=== PATIENT | male | born 1955 | race Caucasian/White ===

== ENCOUNTER → 2016-05-05 | Outpatient (CLI) | payer OTHER ==
--- NOTE | 2016-05-05 19:36 | REP ---
PET/CT: History: Restaging plasmablastic lymphoma, 10 pound weight loss, fatigue. 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 The patient status-post radiation therapy and chemotherapy. Comparisons: Comparison PET/CT as well as chest, abdomen, and pelvis CT from 01/14/2016. TECHNIQUE: 61 minutes following the intravenous injection of a 7.9 mCi dose of F-18 FDG, three-dimensional PET scintigraphy is acquired from the skull base to the proximal thighs. Triplanar noncontrast CT scanning is acquired through the same anatomic range for attenuation correction, and image registration with scan parameters optimized to minimize radiation exposure to the patient. PET scintigraphy and CT datasets were fused and displayed on a workstation with multiplanar and projection display capability. PET/CT Findings: There is a fairly prominent pattern of normal variant skeletal muscle activity on PET scintigraphy today in the shoulder girdle muscles bilaterally, left more so than right. There is also some normal variant skeletal muscle uptake about the hips bilaterally. Head and neck soft tissues are unremarkable. There is no abnormal hypermetabolic uptake in the thorax. In the abdomen and pelvis, there is normal hepatic, splenic, gastrointestinal, and genitourinary FDG accumulation. No abnormal hypermetabolic uptake is seen. No evidence of pulmonary mass lesion or pulmonary parenchymal hypermetabolic uptake. Impression: Negative PET scintigraphy. Signed by Jamal Viera MD 05/05/2016 07:50 P
== END ==
LOC: M RAD 14:58
PROVIDERS: ATTEND Internal Medicine Medical Oncology
DX: C85.10 Unspecified B-cell lymphoma, unspecified site (principal)

== ENCOUNTER → 2016-11-01 | Outpatient (CLI) | payer OTHER ==
[~2016-11-01] MED LIST: GASTROGRAFIN SOLUTION 30ML (Q9963) As Ordered ONE; ISOVUE-370 76% 100ML VIAL (Q9967) As Ordered ONE
--- NOTE | 2016-11-02 03:28 | REP ---
Clinical: Lymphoma for follow-up. Technique: Axial contrast enhanced images from the thoracic inlet to the pubic symphysis using oral and 100 ml Isovue 370 intravenous contrast material coronal and sagittal re-formations. Comparison: 01/14/2016. Findings: Lung pollard demonstrate mild chronic appearing interstitial changes along with few small calcified granulomata suggesting prior granulomatous disease. No significant soft tissue nodule or mass lesion appreciated. Previously identified subpleural density along the left upper lobe has resolved. No pleural effusion. No pneumothorax. Tracheobronchial tree is patent. No mediastinal or hilar adenopathy. Stable left axillary lymph node measuring 11 mm is unchanged. Heterogeneous appearance to the thyroid gland remains stable. Surrounding musculoskeletal structures demonstrate stable degenerative appearing changes without focal osseous abnormality. Impression: Chronic-appearing stable interstitial changes without acute mediastinal or pleuroparenchymal process. Specifically, no adenopathy nodule or mass lesion. No pleural effusion. Signed by Aniceto Cantu MD 11/02/2016 03:20 A
--- NOTE | 2016-11-02 03:35 | REP ---
Clinical: Lymphoma for follow-up. Technique: Axial contrast enhanced images from the thoracic inlet to the pubic symphysis using oral and 100 ml Isovue 370 intravenous contrast material coronal and sagittal re-formations. Precontrast and delayed images of the abdomen obtained as well. Comparison: 01/14/2016. Findings: Lung bases are clear. Visualized heart and pericardium normal. Liver, spleen, pancreas, gallbladder, bilateral adrenal glands and kidneys are normal. The enteric system is without obstruction or acute inflammatory process. Normal terminal ileum and appendix identified in the right lower quadrant. Scattered sigmoid diverticula noted without acute diverticulitis. Pelvis demonstrates normal bladder and age appropriate prostate/seminal vesicles. No ascites. No free air. No intraperitoneal or retroperitoneal adenopathy. No obvious mass lesion. Musculoskeletal structures demonstrate age-related degenerative changes without focal osseous abnormality. Impression: No acute abdominopelvic pathology appreciated. No ascites or adenopathy. No mass lesion. Few scattered sigmoid diverticula without acute diverticulitis. Signed by Aniceto Cantu MD 11/02/2016 03:26 A
== END ==
LOC: M RAD 12:50
PROVIDERS: ATTEND Internal Medicine Medical Oncology
DX: C85.90 Non-Hodgkin lymphoma, unspecified, unspecified site (principal)

== ENCOUNTER → 2017-05-16 | Outpatient (CLI) | payer MEDICARE ==
[~2017-05-16] MED LIST changes: +GASTROGRAFIN SOLUTION 30ML (Q9963) As Ordered; -GASTROGRAFIN SOLUTION 30ML (Q9963) As Ordered ONE; +ISOVUE-370 76% 100ML VIAL (Q9967) As Ordered; -ISOVUE-370 76% 100ML VIAL (Q9967) As Ordered ONE
== END ==
LOC: M RAD 11:39
DX: C85.90 Non-Hodgkin lymphoma, unspecified, unspecified site (principal)
CPT/HCPCS: Q9963

== ENCOUNTER → 2018-04-14 | Outpatient (REF) | payer MEDICARE | LOC: M SFHCPLAZ 11:40 | PROVIDERS: ATTEND Dermatology | DX: L57.0 Actinic keratosis (principal); D23.5 Other benign neoplasm of skin of trunk; L87.2 Elastosis perforans serpiginosa ==

== ENCOUNTER → 2018-05-22 | Outpatient (CLI) | payer MEDICARE ==
[~2018-05-22] MED LIST changes: +AMLO5TAB6 PO; +GABA-843 PO; -GASTROGRAFIN SOLUTION 30ML (Q9963) As Ordered; +GASTROGRAFIN SOLUTION 30ML (Q9963) As Ordered ONE; +GLIP5TAB8 PO; -ISOVUE-370 76% 100ML VIAL (Q9967) As Ordered; +ISOVUE-370 76% 100ML VIAL (Q9967) As Ordered ONE; +LISI-538 PO; +METF10004 PO; +NOVO1INJ4; +SIMV10TA2 PO
--- NOTE | 2018-05-22 11:48 | REP ---
CT of the chest with IV contrast for follow up in a patient with plasma blastic lymphoma: Comparison is 05/16/2017. There are no acute infiltrates or pleural effusions. On the comparison study there was a focal zone of atelectasis/scarring in the anterobasilar left lower lobe. This has significantly decreased and has almost entirely resolved. There are no lung masses or nodules. There is no mediastinal or hilar lymph node enlargement. There is no axillary lymph node enlargement. There are small hypodense nodules in the thyroid left lobe, unchanged, likely cysts. Consider thyroid ultrasound. Thoracic aorta is unremarkable. Cardiac size normal. There is no pericardial effusion. No lytic, blastic or destructive skeletal changes are identified. There is a right IJ central venous catheter with the tip in the right atrium, unchanged. Impression: No adenopathy, mass, nodule or pleural effusion. The focal area of scarring in the left lower lobe identified previously has significantly decreased and almost entirely resolved. Electronically Signed by Ankur Noel MD 05/22/2018 11:39 A
--- NOTE | 2018-05-22 11:54 | REP ---
CT of the abdomen and pelvis with IV and oral contrast for plasma blastic lymphoma: Comparison is 05/16/2017. The hepatic parenchyma is homogeneous. The gallbladder, pancreas and spleen are unremarkable. The adrenals are unremarkable. The kidneys are unremarkable. The abdominal aorta is unremarkable. There is no retroperitoneal or mesenteric lymph node enlargement. There is no ascites. There is no bowel distension or obstruction. No bowel focal or diffuse wall thickening. Pelvis: The appendix is unremarkable. The bladder is unremarkable. There is no pelvic adenopathy or ascites. There are no lytic, blastic or destructive skeletal changes. There is multilevel degenerative disc disease in the lumbar spine, unchanged. There is mild bilateral hip osteoarthritis, unchanged. Impression: No interval change. No adenopathy, mass or ascites. Liver and spleen are unremarkable. No lytic, blastic or destructive skeletal changes. Multilevel degenerative disc disease in the lumbar spine. Electronically Signed by Ankur Noel MD 05/22/2018 11:45 A
== END ==
LOC: M RAD 09:10
PROVIDERS: ATTEND Internal Medicine Medical Oncology
DX: L98.9 Disorder of the skin and subcutaneous tissue, unspecified (principal); Z85.79 Personal history of other malignant neoplasms of lymphoid, hematopoietic and related tissues; E04.2 Nontoxic multinodular goiter
CPT/HCPCS: 71260; 74177; Q9963; Q9967

== ENCOUNTER → 2019-06-06 | Outpatient (CLI) | payer MEDICARE ==
[~2019-06-06] MED LIST changes: +ALLO100T PO; +CVS2500C PO; +HYDR12CA PO; -SIMV10TA2 PO; +SIMV10TA21 PO
--- NOTE | 2019-06-06 17:47 | REP ---
CT of the chest with IV contrast: Comparisons are 05/22/2018 and 05/16/2017. There are no lung masses or nodules. There are no infiltrates or pleural effusions. The focal atelectasis identified in the left lower lobe on 05/16/2017 has resolved. There is no mediastinal, hilar or axillary lymph node enlargement. The thoracic aorta is unremarkable. Cardiac size is normal. There is no pericardial effusion. There are small low density lesions in the thyroid, as previously, likely thyroid nodules. They are unchanged in size. Thyroid ultrasound might be considered for further evaluation. There are no lytic, blastic or destructive skeletal changes. Impression: Essentially negative CT study of the chest. There is no adenopathy. There are no infiltrates or pleural effusions. There are small hypodense nodules in the thyroid, unchanged, likely thyroid cyst. Thyroid ultrasound might be considered. Electronically Signed by Ankur Noel MD 06/06/2019 05:38 P
--- NOTE | 2019-06-06 17:51 | REP ---
T of the abdomen and pelvis with IV and bowel contrast: Comparison is 05/22/2018. The studies performed contiguously with the chest CT this same date. The liver is homogeneous. The gallbladder, pancreas and spleen are normal size and unremarkable. The spleen measures 10.4 cm craniocaudad and 12.8 cm AP. The adrenals are unremarkable. The right and left kidneys are unremarkable. The abdominal aorta is unremarkable. There is no periaortic adenopathy or mass. The bowel loops are unremarkable. The mesentery is unremarkable. There is no mesenteric adenopathy or ascites. Pelvis: The appendix is unremarkable. There is no pelvic adenopathy or ascites. The pelvic bowel loops are unremarkable. There are no lytic, blastic or destructive skeletal changes. There is degenerative disc disease throughout the lumbar spine. Impression: No adenopathy, mass or ascites. No lytic, blastic or destructive skeletal changes. Degenerative disc disease throughout the lumbar spine. Otherwise, negative CT of the abdomen and pelvis. Electronically Signed by Ankur Noel MD 06/06/2019 05:42 P
== END ==
LOC: M RAD 12:28
PROVIDERS: ATTEND Internal Medicine Hematology & Oncology
DX: C85.90 Non-Hodgkin lymphoma, unspecified, unspecified site (principal); E04.1 Nontoxic single thyroid nodule
CPT/HCPCS: 71260; 74178; Q9963; Q9967

== ENCOUNTER 2020-06-30 16:26 | Observation (INO) | payer MEDICARE, OTHER ==
[~2020-06-30] VITALS: Ht 172.7 cm; Wt 106.7 kg
[~2020-06-30 16:26] MED LIST changes: -B-12100021 PO; -ELIQ5TAB PO; -GABA600T4 PO; -GASTROGRAFIN SOLUTION 30ML (Q9963) As Ordered ONE; -ISOVUE-370 76% 100ML VIAL As Ordered ONE
[2020-06-30 18:02] LABS: HEMATOCRIT 42.4 % (42.0-52.0); HEMOGLOBIN 13.6 g/dl (13.5-17.5); MEAN CORPUSCULAR HEMOGLOBIN 28.8 pg (27.0-33.0); MEAN CORPUSCULAR HGB CONC 32.1 g/dl (32.0-36.5); MEAN CORPUSCULAR VOLUME 89.6 fl (80.0-96.0); PLATELET COUNT, AUTOMATED 142 10^3/uL (150-450); RED BLOOD COUNT 4.73 10^6/uL (4.30-6.10); WHITE BLOOD COUNT 7.2 10^3/uL (4.0-10.0)
[2020-06-30 18:18] LABS: INR 0.95; PROTHROMBIN TIME 12.8 SECONDS (12.5-14.3)
[2020-06-30 18:19] LABS: PARTIAL THROMBOPLASTIN TIME 26.2 SECONDS (24.2-38.5)
[2020-06-30 18:22] LABS: ALT/SGPT 29 U/L (12-78); BILIRUBIN,DIRECT 0.1 MG/DL (0.0-0.2); BILIRUBIN,TOTAL 0.3 MG/DL (0.2-1.0); BLOOD UREA NITROGEN 26 MG/DL (7-18); C REACTIVE PROTEIN QUANTITATIV 0.39 MG/DL (0.00-0.30); CALCIUM LEVEL 8.7 MG/DL (8.8-10.2); CARBON DIOXIDE LEVEL 30 MEQ/L (21-32); CHLORIDE LEVEL 98 MEQ/L (98-107); CREATININE FOR GFR 1.47 MG/DL (0.70-1.30); GLOMERULAR FILTRATION RATE 51.5 (>49); GLUCOSE, FASTING 105 MG/DL (70-100); POTASSIUM SERUM 3.8 MEQ/L (3.5-5.1); SODIUM LEVEL 133 MEQ/L (136-145); TOTAL PROTEIN 7.1 GM/DL (6.4-8.2)
[2020-06-30 18:31] LABS: ATYPICAL LYMPH 3 % (0-5); BASOPHILS 2 % (0-1); EOSINOPHILS 4 % (0-3); LYMPHOCYTES 29 % (16-44); MONOCYTES 8 % (0-5); NEUTROPHILS 54 % (28-66); PLATELET ESTIMATE NORMAL (NORMAL)
--- NOTE | 2020-06-30 18:32 | REP ---
INDICATION: SOB COMPARISON: 01/21/2015. TECHNIQUE: PA/Lateral FINDINGS: Lungs: Clear, no infiltrate. Heart: Normal in size. Mediastinum: Mediastinal silhouette unremarkable. Pleural angles: Unremarkable.. Bones and soft tissues: There are degenerative changes of the spine without compression deformity. Right central venous catheter is seen with the tip in the superior vena cava. IMPRESSION: No acute pulmonary infiltrate. <Electronically signed by Ankur Kaur > 06/30/20 0210
[2020-06-30 18:37] LABS: ERYTHROCYTE SEDIMENTATION RATE 27 mm/hr (0-20)
[2020-06-30 18:40] LABS: CPK CREATINE PHOSPHOKINASE 233 U/L (39-308); MB/CK RELATIVE INDEX 4.72 (< OR =4); TROPONIN I < 0.02 NG/ML (< 0.10)
[2020-06-30] MEDS ORDERED: GABA600T4 PO (18:57)
[2020-06-30] MEDS ORDERED: B-12100021 PO (18:57)
[2020-06-30 19:37] LABS: RSV AMPLIFICATION NEGATIVE (NEGATIVE)
--- NOTE | 2020-06-30 19:40 | HPEPDOC ---
General Date of Admission Date of Service: Jun 30, 2020 Attending Physician: JARRETT UGALDE MD Chief Complaint The patient is a 65-year-old male admitted with a reason for visit of + Blood Clot. History of Present Illness HPI: This is a 65 y/o elderly gentleman with a PMHx significant for non insulin dependent DM, Hx of stage 3 Plasma blastic lymphoma s/p 6 cycles of tiuxan- hyperCVAD regimen, intermittent leukopenia since 2016, presents to [facility] ER after he was sent here from the radiology suite after undergoing a CT chest w/ ctx that was ordered by his oncologist. CT chest showed a Pulmonary Embous in the main left pulmonary artery extending into left lower lobe arterial branches. Pt states that he was ddx-ed with Plasma blastic lymphoma in Apr 2014 in [facility] where he resided and thereafter started on chemo and radiation there. He states that he finished chemo/radiation in Jan and was told that he was on remission. He follows with an oncologist in [place] every 6-8months, whom had scheduled him for the CT chest and abd/pelvis with ctx (performed earlier today) in order to monitor his remission status. Patient notes that he has been feeling short of breath for the past 3-4 months but he attributed it to his methotrexate induced lung injury/pneumonitis. Pt states that this shortness of breath is worsened with exertion and he notices that he is extremely out of breath when he goes up a flight of stairs. He states that his shortness of jayshree th is not acute onset and that it's been progressive throughout these past few months. He denies any current shortness of breath, orthopnea or paroxsymal nocturnal dyspnea and has not noticed any lower extremity edema. Denies any pleuritic chest pain, abdominal pain, flutters nor palpitations. Also denies any fever, chills, n/v/d or unintentional wt changes. 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 VITAL SIGNS: Reviewed in EMR - stable. IMAGING: CXR 06/30/20 No acute pulmonary infiltrate CT chest w/ ctx 06/30/20:Pulmonary embolism in the main left pulmonary artery extending into left lower lobe arterial branches CT abd & Pelvis w ctx 06/30/20: No acute abnormalities. No adenopathy or mass identified. No adenopathy PHYSICAL EXAM: GEN: Obese elderly gentleman laying in bed, NAD HEENT: Oral mucosa is pink and moist, no conjunctival pallor, sclera anicteric bilaterally LYMPHATICS: No cervical, supraclavicular, axillary, or inguinal lymphadenopathy appreciated LUNGS: Clear to auscultation bilaterally, no wheezing, rhonci or rales HEART: Regular rhythm, no murmurs, no S3/S4, no rubs. ABDOMEN: Soft, non-tender, bowel sounds normoactive, no hepatosplenomegaly EXTREMITIES: Trace peripheral edema bilaterally. No lower extremity edema tenderness on palpation SKIN/NAILS: No nail changes, No petechiae/ecchymosis, bruising, or cyanosis or clubbing appreciated ASSESSMENT AND PLAN: This is a 65 y/o elderly gentleman with a PMHx significant for non insulin dependent DM, Hx of stage 3 Plasma blastic lymphoma s/p 6 cycles of tiuxan- hyperCVAD regimen, intermittent leukopenia since 2017, presents to [facility] ER after he was sent here from the radiology suite after undergoing a CT chest w/ ctx that was ordered by his oncologist. CT chest showed a Pulmonary embous in the main left pulmonary artery extending into left lower lobe arterial branches. Up on arrival to the ER, pt was hemodynamically stable. In the ER, pt was satting well (98% RA); however, his bp is uncontrolled and had SBP in the 200s. He will be admitted under hospitalist service for PE and will start him on therapeutic lovenox. #Subacute Pulmonary Embolus - Given his shortness of breath for the past 3-4 months and this incidental finding of the PE, it's presumed that this is a subacute PE - Tachycardic, hypertensive satting 98% RA- no indication for thrombolysis at this time - CT chest shows Pulmonary embous in the main left pulmonary artery extending into left lower lobe arterial branches - CT chest reviewed per radiology verbally via phone- no evidence of Right heart strain - PESI SCORE- HIGH RISK APPROX 4-11.4% 30 day mortality - Clinically, pt is NAD, no sob currently and will admit to the floor for obs and start on eliquis - CECIL score of 0- low risk for PE related complications at 30 days - Will start on eliquis 10mg PO BID # Uncontrolled HTN - bp 175/92 - will increase amlodipine to 10mg PO qd - C/w with home lisinopril, HCTZ - Will continue to monitor closely - with co-morbidities, his target BP should be 130/80 - f/u with pcp outpt for optimal bp medication regimen #Thrombocytopenia - No signs of active bleeding or petechia appreciated on exam - f.u with PCP outpt #DM2 - held home metformin and glipizide and humulin - will order levemir 10units qhs and SSI AC&QHS with hypoglycemic protocol - will continue to monitor sugars and titrate insulin as needed #HypoNa+ - serum Na 133 on admission - likely hypovolemic hypoNa+ - Will order for serum osml, urine sodium, urine osml - Will order a lipid panel #CKD stage 3 - Cr at baseline - Will avoid nephrotoxic drugs #HLD - c/w home statin # Hx of stage 3 plasma blastic lymphoma - Follow outpt with oncology next week as scheduled DVT ppx: eliquis GI ppx: none Fluids: none Diet: 2g Na and consistent carb CODE STATUS: Full Disposition: Will admit to the floor obs and start eliquis. Home Medications Scheduled Allopurinol (Allopurinol) 100 Mg Tablet, 100 MG PO DAILY, (Reported) Amlodipine Besylate (Amlodipine Besylate) 5 Mg Tab, 5 MG PO DAILY, (Reported) Cyanocobalamin (Vitamin B-12) (B-12) 1,000 Mcg Tablet, 1,000 MCG PO DAILY, (Reported) Gabapentin (Gabapentin) 600 Mg Tablet, 600 MG PO BID, (Reported) Glipizide (Glipizide) 5 Mg Tab, 5 MG PO BID, (Reported) Hydrochlorothiazide (Hydrochlorothiazide) 12.5 Mg Capsule, 12.5 MG PO DAILY, (Reported) Insulin NPH Hum/Reg Insulin Hm (Novolin 70-30 100 Unit/ml Vial) 1 Inj Inj, 50 UNIT SC BID, (Reported) Lisinopril (Lisinopril) 20 Mg Tab, 20 MG PO DAILY, (Reported) Metformin HCl (Metformin HCl) 1,000 Mg Tab, 1,000 MG PO BID, (Reported) Simvastatin (Simvastatin) 10 Mg Tab, 10 MG PO DAILY, (Reported) Allergies Coded Allergies: No Known Allergies (Unverified , 05/29/18) A-FIB/CHADSVASC A-FIB History Current/History of A-Fib/PAF?: No Current PO Anticoag Therapy: No Vital Signs Vital Signs Date Time Temp Pulse Resp B/P (MAP) Pulse Ox O2 Delivery O2 Flow Rate FiO2 06/30/20 17:29 06/30/20 17:28 85 18 96 Room Air 06/30/20 16:28 98.0 Laboratory Data Labs 24H Laboratory Tests 2 06/30/20 17:40: Immature Granulocyte % (Auto) , Neutrophils (%) (Auto) , Nucleated Red Blood Cells % (auto) 0.0, Neutrophils 54, Lymphocytes (Manual) 29, Monocytes (Manual) 8H, Eosinophils (Manual) 4H, Basophils (Manual) 2H, Atypical Lymphocytes 3, Platelet Estimate NORMAL, Erythrocyte Sedimentation Rate 27H, Prothrombin Time 12.8, Prothromb Time International Ratio 0.95, Activated Partial Thromboplast Time 26.2, Anion Gap 5L, Glomerular Filtration Rate 51.5, Lactic Acid Level 1.4, Calcium Level 8.7L, Total Bilirubin 0.3, Direct Bilirubin 0.1, Aspartate Amino Transf (AST/SGOT) 21, Alanine Aminotransferase (ALT/SGPT) 29, Alkaline Phosphatase 74, Total Creatine Kinase 233, Creatine Kinase MB 11.0H, Creatine Kinase MB Relative Index 4.72H, Troponin I < 0.02, C-Reactive Protein, Quantitative 0.39H, Total Protein 7.1, Albumin 4.0, Albumin/Globulin Ratio 1.3 06/30/20 18:23: Coronavirus (COVID-19)(PCR) NEGATIVE, Influenza Type A (RT-PCR) NEGATIVE, Influenza Type B (RT-PCR) NEGATIVE, Respiratory Syncytial Virus (PCR) NEGATIVE CBC/BMP Laboratory Tests 06/30/20 17:40 Plan / VTE VTE Prophylaxis Ordered?: Yes GME ATTESTATION GME ATTESTATION My faculty preceptor for this patient encounter was physically present during the encounter and was fully available. All aspects of the patient interview, examination, medical decision making process, and medical care plan development were reviewed and approved by the faculty preceptor. The faculty preceptor is aware and concurs with the plan as stated in the body of this note and will attest to such by his/her cosignature. GME ATTESTATION GME ATTESTATION My faculty preceptor for this patient encounter was physically present during the encounter and was fully available. All aspects of the patient interview, examination, medical decision making process, and medical care plan development were reviewed and approved by the faculty preceptor. The faculty preceptor is aware and concurs with the plan as stated in the body of this note and will attest to such by his/her cosignature. ATTENDING NOTE Time of service 905pm is a 65 yr old M w a hx of lymphoma in remission, HTN, DM w neuropathy, possible MTX induced pneumonitis, CKD3, & HFpEF who was sent from the Dept of Radiology for evaluation of newly diagnosed PE which appears to be subacute in nature; we was started on a DOAC. Rest per 's H&P Clark Rodríguez DO Jun 30, 2020 19:40 JARRETT UGALDE MD Jul 01, 2020 03:35
[2020-06-30] MEDS ORDERED: HEPARIN SOD (PORCINE) 5000UNITS/ML 1ML VIAL/SYRINGE IV ONE (19:45)
[2020-06-30 19:54] LABS: VENOUS BASE EXCESS 1.4 (-2.0-2.0); VENOUS HCO3 27.4 MEQ/L (23.0-27.0); VENOUS O2 SATURATION 75.3 % (60.0-80.0); VENOUS PARTIAL PRESSURE CO2 48.7 mmHg (38.0-50.0); VENOUS PARTIAL PRESSURE O2 41.4 mmHg (30.0-50.0); VENOUS PH 7.368 UNITS (7.330-7.430); VENOUS STANDARD HCO3 25.2 MEQ/L; VENOUS TOTAL CO2 28.9 MEQ/L (24.0-28.0)
[2020-06-30] MEDS ORDERED: HEPARIN DRIP 25,000 UNITS in IV 1 EA IV SCH (20:35)
[2020-06-30] MEDS ORDERED: LEVEMIR (INSULIN DETEMIR) 1 UNITS/0.01ML SC SCH (21:00)
[2020-06-30] MEDS ORDERED: HumaLOG INSULIN (NovoLOG) PER UNIT SC SCH (21:00)
[2020-06-30] MEDS ORDERED: GLUCAGON INJ 1MG VIAL SC PRN (21:10)
[2020-06-30] MEDS ORDERED: GLUCOSE 4GM CHEW TABLET PO PRN (21:10)
[2020-06-30] MEDS ORDERED: DEXTROSE 50% 50 ML SYRINGE IV PRN (21:10)
[2020-06-30 22:20] VITALS: BP 168/96
[2020-06-30 22:22] LABS: CREATININE FOR GFR 1.43 MG/DL (0.70-1.30); GLOMERULAR FILTRATION RATE 53.2 (>49)
[2020-06-30 22:26] LABS: CHOLESTEROL RISK RATIO 4.793 (<5)
[2020-06-30] MEDS ORDERED: ENOXAPARIN 120MG/0.8ML SYRINGE (J1650 PER 10MG) SC SCH (23:00)
--- NOTE | 2020-07-01 05:20 | ECGEPIP ---
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
[2020-07-01 06:00] VITALS: BP 131/62
[2020-07-01 06:01] LABS: HEMATOCRIT 45.1 % (42.0-52.0); HEMOGLOBIN 14.2 g/dl (13.5-17.5); MEAN CORPUSCULAR HEMOGLOBIN 28.7 pg (27.0-33.0); MEAN CORPUSCULAR HGB CONC 31.5 g/dl (32.0-36.5); MEAN CORPUSCULAR VOLUME 91.1 fl (80.0-96.0); PLATELET COUNT, AUTOMATED 145 10^3/uL (150-450); RED BLOOD COUNT 4.95 10^6/uL (4.30-6.10); WHITE BLOOD COUNT 5.4 10^3/uL (4.0-10.0)
[2020-07-01 06:37] LABS: CALCIUM LEVEL 8.4 MG/DL (8.8-10.2); CREATININE FOR GFR 1.55 MG/DL (0.70-1.30); GLOMERULAR FILTRATION RATE 48.5 (>49); POTASSIUM SERUM 4.5 MEQ/L (3.5-5.1)
[2020-07-01] MEDS ORDERED: HumaLOG INSULIN (NovoLOG) PER UNIT SC SCH (07:30)
[2020-07-01 08:05] VITALS: BP 131/62
[2020-07-01] MEDS ORDERED: hydroCHLOROthiazide 12.5 MG CAPSULE PO SCH ×2 (09:00)
[2020-07-01] MEDS ORDERED: amLODIPine 5 MG TAB PO SCH ×2 (09:00)
[2020-07-01] MEDS ORDERED: GABAPENTIN 300 MG CAP PO SCH (09:00)
[2020-07-01] MEDS ORDERED: APIXABAN 5 MG TAB (ELIQUIS) PO SCH (09:00)
[2020-07-01] MEDS ORDERED: SIMVASTATIN 10 MG TAB PO SCH (09:00)
[2020-07-01] MEDS ORDERED: allopurinoL 100 MG TAB PO SCH (09:00)
[2020-07-01] MEDS ORDERED: ELIQ5TAB PO ×2 (09:16→09:18)
--- NOTE | 2020-07-01 20:59 | DS.PDOC ---
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 CT chest showed a Pulmonary Embous in the main left pulmonary artery extending into left lower lobe arterial branches. Pt states that he was ddx-ed with Plasma blastic lymphoma in Apr 2014 in [facility] where he resided and thereafter started on chemo and radiation there. He states that he finished chemo/radiation in Jan and was told that he was on remission. He follows with an oncologist in [place] every 6-8months, whom had scheduled him for the CT chest and abd/pelvis with ctx (performed earlier today) in order to monitor his remission status. Patient notes that he has been feeling short of breath for the past 3-4 months but he attributed it to his methotrexate induced lung injury/pneumonitis. Pt states that this shortness of breath is worsened with exertion and he notices that he is extremely out of breath when he goes up a flight of stairs. He states that his shortness of breath is not acute onset and that it's been progressive throughout these past few months. He denies any current shortness of breath, orthopnea or paroxsymal nocturnal dyspnea and has not noticed any lower extremity edema. Denies any pleuritic chest pain, abdominal pain, flutters nor palpitations. Also denies any fever, chills, n/v/d or unintentional wt changes. HOSPITAL COURSE: Patient remained on RA, had no chest pain and was started on eliquis BID. On 07/01/20 patient was discharged home to f/u with PCP, oncologist with new medication eliquis 10 mg Po BID x 10 days. He is to switched to eliquis 5 mg PO BID after 10 days. He had no acute complaints during his hospital stay and none on discharge. 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 VITAL SIGNS: Reviewed in EMR - stable. IMAGING: CXR 06/30/20 No acute pulmonary infiltrate CT chest w/ ctx 06/30/20:Pulmonary embolism in the main left pulmonary artery extending into left lower lobe arterial branches CT abd & Pelvis w ctx 06/30/20: No acute abnormalities. No adenopathy or mass identified. No adenopathy PHYSICAL EXAM: GEN: NAD, resting in bed HEENT: Oral mucosa is pink and moist, no conjunctival pallor, sclera anicteric bilaterally LYMPHATICS: No cervical, supraclavicular, axillary, or inguinal lymphadenopathy appreciated LUNGS: Clear to auscultation bilaterally, no wheezing, rhonci or rales HEART: Regular rhythm, no murmurs, no S3/S4, no rubs. ABDOMEN: Soft, non-tender, bowel sounds normoactive, no hepatosplenomegaly EXTREMITIES: Trace peripheral edema bilaterally. 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 CT chest showed a Pulmonary embous in the main left pulmonary artery extending into left lower lobe arterial branches. Upon arrival to the ER, pt was hemodynamically stable. In the ER, pt was satting well (98% RA); however, his bp is uncontrolled and had SBP in the 200s. He will be admitted under hospitalist service for PE. PLAN: #Subacute Pulmonary Embolus -Denies chest pain, SOB, HR controlled - CT chest shows Pulmonary embous in the main left pulmonary artery extending into left lower lobe arterial branches - CT chest reviewed per radiology verbally via phone- no evidence of Right heart strain - PESI SCORE- HIGH RISK APPROX 4-11.4% 30 day mortality - Clinically, pt is NAD, no sob currently and will admit to the floor for obs and start on eliquis - CECIL score of 0- low risk for PE related complications at 30 days - C/w eliquis 10mg PO BID then to transition to 5 mg Po BID after. F/u with oncology to determine duration of treatment. # HTN - controlled. -C/w home meds #Thrombocytopenia - No signs of active bleeding or petechia appreciated on exam - f.u with PCP outpt #DM2 -C/w home meds #HypoNa+- resolved. -NA currently wnl -F/u with PCP #CKD stage 3 - Cr at baseline #HLD - c/w home statin # Hx of stage 3 plasma blastic lymphoma - Follow outpt with oncology next week as scheduled DVT ppx: eliquis Disposition: Discharge home with f/u with PCP, oncology, new medication eliquis. TIME SPENT ON DISCHARGE: Greater than 35 minutes. Vital Signs/I&Os Vital Signs Date Time Temp Pulse Resp B/P (MAP) Pulse Ox O2 Delivery O2 Flow Rate FiO2 07/01/20 08:05 131/62 07/01/20 06:00 98.6 58 20 97 Room Air I&O- Last 24 Hours up to 6 AM 07/01/20 05:59 Intake Total 370 ml Balance 370 ml Laboratory Data Labs 24H Laboratory Tests 2 06/30/20 21:49: Glomerular Filtration Rate 53.2, Osmolality 286, Triglycerides Level 206H, Total Cholesterol 139, LDL Cholesterol 69, Non-HDL Cholesterol (LDL + VLDL) 110, Total HDL Cholesterol 29L, Cholesterol/HDL Ratio 4.793 06/30/20 22:21: Bedside Glucose (Misc Panel) 102 07/01/20 05:16: Glomerular Filtration Rate 48.5L, Nucleated Red Blood Cells % (auto) 0.0, Anion Gap 5L, Calcium Level 8.4L CBC/BMP Laboratory Tests 06/30/20 21:49 07/01/20 05:16 FSBS Laboratory Tests Test 06/30/20 22:21 Range/Units Bedside Glucose (Misc Panel) 102 80-115 MG/DL Discharge Medications Scheduled Allopurinol (Allopurinol) 100 Mg Tablet, 100 MG PO DAILY, (Reported) Amlodipine Besylate (Amlodipine Besylate) 5 Mg Tab, 5 MG PO DAILY, (Reported) Apixaban (Eliquis) 5 Mg Tablet, 10 MG PO BID Apixaban (Eliquis) 5 Mg Tablet, 5 MG PO BID Start July 10, 2020 after 9 days of eliquis 10 mg PO BID is completed. Cyanocobalamin (Vitamin B-12) (B-12) 1,000 Mcg Tablet, 1,000 MCG PO DAILY, (Reported) Gabapentin (Gabapentin) 600 Mg Tablet, 600 MG PO BID, (Reported) Glipizide (Glipizide) 5 Mg Tab, 5 MG PO BID, (Reported) Hydrochlorothiazide (Hydrochlorothiazide) 12.5 Mg Capsule, 12.5 MG PO DAILY, (Reported) Insulin NPH Hum/Reg Insulin Hm (Novolin 70-30 100 Unit/ml Vial) 1 Inj Inj, 50 UNIT SC BID, (Reported) Lisinopril (Lisinopril) 20 Mg Tab, 20 MG PO DAILY, (Reported) Metformin HCl (Metformin HCl) 1,000 Mg Tab, 1,000 MG PO BID, (Reported) Simvastatin (Simvastatin) 10 Mg Tab, 10 MG PO DAILY, (Reported) Allergies Coded Allergies: No Known Allergies (Unverified , 05/29/18) Lisa Roa MD Jul 01, 2020 20:59
== END 2020-07-01 11:32 | disposition home or self-care (01) ==
LOC: M ED 16:26 → M ED INP 20:07 → ENRESERV 21:17 → M MS5PR 22:15
PROVIDERS: ADMIT Internal Medicine; ATTEND Internal Medicine
DX: I26.99 Other pulmonary embolism without acute cor pulmonale (principal); I12.9 Hypertensive chronic kidney disease with stage 1 through stage 4 chronic kidney disease, or unspecified chronic kidney disease; D69.6 Thrombocytopenia, unspecified; E11.40 Type 2 diabetes mellitus with diabetic neuropathy, unspecified; J70.2 Acute drug-induced interstitial lung disorders; N18.30 Chronic kidney disease, stage 3 unspecified; E78.5 Hyperlipidemia, unspecified; Z85.72 Personal history of non-Hodgkin lymphomas; Z92.21 Personal history of antineoplastic chemotherapy; Z92.3 Personal history of irradiation; R53.82 Chronic fatigue, unspecified; Z79.899 Other long term (current) drug therapy; Z79.84 Long term (current) use of oral hypoglycemic drugs
CPT/HCPCS: 36415; 71046; 71260; 74177; 80048; 80061; 80076; 82550; 82553; 82565; 82803; 83605; 83930; 84484; 85025; 85027; 85610; 85652; 85730; 86140; 87631; 93005; 93041; 99285; G0378; Q9963; Q9967

== ENCOUNTER → 2020-06-30 | Outpatient (CLI) | payer MEDICARE ==
[~2020-06-30] MED LIST changes: +AMLO1TAB24 PO; -AMLO5TAB6 PO; +B-12100021 PO; +DOXY-350 PO; +ELIQ5TAB PO; +GABA-282 PO; -GABA-843 PO; +GABA600T4 PO; -ISOVUE-370 76% 100ML VIAL (Q9967) As Ordered ONE; +ISOVUE-370 76% 100ML VIAL As Ordered ONE; -LISI-538 PO; +LISI20TA33 PO; -NOVO1INJ4; +NOVO1INJ4 SC
--- NOTE | 2020-06-30 16:26 | REP ---
INDICATION: F/U LYMPHOMA. COMPARISON: 06/06/2019. TECHNIQUE: CT chest performed following the intravenous administration of 100 cc of Isovue 370. Sagittal and coronal reconstruction images are performed. FINDINGS: Lungs: Scattered tiny calcified granulomas are present bilaterally. Inspissated material is seen in a mildly dilated bronchiole in the right posterior costophrenic sulcus. There is no acute infiltrate. Note is made of pulmonary embolism in the main left pulmonary artery and extending into branches supplying the left lower lobe. Mediastinum: No adenopathy. Sandra: No adenopathy. Axilla: No adenopathy. Pleura: No effusion. Heart: Not enlarged. Thoracic aorta: No aneurysm or dissection. Visualized osseous structures: There are degenerative changes of the spine without compression deformity. IMPRESSION: Pulmonary embolism in the main left pulmonary artery extending into left lower lobe arterial branches. Referring clinician was made aware and the patient was sent to the emergency department for evaluation. No adenopathy. <Electronically signed by Ankur Kaur > 06/30/20 [id number]
--- NOTE | 2020-06-30 16:32 | REP ---
INDICATION: F/U LYMPHOMA COMPARISON: None. TECHNIQUE: CT Scan of the abdomen and pelvis was performed with intravenous administration of 100 cc of Isovue 370, and oral contrast. FINDINGS: Liver: Normal Gallbladder: Unremarkable. Spleen: Normal. Adrenals: Normal. Pancreas: Normal. Kidneys: Normal. Small and large bowel: There are diverticula of the sigmoid colon.. Free fluid: None. Abdominal aorta: No aneurysm or dissection. Adenopathy: None. Appendix: Not inflamed. Osseous structures: There are degenerative changes of the spine without compression deformity. Pelvis: No mass. IMPRESSION: No acute abnormalities. No adenopathy or mass identified. <Electronically signed by Ankur Kaur > 06/30/20 [id number]
== END ==
LOC: M RAD 14:08
PROVIDERS: ATTEND Internal Medicine Hematology & Oncology
DX: I26.99 Other pulmonary embolism without acute cor pulmonale (principal); Z85.72 Personal history of non-Hodgkin lymphomas
CPT/HCPCS: 71260; 74177; Q9963; Q9967

== ENCOUNTER → 2020-09-22 | Outpatient (REF) | payer MEDICARE ==
[~2020-09-22] MED LIST changes: +B-12100021 PO; +ELIQ5TAB PO; +GABA600T4 PO
[2020-09-22 17:54] LABS: PERCENT SATURATION 21.7 % (19.7-50.0)
== END ==
LOC: M LAB REF 17:02
PROVIDERS: ATTEND Internal Medicine Nephrology
DX: D50.9 Iron deficiency anemia, unspecified (principal)

== ENCOUNTER → 2021-01-22 | Outpatient (REF) | payer MEDICARE | LOC: M LAB REF 17:13 | PROVIDERS: ATTEND Internal Medicine Nephrology | DX: D50.9 Iron deficiency anemia, unspecified (principal) ==

== ENCOUNTER 2021-02-04 19:24 | Inpatient (IN) | payer MEDICARE ==
[~2021-02-04] VITALS: Ht 172.7 cm; Wt 100.0 kg
--- OUTSIDE RECORDS SUMMARY | 2021-02-04 19:34 | CCD ---
Author Author [facility] Organization [facility] [place] Address Unknown Phone Unavailable Care Team Providers [facility] Customer Service Name Role Phone Dino Baron MD Unavailable Unavailable Dino Baron MD Unavailable Unavailable Dino Baron MD Unavailable Unavailable Dino Baron MD Unavailable Unavailable Dino Baron MD Unavailable Unavailable Dino Baron MD Unavailable Unavailable Dino Baron MD Unavailable Unavailable Dino Baron MD Unavailable Unavailable Dino Baron MD Unavailable Unavailable Dino Baron MD Unavailable Unavailable Dino Baron MD Unavailable Unavailable Dino Baron MD Unavailable Unavailable DR REBEL CASTELLANOS Unavailable Unavailable Nelia, A Simran PA Unavailable Nelia, A Simran PA Unavailable Nelia, A Simran PA Unavailable Nelia, A Simran PA Unavailable Nelia, A Simran PA Unavailable Nelia, A Simran PA Unavailable Nelia, A Simran PA Unavailable Nelia, A Simran PA Unavailable Nelia, A Simran PA Unavailable Sacha ALONSO MD Unavailable Unavailable Sacha ALONSO MD Unavailable Unavailable Sacha ALONSO MD Unavailable Unavailable Sacha ALONSO MD Unavailable Unavailable Sacha ALONSO MD Unavailable Unavailable Sacha ALONSO MD Unavailable Unavailable Sacha ALONSO MD Unavailable Unavailable JAGANATHAN, Sacha GUAJARDO MD Unavailable Unavailable JAGANATHAN, Sacha GUAJARDO MD Unavailable Unavailable JAGANATHAN, Sacha GUAJARDO MD Unavailable Unavailable JAGANATHAN, Sacha GUAJARDO MD Unavailable Unavailable JAGANATHAN, Sacha GUAJARDO MD Unavailable Unavailable JAGANATHAN, Sacha GUAJARDO MD Unavailable Unavailable JAGANATHAN, Sacha GUAJARDO MD Unavailable Unavailable JAGANGELO, Sacha GUAJARDO MD Unavailable Unavailable Tushar ARAGON, MD Bernal Unavailable Unavailable Tushar ARAGON, MD Bernal Unavailable Unavailable DR MD PJ CAGLE Unavailable Unavailable [id number], [id number] Unavailable [phone] MEDENT_[id number], [id number] Unavailable [phone] MEDENT_[id number], [id number] Unavailable [phone] MEDENT_[id number], [id number] Unavailable [phone] MEDENT_8646, [id number] Unavailable [phone] MEDENT_[id number], [id number] Unavailable [phone] MEDENT_8646, [id number] Unavailable [phone] MEDENT_8646, [id number] Unavailable [phone] MEDENT_8646, [id number] Unavailable [phone] MEDENT_8646, [id number] Unavailable [phone] MEDENT_8646, [id number] Unavailable [phone] MEDENT_8646, [id number] Unavailable [phone] MEDENT_8646, [id number] Unavailable [phone] MEDENT_8646, [id number] Unavailable [phone] MEDENT_8646, [id number] Unavailable [phone] MEDENT_8646, [id number] Unavailable [phone] MEDENT_8646, [id number] Unavailable GALIMIDI ANGLE DPM, J Angle DPM Unavailable [phone] GALIMIDI ANGLE DPM, J Angle DPM Unavailable [phone] GALIMIDI ANGLE DPM, J Angle DPM Unavailable [phone] GALIMIDI ANGLE DPM, J Angle DPM Unavailable [phone] GALIMIDI ANGLE DPM, J Angle DPM Unavailable [phone] GALIMIDI ANGLE DPM, J Angle DPM Unavailable [phone] GALIMIDI ANGLE DPM, J Angle DPM Unavailable [phone] GALIMIDI ANGLE DPM, J Angle DPM Unavailable GALIMIDI ANGLE DPM, J Angle DPM Unavailable GALIMIDI ANGLE DPM, J Angle DPM Unavailable GALIMIDI ANGLE DPM, J Angle DPM Unavailable Perry Finley MD Unavailable +1() 50 Perry Finley MD Unavailable +1() 50 Perry Finley MD Unavailable +1() 50 Perry Finley MD Unavailable +1() 50 Perry Finley MD Unavailable +1() 50 Perry Finley MD Unavailable +1() 50 Perry Finley MD Unavailable +1() 50 Perry Finley MD Unavailable +1() 50 Perry Finley MD Unavailable +1()58 50 Perry Finley MD Unavailable +1() 50 Perry Finley MD Unavailable +1() 50 Perry Finley MD Unavailable +1() 50 Perry Finley MD Unavailable +1()58 50 Perry Finley MD Unavailable +1() 50 Perry Finley MD Unavailable +1() 50 Perry Finley MD Unavailable [phone] Hadian, Kiko Unavailable Unavailable Hadian, Kiko Unavailable Unavailable Hadian, Kiko Unavailable Unavailable Hadian, Kiko Unavailable Unavailable Hadian, Kiko Unavailable Unavailable Hadian, Kiko Unavailable Unavailable Hadian, Kiko Unavailable Unavailable Hadian, Kiko Unavailable Unavailable Hadian, Kiko Unavailable Unavailable Hadian, Kiko Unavailable Unavailable Hadian, Kiko Unavailable Unavailable Hadian, Kiko Unavailable Unavailable Hadian, Kiko Unavailable Unavailable Hadian, Kiko Unavailable Unavailable Hadian, Kiko Unavailable Unavailable Hadian, Kiko Unavailable Unavailable Hadian, Kiko Unavailable Unavailable Hadian, Kiko Unavailable Unavailable Hadian, Kiko Unavailable Unavailable Hadian, Kiko Unavailable Unavailable Hadian, Kiko Unavailable Unavailable Hadian, Kiko Unavailable Unavailable Hadian, Kiko Unavailable Unavailable Hadian, Kiko Unavailable Unavailable Hadian, Kiko Unavailable Unavailable Hadian, Kiko Unavailable Unavailable Hadian, Kiko Unavailable Unavailable Hadian, Kiko Unavailable Unavailable Hadian, Kiko Unavailable Unavailable Hadian, Kiko Unavailable Unavailable Hadian, Kiko Unavailable Unavailable Hadian, Kiko Unavailable Unavailable Hadian, Kiko Unavailable Unavailable Hadian, Kiko Unavailable Unavailable Hadian, Kiko Unavailable Unavailable Hadian, Kiko Unavailable Unavailable Hadian, Kiko Unavailable Unavailable Hadian, Kiko Unavailable Unavailable Hadian, Kiko Unavailable Unavailable Hadian, Kiko Unavailable Unavailable Hadian, Kiko Unavailable Unavailable Hadian, Kiko Unavailable Unavailable SULEIMAN, VINCE PA Unavailable Unavailable SULEIMAN, VINCE PA Unavailable Unavailable SULEIMAN, VINCE PA Unavailable Unavailable SULEIMAN, VINCE PA Unavailable Unavailable SULEIMAN, VINCE PA Unavailable Unavailable SULEIMAN, VINCE PA Unavailable Unavailable SULEIMAN, VINCE PA Unavailable Unavailable SULEIMAN, VINCE PA Unavailable Unavailable SULEIMAN, VINCE PA Unavailable Unavailable SULEIMAN, VINCE PA Unavailable Unavailable SULEIMAN, VINCE PA Unavailable Unavailable SULEIMAN, VINCE PA Unavailable Unavailable SULEIMAN, VINCE PA Unavailable Unavailable SULEIMAN, VINCE PA Unavailable Unavailable BARRON, K SANDRA PA Unavailable Unavailable BARRON, K SANDRA PA Unavailable Unavailable BARRON, K SANDAR PA Unavailable Unavailable BARRON, K SANDRA PA Unavailable Unavailable BARRON, K SANDRA PA Unavailable Unavailable BARRON, K SANDRA PA Unavailable Unavailable BARRON, K SANDRA PA Unavailable Unavailable BARRON, K SANDRA PA Unavailable Unavailable BARRON, K SANDRA PA Unavailable Unavailable BARRON, K SANDRA PA Unavailable Unavailable BARRON, K SANDRA PA Unavailable Unavailable BARRON, K SANDRA PA Unavailable Unavailable BARRON, K SANDRA PA Unavailable Unavailable BARRON, K SANDRA PA Unavailable Unavailable BARRON, K SANDRA PA Unavailable Unavailable BARRON, K SANDRA PA Unavailable Unavailable BARRON, K SANDRA PA Unavailable Unavailable BARRON, K SANDRA PA Unavailable Unavailable BARRON, K SANDRA PA Unavailable Unavailable BARRON, K SANDRA PA Unavailable Unavailable BARRON, K SANDRA PA Unavailable Unavailable BARRON, K SANDRA PA Unavailable Unavailable BARRON, K SANDRA PA Unavailable Unavailable BARRON, K SANDRA PA Unavailable Unavailable BARRON, K SANDRA PA Unavailable Unavailable BARRON, K SANDRA PA Unavailable Unavailable BARRON, K SANDRA PA Unavailable Unavailable BARRON, K SANDRA PA Unavailable Unavailable BARRON, K SANDRA PA Unavailable Unavailable BARRON, K SANDRA PA Unavailable Unavailable BARRON, K SANDRA PA Unavailable Unavailable BARRON, K SANDRA PA Unavailable Unavailable BARRON, K SANDRA PA Unavailable Unavailable BARRON, K SANDRA PA Unavailable Unavailable BARRON, K SANDRA PA Unavailable Unavailable BARRON, K SANDRA PA Unavailable Unavailable BARRON, K SANDRA PA Unavailable Unavailable BARRON, K SANDRA PA Unavailable Unavailable BARRON, K SANDRA PA Unavailable Unavailable BARRON, K SANDRA PA Unavailable Unavailable BARRON, K SANDRA PA Unavailable Unavailable BARRON, K SANDRA PA Unavailable Unavailable BARORN, K SANDRA PA Unavailable Unavailable BARRON, K SANDRA PA Unavailable Unavailable BARRON, K SANDRA PA Unavailable Unavailable BARRON, K SANDRA PA Unavailable Unavailable BARRON, K SANDRA PA Unavailable Unavailable BARRON, K SANDRA PA Unavailable Unavailable BARRON, K SANDRA PA Unavailable Unavailable BARRON, K SANDRA PA Unavailable Unavailable BARRON K SANDRA PA Unavailable Unavailable BARRON K SANDRA PA Unavailable Unavailable BARRON, K SANDRA PA Unavailable Unavailable BARRON, K SANDRA PA Unavailable Unavailable Castellanos J Shania PA Unavailable [phone] Castellanos, J Shania PA Unavailable [phone] Castellanos, J Shania PA Unavailable [phone] Castellanos, J Shania PA Unavailable [phone] Castellanos, J Shania PA Unavailable [phone] Castellanos, J Shania PA Unavailable [phone] Castellanos, J Shania PA Unavailable [phone] Castellanos, J Shania PA Unavailable [phone] Castellanos, J Shania PA Unavailable [phone] Castellanos, J Shania PA Unavailable [phone] Castellanos, J Shania PA Unavailable [phone] Castellanos, J Shania PA Unavailable [phone] Castellanos, J Shania PA Unavailable [phone] DR MIKHAIL NÚÑEZ Unavailable Unavailable Re-disclosure Warning The records that you are about to access may contain information from federally-assisted alcohol or drug abuse programs. If such information is present, then the following federally mandated warning applies: This information has been disclosed to you from records protected by federal confidentiality rules (42 CFR part 2). The federal rules prohibit you from making any further disclosure of this information unless further disclosure is expressly permitted by the written consent of the person to whom it pertains or as otherwise permitted by 42 CFR part 2. A general authorization for the release of medical or other information is NOT sufficient for this purpose. The Federal rules restrict any use of the information to criminally investigate or prosecute any alcohol or drug abuse patient.The records that you are about to access may contain highly sensitive health information, the redisclosure of which is protected by Article 27-F of the [place] Public Health law. If you continue you may have access to information: Regarding HIV / AIDS; Provided by facilities licensed or operated by the [facility] Office of Mental Health; or Provided by the [facility] Office for People With Developmental Disabilities. If such information is present, then the following [facility] mandated warning applies: This information has been disclosed to you from confidential records which are protected by state law. State law prohibits you from making any further disclosure of this information without the specific written consent of the person to whom it pertains, or as otherwise permitted by law. Any unauthorized further disclosure in violation of state law may result in a fine or long-term sentence or both. A general authorization for the release of medical or other information is NOT sufficient authorization for further disc losure. Allergies and Adverse Reactions Type Description Substance Reaction Status Data Source(s ) Miscellaneous allergy No Known Drug Allergies No Known Drug Allergies [facility] Miscellaneous allergy No Known Environmental Allergies No Kn own Environmental Allergies [facility] Miscellaneous allergy No Known Food Allergies No Known Food Allergies [facility] Drug allergy Drug allergy No Known Allergies [facility] Encounters Encounter Providers Location Date Indications Data Source(s ) Emergency Attender: VINCE SON dmitter: VINCE BEARDEN PAConsultant: DR MARISSA CAGLE [id number] 02/04/2021 04:29:00 PM EDT - 02/04/2021 07:24:00 PM EDT Nosebleed [facility] Nosebleed Patient discharged. Outpatient Attender: CASANDRA Randhawa DAdmitter: CASANDRA ALONSO MDConsultant: DR MARISSA CAGLE 008 02/04/2021 03:36:00 PM EDT - 02/04/2021 03:37:00 PM EDT Lab test [facility] Lab test Outpatient Attender: CASANDRA Randhawa DAdmitter: CASANDRA ALONSO MDReferrer: CASANDRA ALONSO MDConsultant: DR MARISSA CAGLE [id number] 02/04/2021 02:38 :00 PM EDT BLOODY NOSE [facility] BLOODY NOSE Patient admitted. Emergency Attender: VINCE SON dmitter: VINCE BEARDEN PAConsultant: DR MARISSA CAGLE 02/03/2021 09:44:00 PM EDT - 02/03/2021 11:10:00 PM EDT FELL AT HOME NOSE BEGAN TO BLEED [facility] FELL AT HOME NOSE BEGAN TO BLEED Patient discharged. Emergency Attender: VINCE SON dmitter: VINCE BEARDEN PAConsultant: DR MARISSA CAGLE 02/03/2021 05:48:00 PM EDT - 02/03/2021 08:00:00 PM EDT NOSE BLEED [facility] NOSE BLEED Patient discharged. Outpatient Attender: DR MENDOZA TRANAdmitter: DR MENDOZA TRANConsultant: DR MARISSA CAGLE 01/29/2021 02:46:00 PM EDT - 01/29/2021 02:46:00 PM EDT WEAK NESS [facility] WEAKNESS Outpatient Attender: DR MARISSA CAGLEAdmitter: DR MARISSA CAGLEConsultant: DR MARISSA CAGLE 008 01/29/2021 10:42:00 AM EDT - 01/29/2021 10:42:00 AM EDT Lab test [facility] Lab test Outpatient Attender: DR MARISSA Carlson er: DR MENDOZA TRANReferrer: DR MARISSA CAGLEConsultant: DR MARISSA CAGLE 01/29/2021 10:30:00 AM ED T - 01/29/2021 11:40:00 AM EDT Health check up [facility] Health check up Patient discharged. Outpatient Attender: CASANDRA Randhawa DAdmitter: CASANDRA ALONSO MDConsultant: DR MARISSA CAGLE 008 01/07/2021 12:33:00 PM EDT - 01/07/2021 12:34:00 PM EDT Radiological examination [facility] Radiological examination Outpatient Attender: CASANDRA Randhawa DAdmitter: CASANDRA ALONSO MDReferrer: CASANDRA ALONSO MDConsultant: DR MARISSA CAGLE 01/07/2021 11:12:00 AM EDT - 01/07/2021 12:10:00 PM EDT PAIN WHEN COUGHING [facility] PAIN WHEN COUGHING Patient discharged. Outpatient Attender: [id number] ED-CAR 01/03/2021 08:54:00 AM EDT - 01/03/2021 08:55:00 AM EDT R06.02 [facility] R06.02 Patient discharged. Outpatient Attender: [id number] [id number] ED-RESP 12/24/2020 08:20:00 AM EDT - 12/24/2020 08:21:00 AM EDT R06.02 [facility] R06.02 Patient discharged. Outpatient Attender: Angle HULL DPM DPM ED-IMAG 12/18/2020 09:21:00 AM EDT - 12/18/2020 09:22:00 AM EDT ABSENT PEDAL PULSES [facility] l ABSENT PEDAL PULSES Patient discharged. Outpatient Attender: DR MARISSA Carlson er: DR MENDOZA TRANReferrer: DR MARISSA Cidsultant: DR MARISSA CAGLE 12/17/2020 02:25:00 PM ED T - 12/17/2020 03:20:00 PM EDT C-F FOLLOW UP FROM ER [facility] C-F FOLLOW UP FROM ER Patient discharged. Emergency Att[facility]: DR SIMRAN MU[facility]OZ [facility] DR SIMRAN NÚÑEZConsultant: DR MARISSA CAGLE [id number] 12/12/2020 02:32:00 AM EDT - 12/12/2020 12:05:00 PM EDT SOB, CHEST PAIN, COUGH [facility] SOB, CHEST PAIN, COUGH Patient discharged. Outpatient Attender: DR MARISSA Siuitter: DR MARISSA Cidsultant: DR MARISSA CGALE 12/11/2020 10:16:00 AM EDT - 01/08/2021 01:14:00 PM EDT Phys ical therapy [facility] Physical therapy Admission cancelled. Disregard status an d admitted date. Outpatient Attender: DR MARISSA CAGLEAdmitter: DR MARISSA CAGLEConsultant: DR MARISSA CAGLE 008 11/24/2020 10:01:11 AM EDT - 11/24/2020 01:31:00 PM EDT [facility] Patient discharged. Outpatient Attender: DR MARISSA Carlson er: DR MENDOZA TRANReferrer: DR MENDOZA TRANConsultant: DR MARISSA CAGLE 11/24/2020 08:30:00 AM ED T - 11/24/2020 09:30:00 AM EDT [place] [facility] Patient discharged. Outpatient Attender: DR MENDOZA TRANAdmitter: DR MARISSA CAGLEConsultant: DR MARISSA CAGLE 11/13/2020 01:06:00 PM EDT - 12/09/2020 10:30:00 AM EDT Phys ical therapy [facility] Physical therapy Patient discharged. Outpatient Attender: DR MARISSA Carlson er: DR MENDOZA TRANReferrer: DR MENDOZA TRANConsultant: DR MARISSA CAGLE 11/05/2020 11:27:00 AM ED T - 11/05/2020 12:10:00 PM EDT ER FOLLOW UP [facility] ER FOLLOW UP Patient discharged. Emergency Attender: DR SIMRAN Knightmitter: DR SIMRAN NÚÑEZConsultant: DR MARISSA CAGLE [id number] 11/02/2020 08:25:00 AM EDT - 11/02/2020 11:20:00 AM EDT NECK AND HEAD PAIN [facility] NECK AND HEAD PAIN Patient discharged. Outpatient Attender: DR MARISSA Carlson er: DR MENDOZA TRANReferrer: DR MARISSA Cidsultant: DR MARISSA CAGLE 10/27/2020 08:27:00 AM ED T - 10/27/2020 09:30:[address] [facility] Patient discharged. Outpatient Attender: DR MARISSA Carlson er: DR MENDOZA TRANReferrer: DR MENDOZA TRANConsultant: DR MARISSA CAGLE 10/24/2020 02:58:00 PM ED T - 10/24/2020 04:00:00 PM EDT HEALTH CHECK UP [facility] HEALTH CHECK UP Patient discharged. Outpatient Attender: Angle HULL DPM DPM CPSCAORT- CPSGNPOD 09/23/2020 09:04:00 AM EDT - 09/23/2020 09:05:00 AM EDT [facility] Patient discharged. Emergency Attender: VINCE SON dmitter: VINCE BEARDEN PAConsultant: DR MARISSA CAGLE 09/06/2020 09:42:00 AM EDT - 09/06/2020 10:26:00 AM EDT TOOTHACHE [facility] TOOTHACHE Patient discharged. Outpatient Attender: Rudy Baron MD CPSCAORT-[id number] 2020 08:19:00 AM EDT - 09/04/2020 08:20:00 AM EDT [facility] Patient discharged. Emergency Attender: DR SIMRAN Knightmitter: DR SIMRAN NÚÑEZConsultant: DR MARISSA CAGLE [id number] 08/13/2020 08:23:00 AM EDT - 08/13/2020 11:35:00 AM EDT PAIN IN NECK [facility] PAIN IN NECK Patient discharged. Outpatient Attender: Shania LUQUE CPSCAORT-CPSCAEND 08/04/2020 09:13:00 AM EDT - 08/04/2020 09:14:00 AM EDT [facility] Patient discharged. Outpatient Attender: CASANDRA Randhawa DAdmitter: CASANDRA ALONSO MDReferrer: CASANDRA ALONSO MDConsultant: DR MARISSA CAGLE 07/22/2020 01:43:00 PM EDT - 07/22/2020 03:00:00 PM EDT [facility] Patient discharged. Outpatient Attender: Angle HULL DPM DPM CPSCAORT- CPSGNPOD 07/22/2020 09:23:00 AM EDT - 07/22/2020 09:24:00 AM EDT [facility] Patient discharged. Outpatient Attender: DR MARISSA Carlson er: DR MARISSA CAGLEReferrer: DR MARISSA CAGLEConsultant: DR MARISSA CAGLE 07/21/2020 02:00:00 PM ED T - 07/21/2020 03:00:00 PM EDT F/U FROM CF ER [facility] F/U FROM ER Patient discharged. Outpatient ED-IMAG 07/18/2020 08:07:00 AM EDT - 07/18/2020 08:08:00 AM EDT CHECKING FOR PE [facility] CHECKING FOR PE Patient discharged. Outpatient Attender: DR SHANIA FINE NAdmitter: DR SHANIA CASTELLANOSConsultant: DR MARISSA CAGLE 008 06/19/2020 10:20:00 AM EST - 06/19/2020 10:20:00 AM EST Radiological examination [facility] Radiological examination Outpatient Attender: CASANDRA Randhawa DAdmitter: CASANDRA ALONSO MDReferrer: CASANDRA ALONSO MDConsultant: DR MARISSA CAGLE 05/16/2020 10:07:00 AM EST - 05/16/2020 11:00:00 AM EST Health check up [facility] Health check up Patient discharged. Outpatient Attender: Rudy Baron MD CPSCAORT-SDCLOC 04/25/19 11:48:00 AM EST - 04/25/2020 02:34:00 PM EST CRC SCREEN [facility] CRC SCREEN Patient discharged. Outpatient Attender: Kiko Junior ED-LABPNP 10:49:00 AM EST - 04/21/2020 10:50:00 AM EST Z01.812 [facility] Z01.812 Patient discharged. Outpatient Attender: CASANDRA Weathersmitter: CASANDRA ALONSO MDReferrer: CASANDRA ALONSO MDConsultant: DR MARISSA CAGLE 03/10/2020 11:10:00 AM EST - 03/10/2020 12:10:00 PM EST Diabetes [facility] Diabetes Patient discharged. Outpatient Attender: DR MARISSA CAGLEAdmitter: DR MENDOZA TRANConsultant: DR MARISSA CAGLE 008 03/08/2020 09:01:00 AM EST - 03/08/2020 09:01:00 AM EST Lab test [facility] Lab test Emergency Attender: SANDRA Kwong mitter: SANDRA BARRON PAReferrer: SANDRA BARRON PAConsultant: DR MARISSA CAGLE 03/01/2020 06:49:17 AM EST - 03/01/2020 08:43:00 AM EST DENTAL PAIN [facility] DENTAL PAIN Patient discharged. Outpatient Attender: CASANDRA Weathersmitter: CASANDRA ALONSO MDReferrer: CASANDRA ALONSO MDConsultant: DR MARISSA CAGLE 02/25/2020 11:17:00 AM EST - 02/25/2020 12:00:00 PM EST Pain in ear [facility] Pain in ear Patient discharged. Outpatient Attender: Simran LUQUE CPSCAORT-[id number] 02/09 12:42:00 PM EST - 02/22/2020 12:43:00 PM EST [facility] Patient discharged. Outpatient Attender: Gabe Finley MD CPSCAORT-CPSCAORT 01:18:00 PM EST - 02/21/2020 01:19:00 PM EST [facility] Patient discharged. Outpatient Attender: Gabe Finley MDA dmitter: Gabe Finley MDConsultant: DR MARISSA CAGLE 12/11/2019 01:10:00 PM EDT - 12/27/2019 04:35:00 PM EDT Physical therapy [facility] Physical therapy Patient discharged. Outpatient Attender: Gabe Finley MD CPSCAORT-CPSCAORT 10:09:00 AM EDT - 12/10/2019 10:10:00 AM EDT [facility] Patient discharged. Outpatient Attender: DR MARISSA Carlson er: DR MARISSA CAGLEReferrer: DR MARISSA CAGLEConsultant: DR MARISSA CAGLE 12/05/2019 10:08:00 AM ED T - 12/05/2019 11:00:00 AM EDT Health check up [facility] Health check up Patient discharged. Outpatient Attender: Gabe Finley MDA ttender: DR MARISSA CAGLEAdmitter: Gabe Finley MDConsultant: DR MARISSA CAGLE 11/12/2019 08:56:00 AM EDT - 12/10/2019 01:08:00 PM EDT Physical therapy [facility] Physical therapy Patient discharged. Outpatient Attender: Gabe Finley MD CPSCAORT-CPSCAORT 09:57:00 AM EDT - 10/01/2019 09:58:[address] [facility] Patient discharged. Immunizations Vaccine Date Status Description Data Source(s) COVID-19 VACCINE Moderna 07/04/2020 12:00:00 AM EDT completed [employer] Vaccine Series Complete: YESThis Data wa s Submitted to [facility] [employer]. New in 2011. IIV4 05/16/2020 12:00:00 AM EST completed <t d>influenza, injectable, quadrivalent, preservative free</td><td>influenza, injectable, quadrivalent, preservative free</td><td>05/16/2020</td><td>Completed</td><td></td><td>150</td><td>CVX</td> [facility] in 2011. IIV4 05/16/2020 12:00:00 AM EST completed <t d>influenza, injectable, quadrivalent, preservative free</td><td>influenza, injectable, quadrivalent, preservative free</td><td>05/16/2020</td><td>Completed</td><td></td><td>150</td><td>CVX</td> [facility] in 2011. IIV4 05/16/2020 12:00:00 AM EST completed <t d>influenza, injectable, quadrivalent, preservative free</td><td>influenza, injectable, quadrivalent, preservative free</td><td>05/16/2020</td><td>Completed</td><td></td><td>150</td><td>CVX</td> [facility] in 2011. IIV4 05/16/2020 12:00:00 AM EST completed <t d>influenza, injectable, quadrivalent, preservative free</td><td>influenza, injectable, quadrivalent, preservative free</td><td>05/16/2020</td><td>Completed</td><td></td><td>150</td><td>CVX</td> [facility] in 2011. IIV4 05/16/2020 12:00:00 AM EST completed <t d>influenza, injectable, quadrivalent, preservative free</td><td>influenza, injectable, quadrivalent, preservative free</td><td>05/16/2020</td><td>Completed</td><td></td><td>150</td><td>CVX</td> [facility] in 2011. IIV4 05/16/2020 12:00:00 AM EST completed <t d>influenza, injectable, quadrivalent, preservative free</td><td>influenza, injectable, quadrivalent, preservative free</td><td>05/16/2020</td><td>Completed</td><td></td><td>150</td><td>CVX</td> [facility] in 2011. IIV4 05/16/2020 12:00:00 AM EST completed <t d>influenza, injectable, quadrivalent, preservative free</td><td>influenza, injectable, quadrivalent, preservative free</td><td>05/16/2020</td><td>Completed</td><td></td><td>150</td><td>CVX</td> [facility] [facility] IIV4 05/16/2020 12:00:00 AM EST completed <t d>influenza, injectable, quadrivalent, preservative free</td><td>influenza, injectable, quadrivalent, preservative free</td><td>05/16/2020</td><td>Completed</td><td></td><td>150</td><td>CVX</td> [facility] in 2011. IIV4 05/16/2020 12:00:00 AM EST completed <t d>influenza, injectable, quadrivalent, preservative free</td><td>influenza, injectable, quadrivalent, preservative free</td><td>05/16/2020</td><td>Completed</td><td></td><td>150</td><td>CVX</td> [facility] in 2011. IIV4 05/16/2020 12:00:00 AM EST completed <t d>influenza, injectable, quadrivalent, preservative free</td><td>influenza, injectable, quadrivalent, preservative free</td><td>05/16/2020</td><td>Completed</td><td></td><td>150</td><td>CVX</td> [facility] in 2011. IIV4 05/16/2020 12:00:00 AM EST completed <t d>influenza, injectable, quadrivalent, preservative free</td><td>influenza, injectable, quadrivalent, preservative free</td><td>05/16/2020</td><td>Completed</td><td></td><td>150</td><td>CVX</td> [facility] Medications Medication Brand Name Start Date Product Form Dose Route Admi nistrative Instructions Pharmacy Instructions Status Indications Reaction Description Data Source(s) Cyclobenzaprine hydrochloride 5 MG Oral Tablet Cyclobenzaprine HCl 5MG Oral Tablet Cyclobenzaprine HCl 5MG Oral Tablet 01/29/2021 12:00:00 AM EDT 1 TABLET BY MOUTH active <td>Cyclob enzaprine HCl 5MG Oral Tablet</td><td>01/29/2021</td><td>Unknown</td><td>BY MOUTH</td><td>DAILY</td><td>1 TABLET</td><td>923505</td><td>RxNorm</td><td>TAKE 1 TABLET BY MOUTH DAILY FOR Pain</td> [facility] Cyclobenzaprine hydrochloride 5 MG Oral Tablet Cyclobenzaprine HCl 5MG Oral Tablet Cyclobenzaprine HCl 5MG Oral Tablet 01/29/2021 12:00:00 AM EDT 1 TABLET BY MOUTH active <td>Cyclob enzaprine HCl 5MG Oral Tablet</td><td>01/29/2021</td><td>Unknown</td><td>BY MOUTH</td><td>DAILY</td><td>1 TABLET</td><td>874037</td><td>RxNorm</td><td>TAKE 1 TABLET BY MOUTH DAILY FOR Pain</td> [facility] Amlodipine 5 MG Oral Tablet amLODIPine Besylate 5MG Or al Tablet amLODIPine Besylate 5MG Oral Tablet 01/27/2021 12:00:00 AM EDT 5 MILLIGRAMS ORAL active <td>amLODIPine Besyl ate 5MG Oral Tablet</td><td>01/27/2021</td><td>Unknown</td><td>ORAL</td><td>DAILY</td><td>5 MILLIGRAMS</td><td>578975</td><td>RxNorm</td><td>TAKE 1 TABLET BY MOUTH ONCE A DAY</td> [facility] Amlodipine 5 MG Oral Tablet amLODIPine Besylate 5MG Or al Tablet amLODIPine Besylate 5MG Oral Tablet 01/27/2021 12:00:00 AM EDT 5 MILLIGRAMS ORAL active <td>amLODIPine Besyl ate 5MG Oral Tablet</td><td>01/27/2021</td><td>Unknown</td><td>ORAL</td><td>DAILY</td><td>5 MILLIGRAMS</td><td>776702</td><td>RxNorm</td><td>TAKE 1 TABLET BY MOUTH ONCE A DAY</td> [facility] pantoprazole 40 MG Delayed Release Oral Tablet Pantoprazole Sodium 40 MG Oral Tablet, Delayed Release Pantoprazole Sodium 40 MG Oral Tablet, Delayed Release 01/07/2021 12:00:00 AM EDT 1 TABLET BY MOUTH active <td>Pantoprazole Sodium 40 MG Oral Tablet, Delayed Release</td><td>01/07/2021</td><td>Unknown</td><td>BY MOUTH</td><td>DAILY</td><td>1 TABLET</td><td>501958</td><td>RxNorm</td><td>TAKE 1 TABLET BY MOUTH DAILY</td> [facility] pantoprazole 40 MG Delayed Release Oral Tablet Pantoprazole Sodium 40 MG Oral Tablet, Delayed Release Pantoprazole Sodium 40 MG Oral Tablet, Delayed Release 01/07/2021 12:00:00 AM EDT 1 TABLET BY MOUTH active <td>Pantoprazole Sodium 40 MG Oral Tablet, Delayed Release</td><td>01/07/2021</td><td>Unknown</td><td>BY MOUTH</td><td>DAILY</td><td>1 TABLET</td><td>423990</td><td>RxNorm</td><td>TAKE 1 TABLET BY MOUTH DAILY</td> [facility] Albuterol Sulfate HFA 0.09MG/1Actuation Inhalation Suspensio n 01/05/2021 12:00:00 AM EDT 2 mL INHALATION active <td>Albuterol Sulfate HFA 0.09MG/1Actuation Inhalation Suspension</td><td>01/05/2021</td><td>Unknown</td><td>INHALATION</td><td> NEEDED EVERY 4 HR</td><td>2 PUFF</td><td>5077476</td><td>RxNorm</td><td>PUFF 2 PUFF INHALATION NEEDED EVERY 4 HR FOR Shortness of breath</td> [facility] Albuterol Sulfate HFA 0.09MG/1Actuation Inhalation Suspensio n 01/05/2021 12:00:00 AM EDT 2 mL INHALATION active <td>Albuterol Sulfate HFA 0.09MG/1Actuation Inhalation Suspension</td><td>01/05/2021</td><td>Unknown</td><td>INHALATION</td><td> NEEDED EVERY 4 HR</td><td>2 PUFF</td><td>6409512</td><td>RxNorm</td><td>PUFF 2 PUFF INHALATION NEEDED EVERY 4 HR FOR Shortness of breath</td> [facility] Albuterol Sulfate HFA 0.09MG/1Actuation Inhalation Suspensio n 01/05/2021 12:00:00 AM EDT 2 mL INHALATION active <td>Albuterol Sulfate HFA 0.09MG/1Actuation Inhalation Suspension</td><td>01/05/2021</td><td>Unknown</td><td>INHALATION</td><td> NEEDED EVERY 4 HR</td><td>2 PUFF</td><td>5503053</td><td>RxNorm</td><td>PUFF 2 PUFF INHALATION NEEDED EVERY 4 HR FOR Shortness of breath</td> [facility] apixaban 5 MG Oral Tablet [Eliquis] Eliquis 5MG Oral T ablet Eliquis 5MG Oral Tablet 12/17/2020 12:00:00 AM EDT 1 TABLET BY MOUTH active <td>Eliquis 5MG Oral Tablet</td><td>12/17/2020</td><td>Unknown</td><td>BY MOUTH</td><td>TWICE A DAY</td><td>1 TABLET</td><td>2953952</td><td>RxNorm</td><td>TAKE 1 TABLET BY MOUTH TWICE A DAY </td> [facility] apixaban 5 MG Oral Tablet [Eliquis] Eliquis 5MG Oral T ablet Eliquis 5MG Oral Tablet 12/17/2020 12:00:00 AM EDT 1 TABLET BY MOUTH active <td>Eliquis 5MG Oral Tablet</td><td>12/17/2020</td><td>Unknown</td><td>BY MOUTH</td><td>TWICE A DAY</td><td>1 TABLET</td><td>2082978</td><td>RxNorm</td><td>TAKE 1 TABLET BY MOUTH TWICE A DAY </td> [facility] apixaban 5 MG Oral Tablet [Eliquis] Eliquis 5MG Oral T ablet Eliquis 5MG Oral Tablet 12/17/2020 12:00:00 AM EDT 1 TABLET BY MOUTH active <td>Eliquis 5MG Oral Tablet</td><td>12/17/2020</td><td>Unknown</td><td>BY MOUTH</td><td>TWICE A DAY</td><td>1 TABLET</td><td>1738970</td><td>RxNorm</td><td>TAKE 1 TABLET BY MOUTH TWICE A DAY </td> [facility] Calcium Chloride 0.0014 MEQ/ML / Potassi um Chloride 0.004 MEQ/ML / Sodium Chloride 0.103 MEQ/ML / Sodium Lactate 0.028 MEQ/ML Injectable Solution LACTATED RINGERS 1000 ML BAGF LACTATED RINGERS 1000 ML BAGF 12/12/2020 10:00:00 AM EDT 0 ml/hr INTRAVENOUS active <td> LACTATED RINGERS 1000 ML BAGF</td><td>12/12/2020</td><td>12/12/2020</td><td>INTRAVENOUS</td><td>X1</t INTRAVENOUS X1</td> [facility] HEPARIN 500UNITS/5 ML SYRF 12/12/2020 08:00:00 AM EDT 500 U FLUSH active <td>HEPARIN 500UNITS /5 ML SYRF</td><td>12/12/2020</td><td>12/12/2020</td><td>FLUSH</td><td>X1</td><td> UNITS</td><td>5295909</td><td>RxNorm</td><td>500 UNITS FLUSH ONE TIME DOSE</td> [facility] Ergocalciferol 35260 UNT Oral Capsule Vitamin D 62840O U Oral Capsule Vitamin D 38968BP Oral Capsule 11/30/2020 12:00:00 AM EDT 1 CAPSULE BY MOUTH active <td>Vitamin D 07206YG Oral Capsule</td><td>11/30/2020</td><td>Unknown</td><td>BY MOUTH</td><td>Once a Week</td><td>1 CAPSULE</td><td>3803594</td><td>RxNorm</td><td>TAKE 1 CAPSULE BY MOUTH Once a Week</td> [facility] Ergocalciferol 49171 UNT Oral Capsule Vitamin D 31657X U Oral Capsule Vitamin D 79912HR Oral Capsule 11/30/2020 12:00:00 AM EDT 1 CAPSULE BY MOUTH active <td>Vitamin D 26231AD Oral Capsule</td><td>11/30/2020</td><td>Unknown</td><td>BY MOUTH</td><td>Once a Week</td><td>1 CAPSULE</td><td>6481013</td><td>RxNorm</td><td>TAKE 1 CAPSULE BY MOUTH Once a Week</td> [facility] Ergocalciferol 75718 UNT Oral Capsule Vitamin D 25477E U Oral Capsule Vitamin D 63737VN Oral Capsule 11/30/2020 12:00:00 AM EDT 1 CAPSULE BY MOUTH active <td>Vitamin D 98424FZ Oral Capsule</td><td>11/30/2020</td><td>Unknown</td><td>BY MOUTH</td><td>Once a Week</td><td>1 CAPSULE</td><td>2442969</td><td>RxNorm</td><td>TAKE 1 CAPSULE BY MOUTH Once a Week</td> [facility] Ergocalciferol 42342 UNT Oral Capsule Vitamin D 44369X U Oral Capsule Vitamin D 82834PV Oral Capsule 11/30/2020 12:00:00 AM EDT 1 CAPSULE BY MOUTH active <td>Vitamin D 90234OP Oral Capsule</td><td>11/30/2020</td><td>Unknown</td><td>BY MOUTH</td><td>Once a Week</td><td>1 CAPSULE</td><td>6092834</td><td>RxNorm</td><td>TAKE 1 CAPSULE BY MOUTH Once a Week</td> [facility] Ergocalciferol 50602 UNT Oral Capsule Vitamin D 93465P U Oral Capsule Vitamin D 23350ZH Oral Capsule 11/30/2020 12:00:00 AM EDT 1 CAPSULE BY MOUTH active <td>Vitamin D 50082ZK Oral Capsule</td><td>11/30/2020</td><td>Unknown</td><td>BY MOUTH</td><td>Once a Week</td><td>1 CAPSULE</td><td>6605154</td><td>RxNorm</td><td>TAKE 1 CAPSULE BY MOUTH Once a Week</td> [facility] Simvastatin 10 MG Oral Tablet Simvastatin 10MG Oral Ta blet Simvastatin 10MG Oral Tablet 11/11/2020 12:00:00 AM EDT 1 TABLET ORAL active <td>Simvastatin 10MG Oral Tablet</td><td>11/11/2020</td><td>Unknown</td><td>ORAL</td><td>DAILY</td><td>1 TABLET</td><td>480230</td><td>RxNorm</td><td>TAKE 1 TABLET BY MOUTH ONCE A DAY</td> [facility] Simvastatin 10 MG Oral Tablet Simvastatin 10MG Oral Ta blet Simvastatin 10MG Oral Tablet 11/11/2020 12:00:00 AM EDT 1 TABLET ORAL active <td>Simvastatin 10MG Oral Tablet</td><td>11/11/2020</td><td>Unknown</td><td>ORAL</td><td>DAILY</td><td>1 TABLET</td><td>815810</td><td>RxNorm</td><td>TAKE 1 TABLET BY MOUTH ONCE A DAY</td> [facility] Simvastatin 10 MG Oral Tablet Simvastatin 10MG Oral Ta blet Simvastatin 10MG Oral Tablet 11/11/2020 12:00:00 AM EDT 1 TABLET ORAL active <td>Simvastatin 10MG Oral Tablet</td><td>11/11/2020</td><td>Unknown</td><td>ORAL</td><td>DAILY</td><td>1 TABLET</td><td>375354</td><td>RxNorm</td><td>TAKE 1 TABLET BY MOUTH ONCE A DAY</td> [facility] Simvastatin 10 MG Oral Tablet Simvastatin 10MG Oral Ta blet Simvastatin 10MG Oral Tablet 11/11/2020 12:00:00 AM EDT 1 TABLET ORAL active <td>Simvastatin 10MG Oral Tablet</td><td>11/11/2020</td><td>Unknown</td><td>ORAL</td><td>DAILY</td><td>1 TABLET</td><td>352171</td><td>RxNorm</td><td>TAKE 1 TABLET BY MOUTH ONCE A DAY</td> [facility] Simvastatin 10 MG Oral Tablet Simvastatin 10MG Oral Ta blet Simvastatin 10MG Oral Tablet 11/11/2020 12:00:00 AM EDT 1 TABLET ORAL active <td>Simvastatin 10MG Oral Tablet</td><td>11/11/2020</td><td>Unknown</td><td>ORAL</td><td>DAILY</td><td>1 TABLET</td><td>176494</td><td>RxNorm</td><td>TAKE 1 TABLET BY MOUTH ONCE A DAY</td> [facility] insulin human, isophane 70 UNT/ML / Regu lar Insulin, Human 30 UNT/ML Injectable Suspension [Novolin] NovoLIN 70/30 70U-30U/1ML Subcutaneous Suspension NovoLIN 70/30 70U-30U/1ML Subcutaneous Suspension 10/15/2020 12:00:00 AM EDT 50 U SUBCUTANEOUS active <td>NovoLIN 70/30 70U-30U/1ML Subcutaneous Suspension</td><td>10/15/2020</td><td>Unknown</td><td>SUBCUTANEOUS</td><td>TWICE A DAY</td><td>50 UNIT</td><td>802487</td><td>RxNorm</td><td>INJECT 50 UNITS SUBCUTANEOUSLY TWICE DAILY</td> [facility] insulin human, isophane 70 UNT/ML / Regu lar Insulin, Human 30 UNT/ML Injectable Suspension [Novolin] NovoLIN 70/30 70U-30U/1ML Subcutaneous Suspension NovoLIN 70/30 70U-30U/1ML Subcutaneous Suspension 10/15/2020 12:00:00 AM EDT 50 U SUBCUTANEOUS active <td>NovoLIN 70/30 70U-30U/1ML Subcutaneous Suspension</td><td>10/15/2020</td><td>Unknown</td><td>SUBCUTANEOUS</td><td>TWICE A DAY</td><td>50 UNIT</td><td>21330711</td><td>RxNorm</td><td>INJECT 50 UNITS SUBCUTANEOUSLY TWICE DAILY</td> [facility] insulin human, isophane 70 UNT/ML / Regu lar Insulin, Human 30 UNT/ML Injectable Suspension [Novolin] NovoLIN 70/30 70U-30U/1ML Subcutaneous Suspension NovoLIN 70/30 70U-30U/1ML Subcutaneous Suspension 10/15/2020 12:00:00 AM EDT 50 U SUBCUTANEOUS active <td>NovoLIN 70/30 70U-30U/1ML Subcutaneous Suspension</td><td>10/15/2020</td><td>Unknown</td><td>SUBCUTANEOUS</td><td>TWICE A DAY</td><td>50 UNIT</td><td>21330711</td><td>RxNorm</td><td>INJECT 50 UNITS SUBCUTANEOUSLY TWICE DAILY</td> [facility] insulin human, isophane 70 UNT/ML / Regu lar Insulin, Human 30 UNT/ML Injectable Suspension [Novolin] NovoLIN 70/30 70U-30U/1ML Subcutaneous Suspension NovoLIN 70/30 70U-30U/1ML Subcutaneous Suspension 10/15/2020 12:00:00 AM EDT 50 U SUBCUTANEOUS active <td>NovoLIN 70/30 70U-30U/1ML Subcutaneous Suspension</td><td>10/15/2020</td><td>Unknown</td><td>SUBCUTANEOUS</td><td>TWICE A DAY</td><td>50 UNIT</td><td>21330711</td><td>RxNorm</td><td>INJECT 50 UNITS SUBCUTANEOUSLY TWICE DAILY</td> [facility] insulin human, isophane 70 UNT/ML / Regu lar Insulin, Human 30 UNT/ML Injectable Suspension [Novolin] NovoLIN 70/30 70U-30U/1ML Subcutaneous Suspension NovoLIN 70/30 70U-30U/1ML Subcutaneous Suspension 10/15/2020 12:00:00 AM EDT 50 U SUBCUTANEOUS active <td>NovoLIN 70/30 70U-30U/1ML Subcutaneous Suspension</td><td>10/15/2020</td><td>Unknown</td><td>SUBCUTANEOUS</td><td>TWICE A DAY</td><td>50 UNIT</td><td>597508</td><td>RxNorm</td><td>INJECT 50 UNITS SUBCUTANEOUSLY TWICE DAILY</td> [facility] insulin human, isophane 70 UNT/ML / Regu lar Insulin, Human 30 UNT/ML Injectable Suspension [Novolin] NovoLIN 70/30 70U-30U/1ML Subcutaneous Suspension NovoLIN 70/30 70U-30U/1ML Subcutaneous Suspension 10/15/2020 12:00:00 AM EDT 50 U SUBCUTANEOUS active <td>NovoLIN 70/30 70U-30U/1ML Subcutaneous Suspension</td><td>10/15/2020</td><td>Unknown</td><td>SUBCUTANEOUS</td><td>TWICE A DAY</td><td>50 UNIT</td><td>104588</td><td>RxNorm</td><td>INJECT 50 UNITS SUBCUTANEOUSLY TWICE DAILY</td> [facility] insulin human, isophane 70 UNT/ML / Regu lar Insulin, Human 30 UNT/ML Injectable Suspension [Novolin] NovoLIN 70/30 70U-30U/1ML Subcutaneous Suspension NovoLIN 70/30 70U-30U/1ML Subcutaneous Suspension 10/15/2020 12:00:00 AM EDT 50 U SUBCUTANEOUS active <td>NovoLIN 70/30 70U-30U/1ML Subcutaneous Suspension</td><td>10/15/2020</td><td>Unknown</td><td>SUBCUTANEOUS</td><td>TWICE A DAY</td><td>50 UNIT</td><td>163142</td><td>RxNorm</td><td>INJECT 50 UNITS SUBCUTANEOUSLY TWICE DAILY</td> [facility] insulin human, isophane 70 UNT/ML / Regu lar Insulin, Human 30 UNT/ML Injectable Suspension [Novolin] NovoLIN 70/30 70U-30U/1ML Subcutaneous Suspension NovoLIN 70/30 70U-30U/1ML Subcutaneous Suspension 10/15/2020 12:00:00 AM EDT 50 U SUBCUTANEOUS active <td>NovoLIN 70/30 70U-30U/1ML Subcutaneous Suspension</td><td>10/15/2020</td><td>Unknown</td><td>SUBCUTANEOUS</td><td>TWICE A DAY</td><td>50 UNIT</td><td>149295</td><td>RxNorm</td><td>INJECT 50 UNITS SUBCUTANEOUSLY TWICE DAILY</td> [facility] Vitamin B12 1000MCG Oral Tablet, Extended Release 09/18/2020 12:00:00 AM EDT 1 TABLET BY MOUTH active <td>Vitamin B1 2 1000MCG Oral Tablet, Extended Release</td><td>09/18/2020</td><td>Unknown</td><td>BY MOUTH</td><td></td><td>1 TABLET</td><td></td><td>RxNorm</td><td>TAKE 1 TABLET BY MOUTH ONCE DAILY</td> [facility] Vitamin B12 1000MCG Oral Tablet, Extended Release 09/18/2020 12:00:00 AM EDT 1 TABLET BY MOUTH active <td>Vitamin B1 2 1000MCG Oral Tablet, Extended Release</td><td>09/18/2020</td><td>Unknown</td><td>BY MOUTH</td><td></td><td>1 TABLET</td><td></td><td>RxNorm</td><td>TAKE 1 TABLET BY MOUTH ONCE DAILY</td> [facility] Vitamin B12 1000MCG Oral Tablet, Extended Release 09/18/2020 12:00:00 AM EDT 1 TABLET BY MOUTH active <td>Vitamin B1 2 1000MCG Oral Tablet, Extended Release</td><td>09/18/2020</td><td>Unknown</td><td>BY MOUTH</td><td></td><td>1 TABLET</td><td></td><td>RxNorm</td><td>TAKE 1 TABLET BY MOUTH ONCE DAILY</td> [facility] Vitamin B12 1000MCG Oral Tablet, Extended Release 09/18/2020 12:00:00 AM EDT 1 TABLET BY MOUTH active <td>Vitamin B1 2 1000MCG Oral Tablet, Extended Release</td><td>09/18/2020</td><td>Unknown</td><td>BY MOUTH</td><td></td><td>1 TABLET</td><td></td><td>RxNorm</td><td>TAKE 1 TABLET BY MOUTH ONCE DAILY</td> [facility] Vitamin B12 1000MCG Oral Tablet, Extended Release 09/18/2020 12:00:00 AM EDT 1 TABLET BY MOUTH active <td>Vitamin B1 2 1000MCG Oral Tablet, Extended Release</td><td>09/18/2020</td><td>Unknown</td><td>BY MOUTH</td><td></td><td>1 TABLET</td><td></td><td>RxNorm</td><td>TAKE 1 TABLET BY MOUTH ONCE DAILY</td> [facility] Vitamin B12 1000MCG Oral Tablet, Extended Release 09/18/2020 12:00:00 AM EDT 1 TABLET BY MOUTH active <td>Vitamin B1 2 1000MCG Oral Tablet, Extended Release</td><td>09/18/2020</td><td>Unknown</td><td>BY MOUTH</td><td></td><td>1 TABLET</td><td></td><td>RxNorm</td><td>TAKE 1 TABLET BY MOUTH ONCE DAILY</td> [facility] Vitamin B12 1000MCG Oral Tablet, Extended Release 09/18/2020 12:00:00 AM EDT 1 TABLET BY MOUTH active <td>Vitamin B1 2 1000MCG Oral Tablet, Extended Release</td><td>09/18/2020</td><td>Unknown</td><td>BY MOUTH</td><td></td><td>1 TABLET</td><td></td><td>RxNorm</td><td>TAKE 1 TABLET BY MOUTH ONCE DAILY</td> [facility] Vitamin B12 1000MCG Oral Tablet, Extended Release 09/18/2020 12:00:00 AM EDT 1 TABLET BY MOUTH active <td>Vitamin B1 2 1000MCG Oral Tablet, Extended Release</td><td>09/18/2020</td><td>Unknown</td><td>BY MOUTH</td><td></td><td>1 TABLET</td><td></td><td>RxNorm</td><td>TAKE 1 TABLET BY MOUTH ONCE DAILY</td> [facility] Lidocaine Hydrochloride 20 MG/ML Mucous Membrane Topical Solution Lidocaine HCl Viscous 2% Oromucosal Solution Lidocaine HCl Viscous 2% Oromucosal Solution 09/06/2020 12:00:00 AM EDT 7.5 MILLILITER BY MOUTH activ e <td>Lidocaine HCl Viscous 2% Oromucosal Solution</td><td>09/06/2020</td><td>Unknown</td><td>BY MOUTH</td><td>PRNQ3H</td><td>7.5 MILLILITER</td><td>[id number]</td><td>RxNorm</td><td>TAKE 7.5 MILLILITER BY MOUTH PRNQ3H swish and spit</td> [facility] Lidocaine Hydrochloride 20 MG/ML Mucous Membrane Topical Solution Lidocaine HCl Viscous 2% Oromucosal Solution Lidocaine HCl Viscous 2% Oromucosal Solution 09/06/2020 12:00:00 AM EDT 7.5 MILLILITER BY MOUTH activ e <td>Lidocaine HCl Viscous 2% Oromucosal Solution</td><td>09/06/2020</td><td>Unknown</td><td>BY MOUTH</td><td>PRNQ3H</td><td>7.5 MILLILITER</td><td>2154650</td><td>RxNorm</td><td>TAKE 7.5 MILLILITER BY MOUTH PRNQ3H swish and spit</td> [facility] Penicillin V Potassium 500 MG Oral Table t Penicillin V Potassium 500MG Oral Tablet Penicillin V Potassium 500MG Oral Tablet 09/06/2020 12:00:00 AM EDT 500 MILLIGRAM BY MOUTH active <td>Penic illin V Potassium 500MG Oral Tablet</td><td>09/06/2020</td><td>Unknown</td><td>BY MOUTH</td><td>4 TIMES A DAY</td><td>500 MILLIGRAM</td><td>595142</td><td>RxNorm</td><td>TAKE 500 MILLIGRAM BY MOUTH 4 TIMES A DAY</td> [facility] Lidocaine Hydrochloride 20 MG/ML Mucous Membrane Topical Solution Lidocaine HCl Viscous 2% Oromucosal Solution Lidocaine HCl Viscous 2% Oromucosal Solution 09/06/2020 12:00:00 AM EDT 7.5 MILLILITER BY MOUTH activ e <td>Lidocaine HCl Viscous 2% Oromucosal Solution</td><td>09/06/2020</td><td>Unknown</td><td>BY MOUTH</td><td>PRNQ3H</td><td>7.5 MILLILITER</td><td>[id number]</td><td>RxNorm</td><td>TAKE 7.5 MILLILITER BY MOUTH PRNQ3H swish and spit</td> [facility] Lidocaine Hydrochloride 20 MG/ML Mucous Membrane Topical Solution Lidocaine HCl Viscous 2% Oromucosal Solution Lidocaine HCl Viscous 2% Oromucosal Solution 09/06/2020 12:00:00 AM EDT 7.5 MILLILITER BY MOUTH activ e <td>Lidocaine HCl Viscous 2% Oromucosal Solution</td><td>09/06/2020</td><td>Unknown</td><td>BY MOUTH</td><td>PRNQ3H</td><td>7.5 MILLILITER</td><td>[id number]</td><td>RxNorm</td><td>TAKE 7.5 MILLILITER BY MOUTH PRNQ3H swish and spit</td> [facility] Lidocaine Hydrochloride 20 MG/ML Mucous Membrane Topical Solution Lidocaine HCl Viscous 2% Oromucosal Solution Lidocaine HCl Viscous 2% Oromucosal Solution 09/06/2020 12:00:00 AM EDT 7.5 MILLILITER BY MOUTH activ e <td>Lidocaine HCl Viscous 2% Oromucosal Solution</td><td>09/06/2020</td><td>Unknown</td><td>BY MOUTH</td><td>PRNQ3H</td><td>7.5 MILLILITER</td><td>[id number]</td><td>RxNorm</td><td>TAKE 7.5 MILLILITER BY MOUTH PRNQ3H swish and spit</td> [facility] Lidocaine Hydrochloride 20 MG/ML Mucous Membrane Topical Solution Lidocaine HCl Viscous 2% Oromucosal Solution Lidocaine HCl Viscous 2% Oromucosal Solution 09/06/2020 12:00:00 AM EDT 7.5 MILLILITER BY MOUTH activ e <td>Lidocaine HCl Viscous 2% Oromucosal Solution</td><td>09/06/2020</td><td>Unknown</td><td>BY MOUTH</td><td>PRNQ3H</td><td>7.5 MILLILITER</td><td>[id number]</td><td>RxNorm</td><td>TAKE 7.5 MILLILITER BY MOUTH PRNQ3H swish and spit</td> [facility] Lidocaine Hydrochloride 20 MG/ML Mucous Membrane Topical Solution Lidocaine HCl Viscous 2% Oromucosal Solution Lidocaine HCl Viscous 2% Oromucosal Solution 09/06/2020 12:00:00 AM EDT 7.5 MILLILITER BY MOUTH activ e <td>Lidocaine HCl Viscous 2% Oromucosal Solution</td><td>09/06/2020</td><td>Unknown</td><td>BY MOUTH</td><td>PRNQ3H</td><td>7.5 MILLILITER</td><td>[id number]</td><td>RxNorm</td><td>TAKE 7.5 MILLILITER BY MOUTH PRNQ3H swish and spit</td> [facility] Penicillin V Potassium 500 MG Oral Table t Penicillin V Potassium 500MG Oral Tablet Penicillin V Potassium 500MG Oral Tablet 09/06/2020 12:00:00 AM EDT 500 MILLIGRAM BY MOUTH active <td>Penic illin V Potassium 500MG Oral Tablet</td><td>09/06/2020</td><td>Unknown</td><td>BY MOUTH</td><td>4 TIMES A DAY</td><td>500 MILLIGRAM</td><td>[id number]</td><td>RxNorm</td><td>TAKE 500 MILLIGRAM BY MOUTH 4 TIMES A DAY</td> [facility] Metformin hydrochloride 1000 MG Oral Tablet metFORMIN HCl 1000MG Oral Tablet metFORMIN HCl 1000MG Oral Tablet 08/29/2020 12:00:00 AM EDT 1000 MILLIGRAMS ORAL active <td>metFORMIN HCl 1000MG Oral Tablet</td><td>08/29/2020</td><td>Unknown</td><td>ORAL</td><td>TWICE A DAY</td><td>1000 MILLIGRAMS</td><td>[id number]</td><td>RxNorm</td><td>TAKE 1 TABLET BY MOUTH TWICE A DAY</td> [facility] Metformin hydrochloride 1000 MG Oral Tablet metFORMIN HCl 1000MG Oral Tablet metFORMIN HCl 1000MG Oral Tablet 08/29/2020 12:00:00 AM EDT 1000 MILLIGRAMS ORAL active <td>metFORMIN HCl 1000MG Oral Tablet</td><td>08/29/2020</td><td>Unknown</td><td>ORAL</td><td>TWICE A DAY</td><td>1000 MILLIGRAMS</td><td>[id number]</td><td>RxNorm</td><td>TAKE 1 TABLET BY MOUTH TWICE A DAY</td> [facility] Metformin hydrochloride 1000 MG Oral Tablet metFORMIN HCl 1000MG Oral Tablet metFORMIN HCl 1000MG Oral Tablet 08/29/2020 12:00:00 AM EDT 1000 MILLIGRAMS ORAL active <td>metFORMIN HCl 1000MG Oral Tablet</td><td>08/29/2020</td><td>Unknown</td><td>ORAL</td><td>TWICE A DAY</td><td>1000 MILLIGRAMS</td><td>[id number]</td><td>RxNorm</td><td>TAKE 1 TABLET BY MOUTH TWICE A DAY</td> [facility] Metformin hydrochloride 1000 MG Oral Tablet metFORMIN HCl 1000MG Oral Tablet metFORMIN HCl 1000MG Oral Tablet 08/29/2020 12:00:00 AM EDT 1000 MILLIGRAMS ORAL active <td>metFORMIN HCl 1000MG Oral Tablet</td><td>08/29/2020</td><td>Unknown</td><td>ORAL</td><td>TWICE A DAY</td><td>1000 MILLIGRAMS</td><td>[id number]</td><td>RxNorm</td><td>TAKE 1 TABLET BY MOUTH TWICE A DAY</td> [facility] Metformin hydrochloride 1000 MG Oral Tablet metFORMIN HCl 1000MG Oral Tablet metFORMIN HCl 1000MG Oral Tablet 08/29/2020 12:00:00 AM EDT 1000 MILLIGRAMS ORAL active <td>metFORMIN HCl 1000MG Oral Tablet</td><td>08/29/2020</td><td>Unknown</td><td>ORAL</td><td>TWICE A DAY</td><td>1000 MILLIGRAMS</td><td>[id number]</td><td>RxNorm</td><td>TAKE 1 TABLET BY MOUTH TWICE A DAY</td> [facility] Metformin hydrochloride 1000 MG Oral Tablet metFORMIN HCl 1000MG Oral Tablet metFORMIN HCl 1000MG Oral Tablet 08/29/2020 12:00:00 AM EDT 1000 MILLIGRAMS ORAL active <td>metFORMIN HCl 1000MG Oral Tablet</td><td>08/29/2020</td><td>Unknown</td><td>ORAL</td><td>TWICE A DAY</td><td>1000 MILLIGRAMS</td><td>[id number]</td><td>RxNorm</td><td>TAKE 1 TABLET BY MOUTH TWICE A DAY</td> [facility] Metformin hydrochloride 1000 MG Oral Tablet metFORMIN HCl 1000MG Oral Tablet metFORMIN HCl 1000MG Oral Tablet 08/29/2020 12:00:00 AM EDT 1000 MILLIGRAMS ORAL active <td>metFORMIN HCl 1000MG Oral Tablet</td><td>08/29/2020</td><td>Unknown</td><td>ORAL</td><td>TWICE A DAY</td><td>1000 MILLIGRAMS</td><td>[id number]</td><td>RxNorm</td><td>TAKE 1 TABLET BY MOUTH TWICE A DAY</td> [facility] Metformin hydrochloride 1000 MG Oral Tablet metFORMIN HCl 1000MG Oral Tablet metFORMIN HCl 1000MG Oral Tablet 08/29/2020 12:00:00 AM EDT 1000 MILLIGRAMS ORAL active <td>metFORMIN HCl 1000MG Oral Tablet</td><td>08/29/2020</td><td>Unknown</td><td>ORAL</td><td>TWICE A DAY</td><td>1000 MILLIGRAMS</td><td>[id number]</td><td>RxNorm</td><td>TAKE 1 TABLET BY MOUTH TWICE A DAY</td> [facility] Glipizide 5 MG Oral Tablet glipiZIDE 5MG Oral Tablet glipiZI DE 5MG Oral Tablet 08/22/2020 12:00:00 AM EDT 5 MILLIGRAMS ORAL active <td>glipiZIDE 5MG Oral Tablet</td><td>08/22/2020</td><td>Unknown</td><td>ORAL</td><td>TWICE A DAY</td><td>5 MILLIGRAMS</td><td>381946</td><td>RxNorm</td><td>TAKE 1 TABLET BY MOUTH TWICE A DAY</td> [facility] Glipizide 5 MG Oral Tablet glipiZIDE 5MG Oral Tablet glipiZI DE 5MG Oral Tablet 08/22/2020 12:00:00 AM EDT 5 MILLIGRAMS ORAL active <td>glipiZIDE 5MG Oral Tablet</td><td>08/22/2020</td><td>Unknown</td><td>ORAL</td><td>TWICE A DAY</td><td>5 MILLIGRAMS</td><td>[id number]</td><td>RxNorm</td><td>TAKE 1 TABLET BY MOUTH TWICE A DAY</td> [facility] Glipizide 5 MG Oral Tablet glipiZIDE 5MG Oral Tablet glipiZI DE 5MG Oral Tablet 08/22/2020 12:00:00 AM EDT 5 MILLIGRAMS ORAL active <td>glipiZIDE 5MG Oral Tablet</td><td>08/22/2020</td><td>Unknown</td><td>ORAL</td><td>TWICE A DAY</td><td>5 MILLIGRAMS</td><td>[id number]</td><td>RxNorm</td><td>TAKE 1 TABLET BY MOUTH TWICE A DAY</td> [facility] Glipizide 5 MG Oral Tablet glipiZIDE 5MG Oral Tablet glipiZI DE 5MG Oral Tablet 08/22/2020 12:00:00 AM EDT 5 MILLIGRAMS ORAL active <td>glipiZIDE 5MG Oral Tablet</td><td>08/22/2020</td><td>Unknown</td><td>ORAL</td><td>TWICE A DAY</td><td>5 MILLIGRAMS</td><td>229468</td><td>RxNorm</td><td>TAKE 1 TABLET BY MOUTH TWICE A DAY</td> [facility] Glipizide 5 MG Oral Tablet glipiZIDE 5MG Oral Tablet glipiZI DE 5MG Oral Tablet 08/22/2020 12:00:00 AM EDT 5 MILLIGRAMS ORAL active <td>glipiZIDE 5MG Oral Tablet</td><td>08/22/2020</td><td>Unknown</td><td>ORAL</td><td>TWICE A DAY</td><td>5 MILLIGRAMS</td><td>[id number]</td><td>RxNorm</td><td>TAKE 1 TABLET BY MOUTH TWICE A DAY</td> [facility] Glipizide 5 MG Oral Tablet glipiZIDE 5MG Oral Tablet glipiZI DE 5MG Oral Tablet 08/22/2020 12:00:00 AM EDT 5 MILLIGRAMS ORAL active <td>glipiZIDE 5MG Oral Tablet</td><td>08/22/2020</td><td>Unknown</td><td>ORAL</td><td>TWICE A DAY</td><td>5 MILLIGRAMS</td><td>840129</td><td>RxNorm</td><td>TAKE 1 TABLET BY MOUTH TWICE A DAY</td> [facility] Glipizide 5 MG Oral Tablet glipiZIDE 5MG Oral Tablet glipiZI DE 5MG Oral Tablet 08/22/2020 12:00:00 AM EDT 5 MILLIGRAMS ORAL active <td>glipiZIDE 5MG Oral Tablet</td><td>08/22/2020</td><td>Unknown</td><td>ORAL</td><td>TWICE A DAY</td><td>5 MILLIGRAMS</td><td>344896</td><td>RxNorm</td><td>TAKE 1 TABLET BY MOUTH TWICE A DAY</td> [facility] Glipizide 5 MG Oral Tablet glipiZIDE 5MG Oral Tablet glipiZI DE 5MG Oral Tablet 08/22/2020 12:00:00 AM EDT 5 MILLIGRAMS ORAL active <td>glipiZIDE 5MG Oral Tablet</td><td>08/22/2020</td><td>Unknown</td><td>ORAL</td><td>TWICE A DAY</td><td>5 MILLIGRAMS</td><td>030390</td><td>RxNorm</td><td>TAKE 1 TABLET BY MOUTH TWICE A DAY</td> [facility] Acetaminophen 325 MG / Hydrocodone Chuy trate 5 MG Oral Tablet [Jeffers] Jeffers 5MG-325MG Oral Tablet Jeffers 5MG-325MG Oral Tablet 08/13/2020 12:00:00 AM EDT 1 TABLET BY MOUTH active <td>Jeffers 5MG-325MG Oral Tablet</td><td>08/13/2020</td><td>Unknown</td><td>BY MOUTH</td><td></td><td>1 TABLET</td><td>040163</td><td>RxNorm</td><td>TAKE 1-2 TABLET BY MOUTH every 4-6 hours as needed for pain. Max dose 8 tabs per 24 hours</td> [facility] Acetaminophen 325 MG / Hydrocodone Chuy trate 5 MG Oral Tablet [Jeffers] Jeffers 5MG-325MG Oral Tablet Jeffers 5MG-325MG Oral Tablet 08/13/2020 12:00:00 AM EDT 1 TABLET BY MOUTH active <td>Jeffers 5MG-325MG Oral Tablet</td><td>08/13/2020</td><td>Unknown</td><td>BY MOUTH</td><td></td><td>1 TABLET</td><td>[id number]</td><td>RxNorm</td><td>TAKE 1-2 TABLET BY MOUTH every 4-6 hours as needed for pain. Max dose 8 tabs per 24 hours</td> [facility] Allopurinol 100 MG Oral Tablet Allopurinol 100MG Oral Tablet Allopurinol 100MG Oral Tablet 08/12/2020 12:00:00 AM EDT 1 TABLET BY MOUTH ac tive <td>Allopurinol 100MG Oral Tablet</td><td>08/12/2020</td><td>Unknown</td><td>BY MOUTH</td><td>DAILY</td><td>1 TABLET</td><td>[id number]</td><td>RxNorm</td><td>TAKE 1 TABLET BY MOUTH DAILY</td> [facility] Allopurinol 100 MG Oral Tablet Allopurinol 100MG Oral Tablet Allopurinol 100MG Oral Tablet 08/12/2020 12:00:00 AM EDT 1 TABLET BY MOUTH ac tive <td>Allopurinol 100MG Oral Tablet</td><td>08/12/2020</td><td>Unknown</td><td>BY MOUTH</td><td>DAILY</td><td>1 TABLET</td><td>[id number]</td><td>RxNorm</td><td>TAKE 1 TABLET BY MOUTH DAILY</td> [facility] Allopurinol 100 MG Oral Tablet Allopurinol 100MG Oral Tablet Allopurinol 100MG Oral Tablet 08/12/2020 12:00:00 AM EDT 1 TABLET BY MOUTH ac tive <td>Allopurinol 100MG Oral Tablet</td><td>08/12/2020</td><td>Unknown</td><td>BY MOUTH</td><td>DAILY</td><td>1 TABLET</td><td>[id number]</td><td>RxNorm</td><td>TAKE 1 TABLET BY MOUTH DAILY</td> [facility] Allopurinol 100 MG Oral Tablet Allopurinol 100MG Oral Tablet Allopurinol 100MG Oral Tablet 08/12/2020 12:00:00 AM EDT 1 TABLET BY MOUTH ac tive <td>Allopurinol 100MG Oral Tablet</td><td>08/12/2020</td><td>Unknown</td><td>BY MOUTH</td><td>DAILY</td><td>1 TABLET</td><td>[id number]</td><td>RxNorm</td><td>TAKE 1 TABLET BY MOUTH DAILY</td> [facility] Simvastatin 10 MG Oral Tablet Simvastatin 10MG Oral Ta blet Simvastatin 10MG Oral Tablet 08/12/2020 12:00:00 AM EDT 1 TABLET ORAL active <td>Simvastatin 10MG Oral Tablet</td><td>08/12/2020</td><td>Unknown</td><td>ORAL</td><td>DAILY</td><td>1 TABLET</td><td>[id number]</td><td>RxNorm</td><td>TAKE 1 TABLET BY MOUTH ONCE A DAY</td> [facility] Allopurinol 100 MG Oral Tablet Allopurinol 100MG Oral Tablet Allopurinol 100MG Oral Tablet 08/12/2020 12:00:00 AM EDT 1 TABLET BY MOUTH ac tive <td>Allopurinol 100MG Oral Tablet</td><td>08/12/2020</td><td>Unknown</td><td>BY MOUTH</td><td>DAILY</td><td>1 TABLET</td><td>[id number]</td><td>RxNorm</td><td>TAKE 1 TABLET BY MOUTH DAILY</td> [facility] Allopurinol 100 MG Oral Tablet Allopurinol 100MG Oral Tablet Allopurinol 100MG Oral Tablet 08/12/2020 12:00:00 AM EDT 1 TABLET BY MOUTH ac tive <td>Allopurinol 100MG Oral Tablet</td><td>08/12/2020</td><td>Unknown</td><td>BY MOUTH</td><td>DAILY</td><td>1 TABLET</td><td>239599</td><td>RxNorm</td><td>TAKE 1 TABLET BY MOUTH DAILY</td> [facility] Simvastatin 10 MG Oral Tablet Simvastatin 10MG Oral Ta blet Simvastatin 10MG Oral Tablet 08/12/2020 12:00:00 AM EDT 1 TABLET ORAL active <td>Simvastatin 10MG Oral Tablet</td><td>08/12/2020</td><td>Unknown</td><td>ORAL</td><td>DAILY</td><td>1 TABLET</td><td>892608</td><td>RxNorm</td><td>TAKE 1 TABLET BY MOUTH ONCE A DAY</td> [facility] Simvastatin 10 MG Oral Tablet Simvastatin 10MG Oral Ta blet Simvastatin 10MG Oral Tablet 08/12/2020 12:00:00 AM EDT 1 TABLET ORAL active <td>Simvastatin 10MG Oral Tablet</td><td>08/12/2020</td><td>Unknown</td><td>ORAL</td><td>DAILY</td><td>1 TABLET</td><td>[id number]</td><td>RxNorm</td><td>TAKE 1 TABLET BY MOUTH ONCE A DAY</td> [facility] Allopurinol 100 MG Oral Tablet Allopurinol 100MG Oral Tablet Allopurinol 100MG Oral Tablet 08/12/2020 12:00:00 AM EDT 1 TABLET BY MOUTH ac tive <td>Allopurinol 100MG Oral Tablet</td><td>08/12/2020</td><td>Unknown</td><td>BY MOUTH</td><td>DAILY</td><td>1 TABLET</td><td>[id number]</td><td>RxNorm</td><td>TAKE 1 TABLET BY MOUTH DAILY</td> [facility] Allopurinol 100 MG Oral Tablet Allopurinol 100MG Oral Tablet Allopurinol 100MG Oral Tablet 08/12/2020 12:00:00 AM EDT 1 TABLET BY MOUTH ac tive <td>Allopurinol 100MG Oral Tablet</td><td>08/12/2020</td><td>Unknown</td><td>BY MOUTH</td><td>DAILY</td><td>1 TABLET</td><td>[id number]</td><td>RxNorm</td><td>TAKE 1 TABLET BY MOUTH DAILY</td> [facility] Amlodipine 5 MG Oral Tablet amLODIPine Besylate 5MG Or al Tablet amLODIPine Besylate 5MG Oral Tablet 08/06/2020 12:00:00 AM EDT 5 MILLIGRAMS ORAL active <td>amLODIPine Besyl ate 5MG Oral Tablet</td><td>08/06/2020</td><td>Unknown</td><td>ORAL</td><td>DAILY</td><td>5 MILLIGRAMS</td><td>[id number]</td><td>RxNorm</td><td>TAKE 1 TABLET BY MOUTH ONCE A DAY</td> [facility] Amlodipine 5 MG Oral Tablet amLODIPine Besylate 5MG Or al Tablet amLODIPine Besylate 5MG Oral Tablet 08/06/2020 12:00:00 AM EDT 5 MILLIGRAMS ORAL active <td>amLODIPine Besyl ate 5MG Oral Tablet</td><td>08/06/2020</td><td>Unknown</td><td>ORAL</td><td>DAILY</td><td>5 MILLIGRAMS</td><td>[id number]</td><td>RxNorm</td><td>TAKE 1 TABLET BY MOUTH ONCE A DAY</td> [facility] Amlodipine 5 MG Oral Tablet amLODIPine Besylate 5MG Or al Tablet amLODIPine Besylate 5MG Oral Tablet 08/06/2020 12:00:00 AM EDT 5 MILLIGRAMS ORAL active <td>amLODIPine Besyl ate 5MG Oral Tablet</td><td>08/06/2020</td><td>Unknown</td><td>ORAL</td><td>DAILY</td><td>5 MILLIGRAMS</td><td>[id number]</td><td>RxNorm</td><td>TAKE 1 TABLET BY MOUTH ONCE A DAY</td> [facility] Amlodipine 5 MG Oral Tablet amLODIPine Besylate 5MG Or al Tablet amLODIPine Besylate 5MG Oral Tablet 08/06/2020 12:00:00 AM EDT 5 MILLIGRAMS ORAL active <td>amLODIPine Besyl ate 5MG Oral Tablet</td><td>08/06/2020</td><td>Unknown</td><td>ORAL</td><td>DAILY</td><td>5 MILLIGRAMS</td><td>[id number]</td><td>RxNorm</td><td>TAKE 1 TABLET BY MOUTH ONCE A DAY</td> [facility] Amlodipine 5 MG Oral Tablet amLODIPine Besylate 5MG Or al Tablet amLODIPine Besylate 5MG Oral Tablet 08/06/2020 12:00:00 AM EDT 5 MILLIGRAMS ORAL active <td>amLODIPine Besyl ate 5MG Oral Tablet</td><td>08/06/2020</td><td>Unknown</td><td>ORAL</td><td>DAILY</td><td>5 MILLIGRAMS</td><td>287202</td><td>RxNorm</td><td>TAKE 1 TABLET BY MOUTH ONCE A DAY</td> [facility] Amlodipine 5 MG Oral Tablet amLODIPine Besylate 5MG Or al Tablet amLODIPine Besylate 5MG Oral Tablet 08/06/2020 12:00:00 AM EDT 5 MILLIGRAMS ORAL active <td>amLODIPine Besyl ate 5MG Oral Tablet</td><td>08/06/2020</td><td>Unknown</td><td>ORAL</td><td>DAILY</td><td>5 MILLIGRAMS</td><td>[id number]</td><td>RxNorm</td><td>TAKE 1 TABLET BY MOUTH ONCE A DAY</td> [facility] FLU VACCINE(FLUZONE)6mo&UP 0.5ML-CLINIC 05/16/2020 11:17:0 0 AM EST 0.5 mL IM OPTIONS active <td><content I D="[id number]">FLU VACCINE(FLUZONE)6mo&UP 0.5ML- CLINIC</content></td><td>05/16/2020</td><td>05/16/2020</td><td>IM OPTIONS</td><td>X1</td><td>0.5 ML</td><td> [id number]</td><td>RxNorm</td><td><content ID="[id number]">0.5 ML IM OPTIONS ONE TIME DOSE</content></td> [facility] gabapentin 600 MG Oral Tablet Gabapentin 600MG Oral Ta blet Gabapentin 600MG Oral Tablet 05/16/2020 12:00:00 AM EST 1 TABLET BY MOUTH active <td>Gabapentin 600MG Oral Tablet</td><td>05/16/2020</td><td>Unknown</td><td>BY MOUTH</td><td>THREE TIMES A DAY</td><td>1 TABLET</td><td>[id number]</td><td>RxNorm</td><td>TAKE 1 TABLET BY MOUTH THREE TIMES A DAY</td> [facility] gabapentin 600 MG Oral Tablet Gabapentin 600MG Oral Ta blet Gabapentin 600MG Oral Tablet 05/16/2020 12:00:00 AM EST 1 TABLET BY MOUTH active <td>Gabapentin 600MG Oral Tablet</td><td>05/16/2020</td><td>Unknown</td><td>BY MOUTH</td><td>THREE TIMES A DAY</td><td>1 TABLET</td><td>105352</td><td>RxNorm</td><td>TAKE 1 TABLET BY MOUTH THREE TIMES A DAY</td> [facility] gabapentin 600 MG Oral Tablet Gabapentin 600MG Oral Ta blet Gabapentin 600MG Oral Tablet 05/16/2020 12:00:00 AM EST 1 TABLET BY MOUTH active <td>Gabapentin 600MG Oral Tablet</td><td>05/16/2020</td><td>Unknown</td><td>BY MOUTH</td><td>THREE TIMES A DAY</td><td>1 TABLET</td><td>[id number]</td><td>RxNorm</td><td>TAKE 1 TABLET BY MOUTH THREE TIMES A DAY</td> [facility] gabapentin 600 MG Oral Tablet Gabapentin 600MG Oral Ta blet Gabapentin 600MG Oral Tablet 05/16/2020 12:00:00 AM EST 1 TABLET BY MOUTH active <td>Gabapentin 600MG Oral Tablet</td><td>05/16/2020</td><td>Unknown</td><td>BY MOUTH</td><td>THREE TIMES A DAY</td><td>1 TABLET</td><td>593728</td><td>RxNorm</td><td>TAKE 1 TABLET BY MOUTH THREE TIMES A DAY</td> [facility] gabapentin 600 MG Oral Tablet Gabapentin 600MG Oral Ta blet Gabapentin 600MG Oral Tablet 05/16/2020 12:00:00 AM EST 1 TABLET BY MOUTH active <td>Gabapentin 600MG Oral Tablet</td><td>05/16/2020</td><td>Unknown</td><td>BY MOUTH</td><td>THREE TIMES A DAY</td><td>1 TABLET</td><td>325903</td><td>RxNorm</td><td>TAKE 1 TABLET BY MOUTH THREE TIMES A DAY</td> [facility] gabapentin 600 MG Oral Tablet Gabapentin 600MG Oral Ta blet Gabapentin 600MG Oral Tablet 05/16/2020 12:00:00 AM EST 1 TABLET BY MOUTH active <td>Gabapentin 600MG Oral Tablet</td><td>05/16/2020</td><td>Unknown</td><td>BY MOUTH</td><td>THREE TIMES A DAY</td><td>1 TABLET</td><td>931164</td><td>RxNorm</td><td>TAKE 1 TABLET BY MOUTH THREE TIMES A DAY</td> [facility] gabapentin 600 MG Oral Tablet Gabapentin 600MG Oral Ta blet Gabapentin 600MG Oral Tablet 05/16/2020 12:00:00 AM EST 1 TABLET BY MOUTH active <td>Gabapentin 600MG Oral Tablet</td><td>05/16/2020</td><td>Unknown</td><td>BY MOUTH</td><td>THREE TIMES A DAY</td><td>1 TABLET</td><td>005045</td><td>RxNorm</td><td>TAKE 1 TABLET BY MOUTH THREE TIMES A DAY</td> [facility] gabapentin 600 MG Oral Tablet Gabapentin 600MG Oral Ta blet Gabapentin 600MG Oral Tablet 05/16/2020 12:00:00 AM EST 1 TABLET BY MOUTH active <td>Gabapentin 600MG Oral Tablet</td><td>05/16/2020</td><td>Unknown</td><td>BY MOUTH</td><td>THREE TIMES A DAY</td><td>1 TABLET</td><td>310439</td><td>RxNorm</td><td>TAKE 1 TABLET BY MOUTH THREE TIMES A DAY</td> [facility] gabapentin 600 MG Oral Tablet Gabapentin 600MG Oral Ta blet Gabapentin 600MG Oral Tablet 05/16/2020 12:00:00 AM EST 1 TABLET BY MOUTH active <td>Gabapentin 600MG Oral Tablet</td><td>05/16/2020</td><td>Unknown</td><td>BY MOUTH</td><td>THREE TIMES A DAY</td><td>1 TABLET</td><td>858682</td><td>RxNorm</td><td>TAKE 1 TABLET BY MOUTH THREE TIMES A DAY</td> [facility] gabapentin 600 MG Oral Tablet Gabapentin 600MG Oral Ta blet Gabapentin 600MG Oral Tablet 05/16/2020 12:00:00 AM EST 1 TABLET BY MOUTH active <td>Gabapentin 600MG Oral Tablet</td><td>05/16/2020</td><td>Unknown</td><td>BY MOUTH</td><td>THREE TIMES A DAY</td><td>1 TABLET</td><td>099529</td><td>RxNorm</td><td>TAKE 1 TABLET BY MOUTH THREE TIMES A DAY</td> [facility] Vitamin B12 1000MCG Oral Tablet, Extended Release 05/14/2020 12:00:00 AM EST 1 TABLET BY MOUTH active <td>Vitamin B1 2 1000MCG Oral Tablet, Extended Release</td><td>05/14/2020</td><td>Unknown</td><td>BY MOUTH</td><td></td><td>1 TABLET</td><td></td><td>RxNorm</td><td>TAKE 1 TABLET BY MOUTH ONCE DAILY</td> [facility] Vitamin B12 1000MCG Oral Tablet, Extended Release 05/14/2020 12:00:00 AM EST 1 TABLET BY MOUTH active <td>Vitamin B1 2 1000MCG Oral Tablet, Extended Release</td><td>05/14/2020</td><td>Unknown</td><td>BY MOUTH</td><td></td><td>1 TABLET</td><td></td><td>RxNorm</td><td>TAKE 1 TABLET BY MOUTH ONCE DAILY</td> [facility] Hydrochlorothiazide 12.5 MG Oral Tablet hydroCHLOROthi azide 12.5MG Oral Tablet hydroCHLOROthiazide 12.5MG Oral Tablet 03/14/2020 12:00:00 AM EST 1 TABLET BY MOUTH active <td>hydroCHLOR Othiazide 12.5MG Oral Tablet</td><td>03/14/2020</td><td>Unknown</td><td>BY MOUTH</td><td>DAILY</td><td>1 TABLET</td><td>[id number]</td><td>RxNorm</td><td>TAKE 1 CAPSULE BY MOUTH ONCE A DAY</td> [facility] insulin human, isophane 70 UNT/ML / Regu lar Insulin, Human 30 UNT/ML Injectable Suspension [Novolin] NovoLIN 70/30 70U-30U/1ML Subcutaneous Suspension NovoLIN 70/30 70U-30U/1ML Subcutaneous Suspension 03/14/2020 12:00:00 AM EST 50 U SUBCUTANEOUS active <td>NovoLIN 70/30 70U-30U/1ML Subcutaneous Suspension</td><td>03/14/2020</td><td>Unknown</td><td>SUBCUTANEOUS</td><td>TWICE A DAY</td><td>50 UNIT</td><td>209760</td><td>RxNorm</td><td>INJECT 50 UNITS SUBCUTANEOUSLY TWICE DAILY</td> [facility] Hydrochlorothiazide 12.5 MG Oral Tablet hydroCHLOROthi azide 12.5MG Oral Tablet hydroCHLOROthiazide 12.5MG Oral Tablet 03/14/2020 12:00:00 AM EST 1 TABLET BY MOUTH active <td>hydroCHLOR Othiazide 12.5MG Oral Tablet</td><td>03/14/2020</td><td>Unknown</td><td>BY MOUTH</td><td>DAILY</td><td>1 TABLET</td><td>[id number]</td><td>RxNorm</td><td>TAKE 1 CAPSULE BY MOUTH ONCE A DAY</td> [facility] insulin human, isophane 70 UNT/ML / Regu lar Insulin, Human 30 UNT/ML Injectable Suspension [Novolin] NovoLIN 70/30 70U-30U/1ML Subcutaneous Suspension NovoLIN 70/30 70U-30U/1ML Subcutaneous Suspension 03/14/2020 12:00:00 AM EST 50 U SUBCUTANEOUS active <td>NovoLIN 70/30 70U-30U/1ML Subcutaneous Suspension</td><td>03/14/2020</td><td>Unknown</td><td>SUBCUTANEOUS</td><td>TWICE A DAY</td><td>50 UNIT</td><td>640409</td><td>RxNorm</td><td>INJECT 50 UNITS SUBCUTANEOUSLY TWICE DAILY</td> [facility] Hydrochlorothiazide 12.5 MG Oral Tablet hydroCHLOROthi azide 12.5MG Oral Tablet hydroCHLOROthiazide 12.5MG Oral Tablet 03/14/2020 12:00:00 AM EST 1 TABLET BY MOUTH active <td>hydroCHLOR Othiazide 12.5MG Oral Tablet</td><td>03/14/2020</td><td>Unknown</td><td>BY MOUTH</td><td>DAILY</td><td>1 TABLET</td><td>[id number]</td><td>RxNorm</td><td>TAKE 1 CAPSULE BY MOUTH ONCE A DAY</td> [facility] Hydrochlorothiazide 12.5 MG Oral Tablet hydroCHLOROthi azide 12.5MG Oral Tablet hydroCHLOROthiazide 12.5MG Oral Tablet 03/14/2020 12:00:00 AM EST 1 TABLET BY MOUTH active <td>hydroCHLOR Othiazide 12.5MG Oral Tablet</td><td>03/14/2020</td><td>Unknown</td><td>BY MOUTH</td><td>DAILY</td><td>1 TABLET</td><td>[id number]</td><td>RxNorm</td><td>TAKE 1 CAPSULE BY MOUTH ONCE A DAY</td> [facility] Hydrochlorothiazide 12.5 MG Oral Tablet hydroCHLOROthi azide 12.5MG Oral Tablet hydroCHLOROthiazide 12.5MG Oral Tablet 03/14/2020 12:00:00 AM EST 1 TABLET BY MOUTH active <td>hydroCHLOR Othiazide 12.5MG Oral Tablet</td><td>03/14/2020</td><td>Unknown</td><td>BY MOUTH</td><td>DAILY</td><td>1 TABLET</td><td>[id number]</td><td>RxNorm</td><td>TAKE 1 CAPSULE BY MOUTH ONCE A DAY</td> [facility] Hydrochlorothiazide 12.5 MG Oral Tablet hydroCHLOROthi azide 12.5MG Oral Tablet hydroCHLOROthiazide 12.5MG Oral Tablet 03/14/2020 12:00:00 AM EST 1 TABLET BY MOUTH active <td>hydroCHLOR Othiazide 12.5MG Oral Tablet</td><td>03/14/2020</td><td>Unknown</td><td>BY MOUTH</td><td>DAILY</td><td>1 TABLET</td><td>[id number]</td><td>RxNorm</td><td>TAKE 1 CAPSULE BY MOUTH ONCE A DAY</td> [facility] Hydrochlorothiazide 12.5 MG Oral Tablet hydroCHLOROthi azide 12.5MG Oral Tablet hydroCHLOROthiazide 12.5MG Oral Tablet 03/14/2020 12:00:00 AM EST 1 TABLET BY MOUTH active <td>hydroCHLOR Othiazide 12.5MG Oral Tablet</td><td>03/14/2020</td><td>Unknown</td><td>BY MOUTH</td><td>DAILY</td><td>1 TABLET</td><td>[id number]</td><td>RxNorm</td><td>TAKE 1 CAPSULE BY MOUTH ONCE A DAY</td> [facility] Hydrochlorothiazide 12.5 MG Oral Tablet hydroCHLOROthi azide 12.5MG Oral Tablet hydroCHLOROthiazide 12.5MG Oral Tablet 03/14/2020 12:00:00 AM EST 1 TABLET BY MOUTH active <td>hydroCHLOR Othiazide 12.5MG Oral Tablet</td><td>03/14/2020</td><td>Unknown</td><td>BY MOUTH</td><td>DAILY</td><td>1 TABLET</td><td>[id number]</td><td>RxNorm</td><td>TAKE 1 CAPSULE BY MOUTH ONCE A DAY</td> [facility] Hydrochlorothiazide 12.5 MG Oral Tablet hydroCHLOROthi azide 12.5MG Oral Tablet hydroCHLOROthiazide 12.5MG Oral Tablet 03/14/2020 12:00:00 AM EST 1 TABLET BY MOUTH active <td>hydroCHLOR Othiazide 12.5MG Oral Tablet</td><td>03/14/2020</td><td>Unknown</td><td>BY MOUTH</td><td>DAILY</td><td>1 TABLET</td><td>[id number]</td><td>RxNorm</td><td>TAKE 1 CAPSULE BY MOUTH ONCE A DAY</td> [facility] Hydrochlorothiazide 12.5 MG Oral Tablet hydroCHLOROthi azide 12.5MG Oral Tablet hydroCHLOROthiazide 12.5MG Oral Tablet 03/14/2020 12:00:00 AM EST 1 TABLET BY MOUTH active <td>hydroCHLOR Othiazide 12.5MG Oral Tablet</td><td>03/14/2020</td><td>Unknown</td><td>BY MOUTH</td><td>DAILY</td><td>1 TABLET</td><td>[id number]</td><td>RxNorm</td><td>TAKE 1 CAPSULE BY MOUTH ONCE A DAY</td> [facility] Tylenol 8 Hour 650MG Oral Tablet, Extended Release 02/25/2020 12:00:00 AM EST 1 TABLET BY MOUTH active <td>Tylenol 8 Hour 650MG Oral Tablet, Extended Release</td><td>02/25/2020</td><td>Unknown</td><td>BY MOUTH</td><td> NEEDED EVERY 8HR</td><td>1 TABLET</td><td></td><td>RxNorm</td><td>TAKE 1 TABLET BY MOUTH NEEDED EVERY 8HR</td> [facility] Tylenol 8 Hour 650MG Oral Tablet, Extended Release 02/25/2020 12:00:00 AM EST 1 TABLET BY MOUTH active <td>Tylenol 8 Hour 650MG Oral Tablet, Extended Release</td><td>02/25/2020</td><td>Unknown</td><td>BY MOUTH</td><td> NEEDED EVERY 8HR</td><td>1 TABLET</td><td></td><td>RxNorm</td><td>TAKE 1 TABLET BY MOUTH NEEDED EVERY 8HR</td> [facility] Tylenol 8 Hour 650MG Oral Tablet, Extended Release 02/25/2020 12:00:00 AM EST 1 TABLET BY MOUTH active <td>Tylenol 8 Hour 650MG Oral Tablet, Extended Release</td><td>02/25/2020</td><td>Unknown</td><td>BY MOUTH</td><td> NEEDED EVERY 8HR</td><td>1 TABLET</td><td></td><td>RxNorm</td><td>TAKE 1 TABLET BY MOUTH NEEDED EVERY 8HR</td> [facility] Tylenol 8 Hour 650MG Oral Tablet, Extended Release 02/25/2020 12:00:00 AM EST 1 TABLET BY MOUTH active <td>Tylenol 8 Hour 650MG Oral Tablet, Extended Release</td><td>02/25/2020</td><td>Unknown</td><td>BY MOUTH</td><td> NEEDED EVERY 8HR</td><td>1 TABLET</td><td></td><td>RxNorm</td><td>TAKE 1 TABLET BY MOUTH NEEDED EVERY 8HR</td> [facility] Tylenol 8 Hour 650MG Oral Tablet, Extended Release 02/25/2020 12:00:00 AM EST 1 TABLET BY MOUTH active <td>Tylenol 8 Hour 650MG Oral Tablet, Extended Release</td><td>02/25/2020</td><td>Unknown</td><td>BY MOUTH</td><td> NEEDED EVERY 8HR</td><td>1 TABLET</td><td></td><td>RxNorm</td><td>TAKE 1 TABLET BY MOUTH NEEDED EVERY 8HR</td> [facility] Tylenol 8 Hour 650MG Oral Tablet, Extended Release 02/25/2020 12:00:00 AM EST 1 TABLET BY MOUTH active <td>Tylenol 8 Hour 650MG Oral Tablet, Extended Release</td><td>02/25/2020</td><td>Unknown</td><td>BY MOUTH</td><td> NEEDED EVERY 8HR</td><td>1 TABLET</td><td></td><td>RxNorm</td><td>TAKE 1 TABLET BY MOUTH NEEDED EVERY 8HR</td> [facility] Tylenol 8 Hour 650MG Oral Tablet, Extended Release 02/25/2020 12:00:00 AM EST 1 TABLET BY MOUTH active <td>Tylenol 8 Hour 650MG Oral Tablet, Extended Release</td><td>02/25/2020</td><td>Unknown</td><td>BY MOUTH</td><td> NEEDED EVERY 8HR</td><td>1 TABLET</td><td></td><td>RxNorm</td><td>TAKE 1 TABLET BY MOUTH NEEDED EVERY 8HR</td> [facility] Tylenol 8 Hour 650MG Oral Tablet, Extended Release 02/25/2020 12:00:00 AM EST 1 TABLET BY MOUTH active <td>Tylenol 8 Hour 650MG Oral Tablet, Extended Release</td><td>02/25/2020</td><td>Unknown</td><td>BY MOUTH</td><td> NEEDED EVERY 8HR</td><td>1 TABLET</td><td></td><td>RxNorm</td><td>TAKE 1 TABLET BY MOUTH NEEDED EVERY 8HR</td> [facility] Tylenol 8 Hour 650MG Oral Tablet, Extended Release 02/25/2020 12:00:00 AM EST 1 TABLET BY MOUTH active <td>Tylenol 8 Hour 650MG Oral Tablet, Extended Release</td><td>02/25/2020</td><td>Unknown</td><td>BY MOUTH</td><td> NEEDED EVERY 8HR</td><td>1 TABLET</td><td></td><td>RxNorm</td><td>TAKE 1 TABLET BY MOUTH NEEDED EVERY 8HR</td> [facility] Tylenol 8 Hour 650MG Oral Tablet, Extended Release 02/25/2020 12:00:00 AM EST 1 TABLET BY MOUTH active <td>Tylenol 8 Hour 650MG Oral Tablet, Extended Release</td><td>02/25/2020</td><td>Unknown</td><td>BY MOUTH</td><td> NEEDED EVERY 8HR</td><td>1 TABLET</td><td></td><td>RxNorm</td><td>TAKE 1 TABLET BY MOUTH NEEDED EVERY 8HR</td> [facility] Tylenol 8 Hour 650MG Oral Tablet, Extended Release 02/25/2020 12:00:00 AM EST 1 TABLET BY MOUTH active <td>Tylenol 8 Hour 650MG Oral Tablet, Extended Release</td><td>02/25/2020</td><td>Unknown</td><td>BY MOUTH</td><td> NEEDED EVERY 8HR</td><td>1 TABLET</td><td></td><td>RxNorm</td><td>TAKE 1 TABLET BY MOUTH NEEDED EVERY 8HR</td> [facility] Simvastatin 10 MG Oral Tablet Simvastatin 10MG Oral Ta blet Simvastatin 10MG Oral Tablet 02/12/2020 12:00:00 AM EST 1 TABLET ORAL active <td>Simvastatin 10MG Oral Tablet</td><td>02/12/2020</td><td>Unknown</td><td>ORAL</td><td>DAILY</td><td>1 TABLET</td><td>[id number]</td><td>RxNorm</td><td>TAKE 1 TABLET BY MOUTH ONCE A DAY</td> [facility] Allopurinol 100 MG Oral Tablet Allopurinol 100MG Oral Tablet Allopurinol 100MG Oral Tablet 02/12/2020 12:00:00 AM EST 1 TABLET BY MOUTH ac tive <td>Allopurinol 100MG Oral Tablet</td><td>02/12/2020</td><td>Unknown</td><td>BY MOUTH</td><td>DAILY</td><td>1 TABLET</td><td>[id number]</td><td>RxNorm</td><td>TAKE 1 TABLET BY MOUTH DAILY</td> [facility] Simvastatin 10 MG Oral Tablet Simvastatin 10MG Oral Ta blet Simvastatin 10MG Oral Tablet 02/12/2020 12:00:00 AM EST 1 TABLET ORAL active <td>Simvastatin 10MG Oral Tablet</td><td>02/12/2020</td><td>Unknown</td><td>ORAL</td><td>DAILY</td><td>1 TABLET</td><td>[id number]</td><td>RxNorm</td><td>TAKE 1 TABLET BY MOUTH ONCE A DAY</td> [facility] Simvastatin 10 MG Oral Tablet Simvastatin 10MG Oral Ta blet Simvastatin 10MG Oral Tablet 02/12/2020 12:00:00 AM EST 1 TABLET ORAL active <td>Simvastatin 10MG Oral Tablet</td><td>02/12/2020</td><td>Unknown</td><td>ORAL</td><td>DAILY</td><td>1 TABLET</td><td>264266</td><td>RxNorm</td><td>TAKE 1 TABLET BY MOUTH ONCE A DAY</td> [facility] Allopurinol 100 MG Oral Tablet Allopurinol 100MG Oral Tablet Allopurinol 100MG Oral Tablet 02/12/2020 12:00:00 AM EST 1 TABLET BY MOUTH ac tive <td>Allopurinol 100MG Oral Tablet</td><td>02/12/2020</td><td>Unknown</td><td>BY MOUTH</td><td>DAILY</td><td>1 TABLET</td><td>[id number]</td><td>RxNorm</td><td>TAKE 1 TABLET BY MOUTH DAILY</td> [facility] Allopurinol 100 MG Oral Tablet Allopurinol 100MG Oral Tablet Allopurinol 100MG Oral Tablet 02/12/2020 12:00:00 AM EST 1 TABLET BY MOUTH ac tive <td>Allopurinol 100MG Oral Tablet</td><td>02/12/2020</td><td>Unknown</td><td>BY MOUTH</td><td>DAILY</td><td>1 TABLET</td><td>[id number]</td><td>RxNorm</td><td>TAKE 1 TABLET BY MOUTH DAILY</td> [facility] Amlodipine 5 MG Oral Tablet amLODIPine Besylate 5MG Or al Tablet amLODIPine Besylate 5MG Oral Tablet 01/19/2020 12:00:00 AM EDT 5 MILLIGRAMS ORAL active <td>amLODIPine Besyl ate 5MG Oral Tablet</td><td>01/19/2020</td><td>Unknown</td><td>ORAL</td><td>DAILY</td><td>5 MILLIGRAMS</td><td>[id number]</td><td>RxNorm</td><td>TAKE 1 TABLET BY MOUTH ONCE A DAY</td> [facility] Amlodipine 5 MG Oral Tablet amLODIPine Besylate 5MG Or al Tablet amLODIPine Besylate 5MG Oral Tablet 01/19/2020 12:00:00 AM EDT 5 MILLIGRAMS ORAL active <td>amLODIPine Besyl ate 5MG Oral Tablet</td><td>01/19/2020</td><td>Unknown</td><td>ORAL</td><td>DAILY</td><td>5 MILLIGRAMS</td><td>[id number]</td><td>RxNorm</td><td>TAKE 1 TABLET BY MOUTH ONCE A DAY</td> [facility] Amlodipine 5 MG Oral Tablet amLODIPine Besylate 5MG Or al Tablet amLODIPine Besylate 5MG Oral Tablet 01/19/2020 12:00:00 AM EDT 5 MILLIGRAMS ORAL active <td>amLODIPine Besyl ate 5MG Oral Tablet</td><td>01/19/2020</td><td>Unknown</td><td>ORAL</td><td>DAILY</td><td>5 MILLIGRAMS</td><td>038125</td><td>RxNorm</td><td>TAKE 1 TABLET BY MOUTH ONCE A DAY</td> [facility] Glipizide 5 MG Oral Tablet glipiZIDE 5MG Oral Tablet glipiZI DE 5MG Oral Tablet 12/27/2019 12:00:00 AM EDT 5 MILLIGRAMS ORAL active <td>glipiZIDE 5MG Oral Tablet</td><td>12/27/2019</td><td>Unknown</td><td>ORAL</td><td>TWICE A DAY</td><td>5 MILLIGRAMS</td><td>[id number]</td><td>RxNorm</td><td>TAKE 1 TABLET BY MOUTH TWICE A DAY</td> [facility] Glipizide 5 MG Oral Tablet glipiZIDE 5MG Oral Tablet glipiZI DE 5MG Oral Tablet 12/27/2019 12:00:00 AM EDT 5 MILLIGRAMS ORAL active <td>glipiZIDE 5MG Oral Tablet</td><td>12/27/2019</td><td>Unknown</td><td>ORAL</td><td>TWICE A DAY</td><td>5 MILLIGRAMS</td><td>316281</td><td>RxNorm</td><td>TAKE 1 TABLET BY MOUTH TWICE A DAY</td> [facility] Glipizide 5 MG Oral Tablet glipiZIDE 5MG Oral Tablet glipiZI DE 5MG Oral Tablet 12/27/2019 12:00:00 AM EDT 5 MILLIGRAMS ORAL active <td>glipiZIDE 5MG Oral Tablet</td><td>12/27/2019</td><td>Unknown</td><td>ORAL</td><td>TWICE A DAY</td><td>5 MILLIGRAMS</td><td>150942</td><td>RxNorm</td><td>TAKE 1 TABLET BY MOUTH TWICE A DAY</td> [facility] Metformin hydrochloride 1000 MG Oral Tablet metFORMIN HCl 1000MG Oral Tablet metFORMIN HCl 1000MG Oral Tablet 12/21/2019 12:00:00 AM EDT 1000 MILLIGRAMS ORAL active <td>metFORMIN HCl 1000MG Oral Tablet</td><td>12/21/2019</td><td>Unknown</td><td>ORAL</td><td>TWICE A DAY</td><td>1000 MILLIGRAMS</td><td>164174</td><td>RxNorm</td><td>TAKE 1 TABLET BY MOUTH TWICE A DAY</td> [facility] Metformin hydrochloride 1000 MG Oral Tablet metFORMIN HCl 1000MG Oral Tablet metFORMIN HCl 1000MG Oral Tablet 12/21/2019 12:00:00 AM EDT 1000 MILLIGRAMS ORAL active <td>metFORMIN HCl 1000MG Oral Tablet</td><td>12/21/2019</td><td>Unknown</td><td>ORAL</td><td>TWICE A DAY</td><td>1000 MILLIGRAMS</td><td>227060</td><td>RxNorm</td><td>TAKE 1 TABLET BY MOUTH TWICE A DAY</td> [facility] Metformin hydrochloride 1000 MG Oral Tablet metFORMIN HCl 1000MG Oral Tablet metFORMIN HCl 1000MG Oral Tablet 12/21/2019 12:00:00 AM EDT 1000 MILLIGRAMS ORAL active <td>metFORMIN HCl 1000MG Oral Tablet</td><td>12/21/2019</td><td>Unknown</td><td>ORAL</td><td>TWICE A DAY</td><td>1000 MILLIGRAMS</td><td>869144</td><td>RxNorm</td><td>TAKE 1 TABLET BY MOUTH TWICE A DAY</td> [facility] Lisinopril 20 MG Oral Tablet Lisinopril 20MG Oral Tabl et Lisinopril 20MG Oral Tablet 12/18/2019 12:00:00 AM EDT 1 TABLET BY MOUTH active <td>Lisinopril 20MG Oral Tablet</td><td>12/18/2019</td><td>Unknown</td><td>BY MOUTH</td><td>DAILY</td><td>1 TABLET</td><td>886552</td><td>RxNorm</td><td>TAKE 1 TABLET BY MOUTH DAILY</td> [facility] Lisinopril 20 MG Oral Tablet Lisinopril 20MG Oral Tabl et Lisinopril 20MG Oral Tablet 12/18/2019 12:00:00 AM EDT 1 TABLET BY MOUTH active <td>Lisinopril 20MG Oral Tablet</td><td>12/18/2019</td><td>Unknown</td><td>BY MOUTH</td><td>DAILY</td><td>1 TABLET</td><td>720689</td><td>RxNorm</td><td>TAKE 1 TABLET BY MOUTH DAILY</td> [facility] Lisinopril 20 MG Oral Tablet Lisinopril 20MG Oral Tabl et Lisinopril 20MG Oral Tablet 12/18/2019 12:00:00 AM EDT 1 TABLET BY MOUTH active <td>Lisinopril 20MG Oral Tablet</td><td>12/18/2019</td><td>Unknown</td><td>BY MOUTH</td><td>DAILY</td><td>1 TABLET</td><td>086048</td><td>RxNorm</td><td>TAKE 1 TABLET BY MOUTH DAILY</td> [facility] Lisinopril 20 MG Oral Tablet Lisinopril 20MG Oral Tabl et Lisinopril 20MG Oral Tablet 12/18/2019 12:00:00 AM EDT 1 TABLET BY MOUTH active <td>Lisinopril 20MG Oral Tablet</td><td>12/18/2019</td><td>Unknown</td><td>BY MOUTH</td><td>DAILY</td><td>1 TABLET</td><td>828465</td><td>RxNorm</td><td>TAKE 1 TABLET BY MOUTH DAILY</td> [facility] Lisinopril 20 MG Oral Tablet Lisinopril 20MG Oral Tabl et Lisinopril 20MG Oral Tablet 12/18/2019 12:00:00 AM EDT 1 TABLET BY MOUTH active <td>Lisinopril 20MG Oral Tablet</td><td>12/18/2019</td><td>Unknown</td><td>BY MOUTH</td><td>DAILY</td><td>1 TABLET</td><td>825690</td><td>RxNorm</td><td>TAKE 1 TABLET BY MOUTH DAILY</td> [facility] Lisinopril 20 MG Oral Tablet Lisinopril 20MG Oral Tabl et Lisinopril 20MG Oral Tablet 12/18/2019 12:00:00 AM EDT 1 TABLET BY MOUTH active <td>Lisinopril 20MG Oral Tablet</td><td>12/18/2019</td><td>Unknown</td><td>BY MOUTH</td><td>DAILY</td><td>1 TABLET</td><td>134514</td><td>RxNorm</td><td>TAKE 1 TABLET BY MOUTH DAILY</td> [facility] Lisinopril 20 MG Oral Tablet Lisinopril 20MG Oral Tabl et Lisinopril 20MG Oral Tablet 12/18/2019 12:00:00 AM EDT 1 TABLET BY MOUTH active <td>Lisinopril 20MG Oral Tablet</td><td>12/18/2019</td><td>Unknown</td><td>BY MOUTH</td><td>DAILY</td><td>1 TABLET</td><td>780516</td><td>RxNorm</td><td>TAKE 1 TABLET BY MOUTH DAILY</td> [facility] Lisinopril 20 MG Oral Tablet Lisinopril 20MG Oral Tabl et Lisinopril 20MG Oral Tablet 12/18/2019 12:00:00 AM EDT 1 TABLET BY MOUTH active <td>Lisinopril 20MG Oral Tablet</td><td>12/18/2019</td><td>Unknown</td><td>BY MOUTH</td><td>DAILY</td><td>1 TABLET</td><td>847306</td><td>RxNorm</td><td>TAKE 1 TABLET BY MOUTH DAILY</td> [facility] Lisinopril 20 MG Oral Tablet Lisinopril 20MG Oral Tabl et Lisinopril 20MG Oral Tablet 12/18/2019 12:00:00 AM EDT 1 TABLET BY MOUTH active <td>Lisinopril 20MG Oral Tablet</td><td>12/18/2019</td><td>Unknown</td><td>BY MOUTH</td><td>DAILY</td><td>1 TABLET</td><td>967638</td><td>RxNorm</td><td>TAKE 1 TABLET BY MOUTH DAILY</td> [facility] Lisinopril 20 MG Oral Tablet Lisinopril 20MG Oral Tabl et Lisinopril 20MG Oral Tablet 12/18/2019 12:00:00 AM EDT 1 TABLET BY MOUTH active <td>Lisinopril 20MG Oral Tablet</td><td>12/18/2019</td><td>Unknown</td><td>BY MOUTH</td><td>DAILY</td><td>1 TABLET</td><td>685247</td><td>RxNorm</td><td>TAKE 1 TABLET BY MOUTH DAILY</td> [facility] Lisinopril 20 MG Oral Tablet Lisinopril 20MG Oral Tabl et Lisinopril 20MG Oral Tablet 12/18/2019 12:00:00 AM EDT 1 TABLET BY MOUTH active <td>Lisinopril 20MG Oral Tablet</td><td>12/18/2019</td><td>Unknown</td><td>BY MOUTH</td><td>DAILY</td><td>1 TABLET</td><td>222579</td><td>RxNorm</td><td>TAKE 1 TABLET BY MOUTH DAILY</td> [facility] Insurance Providers Payer name Policy type / Coverage type Policy ID Covered republican ID Covered republican's relationship to [place] Policy [place] Plan Information HUMANA HMO [id number] SP [id number] HAJA [id number] SP [id number] HAJA [id number] SP [id number] MEDICARE [id number] SP [id number] A MEDICARE [id number] SP [id number] MEDICARE [id number] SP [id number] A [facility] OPTIONS [id number] S [id number] [facility] OPTIONS [id number] SP [id number] [facility] OPTIONS [id number] SP [id number] WELLCARE [id number] SP [id number] WELLCARE [id number] SP [id number] MEDICARE [id number] S [id number] WELLCARE [id number] S [id number] MEDICARE-CLINIC [id number] undefined [id number] [facility] OPTIONS-CLINIC [id number] undefi michelle [id number] [facility] OPTIONS NONE S NONE [facility] OPTIONS [id number] S [id number] MEDICARE [id number] S [id number] [facility] C[facility] OPTIONS-OP [id number] undefined [id number] MEDICARE -RECURRING [id number] undefined [id number] [facility] OPTIONS-RECURRING [id number] und efined [id number] MEDICARE C [id number] S [id number] AARP O [id number] S [id number] COMMERCIAL -RECURRING X u ndefined X [facility] OPTIONS [id number] 18 [id number] MEDIC[place] PART A [place] [facility] [id number] 18 [id number] [facility] MEDICAID MANAGED CARE - OP [id number] und efined [id number] [facility] [id number] undefined [id number] MEDICARE-CLINIC [id number] undefined [id number] MEDICARE-OP [id number] undefined [id number] [facility] MEDICAID MANAGED CARE - CLINIC [id number] undefined [id number] [facility] MEDICAID MANAGED CARE - OP [id number] un defined [id number] [facility] MANAGED CARE [id number] undefined [id number] ANSI-Medicare Part B [id number] ANSI-Commercial [id number] [facility] OPTIONS [id number] SP [id number] MEDICARE [id number] SP [id number] [facility] OPTIONS [id number] SP [id number] MEDICARE [id number] SP [id number] A ANSI-Medicare Part B [id number] ANSI-Commercial [id number] ANSI-Medicare Part B [id number] ANSI-Commercial [id number] [facility] [id number] undefined [id number] [facility] MEDICAID MANAGED CARE - OP [id number] un defined [id number] [facility]-OP [id number] undefined [id number] MEDICAID [facility] [id number] undef ined [id number] MEDICAID [facility] [place]-OP [id number] undefined [id number] MEDICARE C [id number] S [id number] A [facility] MEDICAID MANAGED CARE - OP UNAVAILABLE UNAVAILABLE [place] [id number] S [id number] HAJA RECURRING [id number] 18 [id number] HAJA CARE [id number] S [id number] 00 HAJA UNAVAILABLE UNAVAILA BLE HUMANA PPO [id number] SP [id number] [facility]JA MEDICARE [id number] SP [id number] [place] [id number] S [id number] HUMANA PPO O [id number] S [id number] WELLCARE [id number] SP [id number] HUMANA PPO UNAVAILABLE SP UNAVAIL ABLE [facility] HEALTH PLANS - CLINIC [id number] undefined [id number] WELLCARE HEALTH PLANS - OP [id number] undefined [id number] WELLCARE HEALTH PLANS - PHYSICIAN [id number] undefi michelle [id number] WELLCARE [id number] S [id number] WELLCARE HEALTH PLANS - RECURRING [id number] undefi michelle [id number] WELLCARE [id number] S [id number] AETNA MEDICARE [id number] SP [id number] [facility] [id number] SP [id number] MEDICARE-OP [id number] undefined [id number] [facility] HEALTH CARE OPTIONS [id number] S [id number] Problems, Conditions, and Diagnoses Code Display Name Description Problem Type Effective Dates Data Source(s) S74061 Other place in single-family (private) house as the place of occurrence of the external cause Other place in single-family (private) h ouse as the place of occurrence of the external cause Diagnosis 02/03/2021 09:44:00 PM E DT [facility] Y9301 Activity, walking, marching and hiking A ctivity, walking, marching and hiking Diagnosis 02/03/2021 09:44:00 PM EDT [facility] Y998 Other external cause status Other external cause statu s Diagnosis 02/03/2021 09:44:00 PM EDT [facility] [id number] Slipping, tripping and stumb ling without falling due to stepping from one level to another, initial encounter Slipping, tripping and stumbling without falling due to stepping from one level to another, initial encounter Diagnosis 02/03/2021 09:44:00 PM EDT [facility] R040 Epistaxis Epistaxis Diagnosis 02/03/2021 09:44:00 PM ED T [facility] Z8572 Personal history of non-Hodgkin lymphoma s Personal history of non-Hodgkin lymphomas Diagnosis 01/29/2021 02:46:00 PM EDT [facility] D696 Thrombocytopenia, unspecified Thrombocytopenia, unspec ified Diagnosis 01/29/2021 02:46:00 PM EDT [facility] D649 Anemia, unspecified Anemia, unspecified Diagnosis 1 02:46:00 PM EDT [facility] M542 Cervicalgia Cervicalgia Diagnosis 01/29/2021 10:30:00 AM EDT [facility] D14383 Pain in right shoulder Pain in right shoulder Diagnosi s 01/29/2021 10:30:00 AM EDT [facility] R2681 Unsteadiness on feet Unsteadiness on feet Diagnosis 01/29/2021 10:30:00 AM EDT [facility] R5383 Other fatigue Other fatigue Diagnosis 01/29/2021 10:30:00 AM EDT [facility] R42 Dizziness and giddiness Dizziness and giddiness Diagno sis 01/29/2021 10:30:00 AM EDT [facility] [id number] Chronic gout, unspecified, without tophu s (tophi) Chronic gout, unspecified, without tophus (tophi) Diagnosis 01/07/2021 11:12:00 AM E [facility] E119 Type 2 diabetes mellitus without complic ations Type 2 diabetes mellitus without complications Diagnosis 01/07/2021 11:12:00 AM EDT [facility] E785 Hyperlipidemia, unspecified Hyperlipidemia, unspecifie d Diagnosis 01/07/2021 11:12:00 AM EDT [facility] I10 Essential (primary) hypertension Essential (primary) h ypertension Diagnosis 01/07/2021 11:12:00 AM EDT [facility] N189 Chronic kidney disease, unspecified Chronic kidn ey disease, unspecified Diagnosis 01/07/2021 11:12:00 AM EDT [facility] I2699 Other pulmonary embolism without acute c or pulmonale Other pulmonary embolism without acute cor pulmonale Diagnosis 01/07/2021 11:12:00 AM EDT [facility] K219 Gastro-esophageal reflux disease without esophagitis Gastro-esophageal reflux disease without esophagitis Diagnosis 01/07/2021 11:12:00 AM ED [facility] H9202 Otalgia, left ear Otalgia, left ear Diagnosis 01/07/2021 11:12:00 AM EDT [facility] C8590 Non-Hodgkin lymphoma, unspecified, unspe cified site Non-Hodgkin lymphoma, unspecified, unspecified site Diagnosis 01/07/2021 11:12:00 AM EDT [facility] R109 Unspecified abdominal pain Unspecified abdominal pain Diagnosis 01/07/2021 11:12:00 AM T [facility] R06.02 Shortness of breath SHORTNESS OF BREATH Diagnosis 0 01/03/2021 08:54:00 AM [facility] R06.09 Other forms of dyspnea OTHER FORMS OF DYSPNEA Diagnosi s 12/24/2020 08:20:00 AM [facility] R09.89 Other specified symptoms and signs involving the circulatory and respiratory systems OTH SYMPTOMS AND SIGNS INVOLVING THE CIRC AND RESP SYS TEMS Diagnosis 12/18/2020 09:21:00 AM [facility] A30018 Personal history of pulmonary embolism P ersonal history of pulmonary embolism Diagnosis 12/12/2020 02:32:00 AM [facility] R05 Cough Cough Diagnosis 12/12/2020 02:32:00 AM ED [facility] R0602 Shortness of breath Shortness of breath Diagnosis 0 12/12/2020 02:32:00 AM [facility] R079 Chest pain, unspecified Chest pain, unspecified Diagno sis 12/12/2020 02:32:00 AM EDT [facility] E559 Vitamin D deficiency, unspecified Vitamin D defi ciency, unspecified Diagnosis 11/24/2020 01:30:00 PM EDT [facility] E042 Nontoxic multinodular goiter Nontoxic multinodular goi ter Diagnosis 11/24/2020 01:30:00 PM EDT [facility] N289 Disorder of kidney and ureter, unspecifi ed Disorder of kidney and ureter, unspecified Diagnosis 11/24/2020 01:30:00 PM EDT [facility] Z8571 Personal history of Hodgkin lymphoma Personal hi story of Hodgkin lymphoma Diagnosis 11/24/2020 08:30:00 AM EDT [facility] Z5189 Encounter for other specified aftercare Encounter for other specified aftercare Diagnosis 11/13/2020 01:06:00 PM EDT [facility] M436 Torticollis Torticollis Diagnosis 11/05/2020 11:27:00 AM EDT [facility] K20646 Unspecified place in single- family (private) house as the place of occurrence of the external cause Unspecified place in single-family (priv ate) house as the place of occurrence of the external cause Diagnosis 11/02/2020 08:25:00 AM EDT [facility] Y939 Activity, unspecified Activity, unspecified Diagnosis 11/02/2020 08:25:00 AM EDT [facility] [id number] Overexertion from prolonged static or awkward postures, initial encounter Overexertion from prolonged static or aw kward postures, initial encounter Diagnosis 11/02/2020 08:25:00 AM EDT [facility] [id number] Strain of muscle, fascia and tendon at n mamta level, initial encounter Strain of muscle, fascia and tendon at neck level, initial encounter Diagnosis 11/02/2020 08:25:00 AM EDT [facility] R09.89 Other specified symptoms and signs involving the circulatory and respiratory systems OTH SYMPTOMS AND SIGNS INVOLVING THE CIRC AND RESP SYS TEMS Diagnosis 09/23/2020 09:04:00 AM EDT [facility] B35.1 Tinea unguium TINEA UNGUIUM Diagnosis 09/23/2020 09:04:00 AM EDT [facility] L84 Corns and callosities CORNS AND CALLOSITIES Diagnosis 09/23/2020 09:04:00 AM EDT [facility] E11.51 Type 2 diabetes mellitus wit h diabetic peripheral angiopathy without gangrene TYPE 2 DIABETES W DIABETIC PERIPHERAL ANGIOPATH W/O GANGRENE Diagnosis 09/23/2020 09:04:00 AM EDT [facility] K047 Periapical abscess without sinus Periapical absc ess without sinus Diagnosis 09/06/2020 09:45:00 AM EDT [facility] R6884 Jaw pain Jaw pain Diagnosis 09/06/2020 09:45:00 AM ED T [facility] I26.99 Other pulmonary embolism without acute c or pulmonale OTHER PULMONARY EMBOLISM WITHOUT ACUTE COR PULMONALE Diagnosis 09/04/2020 08:19:00 AM T [facility] Z12.11 Encounter for screening for malignant ne oplasm of colon ENCOUNTER FOR SCREENING FOR MALIGNANT NEOPLASM OF COLON Diagnosis 09/04/2020 08:19:0 0 AM EDT [facility] E04.2 Nontoxic multinodular goiter NONTOXIC MULTINODULAR GOI TER Diagnosis 08/04/2020 09:13:00 AM [facility] 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 (CU 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 Diagnosis 07/22/2020 09:23:00 AM T [facility] [id number] moth exterminator (current) use of anticoagulant s moth exterminator (current) use of anticoagulants Diagnosis 07/21/2020 02:00:00 PM EDT [facility] Z79.01 moth exterminator (current) use of anticoagulant s PRISON (CU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 ANTICOAGULANTS Diagnosis 07/18/2020 08:07:00 AM EDT [facility] Z86.711 Personal history of pulmonary embolism P ERSONAL HISTORY OF PULMONARY EMBOLISM Diagnosis 07/18/2020 08:07:00 AM EDT [facility] C83.30 Diffuse large B-cell lymphoma, unspecifi ed site DIFFUSE LARGE B-CELL LYMPHOMA, UNSPECIFIED SITE Diagnosis 07/18/2020 08:07:00 AM [facility] I82.621 Acute embolism and thrombosis of deep ve ins of right upper extremity ACUTE EMBOLISM AND THROMBOSIS OF DEEP VEINS OF R UP EXTREM Diagnosis 07/18/2020 08:07:00 AM [facility] [id number] Diagnosis 05/16/2020 10:07:00 AM ES T [facility] Z23 Encounter for immunization Encounter for immunization Diagnosis 05/16/2020 10:07:00 AM [facility] E041 Nontoxic single thyroid nodule Nontoxic single thyroid nodule Diagnosis 05/16/2020 10:07:00 AM [facility] N1832 Chronic kidney disease, stage 3b Chronic kidney disease, stage 3b Diagnosis 05/16/2020 10:07:00 AM [facility] I10 Essential (primary) hypertension ESSENTIAL (PRIMARY) H YPERTENSION Diagnosis 04/25/2020 11:48:00 AM [facility] E55.9 Vitamin D deficiency, unspecified VITAMIN D DEFI CIENCY, UNSPECIFIED Diagnosis 04/25/2020 11:48:00 AM [facility] E11.9 Type 2 diabetes mellitus without complic ations TYPE 2 DIABETES MELLITUS WITHOUT COMPLICATIONS Diagnosis 04/25/2020 11:48:00 AM [facility] K57.30 Diverticulosis of large inte alma without perforation or abscess without bleeding DVRTCLOS OF LG INT W/O PERFORATION OR ABSCESS W/O BLEEDING D iagnosis 04/25/2020 11:48:00 AM [facility] H9201 Otalgia, right ear Otalgia, right ear Diagnosis 06:49:00 AM [facility] Z1389 Encounter for screening for other disord er Encounter for screening for other disorder Diagnosis 02/25/2020 11:17:00 AM [facility] N1831 Chronic kidney disease, stage 3a Chronic kidney disease, stage 3a Diagnosis 02/25/2020 11:17:00 AM [facility] E1142 Type 2 diabetes mellitus with diabetic p olyneuropathy Type 2 diabetes mellitus with diabetic polyneuropathy Diagnosis 02/25/2020 11:17:00 AM [facility] Z01.818 Encounter for other preprocedural examin ation ENCOUNTER FOR OTHER PREPROCEDURAL EXAMINATION Diagnosis 02/22/2020 12:42:00 PM [facility] M17.11 Unilateral primary osteoarthritis, right knee UNILATERAL PRIMARY OSTEOARTHRITIS, RIGHT KNEE Diagnosis 02/21/2020 01:18:00 PM [facility] S83.411D Sprain of medial collateral ligament of right knee, subsequent encounter SPRAIN OF MEDIAL COLLATERAL LIGAMENT OF RIGHT KNEE, SUBS Enedina gnosis 02/21/2020 01:18:00 PM [facility] M6281 Muscle weakness (generalized) Muscle weakness (general ized) Diagnosis 12/11/2019 01:10:00 PM [facility] [id number] Pain in right knee Pain in right knee Diagnosis 04/2019 01:10:00 PM [facility] [id number] Stiffness of right knee, not elsewhere c lassified Stiffness of right knee, not elsewhere classified Diagnosis 12/11/2019 01:10:00 PM [facility] Surgeries/Procedures Procedure Description Date Indications Data Source(s) ECHO TTHRC R-T 2D W/WOM-MODE COMPL SPEC&COLR DOP TTE W/DOPPL ER COMPLETE 01/03/2021 12:00:00 AM [facility] DIFFUSING CAPACITY CO/MEMBANE DIFFUSE CAPACITY 12/24/2020 12:00:00 AM [facility] GAS DILUT/WASHOUT LUNG VOL W/WO DISTRIB VENT&VOL PULM FUNCTI ON TEST BY GAS 12/24/2020 12:00:00 AM [facility] BRNCDILAT RSPSE SPMTRY PRE&POST-BRNCDILAT ADMN EVALUATION OF WHEEZING 12/24/2020 12:00:00 AM [facility] DUP-SCAN LXTR ART/ARTL BPGS COMPL BI STUDY LOWER EXTREMITY S TUDY 12/18/2020 12:00:00 AM [facility] DEBRIDEMENT NAIL ANY METHOD 6/> DEBRIDE NAIL 6 OR MORE 09/23 12:00:00 AM [facility] PARING/CUTTING BENIGN HYPERKERATOTIC LESION 2-4 TRIM SKIN LE SIONS 2 TO 4 09/23/2020 12:00:00 AM [facility] outpatient clinic visit for assessment and ma yosi of a patient Hospital Outpatient Clinic Visit 09/04/2020 12:00:00 AM [facility] DUP-SCAN XTR VEINS UNILATERAL/LIMITED STUDY EXTREMITY STUDY 07/18/2020 12:00:00 AM [facility] GLUCOSE BLOOD REAGENT STRIP REAGENT STRIP/BLOOD GLUCOSE 04/11 12:00:00 AM [facility] Injection, propofol, 10 mg 04/25/2020 12:00:00 AM [facility] COLONOSCOPY FLX DX W/WO COLLJ SPECIMENS DIAGNOSTIC COLONOSCO PY 04/25/2020 12:00:00 AM [facility] Inspection of Lower Intestinal Tract, Vi a Natural or Artificial Opening Endoscopic INSPECTION OF LOWER INTESTINAL TRACT, ENDO 04/25/2020 12:00:00 AM [facility] 47593 04/21/2020 12:00:00 AM [facility] ARTHROCENTESIS ASPIR&/INJECTION MAJOR JT/BURSA DRAIN/INJ ARASELI NT/BURSA W/O US 02/21/2020 12:00:00 AM [facility] RADIOLOGIC EXAMINATION KNEE 1/2 VIEWS X-RAY EXAM OF KNEE 1 O R 2 02/21/2020 12:00:00 AM [facility] Injection, methylprednisolone acetate, 40 mg 0 12:00:00 AM [facility] Results ID Date Data Source [id number] 02/04/2021 05:08:00 PM [facility] Name Value Range Interpretation Code Description Data Rajani rce(s) Supporting Document(s) RESP PROFILE RP2.1 NASAL PCR C [facility] \\BLDo\\RESPIRATORY PROFILE NASAL PHARYNGEAL BY PCR\\BLDx\\ \\BLDo\\DETECTED _NONE \\BLDx\\ 02/04/21.LMB. \\BLDo\\EQUIVOCAL _NONE \\BLDx\\ 02/04/21.LMB. VIRUSES ADENOVIRUS NOT DETECTED NORMAL: NOT DETECTED [facility] CORONAVIRUS 229E NOT DETECTED NORMAL: NOT DETECTED [facility] CORONAVIRUS HKU1 NOT DETECTED NORMAL: NOT DETECTED [facility] CORONAVIRUS NL63 NOT DETECTED NORMAL: NOT DETECTED [facility] CORONAVIRUS OC43 NOT DETECTED NORMAL: NOT DETECTED [facility] 03871-1 NOT DETECTED NORMAL: NOT DETECTED [facility] REPORT TO DEPARTMENT OF [facility] TH HUMAN METAPNEUMO NOT DETECTED NORMAL: NOT DETECTED [facility] HUMAN RHINO/ENTERO NOT DETECTED NORMAL: NOT DETECTED [facility] NOT DETECTEDNOT DETECTEDNOT DETECTEDNOT DETECTED PARAINFLUENZA V3 NOT DETECTED NORMAL: NOT DETECTED [facility] NOT DETECTED RSV NOT DETECTED NORMAL: NOT DETECTED [facility] BACTERIANOT DET ECTEDNOT DETECTEDNOT DETECTEDNOT DETECTED TESTING PERFORMED USING THE [employer] RP2.1 MULTIPLEXED NUCLEIC ACID TEST. THIS TEST HAS NOT BEEN FDA CLEARED OR APPROVED; THIS TEST HAS BEEN AUTHORIZED BY FDA UNDER AN EUA FOR USE BY AUTHORIZED LABORATORIES; THIS TEST HAS BEEN AUTHORIZED ONLY FOR THE DETECTION AND DIFFERENTATION OF NUCLEI ACID OF SARS-CoV-2 FROM MULTIPLE RESPIRATORY VIRAL AND BACTERIAL ORGANIMS; AND THIS TEST IS ONLY AUTHORIZED FOR THE DURATION OF THE DECLARATION THAT CIRCUMSTANCES EXIST JUSTIFYING THE AUTHORIZATION OF EMERGENCY USE OF IN VITRO DIAGNOSTIC TESTS FOR THE DETECTION AND/OR DIAGNOSIS OF COVID-19 UNDER SECTION 564(b)(1) OF THE ACT, 21 U.S.C. 360bbb-3(b) (1), UNLESS THE AUTHORIZATION IS TERMINATED OR REVOKED SOONER. ID Date Data Source [id number] 02/04/2021 03:52:00 PM EDT [facility] Name Value Range Interpretation Code Description Data Rajani rce(s) Supporting Document(s) Glucose [Moles/volume] in Capillary blood by Glucometer 88 mg/dL 70 - 100 [facility] RESULTS < 40 mg/dL OR > 500 mg /dL WILL REQUIRE CONFIRMATION BY LAB ID Date Data Source [id number] 02/04/2021 03:40:00 PM EDT [facility] Name Value Range Interpretation Code Description Data Rajani rce(s) Supporting Document(s) CBC [facility] COMPLETE BLOOD COUNT Leukocytes [#/volume] in Blood by Automated count 8.1 K/uL 4.0 - 10 .0 [facility] Erythrocytes [#/volume] in Blood by Automated count 2.41 M/uL 4.30 - 6.10 Below low normal [facility] Hemoglobin [Mass/volume] in Blood 8.4 g/dL 13.5 - 17.5 Below low no rmal [facility] Hematocrit [Volume Fraction] of Blood by Automated count 27.6 % 39.0 - 50.0 Below low normal [facility] Erythrocyte mean corpuscular volume [Entitic volume] b y Automated count 114.5 fL 80.0 - 96.0 Above high normal [facility] Erythrocyte mean corpuscular hemoglobin [Entitic mass] by Automated count 34.9 pg 26.0 - 34.0 Above high normal [facility] Erythrocyte mean corpuscular hemoglobin concentration [Mass/volume] by Automated count 30.4 g/dL 32.0 - 36.0 Below low normal [facility] Erythrocyte distribution width [Ratio] by Automated count 21.2 % 11.6 - 14.8 Above high normal [facility] Platelets [#/volume] in Blood by Automated count 28 K/uL 150 - 450 Below lower panic limits [facility] CALLED TO: Sofi COLE @ 1247 [facility] REP/VERIFIED REPEATED TO CONFIRM, CONSISTENT W/HISTORY [facility] READ BACK YES [facility] Platelet mean volume [Entitic volume] in Blood by Automated count 10.9 fL 7.1 - 10.4 Above high normal [facility] 0.0 MANUAL DIFF SEE BELOW [facility] alexis SEGS 59 % 42 - 75 [facility] JEFFREY 0 % [facility] MYEL 1 % [facility] META 0 % 0 - [facility] BAND 0 % 0 - 5 [facility] LYMPH 12 % 15 - 41 Below low normal [facility] ALYM 0 % 0 - 5 [facility] MONO 23 % 0 - 12 Above high normal [facility] EOS 5 % 0 - 7 [facility] BASO 0 % 0 - 2 [facility] 0.0 RBC MORPH SEE BELOW [facility] POLYCHROMSIA NONE SEEN NORMAL: NONE SEEN [facility] HYPOCHROMIA NONE SEEN NORMAL: NONE SEEN [facility] POIKLOCYTOSIS NONE SEEN NORMAL: NONE SEEN [facility] BASO STIPPLING NONE SEEN NORMAL: NONE SEEN [facility] ANISOCYTOSIS 2+ NORMAL: NONE SEEN Abnormal (applies to non-nu meric results) [facility] MICROCYTOSIS NONE SEEN NORMAL: NONE SEEN [facility] MACROCYTOSIS 1+ NORMAL: NONE SEEN Abnormal (applies to non-nu meric results) [facility] SPHEROCYTES NONE SEEN NORMAL: NONE SEEN [facility] SCHISTOCYTES NONE SEEN NORMAL: NONE SEEN [facility] TARGET CELLS NONE SEEN NORMAL: NONE SEEN [facility] TEARDROP NONE SEEN NORMAL: NONE SEEN [facility] OVALOCYTES NONE SEEN NORMAL: NONE SEEN [facility] STOMATOCYTES NONE SEEN NORMAL: NONE SEEN [facility] HELMET CELLS NONE SEEN NORMAL: NONE SEEN [facility] CORDERO JOLLY NONE SEEN NORMAL: NONE SEEN [facility] CABOT RINGS NONE SEEN NORMAL: NONE SEEN [facility] TOXIC GRAN NONE SEEN NORMAL: NONE SEEN [facility] DOHLE BODIES NONE SEEN NORMAL: NONE SEEN [facility] MANGO CELLS NONE SEEN NORMAL: NONE SEEN [facility] ACANTHOCYTES NONE SEEN NORMAL: NONE SEEN [facility] HYPER NEUT NONE SEEN NORMAL: NONE SEEN [facility] AZAM RODS NONE SEEN NORMAL: NONE SEEN [facility] ROULEAUX NONE SEEN NORMAL: NONE SEEN [facility] CRENATED CELL NONE SEEN NORMAL: NONE SEEN [facility] ID Date Data Source [id number] 02/04/2021 03:40:00 PM EDT [facility] Name Value Range Interpretation Code Description Data Rajani rce(s) Supporting Document(s) ACTIVATED PARTIAL THROMBOPLASTIN [facility] ACTIVATED PARTIAL THROMBOPLASTIN HEPARIN? NO [facility] PTT-A 32.8 24.3 - 100 [facility] New PTT Heparin Therapeutic ra nge effective October 10, 2015 Heparin dose Therapeutic Range 0.1 - 0.3 uL 70.7 - 80.3 seconds 0.3 - 0.7 uL 80.3 - 99.6 seconds New normal reference range effective February 29, 2020 Normal 24.3 - 40.8 seconds ID Date Data Source [id number] 02/04/2021 03:40:00 PM EDT [facility] PROTHROMBIN TIME Name Value Range Interpretation Code Description Data Rajani rce(s) Supporting Document(s) WARFARIN? NO [facility] 15.1 INR in Platelet poor plasma by Coagulation assay 1.2 1.0 - 4.5 [facility] Reference ranges Warf stuart (Coumadin) Therapy: 21.6 - 40.7 secs Normal (Non-warfarin Therapy): 10.7 - 15.2 secs New Protime Reference Range as of February 29, 2020 ID Date Data Source [id number] 02/04/2021 03:40:00 PM EDT [facility] Name Value Range Interpretation Code Description Data Rajani rce(s) Supporting Document(s) COMPREHENSIVE CHEM PROFILE [facility] COMPREHENSIVE METABOLIC PANEL Sodium [Moles/volume] in Serum or Plasma 139 mEq/L 136 - 145 [facility] Potassium [Moles/volume] in Serum or Plasma 3.8 mEq/L 3.5 - 5.1 [facility] Chloride [Moles/volume] in Serum or Plasma 101 mEq/L 98 - 107 [facility] Carbon dioxide, total [Moles/volume] in Serum or Plasma 25.3 mEq /L 21.0 - 32.0 [facility] Glucose [Mass/volume] in Serum or Plasma 91 mg/dL 70 - 100 [facility] Urea nitrogen [Mass/volume] in Serum or Plasma 67 mg/dL 7 - 18 Above upper panic limits [facility] CALLED TO: Sofi GALVAN @ 0537 [facility] REP/VERIFIED REPEATED TO CONFIRM [facility] READ BACK YES [facility] CREATININE SERUM 2.48 mg/dL 0.70 - 1.30 Above high normal [facility] AGE 65 yrs [facility] HEIGHT R [facility] eGFR NON-AFR AMR 26 [facility] eGFR AFR AMR 32 [facility] ital BUN/CREAT 27 6 - 25 Above high normal [facility] Protein [Mass/volume] in Serum or Plasma 8.4 g/dL 6.0 - 8.3 Above high normal [facility] Albumin [Mass/volume] in Serum or Plasma 3.2 g/dL 3.8 - 5.4 Below low normal [facility] GLOBULIN 5.2 g/dL 2.0 - 4.0 Above high normal [facility] A/G RATIO 0.6 0.8 - 2.0 Below low normal [facility] Calcium [Mass/volume] in Serum or Plasma 9.7 mg/dL 8.8 - 10.2 [facility] Bilirubin.total [Mass/volume] in Serum or Plasma 0.3 mg/dL 0.2 - 1.0 [facility] Bilirubin.direct [Mass/volume] in Serum or Plasma 0.1 mg/dL 0.0 - 0. 2 [facility] INDIRECT BILI 0.2 mg/dL 0.0 - 1.1 [facility] pital ALK PHOSPHATASE 56 U/L 40 - 129 [facility] ospital Aspartate aminotransferase [Enzymatic ac tivity/volume] in Serum or Plasma by With P-5'-P 11 IU/L 7 - 37 [facility] Alanine aminotransferase [Enzymatic acti vity/volume] in Serum or Plasma by With P-5'-P 18 IU/L 12 - 78 [facility] ANION GAP 13 7 - 15 [facility] Estimated GFR referenc e range: >60ml/min/1.73m >18 years: Calculated using IDTX traceable Study Equation <18 years: Calculated using IDTX tracable Bedside Schartz Equation ID Date Data Source [id number] 01/29/2021 12:10:00 PM EDT [facility] Name Value Range Interpretation Code Description Data Rajani rce(s) Supporting Document(s) CROSSMATCH INITIAL [facility] PATIENT ABO TYPE: _A ____ 01/29/21.1350.TMG. PATIENT RH TYPE: _POSITIVE 01/29/21135.TMG. PATIENT DIRECT MILES: _NEGATIVE 01/29/211350.TMG. PATIENT INDIRECT MILES: _NEGATIVE 01/29/21.TMG. UNIT NUMBER: _[id number] 01/29/21.TMG. TRANSFUSED BY: _EMMA_SCHOFF 01/29/21. 9.TMG. _HUNTER_COLONEY 01/29/21.TMG. TRANSFUSION DATE: _01/29/21 01/29/21.TMG. START TIME: _1530 01/29/21.TMG. STOP TIME: _1850 01/29/21.TMG. VOLUME ADMINISTERED: _333 01/29/21.TMG. REACTION? _NONE 01/29/21.TMG. UNIT ABO TYPE: _O 01/29/21.TMG. UNIT RH: _POSITIVE 01/10 05/01.1349.TMG. UNIT EXPIRATION: 01/29/21.TMG. COMPATIBILITY: _YES 01/29/21.TMG. PT TRANSFUSED PRBC [facility] pital ID Date Data Source [id number] 01/29/2021 10:45:00 AM EDT [facility] Name Value Range Interpretation Code Description Data Rajani rce(s) Supporting Document(s) CBC [facility] COMPLETE BLOOD COUNT Leukocytes [#/volume] in Blood by Automated count 7.6 K/uL 4.0 - 10 .0 [facility] Erythrocytes [#/volume] in Blood by Automated count 2.21 M/uL 4.30 - 6.10 Below low normal [facility] Hemoglobin [Mass/volume] in Blood 8.0 g/dL 13.5 - 17.5 Below low no rmal [facility] Hematocrit [Volume Fraction] of Blood by Automated count 26.2 % 39.0 - 50.0 Below low normal [facility] Erythrocyte mean corpuscular volume [Entitic volume] b y Automated count 118.6 fL 80.0 - 96.0 Above high normal [facility] Erythrocyte mean corpuscular hemoglobin [Entitic mass] by Automated count 36.2 pg 26.0 - 34.0 Above high normal [facility] Erythrocyte mean corpuscular hemoglobin concentration [Mass/volume] by Automated count 30.5 g/dL 32.0 - 36.0 Below low normal [facility] alexis Erythrocyte distribution width [Ratio] by Automated count 21.4 % 11.6 - 14.8 Above high normal [facility] Platelets [#/volume] in Blood by Automated count 29 K/uL 150 - 450 Below lower panic limits [facility] DECREASED PLATELETS NOTED CALLED TO: DR. CAGLE [facility] REP/VERIFIED 27 [facility] ital READ BACK YES [facility] Platelet mean volume [Entitic volume] in Blood by Automated count 10.2 fL 7.1 - 10.4 [facility] Neutrophils [#/volume] in Blood by Automated count 3.11 K/uL 1.70 - 7.70 [facility] Lymphocytes [#/volume] in Blood by Automated count 1.35 K/uL 1.50 - 6.00 Below low normal [facility] Monocytes [#/volume] in Blood by Automated count 1.39 K/uL 0.00 - 1.00 Above high normal [facility] Eosinophils [#/volume] in Blood by Automated count 0.28 K/uL 0.03 - 0.48 [facility] Basophils [#/volume] in Blood by Automated count 0.00 K/uL 0.01 - 0.08 Below low normal [facility] 1.45 Urinalysis macro (dipstick) panel - Urine 0.030 10^3/uL 0.000 - 0.012 Above high normal [facility] Neutrophils/100 leukocytes in Blood by Automated count 41.1 % 42.0 - 75.0 Below low normal [facility] Lymphocytes/100 leukocytes in Blood by Automated count 17.8 % 15. 0 - 41.0 [facility] Monocytes/100 leukocytes in Blood by Automated count 18.3 % 0.0 - 12.0 Above high normal [facility] Eosinophils/100 leukocytes in Blood by Automated count 3.7 % 0.0 - 7.0 [facility] 0.019.10 NRBC 0.4 % [facility] MANUAL DIFF SEE BELOW [facility] alexis SEGS 46 % 42 - 75 [facility] META 9 % 0 - 1 Above upper panic limits [facility] LYMPH 28 % 15 - 41 [facility] MONO 13 % 0 - 12 Above high normal [facility] EOS 4 % 0 - 7 [facility] RBC MORPH SEE BELOW [facility] POLYCHROMSIA NONE SEEN NORMAL: NONE SEEN [facility] HYPOCHROMIA 2+ NORMAL: NONE SEEN Abnormal (applies to non-num zia results) [facility] POIKLOCYTOSIS NONE SEEN NORMAL: NONE SEEN [facility] BASO STIPPLING NONE SEEN NORMAL: NONE SEEN [facility] ANISOCYTOSIS 2+ NORMAL: NONE SEEN Abnormal (applies to non-nu meric results) [facility] MICROCYTOSIS NONE SEEN NORMAL: NONE SEEN Abnormal (appl ies to non-numeric results) [facility] MACROCYTOSIS 2+ NORMAL: NONE SEEN Abnormal (applies to non-nu meric results) [facility] SPHEROCYTES NONE SEEN NORMAL: NONE SEEN [facility] SCHISTOCYTES NONE SEEN NORMAL: NONE SEEN [facility] TARGET CELLS NONE SEEN NORMAL: NONE SEEN [facility] TEARDROP NONE SEEN NORMAL: NONE SEEN [facility] OVALOCYTES NONE SEEN NORMAL: NONE SEEN [facility] STOMATOCYTES NONE SEEN NORMAL: NONE SEEN [facility] HELMET CELLS NONE SEEN NORMAL: NONE SEEN [facility] CORDERO JOLLY NONE SEEN NORMAL: NONE SEEN [facility] CABOT RINGS NONE SEEN NORMAL: NONE SEEN [facility] TOXIC GRAN NONE SEEN NORMAL: NONE SEEN [facility] DOHLE BODIES NONE SEEN NORMAL: NONE SEEN [facility] MANGO CELLS NONE SEEN NORMAL: NONE SEEN [facility] ACANTHOCYTES NONE SEEN NORMAL: NONE SEEN [facility] HYPER NEUT NONE SEEN NORMAL: NONE SEEN [facility] AZAM RODS NONE SEEN NORMAL: NONE SEEN [facility] ROULEAUX NONE SEEN NORMAL: NONE SEEN [facility] CRENATED CELL NONE SEEN NORMAL: NONE SEEN [facility] FEW SMUDGE CELLS NOTED ID Date Data Source [id number] 01/29/2021 10:45:00 AM EDT [facility] Name Value Range Interpretation Code Description Data Rajani rce(s) Supporting Document(s) COMPREHENSIVE CHEM PROFILE [facility] COMPREHENSIVE METABOLIC PANEL Sodium [Moles/volume] in Serum or Plasma 138 mEq/L 136 - 145 [facility] Potassium [Moles/volume] in Serum or Plasma 4.5 mEq/L 3.5 - 5.1 [facility] Chloride [Moles/volume] in Serum or Plasma 101 mEq/L 98 - 107 [facility] Carbon dioxide, total [Moles/volume] in Serum or Plasma 26.6 mEq /L 21.0 - 32.0 [facility] Glucose [Mass/volume] in Serum or Plasma 115 mg/dL 70 - 100 Above high normal [facility] Urea nitrogen [Mass/volume] in Serum or Plasma 32 mg/dL 7 - 18 Above high normal [facility] CREATININE SERUM 1.65 mg/dL 0.70 - 1.30 Above high normal [facility] AGE 65 yrs [facility] HEIGHT R [facility] eGFR NON-AFR AMR 42 [facility] eGFR AFR AMR 51 [facility] ital BUN/CREAT 19 6 - 25 [facility] Protein [Mass/volume] in Serum or Plasma 8.2 g/dL 6.0 - 8.3 [facility] Albumin [Mass/volume] in Serum or Plasma 3.4 g/dL 3.8 - 5.4 Below low normal [facility] GLOBULIN 4.8 g/dL 2.0 - 4.0 Above high normal [facility] A/G RATIO 0.7 0.8 - 2.0 Below low normal [facility] Calcium [Mass/volume] in Serum or Plasma 9.1 mg/dL 8.8 - 10.2 [facility] Bilirubin.total [Mass/volume] in Serum or Plasma 0.3 mg/dL 0.2 - 1.0 [facility] Bilirubin.direct [Mass/volume] in Serum or Plasma 0.1 mg/dL 0.0 - 0. 2 [facility] INDIRECT BILI 0.2 mg/dL 0.0 - 1.1 [facility] pital ALK PHOSPHATASE 59 U/L 40 - 129 [facility] ospital Aspartate aminotransferase [Enzymatic ac tivity/volume] in Serum or Plasma by With P-5'-P 16 IU/L 7 - 37 [facility] Alanine aminotransferase [Enzymatic acti vity/volume] in Serum or Plasma by With P-5'-P 24 IU/L 12 - 78 [facility] ANION GAP 10 7 - 15 [facility] Estimated GFR referenc e range: >60ml/min/1.73m >18 years: Calculated using IDTX traceable Study Equation <18 years: Calculated using [facility] tracable Bedside Schartz Equation ID Date Data Source [id number] 01/14/2021 09:20:26 AM EDT [facility] [address] [place] [address] TELEPHONE RADIOLOGY DEPARTMENT Name: ROBBIE [facility] #: [id number] : 1955 Ordering Physician: GAVIN Sex: M Date: 01/07/21 Admission Type: O/P X-ray Number: [id number] Unsigned Transcriptions are preliminary reports and do not represent a Medical or Legal Document XRAY ABDOMEN COMPLETEW// [id number] COMPLETE:01/07/21 12:59 LEI 90953 (REASON FOR ABDOMEN: ABDOMINAL PAIN Examination of the abdomen supine and upright views of the abdomen are submitted. FINDINGS: No significant bowel distention. There are a few scattered air fluid levels. No free air. No fecal loading. Scattered stool. Mild degenerative changes of the lumbar spine. IMPRESSION: No obstruction or free air. Electronically Reviewed and Signed By SAMEER CREWS 01/14/21 09:20 Dictating Initials: BE Transcribed Date: 01/07/21 17:08 Transcribe Initials: KELLI Name Value Range Interpretation Code Description Data Rajani rce(s) Supporting Document(s) ID Date Data Source [id number] 01/03/2021 08:59:00 AM EDT [facility] Cardiology Depart ment Cardiology Report [address], [place] [address] __ Name: NIKOLE AVALOS : 1955 Age/Sex: 65M Ordering Provider: Marissa Cagle MD Med Rec #: [id number] Reg Status:[facility] REF Room #: Date of Service: 01/03/21 Report Number: [id number] cc: Marissa Cagle MD Send Report To: Ordering Phys: Marissa Cagle MD Accession Number: [id number] Exam Date: 01/03/2021 09:18 Indications: SOB. GH OP BP 134 / 74 Rhythm: Technical Quality: Contrast: Total Dose (mL): MEASUREMENTS (Male / Female) Normal Values 2D ECHO Measurement LV Diastolic Diameter PLAX 3.7 cm 4.2 - 6.0 / 3.9 - 5.4 cm IVS Diastolic Thickness 1.2 cm 0.6 - 1.1 / 0.6 - 1.0 cm LVPW Diastolic Thickness 1.1 cm 0.6 - 1.1 / 0.6 - 1.0 LV Relative Wall Thickness 0.61 LVOT Diameter 2 cm Aortic Root Diameter 2.9 cm Aortic Root Diameter Index 1.3 cm/m2 LA Systolic Diameter LX 3.9 cm 3.0 - 4.1 / 2.7 - 3.9 cm LV Diastolic Volume MOD BP 87 ml LV Systolic Volume MOD BP 32.7 ml LV Ejection Fraction MOD BP 62.4 % >= 55 % LV Diastolic Volume MOD 4C 103 ml LV Systolic Volume MOD 4C 34.8 ml LV Ejection Fraction MOD 4C 66.2 % LV Diastolic Volume MOD 2C 68.2 ml LV Systolic Volume MOD 2C 29.3 ml LV Ejection Fraction MOD 2C 57 % LV Diastolic Length 4C 9.1 cm LV Systolic Length 4C 6.5 cm LV Diastolic Area 4C 33.5 cm2 LV Systolic Area 4C 16.4 cm2 LV Ejection Fraction 4C AL 66.1 % LV Diastolic Area 2C 26.2 cm2 LV Diastolic Length 2C 8.4 cm LV Systolic Area 2C 15.2 cm2 LV Systolic Length 2C 6.9 cm LV Ejection Fraction 2C AL 58.6 % LA Volume Index 25.7 cm3/m2 16 - 28 cm3/m2 Ascending Aorta Diameter 3.2 cm DOPPLER Measurement AV Peak Velocity 191 cm/s AV Peak Gradient 14.6 mmHg LVOT Peak Velocity 125 cm/s LVOT Peak Gradient 6.3 mmHg AV Area Cont Eq vti 2.1 cm2 AV Area Cont Eq pk 2.1 cm2 Mitral E Point Velocity 70.3 cm/s Mitral A Point Velocity 77.1 cm/s Mitral E to A Ratio 0.91 MV Area PHT 3.5 cm2 MV Deceleration Time 211 ms PV Peak Velocity 128 cm/s PV Peak Gradient 6.6 mmHg Mitral E to LV E' Lateral Ratio 6.8 LV E' Septal Velocity 6.1 cm/s Mitral E to LV E' Septal Ratio 11.5 FINDINGS Left Ventricle: Normal left ventricular size and systolic function. LVEF 60-65%. No obvious regional wall abnormalities. Mild mid/basal septal hypertrophy without resting subvalvular gradient. Right Ventricle: Normal right ventricular size and function. Right Atrium: Normal right atrial size. Mildy dilated IVC with collapse upon inspiration, RAP estimated at 8-10 mmHg. Left Atrium: Normal left atrial size. Intravenous N/A Agitated Saline: Mitral Valve: Trace mitral regurgitation. No mitral stenosis. Aortic Valve: Structurally normal aortic valve. No aortic stenosis or regurgitation. Tricuspid Valve: Trace tricuspid regurgitation. Suboptimal tricuspid regurgitation jet to estimate pulmonary artery pressure. Pulmonic Valve: Structurally normal pulmonic valve. Pericardium: Normal pericardium. Aorta: Normal size aortic root and proximal ascending aorta. CONCLUSIONS Normal left ventricular size and systolic function.LVEF 60-65%. Mild mid/basal septal hypertrophy without resting subvalvular gradient. No evidence of diastolic dysfunction. No significant valve abnormalities. No significant chamber abnormalities. Mildy dilated IVC with collapse upon inspiration, RAP estimated at 8-10 mmHg. Suboptimal tricuspid regurgitation jet to estimate pulmonary artery pressure. REPORT SIGNATURE ON FILE 01/04/21 1000 Reported By: Nikole Sanchez II, MD <Electronically signed by Nikole Sanchez II, MD in OV> Exam Date/Time: 01/03/2159 Order #: [id number] Dictation Date/Time: 01/03/21917 Transcribed Date/Time: Marketing Analyst: JYOTI Name Value Range Interpretation Code Description Data Rajani rce(s) Supporting Document(s) ID Date Data Source [id number] 12/19/2020 05:26:00 AM EDT [facility] Imaging Services Department Imaging Report [address], [place] [address] %(RAD)RES..mtdd.print.filter("line") Name: NIKOLE AVALOS : 1955 Age/Sex: 65M Ordering Provider: Angle Frost DPM Med Rec #: [id number] Reg Status: DEP REF Room #: Date of Service: 12/18/20 Report Number: [id number] cc:Marissa Cagle MD; Angle Frost DPM Send Report To: [id number] US/US Dup Lower Ext Artery Bilat Reason for exam: ABSENT PEDAL PULSES Technique: Ultrasound imaging performed using color flow and spectral Doppler interrogation. Prior examination: None available. FINDINGS: Dupl ex color sonography of the major arterial system of the bilaterallower extremities demonstrates triphasic flow in the bilateral common femoral, superficial femoral, and popliteal arteries. There is probable biphasic flow inthe visualized bilateral anterior and posterior tibial arteries and dorsalis pedis artery on the right. The dorsalis pedis artery on the left is not adequately visualized. There are no significant elevated velocities identified to suggest hemodynamically significant stenosis. IMPRESSION: Findings suggest mild diffuse atherosclerotic disease most in the bilateral calves. REPORT SIGNATURE ON FILE Reported By: Charly Mohr MD <Electronically signed by Charly Mohr MD> 12/19/20 1509 Dictation Date/Time: 12/18/20 1140 Transcribed Date/Time: 12/19/20 1512 Marketing Analyst: STEPHANIE Name Value Range Interpretation Code Description Data Rajani rce(s) Supporting Document(s) ID Date Data Source [id number] 12/18/2020 08:43:00 AM EDT [address] [address] TELEPHONE RADIOLOGY DEPARTMENT Name: [facility] #: [id number] : 1955 Ordering Physician: WILTON Sex: M Date: 12/12/20 Admission Type: E/R X-ray Number: [id number] Unsigned Transcriptions are preliminary reports and do not represent a Medical or Legal Document CT PE Study [id number] COMPLETE:12/12/20 12:05 LEI 48255 (REASON FOR CHEST: EMBOLISM Patient weight: 230 lbs. FINDINGS: CT PE chest with intravenous contrast acquired. Axial, coronal and sagittal images evaluated. The neck base is clear. The lungs are slightly hyperexpanded with mild chronic changes. Findings consistent with COPD. The heart is normal in size. No lymphadenopathy. No pulmonary embolism. No evidence of aortic dissection. The visualized upper abdomen demonstrates no acute abnormality. There's no acute osseous abnormality. IMPRESSION: COPD[place] [address] TELEPHONE ___ RADIOLOGY DEPARTMENT Name: [facility] #: [id number] : 1955 Ordering Physician: WILTON Sex: M Date: 12/12/20 Admission Type: E/R X-ray Number: [id number] Unsigned Transcriptions are preliminary reports and do not represent a Medical or Legal Document While performing the above CT exam, Radiation dose reduction was accomplished utilizing automated exposure control, adjusting of the mA and kV based on the patient's body size and/or the use of imperative reconstructive techniques. CT dose in mGy*CM: 421.9 Contrast agent in ml: 100 Isovue 300 Method of administration: Intravenous Electronically Reviewed and Signed By LEENA TRAVIS MD, MD 12/18/20 08:42 Dictating Ini tials: SILVESTRE Transcribed Date: 12/15/20 09:05 Transcribe Initials: LI Name Value Range Interpretation Code Description Data Rajani rce(s) Supporting Document(s) ID Date Data Source [id number] 12/18/2020 08:38:51 AM EDT [address] [address] TELEPHONE RADIOLOGY DEPARTMENT Name: [facility] #: [id number] : 1955 Ordering Physician: WLITON Sex: M Date: 12/12/20 Admission Type: E/R X-ray Number: [id number] Unsigned Transcriptions are preliminary reports and do not represent a Medical or Legal Document XRAY CHEST 2 VIEW PA - LATERA 74960 COMPLETE:12/12/20 05:21 RLL 06624 (REASON FOR CHEST: DYSPNEA Examination of the chest 2 views submitted. FINDINGS: Correlation made with chest CT scan from 12/12/2020. The heart size is within normal limits. There is some mild atelectasis/ scarring at the left lung base. No pleural effusion or pneumothorax is seen. A right side port catheter is present with its tips at SVC. The bones are osteopenic. Mild spurring is seen at the thoracic spine. IMPRESSION: Mild atelectasis/ scarring left base. Electronically Reviewed and Signed By EDWARD KAUR MD, MD 12/18/20 08:38 Dictating Initials: TS Transcribed Date: 12/12/20 13:32 Transcribe Initials: BBS Name Value Range Interpretation Code Description Data Rajani rce(s) Supporting Document(s) ID Date Data Source [id number] 12/12/2020 08:15:00 AM EDT [facility] Name Value Range Interpretation Code Description Data Rajani rce(s) Supporting Document(s) SARS-CoV-2 RNA Nph Ql TUNG+non-probe NOT DETECTED [facility] This lab was ordered by [facility] and reported by [facility]. ID Date Data Source [id number] 12/12/2020 08:15:00 AM EDT [facility] Name Value Range Interpretation Code Description Data Rajani rce(s) Supporting Document(s) RESP PROFILE RP2.1 NASAL PCR C [facility] \\BLDo\\RESPIRATORY PROFILE NASAL PHARYNGEAL BY PCR\\BLDx\\ \\BLDo\\DETECTED _NONE \\BLDx\\ 12/12/20.[facility]. \\BLDo\\EQUIVOCAL _NONE \\BLDx\\ 12/12/20.[facility]. VIRUSES ADENOVIRUS NOT DETECTED NORMAL: NOT DETECTED [facility] CORONAVIRUS 229E NOT DETECTED NORMAL: NOT DETECTED [facility] CORONAVIRUS HKU1 NOT DETECTED NORMAL: NOT DETECTED [facility] CORONAVIRUS NL63 NOT DETECTED NORMAL: NOT DETECTED [facility] CORONAVIRUS OC43 NOT DETECTED NORMAL: NOT DETECTED [facility] 84212-5 NOT DETECTED NORMAL: NOT DETECTED [facility] REPORT TO DEPARTMENT OF HEAL TH HUMAN METAPNEUMO NOT DETECTED NORMAL: NOT DETECTED [facility] HUMAN RHINO/ENTERO NOT DETECTED NORMAL: NOT DETECTED [facility] NOT DETECTEDNOT DETECTEDNOT DETECTEDNOT DETECTED PARAINFLUENZA V3 NOT DETECTED NORMAL: NOT DETECTED [facility] NOT DETECTED RSV NOT DETECTED NORMAL: NOT DETECTED [facility] BACTERIANOT DET ECTEDNOT DETECTEDNOT DETECTEDNOT DETECTED TESTING PERFORMED USING THE PadProofARRAY RP2.1 MULTIPLEXED NUCLEIC ACID TEST. THIS TEST HAS NOT BEEN FDA CLEARED OR APPROVED; THIS TEST HAS BEEN AUTHORIZED BY FDA UNDER AN EUA FOR USE BY AUTHORIZED LABORATORIES; THIS TEST HAS BEEN AUTHORIZED ONLY FOR THE DETECTION AND DIFFERENTATION OF NUCLEI ACID OF SARS-CoV-2 FROM MULTIPLE RESPIRATORY VIRAL AND BACTERIAL ORGANIMS; AND THIS TEST IS ONLY AUTHORIZED FOR THE DURATION OF THE DECLARATION THAT CIRCUMSTANCES EXIST JUSTIFYING THE AUTHORIZATION OF EMERGENCY USE OF IN VITRO DIAGNOSTIC TESTS FOR THE DETECTION AND/OR DIAGNOSIS OF COVID-19 UNDER SECTION 564(b)(1) OF THE ACT, 21 U.S.C. 360bbb-3(b) (1), UNLESS THE AUTHORIZATION IS TERMINATED OR REVOKED SOONER. ID Date Data Source [id number] 12/12/2020 08:10:00 AM EDT [facility] Name Value Range Interpretation Code Description Data Rajani rce(s) Supporting Document(s) Troponin I.cardiac [Mass/volume] in Serum or Plasma <0.017 ng/mL 0.017 - 0.060 [facility] \\BLDo\\TROPONIN I I NTERPRETATION:\\BLDx\\ < 0.06 ng/mL NOT SUSPICIOUS FOR AN AMI 0.06 - 0.59 ng/mL PAK ZONE FOR AN AMI, SERIAL MONITORING RECOMMENDED 0.6 - 1.5 ng/mL SUSPICIOUS FOR AN AMI Reference range updated for new chemiluminescent immunoassay method based on [employer]PUBL[employer] technology. Effective 11/21/17. ID Date Data Source [id number] 12/12/2020 04:00:00 AM EDT [facility] Name Value Range Interpretation Code Description Data Rajani rce(s) Supporting Document(s) CBC [facility] l COMPLETE BLOOD COUNT Leukocytes [#/volume] in Blood by Automated count 11.1 K/uL 4.0 - 10.0 Above high normal [facility] Erythrocytes [#/volume] in Blood by Automated count 2.75 M/uL 4.30 - 6.10 Below low normal [facility] Hemoglobin [Mass/volume] in Blood 9.7 g/dL 13.5 - 17.5 Below low no rmal [facility] Hematocrit [Volume Fraction] of Blood by Automated count 30.8 % 39.0 - 50.0 Below low normal [facility] Erythrocyte mean corpuscular volume [Entitic volume] b y Automated count 112.0 fL 80.0 - 96.0 Above high normal [facility] Erythrocyte mean corpuscular hemoglobin [Entitic mass] by Automated count 35.3 pg 26.0 - 34.0 Above high normal [facility] Erythrocyte mean corpuscular hemoglobin concentration [Mass/volume] by Automated count 31.5 g/dL 32.0 - 36.0 Below low normal [facility] alexis Erythrocyte distribution width [Ratio] by Automated count 20.7 % 11.6 - 14.8 Above high normal [facility] Platelets [#/volume] in Blood by Automated count 45 K/uL 150 - 450 Below low normal [facility] CONFIRMED BY REPEAT & SMEAR REVIEW Platelet mean volume [Entitic volume] in Blood by Automated count 9.2 fL 7.1 - 10.4 [facility] MANUAL DIFF [facility] BELOW [facility] SEGS 53 % 42 - 75 [facility] BAND 3 % 0 - 5 [facility] LYMPH 13 % 15 - 41 Below low normal [facility] MONO 29 % 0 - 12 Above high normal [facility] EOS 2 % 0 - 7 [facility] BASO 0 % 0 - 2 [facility] NRBC 0.0 % [facility] RBC MORPH SEE BELOW [facility] POLYCHROMSIA NONE SEEN NORMAL: NONE SEEN [facility] HYPOCHROMIA NONE SEEN NORMAL: NONE SEEN [facility] POIKLOCYTOSIS NONE SEEN NORMAL: NONE SEEN [facility] BASO STIPPLING NONE SEEN NORMAL: NONE SEEN [facility] ANISOCYTOSIS SLIGHT NORMAL: NONE SEEN Abnormal (applies to no n-numeric results) [facility] MICROCYTOSIS NONE SEEN NORMAL: NONE SEEN [facility] MACROCYTOSIS SLIGHT NORMAL: NONE SEEN Abnormal (applies to no n-numeric results) [facility] SPHEROCYTES NONE SEEN NORMAL: NONE SEEN [facility] SCHISTOCYTES NONE SEEN NORMAL: NONE SEEN [facility] TARGET CELLS NONE SEEN NORMAL: NONE SEEN [facility] TEARDROP NONE SEEN NORMAL: NONE SEEN [facility] OVALOCYTES NONE SEEN NORMAL: NONE SEEN [facility] STOMATOCYTES NONE SEEN NORMAL: NONE SEEN [facility] HELMET CELLS NONE SEEN NORMAL: NONE SEEN [facility] CORDERO JOLLY NONE SEEN NORMAL: NONE SEEN [facility] CABOT RINGS NONE SEEN NORMAL: NONE SEEN [facility] TOXIC GRAN NONE SEEN NORMAL: NONE SEEN [facility] DOHLE BODIES NONE SEEN NORMAL: NONE SEEN [facility] MANGO CELLS NONE SEEN NORMAL: NONE SEEN [facility] ACANTHOCYTES NONE SEEN NORMAL: NONE SEEN [facility] HYPER NEUT NONE SEEN NORMAL: NONE SEEN [facility] AZAM RODS NONE SEEN NORMAL: NONE SEEN [facility] ROULEAUX NONE SEEN NORMAL: NONE SEEN [facility] CRENATED CELL NONE SEEN NORMAL: NONE SEEN [facility] ID Date Data Source [id number] 12/12/2020 04:00:00 AM EDT [facility] Name Value Range Interpretation Code Description Data Rajani rce(s) Supporting Document(s) BASIC METABOLIC PANEL [facility] BASIC METABOLIC PANEL Sodium [Moles/volume] in Serum or Plasma 140 mEq/L 136 - 145 [facility] Potassium [Moles/volume] in Serum or Plasma 4.7 mEq/L 3.5 - 5.1 [facility] Chloride [Moles/volume] in Serum or Plasma 101 mEq/L 98 - 107 [facility] Carbon dioxide, total [Moles/volume] in Serum or Plasma 25.4 mEq /L 21.0 - 32.0 [facility] Glucose [Mass/volume] in Serum or Plasma 217 mg/dL 70 - 100 Above high normal [facility] Urea nitrogen [Mass/volume] in Serum or Plasma 45 mg/dL 7 - 18 Above high normal [facility] CREATININE SERUM 2.15 mg/dL 0.70 - 1.30 Above high normal [facility] AGE 65 yrs [facility] HEIGHT 68.[address] [facility] ital eGFR NON-AFR AMR 31 [facility] eGFR AFR AMR 38 [facility] ital BUN/CREAT 21 6 - 25 [facility] Calcium [Mass/volume] in Serum or Plasma 9.0 mg/dL 8.8 - 10.2 [facility] ANION GAP 14 7 - 15 [facility] Estimated GFR reference r juan carlos: > 60 mL/min/1.73m >18 years: Calculated using IDMS traceable MDRD Study Equation <18 years: Calculated using IDMS traceable Bedside Nuñez Equation ID Date Data Source [id number] 12/12/2020 04:00:00 AM EDT [facility] Name Value Range Interpretation Code Description Data Rajani rce(s) Supporting Document(s) Troponin I.cardiac [Mass/volume] in Serum or Plasma <0.017 ng/mL 0.017 - 0.060 [facility] \\BLDo\\TROPONIN I I NTERPRETATION:\\BLDx\\ < 0.06 ng/mL NOT SUSPICIOUS FOR AN AMI 0.06 - 0.59 ng/mL PAK ZONE FOR AN AMI, SERIAL MONITORING RECOMMENDED 0.6 - 1.5 ng/mL SUSPICIOUS FOR AN AMI Reference range updated for new chemiluminescent immunoassay method based on [employer] technology. Effective 11/21/17. ID Date Data Source [id number] 11/24/2020 09:44:00 AM EDT [facility] Name Value Range Interpretation Code Description Data Rajani rce(s) Supporting Document(s) FREE T3 [id number] [facility] _TRIIODOTHYRONINE T3 FREE_Triiodoth yronine (T3), FreeReported: 11/27/2020 14:05 Status=F --------TEST RESULT FLAG RANGE UNITS SC --Triiodothyronine (T3), 2.9 2.0-4.4 pg/mL ROSA ELENA 11/27/20.1405.rfl.CORRCTD .LCTRFreeRN Test performed by: [facility] [address] Susan Gonzalez MD 11/27/20.1417.XMT.SENT REF 11/27/20.1417.XMT.SENT REF ID Date Data Source [id number] 11/24/2020 09:44:00 AM EDT [facility] Name Value Range Interpretation Code Description [facility](s) T3 TOTAL [facility] _T3 TOTAL_Triiodothyronine (T3)Repo rted: 11/27/2020 14:05 Status=F RESULT FLAG RANGE UNITS SC --Triiodothyronine (T3) 98 71-180 ng/dL ROSA ELENA 11/27/20.1405.rfl.CORRCTD .LCTRRN Test performed by: [place] [address] Susan Gonzalez MD 11/27/20.1417.XMT.SENT REF 11/27/20.1417.XMT.SENT REF ID Date Data Source [id number] 11/24/2020 09:44:00 AM EDT [facility] Value Range Interpretation Code Description Data [facility] Supporting Document(s) CALCITRIOL VIT D 1,25 DIHYDROXY [facility] _VITAMIN D 1,25 DIHYDROXY_Calcitrio l(1,25 di-OH Vit D)Reported: 11/27/2020 14:05 Status=F --------TEST RESULT FLAG RANGE UNITS SC --Calcitriol(1,25 di-OH 15.9 L 19.9-79.3 pg/mL BN 11/27/20.1405.Mathew SANTIAGOTRJovani Veloz)BN Test performed by: [address] [address] [id number] Romero Osorio MD 11/27/20.1417.XMT.SENT REF 11/27/20.1417.XMT.SENT REF ID Date Data Source [id number] 11/24/2020 09:44:00 AM EDT [facility] Name Value Range Interpretation Code Description Data Rajani e(s) Supporting Document(s) Hemoglobin A1c/Hemoglobin.total in Blood 6.7 % 4.0 - 5.6 Above high normal [facility] Glucose mean value [Mass/volume] in Blood Estimated fr om glycated hemoglobin 146 mg/dL [facility] \\BLDo\\HEMOGLO BIN A1C\\BLDx\\ 4.0 - 5.6%: Normal 5.7 - 6.4%: Suggests Impaired Glucose Metabolism > or = 6.5%: Abnormal Estimated average glucose calculated using ADAG Study formula as recommended by the [employer] [employer]. ID Date Data Source [id number] 11/24/2020 09:44:00 AM EDT [facility] Name Value Range Interpretation Code Description Data Rajani rce(s) Supporting Document(s) LIVER PROFILE [facility] HEPATIC PANEL Protein [Mass/volume] in Serum or Plasma 7.3 g/dL 6.0 - 8.3 [facility] Albumin [Mass/volume] in Serum or Plasma 3.4 g/dL 3.8 - 5.4 Below low normal [facility] GLOBULIN 3.9 g/dL 2.0 - 4.0 [facility] A/G RATIO 0.9 0.8 - 2.0 [facility] Bilirubin.total [Mass/volume] in Serum or Plasma 0.2 mg/dL 0.2 - 1.0 [facility] Bilirubin.direct [Mass/volume] in Serum or Plasma 0.1 mg/dL 0.0 - 0. 2 [facility] INDIRECT BILI 0.1 mg/dL 0.0 - 1.1 [facility] ALK PHOSPHATASE 55 U/L 40 - 129 [facility] Aspartate aminotransferase [Enzymatic ac tivity/volume] in Serum or Plasma by With P-5'-P 17 IU/L 7 - 37 [facility] Alanine aminotransferase [Enzymatic acti vity/volume] in Serum or Plasma by With P-5'-P 29 IU/L 12 - 78 [facility] ID Date Data Source [id number] 11/24/2020 09:44:00 AM EDT [facility] Name Value Range Interpretation Code Description Data Rajani rce(s) Supporting Document(s) T4 FREE 0.85 ng/dL 0.76 - 1.46 [facility] ital ID Date Data Source [id number] 11/24/2020 09:44:00 AM EDT [facility] Name Value Range Interpretation Code Description Data Rajani rce(s) Supporting Document(s) TSH 0.61 uIU/mL 0.36 - 3.74 [facility] ID Date Data Source [id number] 11/24/2020 09:44:00 AM EDT [facility] Name Value Range Interpretation Code Description Data Rajani rce(s) Supporting Document(s) BASIC METABOLIC PANEL [facility] BASIC METABOLIC PANEL Sodium [Moles/volume] in Serum or Plasma 139 mEq/L 136 - 145 [facility] Potassium [Moles/volume] in Serum or Plasma 4.4 mEq/L 3.5 - 5.1 [facility] Chloride [Moles/volume] in Serum or Plasma 102 mEq/L 98 - 107 [facility] Carbon dioxide, total [Moles/volume] in Serum or Plasma 27.5 mEq /L 21.0 - 32.0 [facility] Glucose [Mass/volume] in Serum or Plasma 89 mg/dL 70 - 100 [facility] Urea nitrogen [Mass/volume] in Serum or Plasma 38 mg/dL 7 - 18 Above high normal [facility] CREATININE SERUM 1.75 mg/dL 0.70 - 1.30 Above high normal [facility] AGE 65 yrs [facility] eGFR NON-AFR AMR 40 [facility] eGFR AFR AMR 48 [facility] ital BUN/CREAT 22 6 - 25 [facility] Calcium [Mass/volume] in Serum or Plasma 8.8 mg/dL 8.8 - 10.2 [facility] ANION GAP 10 7 - 15 [facility] Estimated GFR reference r juan carlos: > 60 mL/min/1.73m >18 years: Calculated using IDMS traceable MDRD Study Equation <18 years: Calculated using IDMS traceable Bedside Nuñez Equation ID Date Data Source [id number] 11/24/2020 09:44:00 AM EDT [facility] Name Value Range Interpretation Code Description Data Rajani rce(s) Supporting Document(s) CBC [facility] COMPLETE BLOOD COUNT Leukocytes [#/volume] in Blood by Automated count 7.6 K/uL 4.0 - 10 .0 [facility] [facility] Erythrocytes [#/volume] in Blood by Automated count 2.82 M/uL 4.30 - 6.10 Below low normal [facility] Hemoglobin [Mass/volume] in Blood 10.0 g/dL 13.5 - 17.5 Below low no rmal [facility] Hematocrit [Volume Fraction] of Blood by Automated count 31.2 % 39.0 - 50.0 Below low normal [facility] Erythrocyte mean corpuscular volume [Entitic volume] b y Automated count 110.6 fL 80.0 - 96.0 Above high normal [facility] Erythrocyte mean corpuscular hemoglobin [Entitic mass] by Automated count 35.5 pg 26.0 - 34.0 Above high normal [facility] Erythrocyte mean corpuscular hemoglobin concentration [Mass/volume] by Automated count 32.1 g/dL 32.0 - 36.0 [facility] Erythrocyte distribution width [Ratio] by Automated count 21.0 % 11.6 - 14.8 Above high normal [facility] Platelets [#/volume] in Blood by Automated count 53 K/uL 150 - 450 Below low normal [facility] REP/VERIFIED 54 [facility] Platelet mean volume [Entitic volume] in Blood by Automated count 9.7 fL 7.1 - 10.4 [facility] Neutrophils [#/volume] in Blood by Automated count 2.41 K/uL 1.70 - 7.70 [facility] Lymphocytes [#/volume] in Blood by Automated count 1.71 K/uL 1.50 - 6.00 [facility] Monocytes [#/volume] in Blood by Automated count 1.64 K/uL 0.00 - 1.00 Above high normal [facility] Eosinophils [#/volume] in Blood by Automated count 0.33 K/uL 0.03 - 0.48 [facility] Basophils [#/volume] in Blood by Automated count 0.03 K/uL 0.01 - 0. 08 [facility] 1.51 Urinalysis macro (dipstick) panel - Urine 0.000 10^3/uL 0.000 - 0.012 [facility] Neutrophils/100 leukocytes in Blood by Automated count 31.6 % 42.0 - 75.0 Below low normal [facility] Lymphocytes/100 leukocytes in Blood by Automated count 22.4 % 15. 0 - 41.0 [facility] Monocytes/100 leukocytes in Blood by Automated count 21.5 % 0.0 - 12.0 Above high normal [facility] Eosinophils/100 leukocytes in Blood by Automated count 4.3 % 0.0 - 7.0 [facility] 0.419.80 NRBC 0.0 % [facility] MANUAL DIFF [facility] BELOW [facility] SEGS 38 % 42 - 75 Below low normal [facility] META 5 % 0 - 1 Above upper panic limits [facility] LYMPH 26 % 15 - 41 [facility] MONO 23 % 0 - 12 Above high normal [facility] EOS 8 % 0 - 7 Above high normal [facility] RBC MORPH NOT INDICATED [facility] pital ID Date Data Source [id number] 08/15/2020 11:36:17 [place] [address] TELEPHONE RADIOLOGY DEPARTMENT Name: [facility] #: [id number] : 1955 Ordering Physician: WILTON Sex: M Date: 08/13/20 Admission Type: E/R X-ray Number: [id number] Unsigned Transcriptions are preliminary reports and do not represent a Medical or Legal Document CT CERVICAL SPINE W/O TRAY [id number] COMPLETE:08/13/20 09:55 LEI [id number] (SPINE PROCED REASON: PAIN Patient weight: 240 lbs. Comparison: none available. FINDINGS: CT examination of the cervical spine without the use of intravenous contrast. Axial, sagittal and coronal images are generated. No evidence of acute fracture or significant spondylolisthesis. There are moderate degenerative changes throughout the spine including joint space narrowing and osteophytes especially anteriorly. The greatest joint space narrowing is at C6-C7 with extensive bridging anterior oste ophytes junction at C4-C5 and C5-C6. CT scan is less sensitive than MRI for evaluation for pathology. No significant spinal canal stenosis is noted. Consider MRI for further evaluation if clinically warranted. Evaluation of the lung apices is limited by motion. A discrete mass is not appreciated. The thyroid gland is heterogeneous in attenuation which can be further evaluated with sonography if clinically warranted. [facility] [address] [place] [address] TELEPHONE RADIOLOGY DEPARTMENT Name: [facility] #: [id number] : 1955 Ordering Physician: WILTON Sex: M Date: 08/13/20 Admission Type: E/R X-ray Number: [id number] Unsigned Transcriptions are preliminary reports and do not represent a Medical or Legal Document Evaluation of the visualized paranasal sinuses and mastoid air cells are unremarkable. IMPRESSION: Degenerative changes without acute fracture. While performing the above CT exam, Radiation dose reduction was accomplished utilizing automated exposure control, adjusting of the mA and kV based on the patient's body size and/or the use of imperative reconstructive techniques. CT dose in mGy*CM: 320.4 Electronically Reviewed and Signed By CHARLY MOHR MD, MD 08/15/20 11:35 Dictating Initials: AL Transcribed Date: 08/13/20 13:18 Transcribe Initials: BBS Name Value Range Interpretation Code Description Data Rajani rce(s) Supporting Document(s) ID Date Data Source [id number] 07/20/2020 11:29:00 AM EDT [facility] Imaging Services Department Imaging Report [address] [place], [place] [address] %(RAD)RES..mtdd.print.filter("line") Name: NIKOLE AVALOS : 1955 Age/Sex: 65M Ordering Provider: Jose Maria Harden MD Med Rec #: [id number] Reg Status: DEP REF Room #: Date of Service: 07/18/20 Report Number: [id number] cc:Marissa Cagle MD; Jose Maria Harden MD Send Report To: [id number] US/US Dup Upper Ext Veins Rt Reason for exam: DIFFUSE LARGE B-CELL LYMPHOMA, ? DVT Technique: Ultrasound imaging performed using color flow and spectral Doppler interrogation. FINDINGS: Normal compressibility and augmentation is identified without evidence of a thrombus. IMPRESSION: No evidence of a DVT is visualized. REPORT DICTATED BY GENO PARIS, REVIEWED AND SIGNED BY DR. VAUGHN Report recalled. Provider edit made. Body of report unchanged. [email or web address] 08/06/20 0610 REPORT SIGNATURE ON FILE Reported By: David Vaughn MD <Electronically signed by David Vaughn MD> 08/06/20 1130 Dictation Date/Time: 07/18/20 1437 Transcribed Date/Time: 07/20/20 1129 Marketing Analyst: CARLOS Name Value Range Interpretation Code Description Data Rajani rce(s) Supporting Document(s) ID Date Data Source [id number] 06/30/2020 06:23:00 PM EDT [facility] Name Value Range Interpretation Code Description Data Rajani rce(s) Supporting Document(s) SARS coronavirus 2 RNA [Presence] in Res piratory specimen by TUNG with probe detection NEGATIVE [facility] This lab was ordered by [facility] a nd reported by [facility]. ID Date Data Source [id number] 06/24/2020 12:47:19 [place] [address] TELEPHONE RADIOLOGY DEPARTMENT Name: [facility] #: [id number] : 1955 Ordering Physician: JASMIN Goncalves Sex: M Date: 06/19/20 Admission Type: O/P X-ray Number: [id number] Unsigned Transcriptions are preliminary reports and do not represent a Medical or Legal Document THYROID STUDY 23018 COMPLETE:06/19/20 11:22 [facility] [address] (EXAM REASON: MULTINODULAR THYROID Prior examination on 06/12/19. FINDINGS: The right lobe measures 5.5 x 2.1 x 2.4 centimeters and the left lobe measures 4.7 x 1.7 x 2.2 centimeters. There are multiple hypoechoic nodules noted bilaterally. The multiplicity of lesions limits the direct comparison. The largest lesion is an iso to hypoechoic nodule on the left measuring 1.4 x 1.3 x 1.4 centimeters which apparently has decreased in size when compared to the prior examination. There are multiple smaller nodules noted scattered throughout the thyroid gland bilaterally. The largest on the right measures up to 4.0 millimeters. The isthmus measures 4.0 millimeters which is not thickened. IMPRESSION: Again seen are bilateral nodules the largest again is on the left which has decreased in size when compared to the prior examination. TI-RAD of 3. Electronically Reviewed and Signed By CHARLY MOHR MD, [place] [address] TELEPHONE RADIOLOGY DEPARTMENT Name: ROBBIE [facility] #: [id number] : 1955 Ordering Physician: JASMIN Goncalves Sex: M Date: 06/19/20 Admission Type: O/P X-ray Number: [id number] _ Unsigned Transcriptions are preliminary reports and do not represent a Medical or Legal Document 06/24/20 12:46 Dictating Initials: AL Transcribed Date: 06/20/20 09:15 Transcribe Initials: LI Name Value Range Interpretation Code Description Data Rajani rce(s) Supporting Document(s) ID Date Data Source [id number] 04/25/2020 02:15:00 PM [facility] Name: NIKOLE AVALOS : 1955 Age/Sex: 64M Attending Physician: Rudy Baron MD Med Rec #: [id number] Admission Date: 04/25/20 Room #: Admitting Physician: Report Number: [id number] _ cc: Marissa Cagle MD; Rudy Baron MD Send Report To: Report Status - Signed Endoscopy Department Patient Name: Nikole Avalos Attending MD: Rudy Baron MD Instrument Name: [id number] Procedure Date No Time: 04/25/2020 Date of : 1955 Procedure: Colonoscopy Indications: Screening for colorectal malignant neoplasm Providers: Rudy Baron MD Referring MD: Requesting Provider: Medicines: See the [facility] for documentation of the administered medications Complications: No immediate complications. Procedure: Pre-Anesthesia Assessment: - Prior to the procedure, a History and Physical was performed, and patient medications and allergies were reviewed. The patient's tolerance of previous anesthesia was also reviewed. The risks and benefits of the procedure and the sedation options and risks were discussed with the patient. All questions were answered, and informed consent was obtained. Prior Anticoagulants: The patient has taken no previous anticoagulant or antiplatelet agents. ASA Grade Assessment: II - A patient with mild systemic disease. After reviewing the risks and benefits, the patient was deemed in satisfactory condition to undergo the procedure. After I obtained informed consent, the scope was passed under direct vision. Throughout the procedure, the patient's blood pressure, pulse, and oxygen saturations were monitored continuously. The Colonoscope was introduced through the anus and advanced to the cecum, identified by appendic eal orifice and ileocecal valve. The colonoscopy was unusually difficult due to inadequate bowel prep. The patient tolerated the procedure well. The quality of the bowel preparation was evaluated using the BBPS ([place] Bowel Preparation Scale) with scores of: Right Colon = 0 (unprepared, mucosa not seen due to solid stool that cannot be cleared or unseen proximal colon segment in a colonoscopy aborted due to inadequate bowel prep), Transverse Colon = 0 (unprepared, mucosa not seen due to solid stool that cannot be cleared or unseen proximal colon segment in a colonoscopy aborted due to inadequate bowel prep) and Left Colon = 0 (unprepared, mucosa not seen due to solid stool that cannot be cleared or unseen proximal colon segment in a colonoscopy aborted due to inadequate bowel prep). The total BBPS score equals 0. Findings: Multiple diverticula were found in the sigmoid colon and descending colon. Non diagnostic exam Impression: - Diverticulosis in the sigmoid colon and in the descending colon. - No specimens collected. Recommendation: - Discharge patient to home. - High fiber diet. - Use fiber, for example Citrucel, Fibercon, Konsyl or Metamucil. - Repeat colonoscopy in 6 months because the bowel preparation was poor. - Return to my office in 5 months. Rudy Baron MD 04/25/2020 2:15:19 PM This report has been signed electronically. Number of Addenda: 0 Note Initiated On: 04/25/2020 1:[address] [place] [id number] REPORT SIGNATURE ON FILE Dictated By: Rudy Baron MD <Electronically signed by Rudy Baron MD in OV> 04/25/20 1415 Dictation Date/Time: 04/25/20 1350 Transcribed Date/Time: 04/25/20 1415/IATRICS Name Value Range Interpretation Code Description Data Rajani rce(s) Supporting Document(s) ID Date Data Source [id number] 04/25/2020 12:38:00 PM EST [facility] Name Value Range Interpretation Code Description Data Rajani rce(s) Supporting Document(s) LAB Glucose,Fingerstick 179 mg/dL 70-110 Above high normal [facility] ID Date Data Source [id number] 04/21/2020 04:13:00 PM EST [facility] Name Value Range Interpretation Code Description Data Rajani rce(s) Supporting Document(s) Respiratory specimen severe acute respir atory syndrome coronavirus 2 (SARS-CoV-2) RNA Negative (qualifier value) [facility] This lab was ordered by [facility] and reported by . ID Date Data Source [id number] 04/21/2020 03:42:00 PM EST [facility] Name Value Range Interpretation Code Description Data Rajani rce(s) Supporting Document(s) SARS-CoV-2 RNA INHOUSE Negative Normal (applies to non-n umeric results) [facility] THIS IS A [facility] REPORTABLE COMMUNICABLE DISEASE. Testing was performed using the ChartsNow (now MusicQubed) COVID-19 MDx Assay. This test has been authorized by FDA under an (Emergency Use Authorization) EUA for use by authorized laboratories for individuals who are suspected of COVID-19 by their healthcare provider. This test is only authorized for the duration of the declaration that circumstances exist justifying the authorization of emergency use of in vitro diagnostic tests for detection and/or diagnosis of SARS-CoV-2. Methodology: Endpoint RT-PCR. Fact sheets for this EUA assay can be found at the following links: Providers: https://www.fda.gov/media/231611/download Patients : https://www.fda.gov/media/756543/download THIS IS A [facility] REPORTABLE COMMUNICABLE DISEASE Negative results do not preclude SARS-CoV-2 infection and should not be used as the sole basis for patient management decisions. Negative results must be combined with clinical observations,patient history, and epidemiological information. ID Date Data Source [id number] 03/08/2020 09:05:00 AM [facility] Name Value Range Interpretation Code Description Data Rajani rce(s) Supporting Document(s) 25-OH VITAMIN D 19.7 ng/mL 30.0 - 100 Below low normal [facility] Deficient < 20 ng/mL Insufficient 20 - < 30 ng/mL Sufficient 30 - 100 ng/mL 25-OH vitamin D reference values based on the Clinical Guidelines Subcommittee of the Endocrine Society Task Force. Biotin can interfere with 25-OH Vitamin D results if taken 48 hours prior to specimen collection. ID Date Data Source [id number] 03/08/2020 09:05:00 AM [facility] Name Value Range Interpretation Code Description Data Rajani rce(s) Supporting Document(s) LIPID PROFILE [facility] LIPID PROFILE Cholesterol [Mass/volume] in Serum or Plasma 156 mg/dL [facility] Triglyceride [Mass/volume] in Serum or Plasma 139 mg/dL [facility] Cholesterol in HDL [Mass/volume] in Serum or Plasma 33 mg/dL [facility] Cholesterol in LDL [Mass/volume] in Serum or Plasma by calculation 95 mg/dL [facility] CHOL/HDL 4.73 [facility] \\BLDo\\INTERPRE TATION\\BLDx\\ REFERENCE RANGES (NATIONAL CHOLESTEROL EDUCATION PROGRAM) CHOLESTEROL < 200 mg/dL DESIREABLE 200 - 239 mg/dL BORDERLINE HIGH > 240 mg/dL HIGH TRIGLYCERIDES < 150 mg/dL DESIREABLE 150 - 199 mg/dL BORDERLINE HIGH 200 - 499 mg/dL HIGH > or = 500 mg/dL VERY HIGH HDL > or = 60 mg/dL HIGH < 40 mg/dL LOW LDL < 100 mg/dL DESIREABLE 100 - 129 mg/dL LOW RISK 130 - 159 mg/dL BORDERLINE HIGH 160 - 189 mg/dL HIGH > or = 190 mg/dL VERY HIGH ID Date Data Source [id number] 03/08/2020 09:05:00 AM EST [facility] Name Value Range Interpretation Code Description Data Rajani rce(s) Supporting Document(s) TSH 1.05 uIU/mL 0.36 - 3.74 [facility] Date Data Source [id number] 03/08/2020 09:05:00 AM EST [facility] Name Value Range Interpretation Code Description Data Rajani rce(s) Supporting Document(s) T4 FREE 0.86 ng/dL 0.76 - 1.46 [facility] ital ID Date Data Source [id number] 03/08/2020 09:05:00 AM EST [facility] Name Value Range Interpretation Code Description Data Rajani rce(s) Supporting Document(s) BASIC METABOLIC PANEL [facility] BASIC METABOLIC PANEL Sodium [Moles/volume] in Serum or Plasma 143 mEq/L 136 - 145 [facility] Potassium [Moles/volume] in Serum or Plasma 4.3 mEq/L 3.5 - 5.1 [facility] Chloride [Moles/volume] in Serum or Plasma 105 mEq/L 98 - 107 [facility] Carbon dioxide, total [Moles/volume] in Serum or Plasma 30.2 mEq /L 21.0 - 32.0 [facility] Glucose [Mass/volume] in Serum or Plasma 143 mg/dL 70 - 100 Above high normal [facility] Urea nitrogen [Mass/volume] in Serum or Plasma 36 mg/dL 7 - 18 Above high normal [facility] CREATININE SERUM 1.78 mg/dL 0.70 - 1.30 Above high normal [facility] AGE 64 yrs [facility] eGFR NON-AFR AMR 39 [facility] eGFR AFR AMR 47 [facility] ital BUN/CREAT 20 6 - 25 [facility] Calcium [Mass/volume] in Serum or Plasma 9.7 mg/dL 8.8 - 10.2 [facility] ANION GAP 8 7 - 15 [facility] Estimated GFR reference r juan carlos: > 60 mL/min/1.73m >18 years: Calculated using IDMS traceable MDRD Study Equation <18 years: Calculated using IDMS traceable Bedside Nuñez Equation ID Date Data Source [id number] 03/08/2020 09:05:00 AM EST [facility] Name Value Range Interpretation Code Description Data Rajani rce(s) Supporting Document(s) CBC [facility] COMPLETE BLOOD COUNT Leukocytes [#/volume] in Blood by Automated count 5.9 K/uL 4.0 - 10 .0 [facility] Erythrocytes [#/volume] in Blood by Automated count 4.73 M/uL 4.30 - 6.10 [facility] Hemoglobin [Mass/volume] in Blood 13.8 g/dL 13.5 - 17.5 [facility] Hematocrit [Volume Fraction] of Blood by Automated count 44.3 % 3 9.0 - 50.0 [facility] Erythrocyte mean corpuscular volume [Entitic volume] by Auto mated count 93.7 fL 80.0 - 96.0 [facility] Erythrocyte mean corpuscular hemoglobin [Entitic mass] by Automated count 29.2 pg 26.0 - 34.0 [facility] Erythrocyte mean corpuscular hemoglobin concentration [Mass/volume] by Automated count 31.2 g/dL 32.0 - 36.0 Below low normal [facility] alexis Erythrocyte distribution width [Ratio] by Automated count 15.3 % 11.6 - 14.8 Above high normal [facility] Platelets [#/volume] in Blood by Automated count 191 K/uL 150 - 450 [facility] Platelet mean volume [Entitic volume] in Blood by Automated count 9.4 fL 7.1 - 10.4 [facility] Neutrophils [#/volume] in Blood by Automated count 3.79 K/uL 1.70 - 7.70 [facility] Lymphocytes [#/volume] in Blood by Automated count 1.45 K/uL 1.50 - 6.00 Below low normal [facility] Monocytes [#/volume] in Blood by Automated count 0.40 K/uL 0.00 - 1. 00 [facility] Eosinophils [#/volume] in Blood by Automated count 0.13 K/uL 0.00 - 0.30 [facility] Basophils [#/volume] in Blood by Automated count 0.06 K/uL 0.00 - 0. 10 [facility] 0.06 Urinalysis macro (dipstick) panel - Urine 0.000 10^3/uL 0.000 - 0.012 [facility] Neutrophils/100 leukocytes in Blood by Automated count 64.4 % 42. 2 - 75.2 [facility] Lymphocytes/100 leukocytes in Blood by Automated count 24.6 % 15. 0 - 41.0 [facility] Monocytes/100 leukocytes in Blood by Automated count 6.8 % 0.0 - 12.0 [facility] Eosinophils/100 leukocytes in Blood by Automated count 2.2 % 0.0 - 7.0 [facility] 1.01.00 NRBC 0.0 % [facility] MANUAL DIFF NOT INDICATED [facility] RBC MORPH NOT INDICATED [facility] ID Date Data Source [id number] 02/26/2020 03:58:00 PM [facility] Name: NIKOLE AVALOS : 1955 Age/Sex: 64M Ordering Provider: Gabe Finley MD Med Rec #: [id number] Reg Status: [facility] Room #: Date of Service: 02/21/20 Report Number: [id number] cc:Gabe Finley MD Send Report To: [id number] XRP/XR Knee Rt 2 views Reason for exam: SPRAIN OF MEDIAL COLLATERAL LIGAMENT OF RIGHT KNEE FINDINGS: 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 There is a joint effusion noted. No intrinsic bony lesions or any acute abnormalities otherwise identified. IMPRESSION: Arthritic changes noted. Fluoroscopy time in seconds: Number of Exposures: Time Portable Image Performed: Contrast Agent in ml: Method of Administration: REPORT SIGNATURE ON FILE Reported By: Geno Garcia MD <Electronical ly signed by Janeth Garcia MD> 02/27/20 1024 Dictation Date/Time: 02/25/20 1528 Transcribed Date/Time: 02/26/20 1558 Marketing Analyst: STEPHANIE Name Value Range Interpretation Code Description Data Rajani rce(s) Supporting Document(s) Procedure Social History No Information Vital Signs ID Date Data Source UNK Name Value Range Interpretation Code Description Data Source(s) Body mass index (BMI) [Ratio] 33.45 kg/m2 33.45 kg/m2 [facility] Systolic blood pressure 142 mm[Hg] 142 mm[Hg] [facility] Diastolic blood pressure 67 mm[Hg] 67 mm[Hg] [facility] Body surface area Derived from formula 2.19 m2 2.19 m2 [facility] Body height 172.7200 cm 172.7200 cm [facility] Oxygen saturation in Arterial blood by Pulse oximetry 98 % 98 % [facility] Heart rate 92.0 /min 92.0 /min [facility]ital Respiratory rate 18 /min 18 /min [facility] Body temperature 36.7 Amalia 36.7 Amalia [facility] Body weight 99.79 kg 99.79 kg [facility] Body mass index (BMI) [Ratio] 32.54 kg/m2 32.54 kg/m2 [facility] Systolic blood pressure 138 mm[Hg] 138 mm[Hg] [facility] Diastolic blood pressure 70 mm[Hg] 70 mm[Hg] [facility] Body surface area Derived from formula 2.16 m2 2.16 m2 [facility] Body height 172.7200 cm 172.7200 cm [facility] Oxygen saturation in Arterial blood by Pulse oximetry 100 % 100 % [facility] Heart rate 84.0 /min 84.0 /min [facility] Respiratory rate 20 /min 20 /min [facility] Body temperature 36.7 Amalia 36.7 Amalia [facility] Body weight 97.07 kg 97.07 kg [facility] Body mass index (BMI) [Ratio] 34.06 kg/m2 34.06 kg/m2 [facility] Systolic blood pressure 156 mm[Hg] 156 mm[Hg] [facility] Diastolic blood pressure 80 mm[Hg] 80 mm[Hg] [facility] Body surface area Derived from formula 2.21 m2 2.21 m2 [facility] Body height 172.7200 cm 172.7200 cm [facility] Oxygen saturation in Arterial blood by Pulse oximetry 95 % 95 % [facility] Heart rate 76.0 /min 76.0 /min [facility] Respiratory rate 18 /min 18 /min [facility] Body temperature 36.7 Amalia 36.7 Amalia [facility] Body weight 101.60 kg 101.60 kg [facility] Systolic blood pressure 106 mm[Hg] 106 mm[Hg] [facility] Diastolic blood pressure 61 mm[Hg] 61 mm[Hg] [facility] Oxygen saturation in Arterial blood by Pulse oximetry 95 % 95 % [facility] Heart rate 79.0 /min 79.0 /min [facility] Respiratory rate 20 /min 20 /min [facility] Body temperature 36.9 Amalia 36.9 Amalia [facility] Respiratory rate 18 /min 18 /min [facility] Body mass index (BMI) [Ratio] 34.97 kg/m2 34.97 kg/m2 [facility] Systolic blood pressure 127 mm[Hg] 127 mm[Hg] [facility] Diastolic blood pressure 74 mm[Hg] 74 mm[Hg] [facility] Body surface area Derived from formula 2.24 m2 2.24 m2 [facility] Body height 172.7200 cm 172.7200 cm [facility] Oxygen saturation in Arterial blood by Pulse oximetry 97 % 97 % [facility] Heart rate 90.0 /min 90.0 /min [facility] Body temperature 37.5 Amalia 37.5 Amlaia [facility] Body weight 104.33 kg 104.33 kg [facility] Body mass index (BMI) [Ratio] 33.75 kg/m2 33.75 kg/m2 [facility] Systolic blood pressure 148 mm[Hg] 148 mm[Hg] [facility] Diastolic blood pressure 73 mm[Hg] 73 mm[Hg] [facility] Body surface area Derived from formula 2.20 m2 2.20 m2 [facility] Body height 172.7200 cm 172.7200 cm [facility] Oxygen saturation in Arterial blood by Pulse oximetry 100 % 100 % [facility] Heart rate 72.0 /min 72.0 /min [facility] Respiratory rate 20 /min 20 /min [facility] Body temperature 36.0 Amalia 36.0 Amalia [facility] Body weight 100.70 kg 100.70 kg [facility] Body mass index (BMI) [Ratio] 33.61 kg/m2 33.61 kg/m2 [facility] Systolic blood pressure 153 mm[Hg] 153 mm[Hg] [facility] Diastolic blood pressure 72 mm[Hg] 72 mm[Hg] [facility] Body surface area Derived from formula 2.19 m2 2.19 m2 [facility] Body height 172.7200 cm 172.7200 cm [facility] Oxygen saturation in Arterial blood by Pulse oximetry 100 % 100 % [facility] Heart rate 71.0 /min 71.0 /min [facility] Respiratory rate 18 /min 18 /min [facility] Body temperature 36.8 Amalia 36.8 Amalia [facility] Body weight 100.26 kg 100.26 kg [facility] Systolic blood pressure 139 mm[Hg] 139 mm[Hg] [facility] Diastolic blood pressure 73 mm[Hg] 73 mm[Hg] [facility] Oxygen saturation in Arterial blood by Pulse oximetry 100 % 100 % [facility] Heart rate 55.0 /min 55.0 /min [facility] Respiratory rate 16 /min 16 /min [facility] Body temperature 36.6 Amalia 36.6 Amalia [facility] Body weight 102.51 kg 102.51 kg [facility] Systolic blood pressure 155 mm[Hg] 155 mm[Hg] [facility] Body mass index (BMI) [Ratio] 35.43 kg/m2 35.43 kg/m2 [facility] Body height 172.7200 cm 172.7200 cm [facility] Oxygen saturation in Arterial blood by Pulse oximetry 98 % 98 % [facility] Heart rate 79.0 /min 79.0 /min [facility] Respiratory rate 18 /min 18 /min [facility] Body temperature 37.1 Amalia 37.1 Amalia [facility] Body weight 105.69 kg 105.69 kg [facility] Diastolic blood pressure 68 mm[Hg] 68 mm[Hg] [facility] Body surface area Derived from formula 2.25 m2 2.25 m2 [facility] Body mass index (BMI) [Ratio] 34.82 kg/m2 34.82 kg/m2 [facility] Systolic blood pressure 176 mm[Hg] 176 mm[Hg] [facility] Diastolic blood pressure 71 mm[Hg] 71 mm[Hg] [facility] Body surface area Derived from formula 2.23 m2 2.23 m2 [facility] Body height 172.7200 cm 172.7200 cm [facility] Oxygen saturation in Arterial blood by Pulse oximetry 98 % 98 % [facility] Heart rate 87.0 /min 87.0 /min [facility] Respiratory rate 17 /min 17 /min [facility] Body temperature 37.4 Amalia 37.4 Amalia [facility] Body weight 103.87 kg 103.87 kg [facility] Body mass index (BMI) [Ratio] 34.82 kg/m2 34.82 kg/m2 [facility] Systolic blood pressure 176 mm[Hg] 176 mm[Hg] [facility] Diastolic blood pressure 71 mm[Hg] 71 mm[Hg] [facility] Body surface area Derived from formula 2.23 m2 2.23 m2 [facility] Body height 172.7200 cm 172.7200 cm [facility] Oxygen saturation in Arterial blood by Pulse oximetry 98 % 98 % [facility] Heart rate 87.0 /min 87.0 /min [facility] Respiratory rate 17 /min 17 /min [facility] Body temperature 37.4 Amalia 37.4 Amalia [facility] Body weight 103.87 kg 103.87 kg [facility] Body mass index (BMI) [Ratio] 36.34 kg/m2 36.34 kg/m2 [facility] Systolic blood pressure 149 mm[Hg] 149 mm[Hg] [facility] Diastolic blood pressure 73 mm[Hg] 73 mm[Hg] [facility] Body surface area Derived from formula 2.28 m2 2.28 m2 [facility] Body height 172.7200 cm 172.7200 cm [facility] Oxygen saturation in Arterial blood by Pulse oximetry 97 % 97 % [facility] Heart rate 67.0 /min 67.0 /min [facility] Respiratory rate 18 /min 18 /min [facility] Body temperature 36.3 Amalia 36.3 Amalia [facility] Body weight 108.41 kg 108.41 kg [facility] ID Date Data Source [id number] 05/19/2020 09:55:00 AM EST [facility] Name Value Range Interpretation Code Description Data Source(s) Weight 3840 3840 [facility] Temperature 98.7 98.7 [facility] Respiratory Rate 20 20 [facility] Pulse Rate 77 77 [facility] Height 68 68 [facility] Blood Pressure 155/94 155/94 [facility] Weight 3840 3840 [facility] Temperature 98.7 98.7 [facility] Respiratory Rate 20 20 [facility] Pulse Rate 77 77 [facility] Height 68 68 [facility] Blood Pressure 155/94 155/94 [facility] Patient Treatment Plan of Care Planned Activity Planned Date Details Description Data Source (s) Cyclobenzaprine hydrochloride 5 MG [facility] MG [facility]29[facility] MG Oral Tablet 01/27/[facility]21 [facility] MG Oral Tablet 01/27/[facility]21 [facility] pantop[facility] 40 MG Delayed Release Oral Tablet 01/07/2021 [facility] MG Delayed Release Oral Tablet 01/07[facility]2021 [facility] Al[facility]er[facility] Sulfate HFA 0.09MG/1Actuation Inhalation [facility] 01/05/2021 12:00:00 AM EDT [facility] Albuterol Sulfate HFA 0.09MG/1Actuation Inhalation [facility] pension 01/05/2021 12:00:00 AM EDT [facility] Albuterol Sulfate HFA 0.09MG/1Actuation Inhalation [facility] pension 01/05/2021 12:00:00 AM EDT [facility] apixaban 5 MG Oral Tablet [Eliquis] 12/17/2020 12:00:00 AM EDT [facility] apixaban 5 MG Oral Tablet [Eliquis] 12/17/2020 12:00:00 AM EDT [facility] apixaban 5 MG Oral Tablet [Eliquis] 12/17/2020 12:00:00 AM EDT [facility] Ergocalciferol 88064 UNT Oral Capsule 11/30/2020 12:00:00 AM EDT [facility] Ergocalciferol 15448 UNT Oral Capsule 11/30/2020 12:00:00 AM EDT [facility] Ergocalciferol 82036 UNT Oral Capsule 11/30/2020 12:00:00 AM EDT [facility] Ergocalciferol 35579 UNT Oral Capsule 11/30/2020 12:00:00 AM EDT [facility] Ergocalciferol 12659 UNT Oral Capsule 11/30/2020 12:00:00 AM EDT [facility] Simvastatin 10 MG Oral Tablet 11/11/2020 12:00:00 AM EDT [facility] Simvastatin 10 MG Oral Tablet 11/11/2020 12:00:00 AM EDT [facility] Simvastatin 10 MG Oral Tablet 11/11/2020 12:00:00 AM EDT [facility] Simvastatin 10 MG Oral Tablet 11/11/2020 12:00:00 AM EDT [facility] Simvastatin 10 MG Oral Tablet 11/11/2020 12:00:00 AM EDT [facility] insulin human, isophane 70 UNT/ML / Regu lar Insulin, Human 30 UNT/ML Injectable Suspension [Novolin] 10/15/2020 12:00:00 AM EDT [facility] insulin human, isophane 70 UNT/ML / Regu lar Insulin, Human 30 UNT/ML Injectable Suspension [Novolin] 10/15/2020 12:00:00 AM EDT [facility] insulin human, isophane 70 UNT/ML / Regu lar Insulin, Human 30 UNT/ML Injectable Suspension [Novolin] 10/15/2020 12:00:00 AM EDT [facility] insulin human, isophane 70 UNT/ML / Regu lar Insulin, Human 30 UNT/ML Injectable Suspension [Novolin] 10/15/2020 12:00:00 AM EDT [facility] insulin human, isophane 70 UNT/ML / Regu lar Insulin, Human 30 UNT/ML Injectable Suspension [Novolin] 10/15/2020 12:00:00 AM EDT [facility] insulin human, isophane 70 UNT/ML / Regu lar Insulin, Human 30 UNT/ML Injectable Suspension [Novolin] 10/15/2020 12:00:00 AM EDT [facility] insulin human, isophane 70 UNT/ML / Regu lar Insulin, Human 30 UNT/ML Injectable Suspension [Novolin] 10/15/2020 12:00:00 AM EDT [facility] insulin human, isophane 70 UNT/ML / Regu lar Insulin, Human 30 UNT/ML Injectable Suspension [Novolin] 10/15/[facility] Vitamin B12 1000MCG Oral Tablet, Extended Release 09/18/2020 12: 00:00 AM EDT [facility] Vitamin B12 1000MCG Oral Tablet, Extended Release 09/18/2020 [facility]: [facility] Vitamin B12 1000MCG Oral Tablet, Extended Release 09/18/2020 12: 00:00 AM [facility] Vitamin B12 1000MCG Oral Tablet, Extended Release 09/18/2020 12: 00:00 AM [facility] Vitamin B12 1000MCG Oral Tablet, Extended Release 09/18/2020 [facility]: [facility] Vitamin B12 1000MCG Oral Tablet, Extended Release 09/18/2020 [facility]: [facility] Vitamin B12 1000MCG Oral Tablet, Extended Release 09/18/2020 [facility]: [facility] Vitamin B12 1000MCG Oral Tablet, Extended Release 09/18/2020 12: 00:00 AM [facility] Lidocaine Hydrochloride 20 MG/ML Mucous Membrane Topic al Solution [facility]06[facility] MG/ML Mucous Membrane Topic al Solution 09/06/2020 12:00:00 AM EDT [facility] Lidocaine Hydrochloride 20 MG/ML Mucous Membrane Topic al Solution 09/06/2020 12:00:00 AM EDT [facility] Lidocaine Hydrochloride 20 MG/ML Mucous Membrane Topic al Solution 09/06/2020 12:00:00 AM EDT [facility] Lidocaine Hydrochloride 20 MG/ML Mucous Membrane Topic al Solution 09/06/2020 12:00:00 AM EDT [facility] Penicillin V Potassium 500 MG Oral Tablet 09/06/2020 12:00:00 AM ED T [facility] Lidocaine Hydrochloride 20 MG/ML Mucous Membrane Topic al Solution 09/06/2020 12:00:00 AM EDT [facility] Penicillin V Potassium 500 MG Oral Tablet 09/06/2020 12:00:00 AM ED T [facility] Lidocaine Hydrochloride 20 MG/ML Mucous Membrane Topic al Solution 09/06/2020 12:00:00 AM EDT [facility] Metformin hydrochloride 1000 MG Oral Tablet 08/29/2020 12:00:00 AM EDT [facility] Metformin hydrochloride 1000 MG Oral Tablet 08/29/2020 12:00:00 AM EDT [facility] Metformin hydrochloride 1000 MG Oral Tablet 08/29/2020 12:00:00 AM EDT [facility] Metformin hydrochloride 1000 MG Oral Tablet 08/29/2020 12:00:00 AM T [facility] Metformin hydrochloride 1000 MG Oral Tablet 08/29/2020 12:00:00 AM EDT [facility] Metformin hydrochloride 1000 MG Oral Tablet 08/29/2020 12:00:00 AM EDT [facility] Metformin hydrochloride 1000 MG Oral Tablet 08/29/2020 12:00:00 AM EDT [facility] Metformin hydrochloride 1000 MG Oral Tablet 08/29/2020 12:00:00 AM EDT [facility] Glipizide 5 MG Oral Tablet 08/22/2020 12:00:00 AM EDT [facility] Glipizide 5 MG Oral Tablet 08/22/2020 12:00:00 AM EDT [facility] Glipizide 5 MG Oral Tablet 08/22/2020 12:00:00 AM EDT [facility] Glipizide 5 MG Oral Tablet 08/22/2020 12:00:00 AM EDT [facility] Glipizide 5 MG Oral Tablet 08/22/2020 12:00:00 AM EDT [facility] Glipizide 5 MG Oral Tablet 08/22/2020 12:00:00 AM EDT [facility] Glipizide 5 MG Oral Tablet 08/22/2020 12:00:00 AM EDT [facility] Glipizide 5 MG Oral Tablet 08/22/2020 12:00:00 AM EDT [facility] Acetaminophen 325 MG / Hydrocodone Bitartrate 5 MG Ora l Tablet [Jeffers] 08/13/2020 12:00:00 AM EDT [facility] Acetaminophen 325 MG / Hydrocodone Bitartrate 5 MG Ora l Tablet [Jeffers] 08/13/2020 12:00:00 AM EDT [facility] Allopurinol 100 MG Oral Tablet 08/12/2020 12:00:00 AM EDT [facility] Allopurinol 100 MG Oral Tablet 08/12/2020 12:00:00 AM EDT [facility] Allopurinol 100 MG Oral Tablet 08/12/2020 12:00:00 AM EDT [facility] Allopurinol 100 MG Oral Tablet 08/12/2020 12:00:00 AM EDT [facility] Allopurinol 100 MG Oral Tablet 08/12/2020 12:00:00 AM EDT [facility] Simvastatin 10 MG Oral Tablet 08/12/2020 12:00:00 AM EDT [facility] Allopurinol 100 MG Oral Tablet 08/12/2020 12:00:00 AM EDT [facility] Simvastatin 10 MG Oral Tablet 08/12/2020 12:00:00 AM EDT [facility] Allopurinol 100 MG Oral Tablet 08/12/2020 12:00:00 AM EDT [facility] Simvastatin 10 MG Oral Tablet 08/12/2020 12:00:00 AM EDT [facility] Allopurinol 100 MG Oral Tablet 08/12/2020 12:00:00 AM [facility] Amlodipine 5 MG Oral Tablet 08/06/2020 12:00:00 AM [facility] Amlodipine 5 MG Oral Tablet 08/06/2020 [facility] MG Oral Tablet 08/06/2020 12:00:00 AM EDT [facility] Amlodipine 5 MG Oral Tablet 08/06/2020 12:00:00 AM T [facility] Amlodipine 5 MG Oral Tablet 08/06/2020 12:00:00 AM EDT [facility] Amlodipine 5 MG Oral Tablet 08/06/2020 12:00:00 AM [facility] gabapentin 600 MG Oral Tablet 05/16/2020 12:00:00 AM [facility] gabapentin 600 MG Oral Tablet 05/16/2020 12:00:00 AM [facility] gabapentin 600 MG Oral Tablet 05/16/2020 12:00:00 AM [facility] gabapentin 600 MG Oral Tablet 05/16/2020 12:00:00 AM [facility] gabapentin 600 MG Oral Tablet 05/16/2020 12:00:00 AM [facility] gabapentin 600 MG Oral Tablet 05/16/2020 12:00:00 AM [facility] gabapentin 600 MG Oral Tablet 05/16/2020 12:00:00 AM [facility] gabapentin 600 MG Oral Tablet 05/16/2020 12:00:00 AM [facility] gabapentin 600 MG Oral Tablet 05/16/2020 12:00:00 AM [facility] gabapentin 600 MG Oral Tablet 05/16/2020 12:00:00 AM [facility] Vitamin B12 1000MCG Oral Tablet, Extended Release 05/14/2020 12: 00:00 AM [facility] Vitamin B12 1000MCG Oral Tablet, Extended Release 05/14/2020 12: 00:00 AM [facility] Hydrochlorothiazide 12.5 MG Oral Tablet 03/14/2020 12:00:00 AM [facility] Hydrochlorothiazide 12.5 MG Oral Tablet 03/14/2020 12:00:00 AM [facility] Hydrochlorothiazide 12.5 MG Oral Tablet 03/14/2020 12:00:00 AM [facility] Hydrochlorothiazide 12.5 MG Oral Tablet 03/14/2020 12:00:00 AM [facility] Hydrochlorothiazide 12.5 MG Oral Tablet 03/14/2020 12:00:00 AM [facility] Hydrochlorothiazide 12.5 MG Oral Tablet 03/14/2020 12:00:00 AM [facility] Hydrochlorothiazide 12.5 MG Oral Tablet 03/14/2020 12:00:00 AM [facility] Hydrochlorothiazide 12.5 MG Oral Tablet 03/14/2020 12:00:00 AM [facility] Hydrochlorothiazide 12.5 MG Oral Tablet 03/14/2020 12:00:00 AM [facility] insulin human, isophane 70 UNT/ML / Regu lar Insulin, Human 30 UNT/ML Injectable Suspension [Novolin] 03/14/2020 12:00:00 AM [facility] Hydrochlorothiazide 12.5 MG Oral Tablet 03/14/2020 12:00:00 AM [facility] insulin human, isophane 70 UNT/ML / Regu lar Insulin, Human 30 UNT/ML Injectable Suspension [Novolin] 03/14/2020 12:00:00 AM [facility] Tylenol 8 Hour 650MG Oral Tablet, Extended Release 02/25/2020 12 :00:00 AM [facility] Tylenol 8 Hour 650MG Oral Tablet, Extended Release 02/25/2020 12 :00:00 AM [facility] Tylenol 8 Hour 650MG Oral Tablet, Extended Release 02/25/2020 12 :00:00 AM [facility] Tylenol 8 Hour 650MG Oral Tablet, Extended Release 02/25/2020 12 :00:00 AM [facility] Tylenol 8 Hour 650MG Oral Tablet, Extended Release 02/25/2020 12 :00:00 AM [facility] Tylenol 8 Hour 650MG Oral Tablet, Extended Release 02/25/2020 12 :00:00 AM [facility] Tylenol 8 Hour 650MG Oral Tablet, Extended Release 02/25/2020 12 :00:00 AM [facility] Tylenol 8 Hour 650MG Oral Tablet, Extended Release 02/25/2020 12 :00:00 AM [facility] Tylenol 8 Hour 650MG Oral Tablet, Extended Release 02/25/2020 12 :00:00 AM [facility] Tylenol 8 Hour 650MG Oral Tablet, Extended Release 02/25/2020 12 :00:00 AM [facility] Tylenol 8 Hour 650MG Oral Tablet, Extended Release 02/25/2020 12 :00:00 AM [facility] Allopurinol 100 MG Oral Tablet 02/12/2020 12:00:00 AM [facility] Simvastatin 10 MG Oral Tablet 02/12/2020 12:00:00 AM [facility] Allopurinol 100 MG Oral Tablet 02/12/2020 12:00:00 AM [facility] Simvastatin 10 MG Oral Tablet 02/12/2020 12:00:00 AM [facility] Simvastatin 10 MG Oral Tablet 02/12/2020 12:00:00 AM [facility] Allopurinol 100 MG Oral Tablet 02/12/2020 12:00:00 AM [facility] Amlodipine 5 MG Oral Tablet 01/19/2020 12:00:00 AM EDT [facility] Amlodipine 5 MG Oral Tablet 01/19/2020 12:00:00 AM EDT [facility] Amlodipine 5 MG Oral Tablet 01/19/2020 12:00:00 AM EDT [facility] Glipizide 5 MG Oral Tablet 12/27/2019 12:00:00 AM EDT [facility] Glipizide 5 MG Oral Tablet 12/27/2019 12:00:00 AM EDT [facility] Glipizide 5 MG Oral Tablet 12/27/2019 12:00:00 AM EDT [facility] Metformin hydrochloride 1000 MG Oral Tablet 12/21/2019 12:00:00 AM EDT [facility] Metformin hydrochloride 1000 MG Oral Tablet 12/21/2019 12:00:00 AM EDT [facility] Metformin hydrochloride 1000 MG Oral Tablet 12/21/2019 12:00:00 AM EDT [facility] Lisinopril 20 MG Oral Tablet 12/18/2019 12:00:00 AM EDT [facility] Lisinopril 20 MG Oral Tablet 12/18/2019 12:00:00 AM EDT [facility] Lisinopril 20 MG Oral Tablet 12/18/2019 12:00:00 AM EDT [facility] Lisinopril 20 MG Oral Tablet 12/18/2019 12:00:00 AM EDT [facility] Lisinopril 20 MG Oral Tablet 12/18/2019 12:00:00 AM EDT [facility] Lisinopril 20 MG Oral Tablet 12/18/2019 12:00:00 AM EDT [facility] Lisinopril 20 MG Oral Tablet 12/18/2019 12:00:00 AM EDT [facility] Lisinopril 20 MG Oral Tablet 12/18/2019 12:00:00 AM EDT [facility] Lisinopril 20 MG Oral Tablet 12/18/2019 12:00:00 AM EDT [facility] Lisinopril 20 MG Oral Tablet 12/18/2019 12:00:00 AM EDT [facility] Lisinopril 20 MG Oral Tablet 12/18/2019 12:00:00 AM EDT [facility]
[2021-02-04] MEDS ORDERED: ERGO500029 PO (19:48)
[2021-02-04] MEDS ORDERED: PROA1AER2 INH (19:48)
[2021-02-04] MEDS ORDERED: TRANEXAMIC ACID INJection 1,000 MG in D5W 100 ML IV ONE (20:10)
[2021-02-04] MEDS ORDERED: NS 1,000 ML IV ONE (20:30)
[2021-02-04] MEDS ORDERED: DOXYCYCLINE HYCLATE 100MG TABLET PO ONE (20:35)
--- OUTSIDE RECORDS SUMMARY | 2021-02-04 20:41 | CCD ---
Author Author [facility] Organization [facility] Address Unknown Phone Unavailable Care Team Providers Care Modern Dancer Name Role Phone Dino Baron MD Unavailable [...] Unavailable Unavailable Sacha ALONSO MD Unavailable Unavailable GAVIN, Sacha GUAJARDO MD Unavailable Unavailable GAVIN, Sacha GUAJARDO MD Unavailable Unavailable GAVIN, Sacha GUAJARDO MD Unavailable Unavailable JAGANGELO, Sacha GUAJARDO MD Unavailable Unavailable GAVIN, Sacha GUAJARDO MD Unavailable Unavailable JAGANGELO, Sacha GUAJARDO MD Unavailable Unavailable JAGANGELO, Sacha GUAJARDO MD Unavailable Unavailable GAVIN, Sacha GUAJARDO MD Unavailable Unavailable Tushar ARAGON, MD Bernal Unavailable Unavailable Tushar ARAGON, MD Bernal Unavailable Unavailable DR MD PJ CAGLE Unavailable Unavailable MEDENT_[id number], [id number] Unavailable [phone] MEDENT_8646, [id number] Unavailable [phone] MEDENT_8646, [id number] Unavailable [phone] MEDENT_8646, [id number] Unavailable [phone] MEDENT_8646, [id number] Unavailable +[phone] MEDENT_8646, [id number] Unavailable [phone] MEDENT_8646, [id number] Unavailable [phone] MEDENT_8646, [id number] Unavailable [phone] MEDENT_8646, [id number] Unavailable +[phone] MEDENT_8646, [id number] Unavailable +[phone] MEDENT_8646, [id number] Unavailable +[phone] MEDENT_8646, [id number] Unavailable +[phone] MEDENT_8646, [id number] Unavailable +[phone] MEDENT_8646, [id number] Unavailable +[phone] MEDENT_8646, [id number] Unavailable +[phone] MEDENT_8646, [id number] Unavailable +[phone] MEDENT_8646, [id number] Unavailable [phone] GALIMIDI ANGLE DPM, J Angle DPM Unavailable [phone] GALIMIDI ANGLE DPM, J Angle DPM Unavailable GALIMIDI ANGLE DPM, J Angle DPM Unavailable [phone] GALIMIDI ANGLE DPM, J Angle DPM Unavailable GALIMIDI ANGLE DPM, J Angle DPM Unavailable GALIMIDI ANGLE DPM, J Angle DPM Unavailable [phone] GALIMIDI ANGLE DPM, J Angle DPM Unavailable GALIMIDI ANGLE DPM, J Angle DPM Unavailable GALIMIDI ANGLE DPM, J Angle DPM Unavailable GALIMIDI ANGLE DPM, J Angle DPM Unavailable GALIMIDI ANGLE DPM, J Angle DPM Unavailable Perry Finley MD Unavailable [phone] Perry Finley MD Unavailable [phone] Perry Finley MD Unavailable +[phone] Perry Finley MD Unavailable +1() 50 Perry Finley MD Unavailable +1() 50 Perry Finley MD Unavailable +[phone] Perry Finley MD Unavailable +1() 50 Perry Finley MD Unavailable +[phone] 50 Perry Finley MD Unavailable +1()[phone] 50 Perry Finley MD Unavailable [phone] Perry Finley MD Unavailable +1()58 50 Perry Finley MD Unavailable [phone] Perry Finley MD Unavailable [phone] Perry Finley MD Unavailable +1()58 50 Perry Finley MD Unavailable [phone] Perry Finley MD Unavailable [phone] Hadian, Kiko Unavailable Unavailable Hadian, Kiko [...] Unavailable Unavailable Castellanos J Shania PA Unavailable [phone] Castellanos, J Shania PA Unavailable [phone] Castellanos, J Shania PA Unavailable [phone] Castellanos, J Shania PA Unavailable [phone] Castellanos, J Shania PA Unavailable [phone] Castellanos, J Shania PA Unavailable [phone] Castellanos, J Shania PA Unavailable [phone] Castellanos, J Shania PA Unavailable [phone] Castellanos, J Shania PA Unavailable [phone] Castellanos, J Shania PA Unavailable [phone] Castellanos, J Shania PA Unavailable [phone] Castellanos, J Shania PA Unavailable [phone] Castellanos, J Shania PA Unavailable [phone] DR MIKHAIL NÚÑEZ Unavailable Unavailable Re-disclosure Warning [...] is protected by Article 27-F of the [place] State Public Health law. If you continue you may have access to information: Regarding HIV / AIDS; Provided by facilities licensed or operated by the [facility] Office of Mental Health; or Provided by the [facility] Office for People With Developmental Disabilities. If such information is present, then the following [facility] mandated warning applies: This information has [...] law may result in a fine or mcc sentence or both. A general authorization for the release of medical or other information is NOT sufficient authorization for further disc losure. Allergies and Adverse Reactions Type Description Substance Reaction Status Data Source(s ) Miscellaneous allergy No Known Drug Allergies No Known Drug Allergies [facility] Miscellaneous allergy No Known Environmental Allergies No Kn own Environmental Allergies [facility] Miscellaneous allergy No Known Food Allergies No Known Food Allergies [facility] Drug allergy Drug allergy No Known Allergies [facility] Encounters Encounter Providers Location Date Indications Data Source(s ) Emergency Attender: VINCE OSN dmitter: VINCE BEARDEN PAConsultant: DR MARISSA CAGLE [id number] 02/04/2021 04:29:00 PM EDT - 02/04/2021 07:24:00 PM EDT Nosebleed [facility] Nosebleed Patient discharged. Outpatient Attender: CASANDRA Randhawa DAdmitter: CASANDRA ALONSO MDConsultant: DR MARISSA CAGLE 008 02/04/2021 03:36:00 PM EDT - 02/04/2021 03:37:00 PM EDT Lab test [facility] Lab test Outpatient Attender: CASANDRA Randhawa DAdmitter: CASANDRA ALONSO MDReferrer: CASANDRA ALONSO MDConsultant: DR MARISSA CAGLE [id number] 02/04/2021 02:38 :00 PM EDT BLOODY NOSE [facility] BLOODY NOSE Patient admitted. Emergency Attender: VINCE SON dmitter: VINCE BEARDEN PAConsultant: DR MARISSA CAGLE 02/03/2021 09:44:00 PM EDT - 02/03/2021 11:10:00 PM EDT FELL AT HOME NOSE BEGAN TO BLEED [facility] FELL AT HOME NOSE BEGAN TO BLEED Patient discharged. Emergency Attender: VINCE SON dmitter: VINCE BEARDEN PAConsultant: DR MARISSA CAGLE 02/03/2021 05:48:00 PM EDT - 02/03/2021 08:00:00 PM EDT NOSE BLEED [facility] NOSE BLEED Patient discharged. Outpatient Attender: DR MENDOZA TRANAdmitter: DR MENDOZA TRANConsultant: DR MARISSA CAGLE 01/29/2021 02:46:00 PM EDT - 01/29/2021 02:46:00 PM EDT WEAK NESS [facility] WEAKNESS Outpatient Attender: DR MARISSA CAGLEAdmitter: DR MENDOZA TRANConsultant: DR MARISSA CAGLE 008 01/29/2021 10:42:00 AM EDT - 01/29/2021 10:42:00 AM EDT Lab test [facility] Lab test Outpatient Attender: DR MARISSA Carlson er: DR MENDOZA TRANReferrer: DR MARISSA CAGLEConsultant: DR MARISSA CAGLE 01/29/2021 10:30:00 AM ED T - 01/29/2021 11:40:00 AM EDT Health check up [facility] Health check up Patient discharged. Outpatient Attender: CASANDRA Randhawa DAdmitter: CASANDRA ALONSO MDConsultant: DR MARISSA Bustamante 01/07/2021 12:33:00 PM EDT - 01/07/2021 12:34:00 PM EDT Radiological examination [facility] Radiological examination Outpatient Attender: CASANDRA Randhawa DAdmitter: CASANDRA ALONSO MDReferrer: CASANDRA ALONSO MDConsultant: DR MARISSA CAGLE 01/07/2021 11:12:00 AM EDT - 01/07/2021 12:10:00 PM EDT PAIN WHEN COUGHING [facility] PAIN WHEN COUGHING Patient discharged. Outpatient Attender: [id number] [id number] ED-CAR 01/03/2021 08:54:00 AM EDT - 01/03/2021 08:55:[address] [facility] R06.02 Patient discharged. Outpatient Attender: [id number] [id number] ED-RESP 12/24/2020 08:20:00 AM EDT - 12/24/2020 08:21:[address] [facility] R06.02 Patient discharged. Outpatient Attender: Angle HULL DPM DPM ED-IMAG 12/18/2020 09:21:00 AM EDT - 12/18/2020 09:22:00 AM EDT ABSENT PEDAL PULSES [facility] ABSENT PEDAL PULSES Patient discharged. Outpatient Attender: DR MARISSA Carlson er: DR MENDOZA TRANReferrer: DR MENDOZA TRANConsultant: DR MARISSA CAGLE 12/17/2020 02:25:00 PM ED T - 12/17/2020 03:20:00 PM EDT C-F FOLLOW UP FROM ER [facility] C-F FOLLOW UP FROM ER Patient discharged. Emergency Attender: DR SIMRAN MUÑOZ NAdmitter: DR SIMRAN NÚÑEZConsultant: DR MARISSA CAGLE [phone] 12/12/2020 02:32:00 AM EDT - 12/12/2020 12:05:00 PM EDT SOB, CHEST PAIN, COUGH [facility] SOB, CHEST PAIN, COUGH Patient discharged. Outpatient Attender: DR MARISSA CAGLEAdmitter: DR MENDOZA TRANConsultant: DR MARISSA CAGLE 12/11/2020 10:16:00 AM EDT - 01/08/2021 01:14:00 PM EDT Phys ical therapy [facility] Physical therapy Admission cancelled. Disregard status an d admitted date. Outpatient Attender: DR MENDOZA TRANAdmitter: DR MENDOZA TRANConsultant: DR MARISSA CAGLE 008 11/24/2020 10:01:11 AM EDT - 11/24/2020 01:31:00 PM EDT [facility] Patient discharged. Outpatient Attender: DR MARISSA Carlson er: DR MENDOZA TRANReferrer: DR MENDOZA TRANConsultant: DR MARISSA CAGLE 11/24/2020 08:30:00 AM ED T - 11/24/2020 09:30:00 AM EDT PORT FLUSH [facility] Patient discharged. Outpatient Attender: DR MENDOZA TRANAdmitter: DR MENDOZA TRANConsultant: DR MARISSA CAGLE 11/13/2020 01:06:00 PM EDT - 12/09/2020 10:30:00 AM EDT Phys ical therapy [facility] Physical therapy Patient discharged. Outpatient Attender: DR MARISSA Carlson er: DR MENDOZA TRANReferrer: DR MARISSA CAGLEConsultant: DR MARISSA CAGLE 11/05/2020 11:27:00 AM ED T - 11/05/2020 12:10:00 PM EDT ER FOLLOW UP [facility] ER FOLLOW UP Patient discharged. Emergency Attender: DR SIMRAN MUÑOZ NAdmitter: DR SIMRAN NÚÑEZConsultant: DR MARISSA CAGLE [phone] 11/02/2020 08:25:00 AM EDT - 11/02/2020 11:20:00 AM EDT NECK AND HEAD PAIN [facility] NECK AND HEAD PAIN Patient discharged. Outpatient Attender: DR MARISSA Carlson er: DR MENDOZA TRANReferrer: DR MARISSA CAGLEConsultant: DR MARISSA CAGLE 10/27/2020 08:27:00 AM ED T - 10/27/2020 09:30:00 AM EDT [facility] Patient discharged. Outpatient Attender: DR MARISSA Carlson er: DR MENDOZA TRANReferrer: DR MARISSA CAGLEConsultant: DR MARISSA CAGLE 10/24/2020 02:58:00 PM ED T - 10/24/2020 04:00:00 PM EDT HEALTH CHECK UP [facility] HEALTH CHECK UP Patient discharged. Outpatient Attender: Angle HULL DPM DPM CPSCAORT- CPSGNPOD 09/23/2020 09:04:00 AM EDT - 09/23/2020 09:05:00 AM EDT [facility] Patient discharged. Emergency Attender: VINCE SON dmitter: VINCE BEARDEN PAConsultant: DR MARISSA CAGLE 09/06/2020 09:42:00 AM EDT - 09/06/2020 10:26:00 AM EDT TOOTHACHE [facility] TOOTHACHE Patient discharged. Outpatient Attender: Rudy Baron MD CPSCAORT-[id number] 2020 08:19:00 AM EDT - 09/04/2020 08:20:00 AM EDT [facility] Patient discharged. Emergency Attender: DR SIMRAN MUÑOZ NAdmitter: DR SIMRAN NÚÑEZConsultant: DR MARISSA CAGLE [phone] 08/13/2020 08:23:00 AM EDT - 08/13/2020 11:35:00 AM EDT PAIN IN NECK [facility] PAIN IN NECK Patient discharged. Outpatient Attender: Shania LUQUE CPSCAORT-CPSCAEND 08/04/2020 09:13:00 AM EDT - 08/04/2020 09:14:00 AM EDT [facility] Patient discharged. Outpatient Attender: CASANDRA Randhawa DAdmitter: CASANDRA ALONSO MDReferrer: CASANDRA ALONSO MDConsultant: DR MARISSA CAGLE 07/22/2020 01:43:00 PM EDT - 07/22/2020 03:00:00 PM EDT [facility] Patient discharged. Outpatient Attender: Angle HULL DPM DPM CPSCAORT- CPSGNPOD 07/22/2020 09:23:00 AM EDT - 07/22/2020 09:24:00 AM EDT [facility] Patient discharged. Outpatient Attender: DR MARISSA Carlson er: DR MENDOZA TRANReferrer: DR MARISSA CAGLEConsultant: DR MARISSA CAGLE 07/21/2020 02:00:00 PM ED T - 07/21/2020 03:00:00 PM EDT F/U FROM CF ER [facility] F/U FROM ER Patient discharged. Outpatient ED-IMAG 07/18/2020 08:07:00 AM EDT - 07/18/2020 08:08:00 AM EDT CHECKING FOR PE [facility] CHECKING FOR PE Patient discharged. Outpatient Attender: DR SHANIA FINE NAdmitter: DR SHANIA CASTELLANOSConsultant: DR MARISSA CAGLE 008 06/19/2020 10:20:00 AM EST - 06/19/2020 10:20:00 AM EST Radiological examination [facility] Radiological examination Outpatient Attender: CASANDRA Randhawa DAdmitter: CASANDRA ALONSO MDReferrer: CASANDRA ALONSO MDConsultant: DR MARISSA CAGLE 05/16/2020 10:07:00 AM EST - 05/16/2020 11:00:00 AM EST Health check up [facility] Health check up Patient discharged. Outpatient Attender: Rudy Baron MD CPSCAORT-SDCLOC 04/25/19 11:48:00 AM EST - 04/25/2020 02:34:00 PM EST CRC SCREEN [facility] CRC SCREEN Patient discharged. Outpatient Attender: Kiko Junior ED-LABPNP 10:49:00 AM EST - 04/21/2020 10:50:[address] [facility] Z01.812 Patient discharged. Outpatient Attender: CASANDRA Weathersmitter: CASANDRA ALONSO MDReferrer: CASANDRA ALONSO MDConsultant: DR MARISSA CAGLE 03/10/2020 11:10:00 AM EST - 03/10/2020 12:10:00 PM EST Diabetes [facility] Diabetes Patient discharged. Outpatient Attender: DR MARISSA CAGLEAdmitter: DR MENDOZA TRANConsultant: DR MARISSA CAGLE 008 03/08/2020 09:01:00 AM EST - 03/08/2020 09:01:00 AM EST Lab test [facility] Lab test Emergency Attender: SANDRA Kwong mitter: SANDRA BARRON PAReferrer: SANDRA BARRON PAConsultant: DR MARISSA CAGLE 03/01/2020 06:49:17 AM EST - 03/01/2020 08:43:00 AM EST DENTAL PAIN [facility] DENTAL PAIN Patient discharged. Outpatient Attender: CASANDRA Weathersmitter: CASANDRA ALONSO MDReferrer: CASANDRA ALONSO MDConsultant: DR MARISSA CAGLE 02/25/2020 11:17:00 AM EST - 02/25/2020 12:00:00 PM EST Pain in ear [facility] Pain in ear Patient discharged. Outpatient Attender: Simran LUQUE CPSCAORT-[id number] 02/09 12:42:00 PM EST - 02/22/2020 12:43:00 PM EST [facility] Patient discharged. Outpatient Attender: Gabe Finley MD CPSCASAI-CPSCAORT 01:18:00 PM EST - 02/21/2020 01:19:00 PM EST [facility] Patient discharged. Outpatient Attender: Gabe Finley MDA dmitter: Gabe Finley MDConsultant: DR MARISSA CAGLE 12/11/2019 01:10:00 PM EDT - 12/27/2019 04:35:00 PM EDT Physical therapy [facility] Physical therapy Patient discharged. Outpatient Attender: Gabe Finley MD CPSLO-CPSCAORT 10:09:00 AM EDT - 12/10/2019 10:10:00 AM EDT [facility] Patient discharged. Outpatient Attender: DR MARISSA Carlson er: DR MARISSA CAGLEReferrer: DR MARISSA CAGLEConsultant: DR MARISSA CAGLE 12/05/2019 10:08:00 AM ED T - 12/05/2019 11:00:00 AM EDT Health check up [facility] Health check up Patient discharged. Outpatient Attender: Gabe Finley MDA ttender: DR MARISSA CAGLEAdmitter: Gabe Finley MDConsultant: DR MARISSA CAGLE 11/12/2019 08:56:00 AM EDT - 12/10/2019 01:08:00 PM EDT Physical therapy [facility] Physical therapy Patient discharged. Outpatient Attender: Gabe Finley MD CPSCAORT-CPSCAORT 09:57:00 AM EDT - 10/01/2019 09:58:00 AM EDT [facility] Patient discharged. Immunizations Vaccine Date Status Description Data Source(s) COVID-19 VACCINE Moderna 07/04/2020 12:00:00 AM EDT completed [facility] Vaccine Series Complete: YESThis Data wa s Submitted to [facility]. New in 2011. IIV4 05/16/2020 12:00:00 AM EST completed <t d>influenza, injectable, quadrivalent, preservative free</td><td>influenza, injectable, quadrivalent, preservative free</td><td>05/16/2020</td><td>Completed</td><td></td><td>150</td><td>CVX</td> [facility] in 2011. IIV4 05/16/2020 12:00:00 AM EST completed <t d>influenza, injectable, quadrivalent, preservative free</td><td>influenza, injectable, quadrivalent, preservative free</td><td>05/16/2020</td><td>Completed</td><td></td><td>150</td><td>CVX</td> [facility] in 2011. IIV4 05/16/2020 12:00:00 AM EST completed <t d>influenza, injectable, quadrivalent, preservative free</td><td>influenza, injectable, quadrivalent, preservative free</td><td>05/16/2020</td><td>Completed</td><td></td><td>150</td><td>CVX</td> [facility] in 2011. IIV4 05/16/2020 12:00:00 AM EST completed <t d>influenza, injectable, quadrivalent, preservative free</td><td>influenza, injectable, quadrivalent, preservative free</td><td>05/16/2020</td><td>Completed</td><td></td><td>150</td><td>CVX</td> [facility] in 2011. IIV4 05/16/2020 12:00:00 AM EST completed <t d>influenza, injectable, quadrivalent, preservative free</td><td>influenza, injectable, quadrivalent, preservative free</td><td>05/16/2020</td><td>Completed</td><td></td><td>150</td><td>CVX</td> [facility] in 2011. IIV4 05/16/2020 12:00:00 AM EST completed <t d>influenza, injectable, quadrivalent, preservative free</td><td>influenza, injectable, quadrivalent, preservative free</td><td>05/16/2020</td><td>Completed</td><td></td><td>150</td><td>CVX</td> [facility] in 2011. IIV4 05/16/2020 12:00:00 AM EST completed <t d>influenza, injectable, quadrivalent, preservative free</td><td>influenza, injectable, quadrivalent, preservative free</td><td>05/16/2020</td><td>Completed</td><td></td><td>150</td><td>CVX</td> [facility] in 2011. IIV4 05/16/2020 12:00:00 AM EST completed <t d>influenza, injectable, quadrivalent, preservative free</td><td>influenza, injectable, quadrivalent, preservative free</td><td>05/16/2020</td><td>Completed</td><td></td><td>150</td><td>CVX</td> [facility] in 2011. IIV4 05/16/2020 12:00:00 AM EST completed <t d>influenza, injectable, quadrivalent, preservative free</td><td>influenza, injectable, quadrivalent, preservative free</td><td>05/16/2020</td><td>Completed</td><td></td><td>150</td><td>CVX</td> [facility] in 2011. IIV4 05/16/2020 12:00:00 AM EST completed <t d>influenza, injectable, quadrivalent, preservative free</td><td>influenza, injectable, quadrivalent, preservative free</td><td>05/16/2020</td><td>Completed</td><td></td><td>150</td><td>CVX</td> [facility] New in 2011. IIV4 05/16/2020 12:00:00 AM EST completed <t d>influenza, injectable, quadrivalent, preservative free</td><td>influenza, injectable, quadrivalent, preservative free</td><td>05/16/2020</td><td>Completed</td><td></td><td>150</td><td>CVX</td> [facility] Medications Medication Brand Name Start Date Product Form Dose Route Admi nistrative Instructions Pharmacy Instructions Status Indications Reaction Description Data Source(s) Cyclobenzaprine hydrochloride 5 MG Oral Tablet Cyclobenzaprine HCl 5MG Oral Tablet Cyclobenzaprine HCl 5MG Oral Tablet 01/29/2021 12:00:00 AM EDT 1 TABLET BY MOUTH active <td>Cyclob enzaprine HCl 5MG Oral Tablet</td><td>01/29/2021</td><td>Unknown</td><td>BY MOUTH</td><td>DAILY</td><td>1 TABLET</td><td>429311</td><td>RxNorm</td><td>TAKE 1 TABLET BY MOUTH DAILY FOR Pain</td> [facility] Cyclobenzaprine hydrochloride 5 MG Oral Tablet Cyclobenzaprine HCl 5MG Oral Tablet Cyclobenzaprine HCl 5MG Oral Tablet 01/29/2021 12:00:00 AM EDT 1 TABLET BY MOUTH active <td>Cyclob enzaprine HCl 5MG Oral Tablet</td><td>01/29/2021</td><td>Unknown</td><td>BY MOUTH</td><td>DAILY</td><td>1 TABLET</td><td>008452</td><td>RxNorm</td><td>TAKE 1 TABLET BY MOUTH DAILY FOR Pain</td> [facility] Amlodipine 5 MG Oral Tablet amLODIPine Besylate 5MG Or al Tablet amLODIPine Besylate 5MG Oral Tablet 01/27/2021 12:00:00 AM EDT 5 MILLIGRAMS ORAL active <td>amLODIPine Besyl ate 5MG Oral Tablet</td><td>01/27/2021</td><td>Unknown</td><td>ORAL</td><td>DAILY</td><td>5 MILLIGRAMS</td><td>458097</td><td>RxNorm</td><td>TAKE 1 TABLET BY MOUTH ONCE A DAY</td> [facility] Amlodipine 5 MG Oral Tablet amLODIPine Besylate 5MG Or al Tablet amLODIPine Besylate 5MG Oral Tablet 01/27/2021 12:00:00 AM EDT 5 MILLIGRAMS ORAL active <td>amLODIPine Besyl ate 5MG Oral Tablet</td><td>01/27/2021</td><td>Unknown</td><td>ORAL</td><td>DAILY</td><td>5 MILLIGRAMS</td><td>353642</td><td>RxNorm</td><td>TAKE 1 TABLET BY MOUTH ONCE A DAY</td> [facility] pantoprazole 40 MG Delayed Release Oral Tablet Pantoprazole Sodium 40 MG Oral Tablet, Delayed Release Pantoprazole Sodium 40 MG Oral Tablet, Delayed Release 01/07/2021 12:00:00 AM EDT 1 TABLET BY MOUTH active <td>Pantoprazole Sodium 40 MG Oral Tablet, Delayed Release</td><td>01/07/2021</td><td>Unknown</td><td>BY MOUTH</td><td>DAILY</td><td>1 TABLET</td><td>044326</td><td>RxNorm</td><td>TAKE 1 TABLET BY MOUTH DAILY</td> [facility] pantoprazole 40 MG Delayed Release Oral Tablet Pantoprazole Sodium 40 MG Oral Tablet, Delayed Release Pantoprazole Sodium 40 MG Oral Tablet, Delayed Release 01/07/2021 12:00:00 AM EDT 1 TABLET BY MOUTH active <td>Pantoprazole Sodium 40 MG Oral Tablet, Delayed Release</td><td>01/07/2021</td><td>Unknown</td><td>BY MOUTH</td><td>DAILY</td><td>1 TABLET</td><td>480016</td><td>RxNorm</td><td>TAKE 1 TABLET BY MOUTH DAILY</td> [facility] Albuterol Sulfate HFA 0.09MG/1Actuation Inhalation Suspensio n 01/05/2021 12:00:00 AM EDT 2 mL INHALATION active <td>Albuterol Sulfate HFA 0.09MG/1Actuation Inhalation Suspension</td><td>01/05/2021</td><td>Unknown</td><td>INHALATION</td><td> NEEDED EVERY 4 HR</td><td>2 PUFF</td><td>0185717</td><td>RxNorm</td><td>PUFF 2 PUFF INHALATION NEEDED EVERY 4 HR FOR Shortness of breath</td> [facility] Albuterol Sulfate HFA 0.09MG/1Actuation Inhalation Suspensio n 01/05/2021 12:00:00 AM EDT 2 mL INHALATION active <td>Albuterol Sulfate HFA 0.09MG/1Actuation Inhalation Suspension</td><td>01/05/2021</td><td>Unknown</td><td>INHALATION</td><td> NEEDED EVERY 4 HR</td><td>2 PUFF</td><td>7096635</td><td>RxNorm</td><td>PUFF 2 PUFF INHALATION NEEDED EVERY 4 HR FOR Shortness of breath</td> [facility] Albuterol Sulfate HFA 0.09MG/1Actuation Inhalation Suspensio n 01/05/2021 12:00:00 AM EDT 2 mL INHALATION active <td>Albuterol Sulfate HFA 0.09MG/1Actuation Inhalation Suspension</td><td>01/05/2021</td><td>Unknown</td><td>INHALATION</td><td> NEEDED EVERY 4 HR</td><td>2 PUFF</td><td>1667087</td><td>RxNorm</td><td>PUFF 2 PUFF INHALATION NEEDED EVERY 4 HR FOR Shortness of breath</td> [facility] apixaban 5 MG Oral Tablet [Eliquis] Eliquis 5MG Oral T ablet Eliquis 5MG Oral Tablet 12/17/2020 12:00:00 AM EDT 1 TABLET BY MOUTH active <td>Eliquis 5MG Oral Tablet</td><td>12/17/2020</td><td>Unknown</td><td>BY MOUTH</td><td>TWICE A DAY</td><td>1 TABLET</td><td>4067906</td><td>RxNorm</td><td>TAKE 1 TABLET BY MOUTH TWICE A DAY </td> [facility] apixaban 5 MG Oral Tablet [Eliquis] Eliquis 5MG Oral T ablet Eliquis 5MG Oral Tablet 12/17/2020 12:00:00 AM EDT 1 TABLET BY MOUTH active <td>Eliquis 5MG Oral Tablet</td><td>12/17/2020</td><td>Unknown</td><td>BY MOUTH</td><td>TWICE A DAY</td><td>1 TABLET</td><td>5463574</td><td>RxNorm</td><td>TAKE 1 TABLET BY MOUTH TWICE A DAY </td> [facility] apixaban 5 MG Oral Tablet [Eliquis] Eliquis 5MG Oral T ablet Eliquis 5MG Oral Tablet 12/17/2020 12:00:00 AM EDT 1 TABLET BY MOUTH active <td>Eliquis 5MG Oral Tablet</td><td>12/17/2020</td><td>Unknown</td><td>BY MOUTH</td><td>TWICE A DAY</td><td>1 TABLET</td><td>6215365</td><td>RxNorm</td><td>TAKE 1 TABLET BY MOUTH TWICE A DAY </td> [facility] Calcium Chloride 0.0014 MEQ/ML / Potassi um Chloride 0.004 MEQ/ML / Sodium Chloride 0.103 MEQ/ML / Sodium Lactate 0.028 MEQ/ML Injectable Solution LACTATED RINGERS 1000 ML BAGF LACTATED RINGERS 1000 ML BAGF 12/12/2020 10:00:00 AM EDT 0 ml/hr INTRAVENOUS active <td> LACTATED RINGERS 1000 ML BAGF</td><td>12/12/2020</td><td>12/12/2020</td><td>INTRAVENOUS</td><td>X1</t INTRAVENOUS X1</td> [facility] HEPARIN 500UNITS/5 ML SYRF 12/12/2020 08:00:00 AM EDT 500 U FLUSH active <td>HEPARIN 500UNITS /5 ML SYRF</td><td>12/12/2020</td><td>12/12/2020</td><td>FLUSH</td><td>X1</td><td> UNITS</td><td>[id number]</td><td>RxNorm</td><td>500 UNITS FLUSH ONE TIME DOSE</td> [facility] Ergocalciferol 16207 UNT Oral Capsule Vitamin D 75238I U Oral Capsule Vitamin D 66565CL Oral Capsule 11/30/2020 12:00:00 AM EDT 1 CAPSULE BY MOUTH active <td>Vitamin D 15258QH Oral Capsule</td><td>11/30/2020</td><td>Unknown</td><td>BY MOUTH</td><td>Once a Week</td><td>1 CAPSULE</td><td>[id number]</td><td>RxNorm</td><td>TAKE 1 CAPSULE BY MOUTH Once a Week</td> [facility] Ergocalciferol 45422 UNT Oral Capsule Vitamin D 39079Y U Oral Capsule Vitamin D 85418JL Oral Capsule 11/30/2020 12:00:00 AM EDT 1 CAPSULE BY MOUTH active <td>Vitamin D 77448KW Oral Capsule</td><td>11/30/2020</td><td>Unknown</td><td>BY MOUTH</td><td>Once a Week</td><td>1 CAPSULE</td><td>[id number]</td><td>RxNorm</td><td>TAKE 1 CAPSULE BY MOUTH Once a Week</td> [facility] Ergocalciferol 73022 UNT Oral Capsule Vitamin D 61747T U Oral Capsule Vitamin D 38388GB Oral Capsule 11/30/2020 12:00:00 AM EDT 1 CAPSULE BY MOUTH active <td>Vitamin D 86622AF Oral Capsule</td><td>11/30/2020</td><td>Unknown</td><td>BY MOUTH</td><td>Once a Week</td><td>1 CAPSULE</td><td>[id number]</td><td>RxNorm</td><td>TAKE 1 CAPSULE BY MOUTH Once a Week</td> [facility] Ergocalciferol 94725 UNT Oral Capsule Vitamin D 41864M U Oral Capsule Vitamin D 46484FJ Oral Capsule 11/30/2020 12:00:00 AM EDT 1 CAPSULE BY MOUTH active <td>Vitamin D 74817ZV Oral Capsule</td><td>11/30/2020</td><td>Unknown</td><td>BY MOUTH</td><td>Once a Week</td><td>1 CAPSULE</td><td>[id number]</td><td>RxNorm</td><td>TAKE 1 CAPSULE BY MOUTH Once a Week</td> [facility] Ergocalciferol 74815 UNT Oral Capsule Vitamin D 98129L U Oral Capsule Vitamin D 30588CG Oral Capsule 11/30/2020 12:00:00 AM EDT 1 CAPSULE BY MOUTH active <td>Vitamin D 72544IO Oral Capsule</td><td>11/30/2020</td><td>Unknown</td><td>BY MOUTH</td><td>Once a Week</td><td>1 CAPSULE</td><td>[id number]</td><td>RxNorm</td><td>TAKE 1 CAPSULE BY MOUTH Once a Week</td> [facility] Simvastatin 10 MG Oral Tablet Simvastatin 10MG Oral Ta blet Simvastatin 10MG Oral Tablet 11/11/2020 12:00:00 AM EDT 1 TABLET ORAL active <td>Simvastatin 10MG Oral Tablet</td><td>11/11/2020</td><td>Unknown</td><td>ORAL</td><td>DAILY</td><td>1 TABLET</td><td>832598</td><td>RxNorm</td><td>TAKE 1 TABLET BY MOUTH ONCE A DAY</td> [facility] Simvastatin 10 MG Oral Tablet Simvastatin 10MG Oral Ta blet Simvastatin 10MG Oral Tablet 11/11/2020 12:00:00 AM EDT 1 TABLET ORAL active <td>Simvastatin 10MG Oral Tablet</td><td>11/11/2020</td><td>Unknown</td><td>ORAL</td><td>DAILY</td><td>1 TABLET</td><td>018620</td><td>RxNorm</td><td>TAKE 1 TABLET BY MOUTH ONCE A DAY</td> [facility] Simvastatin 10 MG Oral Tablet Simvastatin 10MG Oral Ta blet Simvastatin 10MG Oral Tablet 11/11/2020 12:00:00 AM EDT 1 TABLET ORAL active <td>Simvastatin 10MG Oral Tablet</td><td>11/11/2020</td><td>Unknown</td><td>ORAL</td><td>DAILY</td><td>1 TABLET</td><td>572573</td><td>RxNorm</td><td>TAKE 1 TABLET BY MOUTH ONCE A DAY</td> [facility] Simvastatin 10 MG Oral Tablet Simvastatin 10MG Oral Ta blet Simvastatin 10MG Oral Tablet 11/11/2020 12:00:00 AM EDT 1 TABLET ORAL active <td>Simvastatin 10MG Oral Tablet</td><td>11/11/2020</td><td>Unknown</td><td>ORAL</td><td>DAILY</td><td>1 TABLET</td><td>857669</td><td>RxNorm</td><td>TAKE 1 TABLET BY MOUTH ONCE A DAY</td> [facility] Simvastatin 10 MG Oral Tablet Simvastatin 10MG Oral Ta blet Simvastatin 10MG Oral Tablet 11/11/2020 12:00:00 AM EDT 1 TABLET ORAL active <td>Simvastatin 10MG Oral Tablet</td><td>11/11/2020</td><td>Unknown</td><td>ORAL</td><td>DAILY</td><td>1 TABLET</td><td>144492</td><td>RxNorm</td><td>TAKE 1 TABLET BY MOUTH ONCE A DAY</td> [facility] insulin human, isophane 70 UNT/ML / Regu lar Insulin, Human 30 UNT/ML Injectable Suspension [Novolin] NovoLIN 70/30 70U-30U/1ML Subcutaneous Suspension NovoLIN 70/30 70U-30U/1ML Subcutaneous Suspension 10/15/2020 12:00:00 AM EDT 50 U SUBCUTANEOUS active <td>NovoLIN 70/30 70U-30U/1ML Subcutaneous Suspension</td><td>10/15/2020</td><td>Unknown</td><td>SUBCUTANEOUS</td><td>TWICE A DAY</td><td>50 UNIT</td><td>909074</td><td>RxNorm</td><td>INJECT 50 UNITS SUBCUTANEOUSLY TWICE DAILY</td> [facility] insulin human, isophane 70 UNT/ML / Regu lar Insulin, Human 30 UNT/ML Injectable Suspension [Novolin] NovoLIN 70/30 70U-30U/1ML Subcutaneous Suspension NovoLIN 70/30 70U-30U/1ML Subcutaneous Suspension 10/15/2020 12:00:00 AM EDT 50 U SUBCUTANEOUS active <td>NovoLIN 70/30 70U-30U/1ML Subcutaneous Suspension</td><td>10/15/2020</td><td>Unknown</td><td>SUBCUTANEOUS</td><td>TWICE A DAY</td><td>50 UNIT</td><td>[id number]</td><td>RxNorm</td><td>INJECT 50 UNITS SUBCUTANEOUSLY TWICE DAILY</td> [facility] insulin human, isophane 70 UNT/ML / Regu lar Insulin, Human 30 UNT/ML Injectable Suspension [Novolin] NovoLIN 70/30 70U-30U/1ML Subcutaneous Suspension NovoLIN 70/30 70U-30U/1ML Subcutaneous Suspension 10/15/2020 12:00:00 AM EDT 50 U SUBCUTANEOUS active <td>NovoLIN 70/30 70U-30U/1ML Subcutaneous Suspension</td><td>10/15/2020</td><td>Unknown</td><td>SUBCUTANEOUS</td><td>TWICE A DAY</td><td>50 UNIT</td><td>[id number]</td><td>RxNorm</td><td>INJECT 50 UNITS SUBCUTANEOUSLY TWICE DAILY</td> [facility] insulin human, isophane 70 UNT/ML / Regu lar Insulin, Human 30 UNT/ML Injectable Suspension [Novolin] NovoLIN 70/30 70U-30U/1ML Subcutaneous Suspension NovoLIN 70/30 70U-30U/1ML Subcutaneous Suspension 10/15/2020 12:00:00 AM EDT 50 U SUBCUTANEOUS active <td>NovoLIN 70/30 70U-30U/1ML Subcutaneous Suspension</td><td>10/15/2020</td><td>Unknown</td><td>SUBCUTANEOUS</td><td>TWICE A DAY</td><td>50 UNIT</td><td>[id number]</td><td>RxNorm</td><td>INJECT 50 UNITS SUBCUTANEOUSLY TWICE DAILY</td> [facility] insulin human, isophane 70 UNT/ML / Regu lar Insulin, Human 30 UNT/ML Injectable Suspension [Novolin] NovoLIN 70/30 70U-30U/1ML Subcutaneous Suspension NovoLIN 70/30 70U-30U/1ML Subcutaneous Suspension 10/15/2020 12:00:00 AM EDT 50 U SUBCUTANEOUS active <td>NovoLIN 70/30 70U-30U/1ML Subcutaneous Suspension</td><td>10/15/2020</td><td>Unknown</td><td>SUBCUTANEOUS</td><td>TWICE A DAY</td><td>50 UNIT</td><td>685596</td><td>RxNorm</td><td>INJECT 50 UNITS SUBCUTANEOUSLY TWICE DAILY</td> [facility] insulin human, isophane 70 UNT/ML / Regu lar Insulin, Human 30 UNT/ML Injectable Suspension [Novolin] NovoLIN 70/30 70U-30U/1ML Subcutaneous Suspension NovoLIN 70/30 70U-30U/1ML Subcutaneous Suspension 10/15/2020 12:00:00 AM EDT 50 U SUBCUTANEOUS active <td>NovoLIN 70/30 70U-30U/1ML Subcutaneous Suspension</td><td>10/15/2020</td><td>Unknown</td><td>SUBCUTANEOUS</td><td>TWICE A DAY</td><td>50 UNIT</td><td>520643</td><td>RxNorm</td><td>INJECT 50 UNITS SUBCUTANEOUSLY TWICE DAILY</td> [facility] insulin human, isophane 70 UNT/ML / Regu lar Insulin, Human 30 UNT/ML Injectable Suspension [Novolin] NovoLIN 70/30 70U-30U/1ML Subcutaneous Suspension NovoLIN 70/30 70U-30U/1ML Subcutaneous Suspension 10/15/2020 12:00:00 AM EDT 50 U SUBCUTANEOUS active <td>NovoLIN 70/30 70U-30U/1ML Subcutaneous Suspension</td><td>10/15/2020</td><td>Unknown</td><td>SUBCUTANEOUS</td><td>TWICE A DAY</td><td>50 UNIT</td><td>316409</td><td>RxNorm</td><td>INJECT 50 UNITS SUBCUTANEOUSLY TWICE DAILY</td> [facility] insulin human, isophane 70 UNT/ML / Regu lar Insulin, Human 30 UNT/ML Injectable Suspension [Novolin] NovoLIN 70/30 70U-30U/1ML Subcutaneous Suspension NovoLIN 70/30 70U-30U/1ML Subcutaneous Suspension 10/15/2020 12:00:00 AM EDT 50 U SUBCUTANEOUS active <td>NovoLIN 70/30 70U-30U/1ML Subcutaneous Suspension</td><td>10/15/2020</td><td>Unknown</td><td>SUBCUTANEOUS</td><td>TWICE A DAY</td><td>50 UNIT</td><td>923985</td><td>RxNorm</td><td>INJECT 50 UNITS SUBCUTANEOUSLY TWICE DAILY</td> [facility] Vitamin B12 1000MCG Oral Tablet, Extended Release 09/18/2020 12:00:00 AM EDT 1 TABLET BY MOUTH active <td>Vitamin B1 2 1000MCG Oral Tablet, Extended Release</td><td>09/18/2020</td><td>Unknown</td><td>BY MOUTH</td><td></td><td>1 TABLET</td><td></td><td>RxNorm</td><td>TAKE 1 TABLET BY MOUTH ONCE DAILY</td> [facility] Vitamin B12 1000MCG Oral Tablet, Extended Release 09/18/2020 12:00:00 AM EDT 1 TABLET BY MOUTH active <td>Vitamin B1 2 1000MCG Oral Tablet, Extended Release</td><td>09/18/2020</td><td>Unknown</td><td>BY MOUTH</td><td></td><td>1 TABLET</td><td></td><td>RxNorm</td><td>TAKE 1 TABLET BY MOUTH ONCE DAILY</td> [facility] Vitamin B12 1000MCG Oral Tablet, Extended Release 09/18/2020 12:00:00 AM EDT 1 TABLET BY MOUTH active <td>Vitamin B1 2 1000MCG Oral Tablet, Extended Release</td><td>09/18/2020</td><td>Unknown</td><td>BY MOUTH</td><td></td><td>1 TABLET</td><td></td><td>RxNorm</td><td>TAKE 1 TABLET BY MOUTH ONCE DAILY</td> [facility] Vitamin B12 1000MCG Oral Tablet, Extended Release 09/18/2020 12:00:00 AM EDT 1 TABLET BY MOUTH active <td>Vitamin B1 2 1000MCG Oral Tablet, Extended Release</td><td>09/18/2020</td><td>Unknown</td><td>BY MOUTH</td><td></td><td>1 TABLET</td><td></td><td>RxNorm</td><td>TAKE 1 TABLET BY MOUTH ONCE DAILY</td> [facility] Vitamin B12 1000MCG Oral Tablet, Extended Release 09/18/2020 12:00:00 AM EDT 1 TABLET BY MOUTH active <td>Vitamin B1 2 1000MCG Oral Tablet, Extended Release</td><td>09/18/2020</td><td>Unknown</td><td>BY MOUTH</td><td></td><td>1 TABLET</td><td></td><td>RxNorm</td><td>TAKE 1 TABLET BY MOUTH ONCE DAILY</td> [facility] Vitamin B12 1000MCG Oral Tablet, Extended Release 09/18/2020 12:00:00 AM EDT 1 TABLET BY MOUTH active <td>Vitamin B1 2 1000MCG Oral Tablet, Extended Release</td><td>09/18/2020</td><td>Unknown</td><td>BY MOUTH</td><td></td><td>1 TABLET</td><td></td><td>RxNorm</td><td>TAKE 1 TABLET BY MOUTH ONCE DAILY</td> [facility] Vitamin B12 1000MCG Oral Tablet, Extended Release 09/18/2020 12:00:00 AM EDT 1 TABLET BY MOUTH active <td>Vitamin B1 2 1000MCG Oral Tablet, Extended Release</td><td>09/18/2020</td><td>Unknown</td><td>BY MOUTH</td><td></td><td>1 TABLET</td><td></td><td>RxNorm</td><td>TAKE 1 TABLET BY MOUTH ONCE DAILY</td> [facility] Vitamin B12 1000MCG Oral Tablet, Extended Release 09/18/2020 12:00:00 AM EDT 1 TABLET BY MOUTH active <td>Vitamin B1 2 1000MCG Oral Tablet, Extended Release</td><td>09/18/2020</td><td>Unknown</td><td>BY MOUTH</td><td></td><td>1 TABLET</td><td></td><td>RxNorm</td><td>TAKE 1 TABLET BY MOUTH ONCE DAILY</td> [facility] Lidocaine Hydrochloride 20 MG/ML Mucous Membrane Topical Solution Lidocaine HCl Viscous 2% Oromucosal Solution Lidocaine HCl Viscous 2% Oromucosal Solution 09/06/2020 12:00:00 AM EDT 7.5 MILLILITER BY MOUTH activ e <td>Lidocaine HCl Viscous 2% Oromucosal Solution</td><td>09/06/2020</td><td>Unknown</td><td>BY MOUTH</td><td>PRNQ3H</td><td>7.5 MILLILITER</td><td>[id number]</td><td>RxNorm</td><td>TAKE 7.5 MILLILITER BY MOUTH PRNQ3H swish and spit</td> [facility] Lidocaine Hydrochloride 20 MG/ML Mucous Membrane Topical Solution Lidocaine HCl Viscous 2% Oromucosal Solution Lidocaine HCl Viscous 2% Oromucosal Solution 09/06/2020 12:00:00 AM EDT 7.5 MILLILITER BY MOUTH activ e <td>Lidocaine HCl Viscous 2% Oromucosal Solution</td><td>09/06/2020</td><td>Unknown</td><td>BY MOUTH</td><td>PRNQ3H</td><td>7.5 MILLILITER</td><td>[id number]</td><td>RxNorm</td><td>TAKE 7.5 MILLILITER BY MOUTH PRNQ3H swish and spit</td> [facility] Penicillin V Potassium 500 MG Oral Table t Penicillin V Potassium 500MG Oral Tablet Penicillin V Potassium 500MG Oral Tablet 09/06/2020 12:00:00 AM EDT 500 MILLIGRAM BY MOUTH active <td>Penic illin V Potassium 500MG Oral Tablet</td><td>09/06/2020</td><td>Unknown</td><td>BY MOUTH</td><td>4 TIMES A DAY</td><td>500 MILLIGRAM</td><td>198612</td><td>RxNorm</td><td>TAKE 500 MILLIGRAM BY MOUTH 4 TIMES A DAY</td> [facility] Lidocaine Hydrochloride 20 MG/ML Mucous Membrane Topical Solution Lidocaine HCl Viscous 2% Oromucosal Solution Lidocaine HCl Viscous 2% Oromucosal Solution 09/06/2020 12:00:00 AM EDT 7.5 MILLILITER BY MOUTH activ e <td>Lidocaine HCl Viscous 2% Oromucosal Solution</td><td>09/06/2020</td><td>Unknown</td><td>BY MOUTH</td><td>PRNQ3H</td><td>7.5 MILLILITER</td><td>[id number]</td><td>RxNorm</td><td>TAKE 7.5 MILLILITER BY MOUTH PRNQ3H swish and spit</td> [facility] Lidocaine Hydrochloride 20 MG/ML Mucous Membrane Topical Solution Lidocaine HCl Viscous 2% Oromucosal Solution Lidocaine HCl Viscous 2% Oromucosal Solution 09/06/2020 12:00:00 AM EDT 7.5 MILLILITER BY MOUTH activ e <td>Lidocaine HCl Viscous 2% Oromucosal Solution</td><td>09/06/2020</td><td>Unknown</td><td>BY MOUTH</td><td>PRNQ3H</td><td>7.5 MILLILITER</td><td>[id number]</td><td>RxNorm</td><td>TAKE 7.5 MILLILITER BY MOUTH PRNQ3H swish and spit</td> [facility] Lidocaine Hydrochloride 20 MG/ML Mucous Membrane Topical Solution Lidocaine HCl Viscous 2% Oromucosal Solution Lidocaine HCl Viscous 2% Oromucosal Solution 09/06/2020 12:00:00 AM EDT 7.5 MILLILITER BY MOUTH activ e <td>Lidocaine HCl Viscous 2% Oromucosal Solution</td><td>09/06/2020</td><td>Unknown</td><td>BY MOUTH</td><td>PRNQ3H</td><td>7.5 MILLILITER</td><td>[id number]</td><td>RxNorm</td><td>TAKE 7.5 MILLILITER BY MOUTH PRNQ3H swish and spit</td> [facility] Lidocaine Hydrochloride 20 MG/ML Mucous Membrane Topical Solution Lidocaine HCl Viscous 2% Oromucosal Solution Lidocaine HCl Viscous 2% Oromucosal Solution 09/06/2020 12:00:00 AM EDT 7.5 MILLILITER BY MOUTH activ e <td>Lidocaine HCl Viscous 2% Oromucosal Solution</td><td>09/06/2020</td><td>Unknown</td><td>BY MOUTH</td><td>PRNQ3H</td><td>7.5 MILLILITER</td><td>[id number]</td><td>RxNorm</td><td>TAKE 7.5 MILLILITER BY MOUTH PRNQ3H swish and spit</td> [facility] Lidocaine Hydrochloride 20 MG/ML Mucous Membrane Topical Solution Lidocaine HCl Viscous 2% Oromucosal Solution Lidocaine HCl Viscous 2% Oromucosal Solution 09/06/2020 12:00:00 AM EDT 7.5 MILLILITER BY MOUTH activ e <td>Lidocaine HCl Viscous 2% Oromucosal Solution</td><td>09/06/2020</td><td>Unknown</td><td>BY MOUTH</td><td>PRNQ3H</td><td>7.5 MILLILITER</td><td>[id number]</td><td>RxNorm</td><td>TAKE 7.5 MILLILITER BY MOUTH PRNQ3H swish and spit</td> [facility] Penicillin V Potassium 500 MG Oral Table t Penicillin V Potassium 500MG Oral Tablet Penicillin V Potassium 500MG Oral Tablet 09/06/2020 12:00:00 AM EDT 500 MILLIGRAM BY MOUTH active <td>Penic illin V Potassium 500MG Oral Tablet</td><td>09/06/2020</td><td>Unknown</td><td>BY MOUTH</td><td>4 TIMES A DAY</td><td>500 MILLIGRAM</td><td>473920</td><td>RxNorm</td><td>TAKE 500 MILLIGRAM BY MOUTH 4 TIMES A DAY</td> [facility] Metformin hydrochloride 1000 MG Oral Tablet metFORMIN HCl 1000MG Oral Tablet metFORMIN HCl 1000MG Oral Tablet 08/29/2020 12:00:00 AM EDT 1000 MILLIGRAMS ORAL active <td>metFORMIN HCl 1000MG Oral Tablet</td><td>08/29/2020</td><td>Unknown</td><td>ORAL</td><td>TWICE A DAY</td><td>1000 MILLIGRAMS</td><td>816133</td><td>RxNorm</td><td>TAKE 1 TABLET BY MOUTH TWICE A DAY</td> [facility] Metformin hydrochloride 1000 MG Oral Tablet metFORMIN HCl 1000MG Oral Tablet metFORMIN HCl 1000MG Oral Tablet 08/29/2020 12:00:00 AM EDT 1000 MILLIGRAMS ORAL active <td>metFORMIN HCl 1000MG Oral Tablet</td><td>08/29/2020</td><td>Unknown</td><td>ORAL</td><td>TWICE A DAY</td><td>1000 MILLIGRAMS</td><td>780354</td><td>RxNorm</td><td>TAKE 1 TABLET BY MOUTH TWICE A DAY</td> [facility] Metformin hydrochloride 1000 MG Oral Tablet metFORMIN HCl 1000MG Oral Tablet metFORMIN HCl 1000MG Oral Tablet 08/29/2020 12:00:00 AM EDT 1000 MILLIGRAMS ORAL active <td>metFORMIN HCl 1000MG Oral Tablet</td><td>08/29/2020</td><td>Unknown</td><td>ORAL</td><td>TWICE A DAY</td><td>1000 MILLIGRAMS</td><td>032119</td><td>RxNorm</td><td>TAKE 1 TABLET BY MOUTH TWICE A DAY</td> [facility] Metformin hydrochloride 1000 MG Oral Tablet metFORMIN HCl 1000MG Oral Tablet metFORMIN HCl 1000MG Oral Tablet 08/29/2020 12:00:00 AM EDT 1000 MILLIGRAMS ORAL active <td>metFORMIN HCl 1000MG Oral Tablet</td><td>08/29/2020</td><td>Unknown</td><td>ORAL</td><td>TWICE A DAY</td><td>1000 MILLIGRAMS</td><td>866354</td><td>RxNorm</td><td>TAKE 1 TABLET BY MOUTH TWICE A DAY</td> [facility] Metformin hydrochloride 1000 MG Oral Tablet metFORMIN HCl 1000MG Oral Tablet metFORMIN HCl 1000MG Oral Tablet 08/29/2020 12:00:00 AM EDT 1000 MILLIGRAMS ORAL active <td>metFORMIN HCl 1000MG Oral Tablet</td><td>08/29/2020</td><td>Unknown</td><td>ORAL</td><td>TWICE A DAY</td><td>1000 MILLIGRAMS</td><td>847221</td><td>RxNorm</td><td>TAKE 1 TABLET BY MOUTH TWICE A DAY</td> [facility] Metformin hydrochloride 1000 MG Oral Tablet metFORMIN HCl 1000MG Oral Tablet metFORMIN HCl 1000MG Oral Tablet 08/29/2020 12:00:00 AM EDT 1000 MILLIGRAMS ORAL active <td>metFORMIN HCl 1000MG Oral Tablet</td><td>08/29/2020</td><td>Unknown</td><td>ORAL</td><td>TWICE A DAY</td><td>1000 MILLIGRAMS</td><td>215119</td><td>RxNorm</td><td>TAKE 1 TABLET BY MOUTH TWICE A DAY</td> [facility] Metformin hydrochloride 1000 MG Oral Tablet metFORMIN HCl 1000MG Oral Tablet metFORMIN HCl 1000MG Oral Tablet 08/29/2020 12:00:00 AM EDT 1000 MILLIGRAMS ORAL active <td>metFORMIN HCl 1000MG Oral Tablet</td><td>08/29/2020</td><td>Unknown</td><td>ORAL</td><td>TWICE A DAY</td><td>1000 MILLIGRAMS</td><td>[id number]</td><td>RxNorm</td><td>TAKE 1 TABLET BY MOUTH TWICE A DAY</td> [facility] Metformin hydrochloride 1000 MG Oral Tablet metFORMIN HCl 1000MG Oral Tablet metFORMIN HCl 1000MG Oral Tablet 08/29/2020 12:00:00 AM EDT 1000 MILLIGRAMS ORAL active <td>metFORMIN HCl 1000MG Oral Tablet</td><td>08/29/2020</td><td>Unknown</td><td>ORAL</td><td>TWICE A DAY</td><td>1000 MILLIGRAMS</td><td>881969</td><td>RxNorm</td><td>TAKE 1 TABLET BY MOUTH TWICE A DAY</td> [facility] Glipizide 5 MG Oral Tablet glipiZIDE 5MG Oral Tablet glipiZI DE 5MG Oral Tablet 08/22/2020 12:00:00 AM EDT 5 MILLIGRAMS ORAL active <td>glipiZIDE 5MG Oral Tablet</td><td>08/22/2020</td><td>Unknown</td><td>ORAL</td><td>TWICE A DAY</td><td>5 MILLIGRAMS</td><td>533992</td><td>RxNorm</td><td>TAKE 1 TABLET BY MOUTH TWICE A DAY</td> [facility] Glipizide 5 MG Oral Tablet glipiZIDE 5MG Oral Tablet glipiZI DE 5MG Oral Tablet 08/22/2020 12:00:00 AM EDT 5 MILLIGRAMS ORAL active <td>glipiZIDE 5MG Oral Tablet</td><td>08/22/2020</td><td>Unknown</td><td>ORAL</td><td>TWICE A DAY</td><td>5 MILLIGRAMS</td><td>715591</td><td>RxNorm</td><td>TAKE 1 TABLET BY MOUTH TWICE A DAY</td> [facility] Glipizide 5 MG Oral Tablet glipiZIDE 5MG Oral Tablet glipiZI DE 5MG Oral Tablet 08/22/2020 12:00:00 AM EDT 5 MILLIGRAMS ORAL active <td>glipiZIDE 5MG Oral Tablet</td><td>08/22/2020</td><td>Unknown</td><td>ORAL</td><td>TWICE A DAY</td><td>5 MILLIGRAMS</td><td>301263</td><td>RxNorm</td><td>TAKE 1 TABLET BY MOUTH TWICE A DAY</td> [facility] Glipizide 5 MG Oral Tablet glipiZIDE 5MG Oral Tablet glipiZI DE 5MG Oral Tablet 08/22/2020 12:00:00 AM EDT 5 MILLIGRAMS ORAL active <td>glipiZIDE 5MG Oral Tablet</td><td>08/22/2020</td><td>Unknown</td><td>ORAL</td><td>TWICE A DAY</td><td>5 MILLIGRAMS</td><td>333891</td><td>RxNorm</td><td>TAKE 1 TABLET BY MOUTH TWICE A DAY</td> [facility] Glipizide 5 MG Oral Tablet glipiZIDE 5MG Oral Tablet glipiZI DE 5MG Oral Tablet 08/22/2020 12:00:00 AM EDT 5 MILLIGRAMS ORAL active <td>glipiZIDE 5MG Oral Tablet</td><td>08/22/2020</td><td>Unknown</td><td>ORAL</td><td>TWICE A DAY</td><td>5 MILLIGRAMS</td><td>[id number]</td><td>RxNorm</td><td>TAKE 1 TABLET BY MOUTH TWICE A DAY</td> [facility] Glipizide 5 MG Oral Tablet glipiZIDE 5MG Oral Tablet glipiZI DE 5MG Oral Tablet 08/22/2020 12:00:00 AM EDT 5 MILLIGRAMS ORAL active <td>glipiZIDE 5MG Oral Tablet</td><td>08/22/2020</td><td>Unknown</td><td>ORAL</td><td>TWICE A DAY</td><td>5 MILLIGRAMS</td><td>323590</td><td>RxNorm</td><td>TAKE 1 TABLET BY MOUTH TWICE A DAY</td> [facility] Glipizide 5 MG Oral Tablet glipiZIDE 5MG Oral Tablet glipiZI DE 5MG Oral Tablet 08/22/2020 12:00:00 AM EDT 5 MILLIGRAMS ORAL active <td>glipiZIDE 5MG Oral Tablet</td><td>08/22/2020</td><td>Unknown</td><td>ORAL</td><td>TWICE A DAY</td><td>5 MILLIGRAMS</td><td>[id number]</td><td>RxNorm</td><td>TAKE 1 TABLET BY MOUTH TWICE A DAY</td> [facility] Glipizide 5 MG Oral Tablet glipiZIDE 5MG Oral Tablet glipiZI DE 5MG Oral Tablet 08/22/2020 12:00:00 AM EDT 5 MILLIGRAMS ORAL active <td>glipiZIDE 5MG Oral Tablet</td><td>08/22/2020</td><td>Unknown</td><td>ORAL</td><td>TWICE A DAY</td><td>5 MILLIGRAMS</td><td>286334</td><td>RxNorm</td><td>TAKE 1 TABLET BY MOUTH TWICE A DAY</td> [facility] Acetaminophen 325 MG / Hydrocodone Chuy trate 5 MG Oral Tablet [Irvine] Irvine 5MG-325MG Oral Tablet Irvine 5MG-325MG Oral Tablet 08/13/2020 12:00:00 AM EDT 1 TABLET BY MOUTH active <td>Irvine 5MG-325MG Oral Tablet</td><td>08/13/2020</td><td>Unknown</td><td>BY MOUTH</td><td></td><td>1 TABLET</td><td>[id number]</td><td>RxNorm</td><td>TAKE 1-2 TABLET BY MOUTH every 4-6 hours as needed for pain. Max dose 8 tabs per 24 hours</td> [facility] Acetaminophen 325 MG / Hydrocodone Chuy trate 5 MG Oral Tablet [Irvine] Irvine 5MG-325MG Oral Tablet Irvine 5MG-325MG Oral Tablet 08/13/2020 12:00:00 AM EDT 1 TABLET BY MOUTH active <td>Irvine 5MG-325MG Oral Tablet</td><td>08/13/2020</td><td>Unknown</td><td>BY MOUTH</td><td></td><td>1 TABLET</td><td>[id number]</td><td>RxNorm</td><td>TAKE 1-2 TABLET BY MOUTH every 4-6 hours as needed for pain. Max dose 8 tabs per 24 hours</td> [facility] Allopurinol 100 MG Oral Tablet Allopurinol 100MG Oral Tablet Allopurinol 100MG Oral Tablet 08/12/2020 12:00:00 AM EDT 1 TABLET BY MOUTH ac tive <td>Allopurinol 100MG Oral Tablet</td><td>08/12/2020</td><td>Unknown</td><td>BY MOUTH</td><td>DAILY</td><td>1 TABLET</td><td>[id number]</td><td>RxNorm</td><td>TAKE 1 TABLET BY MOUTH DAILY</td> [facility] Allopurinol 100 MG Oral Tablet Allopurinol 100MG Oral Tablet Allopurinol 100MG Oral Tablet 08/12/2020 12:00:00 AM EDT 1 TABLET BY MOUTH ac tive <td>Allopurinol 100MG Oral Tablet</td><td>08/12/2020</td><td>Unknown</td><td>BY MOUTH</td><td>DAILY</td><td>1 TABLET</td><td>[id number]</td><td>RxNorm</td><td>TAKE 1 TABLET BY MOUTH DAILY</td> [facility] Allopurinol 100 MG Oral Tablet Allopurinol 100MG Oral Tablet Allopurinol 100MG Oral Tablet 08/12/2020 12:00:00 AM EDT 1 TABLET BY MOUTH ac tive <td>Allopurinol 100MG Oral Tablet</td><td>08/12/2020</td><td>Unknown</td><td>BY MOUTH</td><td>DAILY</td><td>1 TABLET</td><td>[id number]</td><td>RxNorm</td><td>TAKE 1 TABLET BY MOUTH DAILY</td> [facility] Allopurinol 100 MG Oral Tablet Allopurinol 100MG Oral Tablet Allopurinol 100MG Oral Tablet 08/12/2020 12:00:00 AM EDT 1 TABLET BY MOUTH ac tive <td>Allopurinol 100MG Oral Tablet</td><td>08/12/2020</td><td>Unknown</td><td>BY MOUTH</td><td>DAILY</td><td>1 TABLET</td><td>[id number]</td><td>RxNorm</td><td>TAKE 1 TABLET BY MOUTH DAILY</td> [facility] Simvastatin 10 MG Oral Tablet Simvastatin 10MG Oral Ta blet Simvastatin 10MG Oral Tablet 08/12/2020 12:00:00 AM EDT 1 TABLET ORAL active <td>Simvastatin 10MG Oral Tablet</td><td>08/12/2020</td><td>Unknown</td><td>ORAL</td><td>DAILY</td><td>1 TABLET</td><td>[id number]</td><td>RxNorm</td><td>TAKE 1 TABLET BY MOUTH ONCE A DAY</td> [facility] Allopurinol 100 MG Oral Tablet Allopurinol 100MG Oral Tablet Allopurinol 100MG Oral Tablet 08/12/2020 12:00:00 AM EDT 1 TABLET BY MOUTH ac tive <td>Allopurinol 100MG Oral Tablet</td><td>08/12/2020</td><td>Unknown</td><td>BY MOUTH</td><td>DAILY</td><td>1 TABLET</td><td>[id number]</td><td>RxNorm</td><td>TAKE 1 TABLET BY MOUTH DAILY</td> [facility] Allopurinol 100 MG Oral Tablet Allopurinol 100MG Oral Tablet Allopurinol 100MG Oral Tablet 08/12/2020 12:00:00 AM EDT 1 TABLET BY MOUTH ac tive <td>Allopurinol 100MG Oral Tablet</td><td>08/12/2020</td><td>Unknown</td><td>BY MOUTH</td><td>DAILY</td><td>1 TABLET</td><td>[id number]</td><td>RxNorm</td><td>TAKE 1 TABLET BY MOUTH DAILY</td> [facility] Simvastatin 10 MG Oral Tablet Simvastatin 10MG Oral Ta blet Simvastatin 10MG Oral Tablet 08/12/2020 12:00:00 AM EDT 1 TABLET ORAL active <td>Simvastatin 10MG Oral Tablet</td><td>08/12/2020</td><td>Unknown</td><td>ORAL</td><td>DAILY</td><td>1 TABLET</td><td>[id number]</td><td>RxNorm</td><td>TAKE 1 TABLET BY MOUTH ONCE A DAY</td> [facility] Simvastatin 10 MG Oral Tablet Simvastatin 10MG Oral Ta blet Simvastatin 10MG Oral Tablet 08/12/2020 12:00:00 AM EDT 1 TABLET ORAL active <td>Simvastatin 10MG Oral Tablet</td><td>08/12/2020</td><td>Unknown</td><td>ORAL</td><td>DAILY</td><td>1 TABLET</td><td>[id number]</td><td>RxNorm</td><td>TAKE 1 TABLET BY MOUTH ONCE A DAY</td> [facility] Allopurinol 100 MG Oral Tablet Allopurinol 100MG Oral Tablet Allopurinol 100MG Oral Tablet 08/12/2020 12:00:00 AM EDT 1 TABLET BY MOUTH ac tive <td>Allopurinol 100MG Oral Tablet</td><td>08/12/2020</td><td>Unknown</td><td>BY MOUTH</td><td>DAILY</td><td>1 TABLET</td><td>[id number]</td><td>RxNorm</td><td>TAKE 1 TABLET BY MOUTH DAILY</td> [facility] Allopurinol 100 MG Oral Tablet Allopurinol 100MG Oral Tablet Allopurinol 100MG Oral Tablet 08/12/2020 12:00:00 AM EDT 1 TABLET BY MOUTH ac tive <td>Allopurinol 100MG Oral Tablet</td><td>08/12/2020</td><td>Unknown</td><td>BY MOUTH</td><td>DAILY</td><td>1 TABLET</td><td>[id number]</td><td>RxNorm</td><td>TAKE 1 TABLET BY MOUTH DAILY</td> [facility] Amlodipine 5 MG Oral Tablet amLODIPine Besylate 5MG Or al Tablet amLODIPine Besylate 5MG Oral Tablet 08/06/2020 12:00:00 AM EDT 5 MILLIGRAMS ORAL active <td>amLODIPine Besyl ate 5MG Oral Tablet</td><td>08/06/2020</td><td>Unknown</td><td>ORAL</td><td>DAILY</td><td>5 MILLIGRAMS</td><td>[id number]</td><td>RxNorm</td><td>TAKE 1 TABLET BY MOUTH ONCE A DAY</td> [facility] Amlodipine 5 MG Oral Tablet amLODIPine Besylate 5MG Or al Tablet amLODIPine Besylate 5MG Oral Tablet 08/06/2020 12:00:00 AM EDT 5 MILLIGRAMS ORAL active <td>amLODIPine Besyl ate 5MG Oral Tablet</td><td>08/06/2020</td><td>Unknown</td><td>ORAL</td><td>DAILY</td><td>5 MILLIGRAMS</td><td>[id number]</td><td>RxNorm</td><td>TAKE 1 TABLET BY MOUTH ONCE A DAY</td> [facility] Amlodipine 5 MG Oral Tablet amLODIPine Besylate 5MG Or al Tablet amLODIPine Besylate 5MG Oral Tablet 08/06/2020 12:00:00 AM EDT 5 MILLIGRAMS ORAL active <td>amLODIPine Besyl ate 5MG Oral Tablet</td><td>08/06/2020</td><td>Unknown</td><td>ORAL</td><td>DAILY</td><td>5 MILLIGRAMS</td><td>[id number]</td><td>RxNorm</td><td>TAKE 1 TABLET BY MOUTH ONCE A DAY</td> [facility] Amlodipine 5 MG Oral Tablet amLODIPine Besylate 5MG Or al Tablet amLODIPine Besylate 5MG Oral Tablet 08/06/2020 12:00:00 AM EDT 5 MILLIGRAMS ORAL active <td>amLODIPine Besyl ate 5MG Oral Tablet</td><td>08/06/2020</td><td>Unknown</td><td>ORAL</td><td>DAILY</td><td>5 MILLIGRAMS</td><td>[id number]</td><td>RxNorm</td><td>TAKE 1 TABLET BY MOUTH ONCE A DAY</td> [facility] Amlodipine 5 MG Oral Tablet amLODIPine Besylate 5MG Or al Tablet amLODIPine Besylate 5MG Oral Tablet 08/06/2020 12:00:00 AM EDT 5 MILLIGRAMS ORAL active <td>amLODIPine Besyl ate 5MG Oral Tablet</td><td>08/06/2020</td><td>Unknown</td><td>ORAL</td><td>DAILY</td><td>5 MILLIGRAMS</td><td>[id number]</td><td>RxNorm</td><td>TAKE 1 TABLET BY MOUTH ONCE A DAY</td> [facility] Amlodipine 5 MG Oral Tablet amLODIPine Besylate 5MG Or al Tablet amLODIPine Besylate 5MG Oral Tablet 08/06/2020 12:00:00 AM EDT 5 MILLIGRAMS ORAL active <td>amLODIPine Besyl ate 5MG Oral Tablet</td><td>08/06/2020</td><td>Unknown</td><td>ORAL</td><td>DAILY</td><td>5 MILLIGRAMS</td><td>[id number]</td><td>RxNorm</td><td>TAKE 1 TABLET BY MOUTH ONCE A DAY</td> [facility] FLU VACCINE(FLUZONE)6mo&UP 0.5ML-CLINIC 05/16/2020 11:17:0 0 AM EST 0.5 mL IM OPTIONS active <td><content I D="[id number]">FLU VACCINE(FLUZONE)6mo&UP 0.5ML- CLINIC</content></td><td>05/16/2020</td><td>05/16/2020</td><td>IM OPTIONS</td><td>X1</td><td>0.5 ML</td><td> [id number]</td><td>RxNorm</td><td><content ID="[id number]">0.5 ML IM OPTIONS ONE TIME DOSE</content></td> [facility] gabapentin 600 MG Oral Tablet Gabapentin 600MG Oral Ta blet Gabapentin 600MG Oral Tablet 05/16/2020 12:00:00 AM EST 1 TABLET BY MOUTH active <td>Gabapentin 600MG Oral Tablet</td><td>05/16/2020</td><td>Unknown</td><td>BY MOUTH</td><td>THREE TIMES A DAY</td><td>1 TABLET</td><td>[id number]</td><td>RxNorm</td><td>TAKE 1 TABLET BY MOUTH THREE TIMES A DAY</td> [facility] gabapentin 600 MG Oral Tablet Gabapentin 600MG Oral Ta blet Gabapentin 600MG Oral Tablet 05/16/2020 12:00:00 AM EST 1 TABLET BY MOUTH active <td>Gabapentin 600MG Oral Tablet</td><td>05/16/2020</td><td>Unknown</td><td>BY MOUTH</td><td>THREE TIMES A DAY</td><td>1 TABLET</td><td>[id number]</td><td>RxNorm</td><td>TAKE 1 TABLET BY MOUTH THREE TIMES A DAY</td> [facility] gabapentin 600 MG Oral Tablet Gabapentin 600MG Oral Ta blet Gabapentin 600MG Oral Tablet 05/16/2020 12:00:00 AM EST 1 TABLET BY MOUTH active <td>Gabapentin 600MG Oral Tablet</td><td>05/16/2020</td><td>Unknown</td><td>BY MOUTH</td><td>THREE TIMES A DAY</td><td>1 TABLET</td><td>[id number]</td><td>RxNorm</td><td>TAKE 1 TABLET BY MOUTH THREE TIMES A DAY</td> [facility] gabapentin 600 MG Oral Tablet Gabapentin 600MG Oral Ta blet Gabapentin 600MG Oral Tablet 05/16/2020 12:00:00 AM EST 1 TABLET BY MOUTH active <td>Gabapentin 600MG Oral Tablet</td><td>05/16/2020</td><td>Unknown</td><td>BY MOUTH</td><td>THREE TIMES A DAY</td><td>1 TABLET</td><td>850289</td><td>RxNorm</td><td>TAKE 1 TABLET BY MOUTH THREE TIMES A DAY</td> [facility] gabapentin 600 MG Oral Tablet Gabapentin 600MG Oral Ta blet Gabapentin 600MG Oral Tablet 05/16/2020 12:00:00 AM EST 1 TABLET BY MOUTH active <td>Gabapentin 600MG Oral Tablet</td><td>05/16/2020</td><td>Unknown</td><td>BY MOUTH</td><td>THREE TIMES A DAY</td><td>1 TABLET</td><td>120714</td><td>RxNorm</td><td>TAKE 1 TABLET BY MOUTH THREE TIMES A DAY</td> [facility] gabapentin 600 MG Oral Tablet Gabapentin 600MG Oral Ta blet Gabapentin 600MG Oral Tablet 05/16/2020 12:00:00 AM EST 1 TABLET BY MOUTH active <td>Gabapentin 600MG Oral Tablet</td><td>05/16/2020</td><td>Unknown</td><td>BY MOUTH</td><td>THREE TIMES A DAY</td><td>1 TABLET</td><td>490305</td><td>RxNorm</td><td>TAKE 1 TABLET BY MOUTH THREE TIMES A DAY</td> [facility] gabapentin 600 MG Oral Tablet Gabapentin 600MG Oral Ta blet Gabapentin 600MG Oral Tablet 05/16/2020 12:00:00 AM EST 1 TABLET BY MOUTH active <td>Gabapentin 600MG Oral Tablet</td><td>05/16/2020</td><td>Unknown</td><td>BY MOUTH</td><td>THREE TIMES A DAY</td><td>1 TABLET</td><td>024635</td><td>RxNorm</td><td>TAKE 1 TABLET BY MOUTH THREE TIMES A DAY</td> [facility] gabapentin 600 MG Oral Tablet Gabapentin 600MG Oral Ta blet Gabapentin 600MG Oral Tablet 05/16/2020 12:00:00 AM EST 1 TABLET BY MOUTH active <td>Gabapentin 600MG Oral Tablet</td><td>05/16/2020</td><td>Unknown</td><td>BY MOUTH</td><td>THREE TIMES A DAY</td><td>1 TABLET</td><td>870175</td><td>RxNorm</td><td>TAKE 1 TABLET BY MOUTH THREE TIMES A DAY</td> [facility] gabapentin 600 MG Oral Tablet Gabapentin 600MG Oral Ta blet Gabapentin 600MG Oral Tablet 05/16/2020 12:00:00 AM EST 1 TABLET BY MOUTH active <td>Gabapentin 600MG Oral Tablet</td><td>05/16/2020</td><td>Unknown</td><td>BY MOUTH</td><td>THREE TIMES A DAY</td><td>1 TABLET</td><td>402417</td><td>RxNorm</td><td>TAKE 1 TABLET BY MOUTH THREE TIMES A DAY</td> [facility] gabapentin 600 MG Oral Tablet Gabapentin 600MG Oral Ta blet Gabapentin 600MG Oral Tablet 05/16/2020 12:00:00 AM EST 1 TABLET BY MOUTH active <td>Gabapentin 600MG Oral Tablet</td><td>05/16/2020</td><td>Unknown</td><td>BY MOUTH</td><td>THREE TIMES A DAY</td><td>1 TABLET</td><td>573889</td><td>RxNorm</td><td>TAKE 1 TABLET BY MOUTH THREE TIMES A DAY</td> [facility] Vitamin B12 1000MCG Oral Tablet, Extended Release 05/14/2020 12:00:00 AM EST 1 TABLET BY MOUTH active <td>Vitamin B1 2 1000MCG Oral Tablet, Extended Release</td><td>05/14/2020</td><td>Unknown</td><td>BY MOUTH</td><td></td><td>1 TABLET</td><td></td><td>RxNorm</td><td>TAKE 1 TABLET BY MOUTH ONCE DAILY</td> [facility] Vitamin B12 1000MCG Oral Tablet, Extended Release 05/14/2020 12:00:00 AM EST 1 TABLET BY MOUTH active <td>Vitamin B1 2 1000MCG Oral Tablet, Extended Release</td><td>05/14/2020</td><td>Unknown</td><td>BY MOUTH</td><td></td><td>1 TABLET</td><td></td><td>RxNorm</td><td>TAKE 1 TABLET BY MOUTH ONCE DAILY</td> [facility] Hydrochlorothiazide 12.5 MG Oral Tablet hydroCHLOROthi azide 12.5MG Oral Tablet hydroCHLOROthiazide 12.5MG Oral Tablet 03/14/2020 12:00:00 AM EST 1 TABLET BY MOUTH active <td>hydroCHLOR Othiazide 12.5MG Oral Tablet</td><td>03/14/2020</td><td>Unknown</td><td>BY MOUTH</td><td>DAILY</td><td>1 TABLET</td><td>199314</td><td>RxNorm</td><td>TAKE 1 CAPSULE BY MOUTH ONCE A DAY</td> [facility] insulin human, isophane 70 UNT/ML / Regu lar Insulin, Human 30 UNT/ML Injectable Suspension [Novolin] NovoLIN 70/30 70U-30U/1ML Subcutaneous Suspension NovoLIN 70/30 70U-30U/1ML Subcutaneous Suspension 03/14/2020 12:00:00 AM EST 50 U SUBCUTANEOUS active <td>NovoLIN 70/30 70U-30U/1ML Subcutaneous Suspension</td><td>03/14/2020</td><td>Unknown</td><td>SUBCUTANEOUS</td><td>TWICE A DAY</td><td>50 UNIT</td><td>[id number]</td><td>RxNorm</td><td>INJECT 50 UNITS SUBCUTANEOUSLY TWICE DAILY</td> [facility] Hydrochlorothiazide 12.5 MG Oral Tablet hydroCHLOROthi azide 12.5MG Oral Tablet hydroCHLOROthiazide 12.5MG Oral Tablet 03/14/2020 12:00:00 AM EST 1 TABLET BY MOUTH active <td>hydroCHLOR Othiazide 12.5MG Oral Tablet</td><td>03/14/2020</td><td>Unknown</td><td>BY MOUTH</td><td>DAILY</td><td>1 TABLET</td><td>[id number]</td><td>RxNorm</td><td>TAKE 1 CAPSULE BY MOUTH ONCE A DAY</td> [facility] insulin human, isophane 70 UNT/ML / Regu lar Insulin, Human 30 UNT/ML Injectable Suspension [Novolin] NovoLIN 70/30 70U-30U/1ML Subcutaneous Suspension NovoLIN 70/30 70U-30U/1ML Subcutaneous Suspension 03/14/2020 12:00:00 AM EST 50 U SUBCUTANEOUS active <td>NovoLIN 70/30 70U-30U/1ML Subcutaneous Suspension</td><td>03/14/2020</td><td>Unknown</td><td>SUBCUTANEOUS</td><td>TWICE A DAY</td><td>50 UNIT</td><td>[id number]</td><td>RxNorm</td><td>INJECT 50 UNITS SUBCUTANEOUSLY TWICE DAILY</td> [facility] Hydrochlorothiazide 12.5 MG Oral Tablet hydroCHLOROthi azide 12.5MG Oral Tablet hydroCHLOROthiazide 12.5MG Oral Tablet 03/14/2020 12:00:00 AM EST 1 TABLET BY MOUTH active <td>hydroCHLOR Othiazide 12.5MG Oral Tablet</td><td>03/14/2020</td><td>Unknown</td><td>BY MOUTH</td><td>DAILY</td><td>1 TABLET</td><td>[id number]</td><td>RxNorm</td><td>TAKE 1 CAPSULE BY MOUTH ONCE A DAY</td> [facility] Hydrochlorothiazide 12.5 MG Oral Tablet hydroCHLOROthi azide 12.5MG Oral Tablet hydroCHLOROthiazide 12.5MG Oral Tablet 03/14/2020 12:00:00 AM EST 1 TABLET BY MOUTH active <td>hydroCHLOR Othiazide 12.5MG Oral Tablet</td><td>03/14/2020</td><td>Unknown</td><td>BY MOUTH</td><td>DAILY</td><td>1 TABLET</td><td>[id number]</td><td>RxNorm</td><td>TAKE 1 CAPSULE BY MOUTH ONCE A DAY</td> [facility] Hydrochlorothiazide 12.5 MG Oral Tablet hydroCHLOROthi azide 12.5MG Oral Tablet hydroCHLOROthiazide 12.5MG Oral Tablet 03/14/2020 12:00:00 AM EST 1 TABLET BY MOUTH active <td>hydroCHLOR Othiazide 12.5MG Oral Tablet</td><td>03/14/2020</td><td>Unknown</td><td>BY MOUTH</td><td>DAILY</td><td>1 TABLET</td><td>[id number]</td><td>RxNorm</td><td>TAKE 1 CAPSULE BY MOUTH ONCE A DAY</td> [facility] Hydrochlorothiazide 12.5 MG Oral Tablet hydroCHLOROthi azide 12.5MG Oral Tablet hydroCHLOROthiazide 12.5MG Oral Tablet 03/14/2020 12:00:00 AM EST 1 TABLET BY MOUTH active <td>hydroCHLOR Othiazide 12.5MG Oral Tablet</td><td>03/14/2020</td><td>Unknown</td><td>BY MOUTH</td><td>DAILY</td><td>1 TABLET</td><td>093415</td><td>RxNorm</td><td>TAKE 1 CAPSULE BY MOUTH ONCE A DAY</td> [facility] Hydrochlorothiazide 12.5 MG Oral Tablet hydroCHLOROthi azide 12.5MG Oral Tablet hydroCHLOROthiazide 12.5MG Oral Tablet 03/14/2020 12:00:00 AM EST 1 TABLET BY MOUTH active <td>hydroCHLOR Othiazide 12.5MG Oral Tablet</td><td>03/14/2020</td><td>Unknown</td><td>BY MOUTH</td><td>DAILY</td><td>1 TABLET</td><td>982287</td><td>RxNorm</td><td>TAKE 1 CAPSULE BY MOUTH ONCE A DAY</td> [facility] Hydrochlorothiazide 12.5 MG Oral Tablet hydroCHLOROthi azide 12.5MG Oral Tablet hydroCHLOROthiazide 12.5MG Oral Tablet 03/14/2020 12:00:00 AM EST 1 TABLET BY MOUTH active <td>hydroCHLOR Othiazide 12.5MG Oral Tablet</td><td>03/14/2020</td><td>Unknown</td><td>BY MOUTH</td><td>DAILY</td><td>1 TABLET</td><td>298728</td><td>RxNorm</td><td>TAKE 1 CAPSULE BY MOUTH ONCE A DAY</td> [facility] Hydrochlorothiazide 12.5 MG Oral Tablet hydroCHLOROthi azide 12.5MG Oral Tablet hydroCHLOROthiazide 12.5MG Oral Tablet 03/14/2020 12:00:00 AM EST 1 TABLET BY MOUTH active <td>hydroCHLOR Othiazide 12.5MG Oral Tablet</td><td>03/14/2020</td><td>Unknown</td><td>BY MOUTH</td><td>DAILY</td><td>1 TABLET</td><td>405647</td><td>RxNorm</td><td>TAKE 1 CAPSULE BY MOUTH ONCE A DAY</td> [facility] Hydrochlorothiazide 12.5 MG Oral Tablet hydroCHLOROthi azide 12.5MG Oral Tablet hydroCHLOROthiazide 12.5MG Oral Tablet 03/14/2020 12:00:00 AM EST 1 TABLET BY MOUTH active <td>hydroCHLOR Othiazide 12.5MG Oral Tablet</td><td>03/14/2020</td><td>Unknown</td><td>BY MOUTH</td><td>DAILY</td><td>1 TABLET</td><td>[id number]</td><td>RxNorm</td><td>TAKE 1 CAPSULE BY MOUTH ONCE A DAY</td> [facility] Tylenol 8 Hour 650MG Oral Tablet, Extended Release 02/25/2020 12:00:00 AM EST 1 TABLET BY MOUTH active <td>Tylenol 8 Hour 650MG Oral Tablet, Extended Release</td><td>02/25/2020</td><td>Unknown</td><td>BY MOUTH</td><td> NEEDED EVERY 8HR</td><td>1 TABLET</td><td></td><td>RxNorm</td><td>TAKE 1 TABLET BY MOUTH NEEDED EVERY 8HR</td> [facility] Tylenol 8 Hour 650MG Oral Tablet, Extended Release 02/25/2020 12:00:00 AM EST 1 TABLET BY MOUTH active <td>Tylenol 8 Hour 650MG Oral Tablet, Extended Release</td><td>02/25/2020</td><td>Unknown</td><td>BY MOUTH</td><td> NEEDED EVERY 8HR</td><td>1 TABLET</td><td></td><td>RxNorm</td><td>TAKE 1 TABLET BY MOUTH NEEDED EVERY 8HR</td> [facility] Tylenol 8 Hour 650MG Oral Tablet, Extended Release 02/25/2020 12:00:00 AM EST 1 TABLET BY MOUTH active <td>Tylenol 8 Hour 650MG Oral Tablet, Extended Release</td><td>02/25/2020</td><td>Unknown</td><td>BY MOUTH</td><td> NEEDED EVERY 8HR</td><td>1 TABLET</td><td></td><td>RxNorm</td><td>TAKE 1 TABLET BY MOUTH NEEDED EVERY 8HR</td> [facility] Tylenol 8 Hour 650MG Oral Tablet, Extended Release 02/25/2020 12:00:00 AM EST 1 TABLET BY MOUTH active <td>Tylenol 8 Hour 650MG Oral Tablet, Extended Release</td><td>02/25/2020</td><td>Unknown</td><td>BY MOUTH</td><td> NEEDED EVERY 8HR</td><td>1 TABLET</td><td></td><td>RxNorm</td><td>TAKE 1 TABLET BY MOUTH NEEDED EVERY 8HR</td> [facility] Tylenol 8 Hour 650MG Oral Tablet, Extended Release 02/25/2020 12:00:00 AM EST 1 TABLET BY MOUTH active <td>Tylenol 8 Hour 650MG Oral Tablet, Extended Release</td><td>02/25/2020</td><td>Unknown</td><td>BY MOUTH</td><td> NEEDED EVERY 8HR</td><td>1 TABLET</td><td></td><td>RxNorm</td><td>TAKE 1 TABLET BY MOUTH NEEDED EVERY 8HR</td> [facility] Tylenol 8 Hour 650MG Oral Tablet, Extended Release 02/25/2020 12:00:00 AM EST 1 TABLET BY MOUTH active <td>Tylenol 8 Hour 650MG Oral Tablet, Extended Release</td><td>02/25/2020</td><td>Unknown</td><td>BY MOUTH</td><td> NEEDED EVERY 8HR</td><td>1 TABLET</td><td></td><td>RxNorm</td><td>TAKE 1 TABLET BY MOUTH NEEDED EVERY 8HR</td> [facility] Tylenol 8 Hour 650MG Oral Tablet, Extended Release 02/25/2020 12:00:00 AM EST 1 TABLET BY MOUTH active <td>Tylenol 8 Hour 650MG Oral Tablet, Extended Release</td><td>02/25/2020</td><td>Unknown</td><td>BY MOUTH</td><td> NEEDED EVERY 8HR</td><td>1 TABLET</td><td></td><td>RxNorm</td><td>TAKE 1 TABLET BY MOUTH NEEDED EVERY 8HR</td> [facility] Tylenol 8 Hour 650MG Oral Tablet, Extended Release 02/25/2020 12:00:00 AM EST 1 TABLET BY MOUTH active <td>Tylenol 8 Hour 650MG Oral Tablet, Extended Release</td><td>02/25/2020</td><td>Unknown</td><td>BY MOUTH</td><td> NEEDED EVERY 8HR</td><td>1 TABLET</td><td></td><td>RxNorm</td><td>TAKE 1 TABLET BY MOUTH NEEDED EVERY 8HR</td> [facility] Tylenol 8 Hour 650MG Oral Tablet, Extended Release 02/25/2020 12:00:00 AM EST 1 TABLET BY MOUTH active <td>Tylenol 8 Hour 650MG Oral Tablet, Extended Release</td><td>02/25/2020</td><td>Unknown</td><td>BY MOUTH</td><td> NEEDED EVERY 8HR</td><td>1 TABLET</td><td></td><td>RxNorm</td><td>TAKE 1 TABLET BY MOUTH NEEDED EVERY 8HR</td> [facility] Tylenol 8 Hour 650MG Oral Tablet, Extended Release 02/25/2020 12:00:00 AM EST 1 TABLET BY MOUTH active <td>Tylenol 8 Hour 650MG Oral Tablet, Extended Release</td><td>02/25/2020</td><td>Unknown</td><td>BY MOUTH</td><td> NEEDED EVERY 8HR</td><td>1 TABLET</td><td></td><td>RxNorm</td><td>TAKE 1 TABLET BY MOUTH NEEDED EVERY 8HR</td> [facility] Tylenol 8 Hour 650MG Oral Tablet, Extended Release 02/25/2020 12:00:00 AM EST 1 TABLET BY MOUTH active <td>Tylenol 8 Hour 650MG Oral Tablet, Extended Release</td><td>02/25/2020</td><td>Unknown</td><td>BY MOUTH</td><td> NEEDED EVERY 8HR</td><td>1 TABLET</td><td></td><td>RxNorm</td><td>TAKE 1 TABLET BY MOUTH NEEDED EVERY 8HR</td> [facility] Simvastatin 10 MG Oral Tablet Simvastatin 10MG Oral Ta blet Simvastatin 10MG Oral Tablet 02/12/2020 12:00:00 AM EST 1 TABLET ORAL active <td>Simvastatin 10MG Oral Tablet</td><td>02/12/2020</td><td>Unknown</td><td>ORAL</td><td>DAILY</td><td>1 TABLET</td><td>[id number]</td><td>RxNorm</td><td>TAKE 1 TABLET BY MOUTH ONCE A DAY</td> [facility] Allopurinol 100 MG Oral Tablet Allopurinol 100MG Oral Tablet Allopurinol 100MG Oral Tablet 02/12/2020 12:00:00 AM EST 1 TABLET BY MOUTH ac tive <td>Allopurinol 100MG Oral Tablet</td><td>02/12/2020</td><td>Unknown</td><td>BY MOUTH</td><td>DAILY</td><td>1 TABLET</td><td>059537</td><td>RxNorm</td><td>TAKE 1 TABLET BY MOUTH DAILY</td> [facility] Simvastatin 10 MG Oral Tablet Simvastatin 10MG Oral Ta blet Simvastatin 10MG Oral Tablet 02/12/2020 12:00:00 AM EST 1 TABLET ORAL active <td>Simvastatin 10MG Oral Tablet</td><td>02/12/2020</td><td>Unknown</td><td>ORAL</td><td>DAILY</td><td>1 TABLET</td><td>162789</td><td>RxNorm</td><td>TAKE 1 TABLET BY MOUTH ONCE A DAY</td> [facility] Simvastatin 10 MG Oral Tablet Simvastatin 10MG Oral Ta blet Simvastatin 10MG Oral Tablet 02/12/2020 12:00:00 AM EST 1 TABLET ORAL active <td>Simvastatin 10MG Oral Tablet</td><td>02/12/2020</td><td>Unknown</td><td>ORAL</td><td>DAILY</td><td>1 TABLET</td><td>545236</td><td>RxNorm</td><td>TAKE 1 TABLET BY MOUTH ONCE A DAY</td> [facility] Allopurinol 100 MG Oral Tablet Allopurinol 100MG Oral Tablet Allopurinol 100MG Oral Tablet 02/12/2020 12:00:00 AM EST 1 TABLET BY MOUTH ac tive <td>Allopurinol 100MG Oral Tablet</td><td>02/12/2020</td><td>Unknown</td><td>BY MOUTH</td><td>DAILY</td><td>1 TABLET</td><td>[id number]</td><td>RxNorm</td><td>TAKE 1 TABLET BY MOUTH DAILY</td> [facility] Allopurinol 100 MG Oral Tablet Allopurinol 100MG Oral Tablet Allopurinol 100MG Oral Tablet 02/12/2020 12:00:00 AM EST 1 TABLET BY MOUTH ac tive <td>Allopurinol 100MG Oral Tablet</td><td>02/12/2020</td><td>Unknown</td><td>BY MOUTH</td><td>DAILY</td><td>1 TABLET</td><td>[id number]</td><td>RxNorm</td><td>TAKE 1 TABLET BY MOUTH DAILY</td> [facility] Amlodipine 5 MG Oral Tablet amLODIPine Besylate 5MG Or al Tablet amLODIPine Besylate 5MG Oral Tablet 01/19/2020 12:00:00 AM EDT 5 MILLIGRAMS ORAL active <td>amLODIPine Besyl ate 5MG Oral Tablet</td><td>01/19/2020</td><td>Unknown</td><td>ORAL</td><td>DAILY</td><td>5 MILLIGRAMS</td><td>[id number]</td><td>RxNorm</td><td>TAKE 1 TABLET BY MOUTH ONCE A DAY</td> [facility] Amlodipine 5 MG Oral Tablet amLODIPine Besylate 5MG Or al Tablet amLODIPine Besylate 5MG Oral Tablet 01/19/2020 12:00:00 AM EDT 5 MILLIGRAMS ORAL active <td>amLODIPine Besyl ate 5MG Oral Tablet</td><td>01/19/2020</td><td>Unknown</td><td>ORAL</td><td>DAILY</td><td>5 MILLIGRAMS</td><td>[id number]</td><td>RxNorm</td><td>TAKE 1 TABLET BY MOUTH ONCE A DAY</td> [facility] Amlodipine 5 MG Oral Tablet amLODIPine Besylate 5MG Or al Tablet amLODIPine Besylate 5MG Oral Tablet 01/19/2020 12:00:00 AM EDT 5 MILLIGRAMS ORAL active <td>amLODIPine Besyl ate 5MG Oral Tablet</td><td>01/19/2020</td><td>Unknown</td><td>ORAL</td><td>DAILY</td><td>5 MILLIGRAMS</td><td>[id number]</td><td>RxNorm</td><td>TAKE 1 TABLET BY MOUTH ONCE A DAY</td> [facility] Glipizide 5 MG Oral Tablet glipiZIDE 5MG Oral Tablet glipiZI DE 5MG Oral Tablet 12/27/2019 12:00:00 AM EDT 5 MILLIGRAMS ORAL active <td>glipiZIDE 5MG Oral Tablet</td><td>12/27/2019</td><td>Unknown</td><td>ORAL</td><td>TWICE A DAY</td><td>5 MILLIGRAMS</td><td>802327</td><td>RxNorm</td><td>TAKE 1 TABLET BY MOUTH TWICE A DAY</td> [facility] Glipizide 5 MG Oral Tablet glipiZIDE 5MG Oral Tablet glipiZI DE 5MG Oral Tablet 12/27/2019 12:00:00 AM EDT 5 MILLIGRAMS ORAL active <td>glipiZIDE 5MG Oral Tablet</td><td>12/27/2019</td><td>Unknown</td><td>ORAL</td><td>TWICE A DAY</td><td>5 MILLIGRAMS</td><td>[id number]</td><td>RxNorm</td><td>TAKE 1 TABLET BY MOUTH TWICE A DAY</td> [facility] Glipizide 5 MG Oral Tablet glipiZIDE 5MG Oral Tablet glipiZI DE 5MG Oral Tablet 12/27/2019 12:00:00 AM EDT 5 MILLIGRAMS ORAL active <td>glipiZIDE 5MG Oral Tablet</td><td>12/27/2019</td><td>Unknown</td><td>ORAL</td><td>TWICE A DAY</td><td>5 MILLIGRAMS</td><td>[id number]</td><td>RxNorm</td><td>TAKE 1 TABLET BY MOUTH TWICE A DAY</td> [facility] Metformin hydrochloride 1000 MG Oral Tablet metFORMIN HCl 1000MG Oral Tablet metFORMIN HCl 1000MG Oral Tablet 12/21/2019 12:00:00 AM EDT 1000 MILLIGRAMS ORAL active <td>metFORMIN HCl 1000MG Oral Tablet</td><td>12/21/2019</td><td>Unknown</td><td>ORAL</td><td>TWICE A DAY</td><td>1000 MILLIGRAMS</td><td>[id number]</td><td>RxNorm</td><td>TAKE 1 TABLET BY MOUTH TWICE A DAY</td> [facility] Metformin hydrochloride 1000 MG Oral Tablet metFORMIN HCl 1000MG Oral Tablet metFORMIN HCl 1000MG Oral Tablet 12/21/2019 12:00:00 AM EDT 1000 MILLIGRAMS ORAL active <td>metFORMIN HCl 1000MG Oral Tablet</td><td>12/21/2019</td><td>Unknown</td><td>ORAL</td><td>TWICE A DAY</td><td>1000 MILLIGRAMS</td><td>[id number]</td><td>RxNorm</td><td>TAKE 1 TABLET BY MOUTH TWICE A DAY</td> [facility] Metformin hydrochloride 1000 MG Oral Tablet metFORMIN HCl 1000MG Oral Tablet metFORMIN HCl 1000MG Oral Tablet 12/21/2019 12:00:00 AM EDT 1000 MILLIGRAMS ORAL active <td>metFORMIN HCl 1000MG Oral Tablet</td><td>12/21/2019</td><td>Unknown</td><td>ORAL</td><td>TWICE A DAY</td><td>1000 MILLIGRAMS</td><td>[id number]</td><td>RxNorm</td><td>TAKE 1 TABLET BY MOUTH TWICE A DAY</td> [facility] Lisinopril 20 MG Oral Tablet Lisinopril 20MG Oral Tabl et Lisinopril 20MG Oral Tablet 12/18/2019 12:00:00 AM EDT 1 TABLET BY MOUTH active <td>Lisinopril 20MG Oral Tablet</td><td>12/18/2019</td><td>Unknown</td><td>BY MOUTH</td><td>DAILY</td><td>1 TABLET</td><td>[id number]</td><td>RxNorm</td><td>TAKE 1 TABLET BY MOUTH DAILY</td> [facility] Lisinopril 20 MG Oral Tablet Lisinopril 20MG Oral Tabl et Lisinopril 20MG Oral Tablet 12/18/2019 12:00:00 AM EDT 1 TABLET BY MOUTH active <td>Lisinopril 20MG Oral Tablet</td><td>12/18/2019</td><td>Unknown</td><td>BY MOUTH</td><td>DAILY</td><td>1 TABLET</td><td>[id number]</td><td>RxNorm</td><td>TAKE 1 TABLET BY MOUTH DAILY</td> [facility] Lisinopril 20 MG Oral Tablet Lisinopril 20MG Oral Tabl et Lisinopril 20MG Oral Tablet 12/18/2019 12:00:00 AM EDT 1 TABLET BY MOUTH active <td>Lisinopril 20MG Oral Tablet</td><td>12/18/2019</td><td>Unknown</td><td>BY MOUTH</td><td>DAILY</td><td>1 TABLET</td><td>[id number]</td><td>RxNorm</td><td>TAKE 1 TABLET BY MOUTH DAILY</td> [facility] Lisinopril 20 MG Oral Tablet Lisinopril 20MG Oral Tabl et Lisinopril 20MG Oral Tablet 12/18/2019 12:00:00 AM EDT 1 TABLET BY MOUTH active <td>Lisinopril 20MG Oral Tablet</td><td>12/18/2019</td><td>Unknown</td><td>BY MOUTH</td><td>DAILY</td><td>1 TABLET</td><td>[id number]</td><td>RxNorm</td><td>TAKE 1 TABLET BY MOUTH DAILY</td> [facility] Lisinopril 20 MG Oral Tablet Lisinopril 20MG Oral Tabl et Lisinopril 20MG Oral Tablet 12/18/2019 12:00:00 AM EDT 1 TABLET BY MOUTH active <td>Lisinopril 20MG Oral Tablet</td><td>12/18/2019</td><td>Unknown</td><td>BY MOUTH</td><td>DAILY</td><td>1 TABLET</td><td>[id number]</td><td>RxNorm</td><td>TAKE 1 TABLET BY MOUTH DAILY</td> [facility] Lisinopril 20 MG Oral Tablet Lisinopril 20MG Oral Tabl et Lisinopril 20MG Oral Tablet 12/18/2019 12:00:00 AM EDT 1 TABLET BY MOUTH active <td>Lisinopril 20MG Oral Tablet</td><td>12/18/2019</td><td>Unknown</td><td>BY MOUTH</td><td>DAILY</td><td>1 TABLET</td><td>886293</td><td>RxNorm</td><td>TAKE 1 TABLET BY MOUTH DAILY</td> [facility] Lisinopril 20 MG Oral Tablet Lisinopril 20MG Oral Tabl et Lisinopril 20MG Oral Tablet 12/18/2019 12:00:00 AM EDT 1 TABLET BY MOUTH active <td>Lisinopril 20MG Oral Tablet</td><td>12/18/2019</td><td>Unknown</td><td>BY MOUTH</td><td>DAILY</td><td>1 TABLET</td><td>556503</td><td>RxNorm</td><td>TAKE 1 TABLET BY MOUTH DAILY</td> [facility] Lisinopril 20 MG Oral Tablet Lisinopril 20MG Oral Tabl et Lisinopril 20MG Oral Tablet 12/18/2019 12:00:00 AM EDT 1 TABLET BY MOUTH active <td>Lisinopril 20MG Oral Tablet</td><td>12/18/2019</td><td>Unknown</td><td>BY MOUTH</td><td>DAILY</td><td>1 TABLET</td><td>149288</td><td>RxNorm</td><td>TAKE 1 TABLET BY MOUTH DAILY</td> [facility] Lisinopril 20 MG Oral Tablet Lisinopril 20MG Oral Tabl et Lisinopril 20MG Oral Tablet 12/18/2019 12:00:00 AM EDT 1 TABLET BY MOUTH active <td>Lisinopril 20MG Oral Tablet</td><td>12/18/2019</td><td>Unknown</td><td>BY MOUTH</td><td>DAILY</td><td>1 TABLET</td><td>867151</td><td>RxNorm</td><td>TAKE 1 TABLET BY MOUTH DAILY</td> [facility] Lisinopril 20 MG Oral Tablet Lisinopril 20MG Oral Tabl et Lisinopril 20MG Oral Tablet 12/18/2019 12:00:00 AM EDT 1 TABLET BY MOUTH active <td>Lisinopril 20MG Oral Tablet</td><td>12/18/2019</td><td>Unknown</td><td>BY MOUTH</td><td>DAILY</td><td>1 TABLET</td><td>185028</td><td>RxNorm</td><td>TAKE 1 TABLET BY MOUTH DAILY</td> [facility] Lisinopril 20 MG Oral Tablet Lisinopril 20MG Oral Tabl et Lisinopril 20MG Oral Tablet 12/18/2019 12:00:00 AM EDT 1 TABLET BY MOUTH active <td>Lisinopril 20MG Oral Tablet</td><td>12/18/2019</td><td>Unknown</td><td>BY MOUTH</td><td>DAILY</td><td>1 TABLET</td><td>158958</td><td>RxNorm</td><td>TAKE 1 TABLET BY MOUTH DAILY</td> [facility] Insurance Providers Payer name Policy type / Coverage type Policy ID Covered republican ID Covered republican's relationship to [place] Policy [place] Plan Information HUMANA HMO [id number] SP [id number] HAJA [id number] SP [id number] HAJA [id number] SP [id number] 000 MEDICARE [id number] SP [id number] A MEDICARE [id number] SP [id number] MEDICARE [id number] SP [id number] A [facility] [id number] S [id number] [facility] [id number] SP [id number] [facility] [id number] SP [id number] WELLCARE [id number] SP [id number] WELLCARE [id number] SP [id number] MEDICARE [id number] S [id number] WELLCARE [id number] S [id number] MEDICARE-CLINIC [id number] undefined [id number] [facility]-CLINIC [id number] undefi michelle [id number] [facility] NONE S NONE [facility] OPTIONS [id number] S [id number] MEDICARE [id number] S [id number] [facility] C[facility] OPTIONS-OP [id number] undefined [id number] MEDICARE -RECURRING [id number] undefined [id number] [facility] OPTIONS-RECURRING [id number] und efined [id number] MEDICARE C [id number] S [id number] AARP O [id number] S [id number] COMMERCIAL -RECURRING X u ndefined X [facility] [id number] 18 [id number] MEDICARE PART A [facility] [id number] 18 [id number] [place] MEDICAID MANAGED CARE - OP [id number] und efined [id number] [facility] [id number] undefined [id number] 000 MEDICARE-CLINIC [id number] undefined [id number] MEDICARE-OP [id number] undefined [id number] [place] MEDICAID MANAGED CARE - CLINIC [id number] undefined [id number] [facility] MEDICAID MANAGED CARE - OP [id number] un defined [id number] [facility] MANAGED CARE [id number] undefined [id number] ANSI-Medicare Part B [id number] ANSI-Commercial [id number] [facility] [id number] SP [id number] MEDICARE [id number] SP [id number] [facility] [id number] SP [id number] MEDICARE [id number] SP [id number] A ANSI-Medicare Part B [id number] ANSI-Commercial [id number] ANSI-Medicare Part B [id number] ANSI-Commercial [id number] [facility] [id number] undefined [id number] HAJA MEDICAID MANAGED CARE - OP [id number] un defined [id number] [facility]-OP [id number] undefined [id number] MEDICAID [facility] [id number] undef ined [id number] [id number] undefined [id number] MEDICARE C [id number] S [id number] A HAJA MEDICAID MANAGED CARE - OP UNAVAILABLE UNAVAILABLE [place] [id number] S [id number] HAJA RECURRING [id number] 18 [id number] HAJA CARE [id number] S [id number] HAJA UNAVAILABLE UNAVAILA BLE HUMANA PPO [id number] SP [id number] HAJA MEDICARE [id number] SP [id number] [place] [id number] S [id number] HUMANA PPO O [id number] S [id number] WELLCARE [id number] SP [id number] HUMANA PPO UNAVAILABLE SP UNAVAIL ABLE [facility] HEALTH PLANS - CLINIC [id number] undefined [id number] WELLCARE HEALTH PLANS - OP [id number] undefined [id number] WELLCARE HEALTH PLANS - PHYSICIAN [id number] undefi michelle [id number] WELLCARE [id number] S [id number] WELLCARE HEALTH PLANS - RECURRING [id number] undefi michelle [id number] WELLCARE [id number] S [id number] AETNA MEDICARE [id number] SP [id number] [facility] [id number] SP [id number] MEDICARE-OP [id number] undefined [id number] [employer] [facility] OPTIONS [id number] S [id number] Problems, Conditions, and Diagnoses Code Display Name Description Problem Type Effective Dates Data Source(s) J48679 Other place in single-family (private) house as the place of occurrence of the external cause Other place in single-family (private) h ouse as the place of occurrence of the external cause Diagnosis 02/03/2021 09:44:00 PM E DT [facility] Y9301 Activity, walking, marching and hiking A ctivity, walking, marching and hiking Diagnosis 02/03/2021 09:44:00 PM EDT [facility] Y998 Other external cause status Other external cause statu s Diagnosis 02/03/2021 09:44:00 PM EDT [facility] [id number] Slipping, tripping and stumb ling without falling due to stepping from one level to another, initial encounter Slipping, tripping and stumbling without falling due to stepping from one level to another, initial encounter Diagnosis 02/03/2021 09:44:00 PM EDT [facility] R040 Epistaxis Epistaxis Diagnosis 02/03/2021 09:44:00 PM ED T [facility] Z8572 Personal history of non-Hodgkin lymphoma s Personal history of non-Hodgkin lymphomas Diagnosis 01/29/2021 02:46:00 PM EDT [facility] D696 Thrombocytopenia, unspecified Thrombocytopenia, unspec ified Diagnosis 01/29/2021 02:46:00 PM EDT [facility] D649 Anemia, unspecified Anemia, unspecified Diagnosis 1 02:46:00 PM EDT [facility] M542 Cervicalgia Cervicalgia Diagnosis 01/29/2021 10:30:00 AM EDT [facility] [id number] Pain in right shoulder Pain in right shoulder Diagnosi s 01/29/2021 10:30:00 AM EDT [facility] R2681 Unsteadiness on feet Unsteadiness on feet Diagnosis 01/29/2021 10:30:00 AM EDT [facility] R5383 Other fatigue Other fatigue Diagnosis 01/29/2021 10:30:00 AM EDT [facility] R42 Dizziness and giddiness Dizziness and giddiness Diagno sis 01/29/2021 10:30:00 AM EDT [facility] [id number] Chronic gout, unspecified, without tophu s (tophi) Chronic gout, unspecified, without tophus (tophi) Diagnosis 01/07/2021 11:12:00 AM E [facility] E119 Type 2 diabetes mellitus without complic ations Type 2 diabetes mellitus without complications Diagnosis [facility] Hyperlipidemia, unspecified Hyperlipidemia, unspecifie d Diagnosis 01/07/2021 11:12:00 AM EDT [facility] I10 Essential (primary) hypertension Essential (primary) h ypertension Diagnosis 01/07/2021 11:12:00 AM [facility] N189 Chronic kidney disease, unspecified Chronic kidn ey disease, unspecified Diagnosis 01/07/2021 11:12:00 AM T [facility] I2699 Other pulmonary embolism without acute c or pulmonale Other pulmonary embolism without acute cor pulmonale Diagnosis 01/07/2021 11:12:00 AM T [facility] K219 Gastro-esophageal reflux disease without esophagitis Gastro-esophageal reflux disease without esophagitis Diagnosis 01/07/2021 11:12:00 AM ED [facility] H9202 Otalgia, left ear Otalgia, left ear Diagnosis 01/07/2021 11:12:00 AM [facility] C8590 Non-Hodgkin lymphoma, unspecified, unspe cified site Non-Hodgkin lymphoma, unspecified, unspecified site Diagnosis 01/07/2021 11:12:00 AM EDT [facility] R109 Unspecified abdominal pain Unspecified abdominal pain Diagnosis 01/07/2021 11:12:00 AM [facility] R06.02 Shortness of breath SHORTNESS OF BREATH Diagnosis 0 01/03/2021 08:54:00 AM [facility] R06.09 Other forms of dyspnea OTHER FORMS OF DYSPNEA Diagnosi s 12/24/2020 08:20:00 AM [facility] R09.89 Other specified symptoms and signs involving the circulatory and respiratory systems OTH SYMPTOMS AND SIGNS INVOLVING THE CIRC AND RESP SYS TEMS Diagnosis 12/18/2020 09:21:00 AM [facility] I63512 Personal history of pulmonary embolism P ersonal history of pulmonary embolism Diagnosis 12/12/2020 02:32:00 AM [facility] R05 Cough Cough Diagnosis 12/12/2020 02:32:00 AM ED [facility] R0602 Shortness of breath Shortness of breath Diagnosis 0 12/12/2020 02:32:00 AM EDT [facility] R079 Chest pain, unspecified Chest pain, unspecified Diagno sis 12/12/2020 02:32:00 AM EDT [facility] E559 Vitamin D deficiency, unspecified Vitamin D defi ciency, unspecified Diagnosis 11/24/2020 01:30:00 PM EDT [facility] E042 Nontoxic multinodular goiter Nontoxic multinodular goi ter Diagnosis 11/24/2020 01:30:00 PM EDT [facility] N289 Disorder of kidney and ureter, unspecifi ed Disorder of kidney and ureter, unspecified Diagnosis 11/24/2020 01:30:00 PM EDT [facility] Z8571 Personal history of Hodgkin lymphoma Personal hi story of Hodgkin lymphoma Diagnosis 11/24/2020 08:30:00 AM EDT [facility] Z5189 Encounter for other specified aftercare Encounter for other specified aftercare Diagnosis 11/13/2020 01:06:00 PM EDT [facility] M436 Torticollis Torticollis Diagnosis 11/05/2020 11:27:00 AM EDT [facility] J82528 Unspecified place in single- family (private) house as the place of occurrence of the external cause Unspecified place in single-family (priv ate) house as the place of occurrence of the external cause Diagnosis 11/02/2020 08:25:00 AM EDT [facility] Y939 Activity, unspecified Activity, unspecified Diagnosis 11/02/2020 08:25:00 AM EDT [facility] [id number] Overexertion from prolonged static or awkward postures, initial encounter Overexertion from prolonged static or aw kward postures, initial encounter Diagnosis 11/02/2020 08:25:00 AM EDT [facility] Y213GZK Strain of muscle, fascia and tendon at n mamta level, initial encounter Strain of muscle, fascia and tendon at neck level, initial encounter Diagnosis 11/02/2020 08:25:00 AM EDT [facility] R09.89 Other specified symptoms and signs involving the circulatory and respiratory systems OTH SYMPTOMS AND SIGNS INVOLVING THE CIRC AND RESP SYS TEMS Diagnosis 09/23/2020 09:04:00 AM EDT [facility] B35.1 Tinea unguium TINEA UNGUIUM Diagnosis 09/23/2020 09:04:00 AM [facility] L84 Corns and callosities CORNS AND CALLOSITIES Diagnosis 09/23/2020 09:04:00 AM [facility] E11.51 Type 2 diabetes mellitus wit h diabetic peripheral angiopathy without gangrene TYPE 2 DIABETES W DIABETIC PERIPHERAL ANGIOPATH W/O GANGRENE Diagnosis 09/23/2020 09:04:00 AM T [facility] K047 Periapical abscess without sinus Periapical absc ess without sinus Diagnosis 09/06/2020 09:45:00 AM EDT [facility] R6884 Jaw pain Jaw pain Diagnosis 09/06/2020 09:45:00 AM ED [facility] I26.99 Other pulmonary embolism without acute c or pulmonale OTHER PULMONARY EMBOLISM WITHOUT ACUTE COR PULMONALE Diagnosis 09/04/2020 08:19:00 AM [facility] Z12.11 Encounter for screening for malignant ne oplasm of colon ENCOUNTER FOR SCREENING FOR MALIGNANT NEOPLASM OF COLON Diagnosis 09/04/2020 08:19:0 0 AM [facility] E04.2 Nontoxic multinodular goiter NONTOXIC MULTINODULAR GOI TER Diagnosis 08/04/2020 09:13:00 AM [facility] 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 HALFWAY (CU 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 INSULIN Diagnosis 07/22/2020 09:23:00 AM [facility] Z7901 termite treater helper (current) use of anticoagulant s termite treater helper (current) use of anticoagulants Diagnosis 07/21/2020 02:00:00 PM T [facility] 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.01 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 Diagnosis 07/18/2020 08:07:00 AM EDT [facility] Z86.711 Personal history of pulmonary embolism P ERSONAL HISTORY OF PULMONARY EMBOLISM Diagnosis 07/18/2020 08:07:00 AM EDT [facility] C83.30 Diffuse large B-cell lymphoma, unspecifi ed site DIFFUSE LARGE B-CELL LYMPHOMA, UNSPECIFIED SITE Diagnosis 07/18/2020 08:07:00 AM [facility] I82.621 Acute embolism and thrombosis of deep ve ins of right upper extremity ACUTE EMBOLISM AND THROMBOSIS OF DEEP VEINS OF R UP EXTREM Diagnosis 07/18/2020 08:07:00 AM [facility] N1832 N1832 Diagnosis 05/16/2020 10:07:00 AM [facility] Z23 Encounter for immunization Encounter for immunization Diagnosis 05/16/2020 10:07:00 AM [facility] E041 Nontoxic single thyroid nodule Nontoxic single thyroid nodule Diagnosis 05/16/2020 10:07:00 AM [facility] N1832 Chronic kidney disease, stage 3b Chronic kidney disease, stage 3b Diagnosis 05/16/2020 10:07:00 AM [facility] I10 Essential (primary) hypertension ESSENTIAL (PRIMARY) H YPERTENSION Diagnosis 04/25/2020 11:48:00 AM [facility] E55.9 Vitamin D deficiency, unspecified VITAMIN D DEFI CIENCY, UNSPECIFIED Diagnosis 04/25/2020 11:48:00 AM [facility] E11.9 Type 2 diabetes mellitus without complic ations TYPE 2 DIABETES MELLITUS WITHOUT COMPLICATIONS Diagnosis 04/25/2020 11:48:00 AM [facility] K57.30 Diverticulosis of large inte alma without perforation or abscess without bleeding DVRTCLOS OF LG INT W/O PERFORATION OR ABSCESS W/O BLEEDING D iagnosis 04/25/2020 11:48:00 AM [facility] H9201 Otalgia, right ear Otalgia, right ear Diagnosis 06:49:00 AM [facility] Z1389 Encounter for screening for other disord er Encounter for screening for other disorder Diagnosis 02/25/2020 11:17:00 AM [facility] N1831 Chronic kidney disease, stage 3a Chronic kidney disease, stage 3a Diagnosis 02/25/2020 11:17:00 AM [facility] E1142 Type 2 diabetes mellitus with diabetic p olyneuropathy Type 2 diabetes mellitus with diabetic polyneuropathy Diagnosis 02/25/2020 11:17:00 AM [facility] Z01.818 Encounter for other preprocedural examin ation ENCOUNTER FOR OTHER PREPROCEDURAL EXAMINATION Diagnosis 02/22/2020 12:42:00 PM [facility] M17.11 Unilateral primary osteoarthritis, right knee UNILATERAL PRIMARY OSTEOARTHRITIS, RIGHT KNEE Diagnosis 02/21/2020 01:18:00 PM [facility] S83.411D Sprain of medial collateral ligament of right knee, subsequent encounter SPRAIN OF MEDIAL COLLATERAL LIGAMENT OF RIGHT KNEE, SUBS Enedina gnosis 02/21/2020 01:18:00 PM [facility] M6281 Muscle weakness (generalized) Muscle weakness (general ized) Diagnosis 12/11/2019 01:10:00 PM [facility] W11415 Pain in right knee Pain in right knee Diagnosis 04/2019 01:10:00 PM [facility] W52786 Stiffness of right knee, not elsewhere c lassified Stiffness of right knee, not elsewhere classified Diagnosis 12/11/2019 01:10:00 PM [facility] Surgeries/Procedures Procedure Description Date Indications Data Source(s) ECHO TTHRC R-T 2D W/WOM-MODE COMPL SPEC&COLR DOP TTE W/DOPPL ER COMPLETE 01/03/2021 12:00:00 AM [facility] DIFFUSING CAPACITY CO/MEMBANE DIFFUSE CAPACITY 12/24/2020 12:00:00 AM [facility] GAS DILUT/WASHOUT LUNG VOL W/WO DISTRIB VENT&VOL PULM FUNCTI ON TEST BY GAS 12/24/2020 12:00:00 AM [facility] BRNCDITNT RSPSE SPMTRY PRE&POST-NCDILAT ADMN EVALUATION OF WHEEZING 12/24/2020 12:00:00 AM [facility] DUP-SCAN LXTR ART/ARTL BPGS COMPL BI STUDY LOWER EXTREMITY S TUDY 12/18/2020 12:00:00 AM [facility] DEBRIDEMENT NAIL ANY METHOD 6/> DEBRIDE NAIL 6 OR MORE 09/23 12:00:00 AM [facility] PARING/CUTTING BENIGN HYPERKERATOTIC LESION 2-4 TRIM SKIN LE SIONS 2 TO 4 09/23/2020 12:00:00 AM [facility] Hospital outpatient clinic visit for assessment and karma deluca of a patient Hospital Outpatient Clinic Visit 09/04/2020 12:00:00 AM [facility] DUP-SCAN XTR VEINS UNILATERAL/LIMITED STUDY EXTREMITY STUDY 07/18/2020 12:00:00 AM [facility] GLUCOSE BLOOD REAGENT STRIP REAGENT STRIP/BLOOD GLUCOSE 04/11 12:00:00 AM [facility] Injection, propofol, 10 mg 04/25/2020 12:00:00 AM [facility] COLONOSCOPY FLX DX W/WO COLLJ SPECIMENS DIAGNOSTIC COLONOSCO PY 04/25/2020 12:00:00 AM [facility] Inspection of Lower Intestinal Tract, Vi a Natural or Artificial Opening Endoscopic INSPECTION OF LOWER INTESTINAL TRACT, ENDO 04/25/2020 12:00:00 AM [facility] 62142 04/21/2020 12:00:00 AM [facility] ARTHROCENTESIS ASPIR&/INJECTION MAJOR JT/BURSA DRAIN/INJ ARASELI NT/BURSA W/O US 02/21/2020 12:00:00 AM [facility] RADIOLOGIC EXAMINATION KNEE 1/2 VIEWS X-RAY EXAM OF KNEE 1 O R 2 02/21/2020 12:00:00 AM [facility] Injection, methylprednisolone acetate, 40 mg 0 12:00:00 AM [facility] Results ID Date Data Source [id number] 02/04/2021 05:08:00 PM [facility] Name Value Range Interpretation Code Description Data Rajani rce(s) Supporting Document(s) RESP PROFILE RP2.1 NASAL PCR C [facility] \\BLDo\\RESPIRATORY PROFILE NASAL PHARYNGEAL BY PCR\\BLDx\\ \\BLDo\\DETECTED _NONE \\BLDx\\ 02/04/21.LMB. \\BLDo\\EQUIVOCAL _NONE \\BLDx\\ 02/04/21.LMB. VIRUSES ADENOVIRUS NOT DETECTED NORMAL: NOT DETECTED [facility] CORONAVIRUS 229E NOT DETECTED NORMAL: NOT DETECTED [facility] CORONAVIRUS HKU1 NOT DETECTED NORMAL: NOT DETECTED [facility] CORONAVIRUS NL63 NOT DETECTED NORMAL: NOT DETECTED [facility] CORONAVIRUS OC43 NOT DETECTED NORMAL: NOT DETECTED [facility] 63691-4 NOT DETECTED NORMAL: NOT DETECTED [facility] REPORT TO [facility] TH HUMAN METAPNEUMO NOT DETECTED NORMAL: NOT DETECTED [facility] HUMAN RHINO/ENTERO NOT DETECTED NORMAL: NOT DETECTED [facility] NOT DETECTEDNOT DETECTEDNOT DETECTEDNOT DETECTED PARAINFLUENZA V3 NOT DETECTED NORMAL: NOT DETECTED [facility] NOT DETECTED RSV NOT DETECTED NORMAL: NOT DETECTED [facility] BACTERIANOT DET ECTEDNOT DETECTEDNOT DETECTEDNOT DETECTED TESTING PERFORMED USING THE [employer] RP2.1 MULTIPLEXED NUCLEIC ACID TEST. THIS TEST [...] OR REVOKED SOONER. ID Date Data Source [id number] 02/04/2021 03:52:00 PM EDT [facility] Name Value Range Interpretation Code Description Data Rajani rce(s) Supporting Document(s) Glucose [Moles/volume] in Capillary blood by Glucometer 88 mg/dL 70 - 100 [facility] RESULTS < 40 mg/dL OR > 500 mg /dL WILL REQUIRE CONFIRMATION BY LAB ID Date Data Source [id number] 02/04/2021 03:40:00 PM EDT [facility] Name Value Range Interpretation Code Description Data Rajani rce(s) Supporting Document(s) CBC [facility] l COMPLETE BLOOD COUNT Leukocytes [#/volume] in Blood by Automated count 8.1 K/uL 4.0 - 10 .0 [facility] Erythrocytes [#/volume] in Blood by Automated count 2.41 M/uL 4.30 - 6.10 Below low normal [facility] Hemoglobin [Mass/volume] in Blood 8.4 g/dL 13.5 - 17.5 Below low no rmal [facility] Hematocrit [Volume Fraction] of Blood by Automated count 27.6 % 39.0 - 50.0 Below low normal [facility] Erythrocyte mean corpuscular volume [Entitic volume] b y Automated count 114.5 fL 80.0 - 96.0 Above high normal [facility] Erythrocyte mean corpuscular hemoglobin [Entitic mass] by Automated count 34.9 pg 26.0 - 34.0 Above high normal [facility] Erythrocyte mean corpuscular hemoglobin concentration [Mass/volume] by Automated count 30.4 g/dL 32.0 - 36.0 Below low normal [facility] Erythrocyte distribution width [Ratio] by Automated count 21.2 % 11.6 - 14.8 Above high normal [facility] Platelets [#/volume] in Blood by Automated count 28 K/uL 150 - 450 Below lower panic limits [facility] CALLED TO: Sofi GALVAN @ 3908 [facility] REP/VERIFIED REPEATED TO CONFIRM, CONSISTENT W/HISTORY [facility] READ BACK YES [facility] Platelet mean volume [Entitic volume] in Blood by Automated count 10.9 fL 7.1 - 10.4 Above high normal [facility] 0.0 MANUAL DIFF [facility] BELOW [facility] 59 % 42 - [facility] % [facility] MYEL 1 % [facility] META 0 % 0 - 1 [facility] BAND 0 % 0 - 5 [facility] LYMPH 12 % 15 - 41 Below low normal [facility] ALYM 0 % 0 - 5 [facility] MONO 23 % 0 - 12 Above high normal [facility] EOS 5 % 0 - 7 [facility] BASO 0 % 0 - 2 [facility] 0.0 RBC MORPH SEE BELOW [facility] POLYCHROMSIA NONE SEEN NORMAL: NONE SEEN [facility] HYPOCHROMIA NONE SEEN NORMAL: NONE SEEN [facility] POIKLOCYTOSIS NONE SEEN NORMAL: NONE SEEN [facility] BASO STIPPLING NONE SEEN NORMAL: NONE SEEN [facility] ANISOCYTOSIS 2+ NORMAL: NONE SEEN Abnormal (applies to non-nu meric results) [facility] MICROCYTOSIS NONE SEEN NORMAL: NONE SEEN [facility] MACROCYTOSIS 1+ NORMAL: NONE SEEN Abnormal (applies to non-nu meric results) [facility] SPHEROCYTES NONE SEEN NORMAL: NONE SEEN [facility] SCHISTOCYTES NONE SEEN NORMAL: NONE SEEN [facility] TARGET CELLS NONE SEEN NORMAL: NONE SEEN [facility] TEARDROP NONE SEEN NORMAL: NONE SEEN [facility] OVALOCYTES NONE SEEN NORMAL: NONE SEEN [facility] STOMATOCYTES NONE SEEN NORMAL: NONE SEEN [facility] HELMET CELLS NONE SEEN NORMAL: NONE SEEN [facility] CORDERO JOLLY NONE SEEN NORMAL: NONE SEEN [facility] CABOT RINGS NONE SEEN NORMAL: NONE SEEN [facility] TOXIC GRAN NONE SEEN NORMAL: NONE SEEN [facility] DOHLE BODIES NONE SEEN NORMAL: NONE SEEN [facility] MANGO CELLS NONE SEEN NORMAL: NONE SEEN [facility] ACANTHOCYTES NONE SEEN NORMAL: NONE SEEN [facility] HYPER NEUT NONE SEEN NORMAL: NONE SEEN [facility] AZAM RODS NONE SEEN NORMAL: NONE SEEN [facility] ROULEAUX NONE SEEN NORMAL: NONE SEEN [facility] CRENATED CELL NONE SEEN NORMAL: NONE SEEN [facility] ID Date Data Source [id number] 02/04/2021 03:40:00 PM EDT [facility] Name Value Range Interpretation Code Description Data Rajani rce(s) Supporting Document(s) ACTIVATED PARTIAL THROMBOPLASTIN [facility] ACTIVATED PARTIAL THROMBOPLASTIN HEPARIN? NO [facility] l PTT-A 32.8 24.3 - 100 [facility] al New PTT Heparin Therapeutic ra nge effective October 10, 2015 Heparin dose Therapeutic Range 0.1 - 0.3 uL 70.7 - 80.3 seconds 0.3 - 0.7 uL 80.3 - 99.6 seconds New normal reference range effective February 29, 2020 Normal 24.3 - 40.8 seconds ID Date Data Source [id number] 02/04/2021 03:40:00 PM EDT [facility] PROTHROMBIN TIME Name Value Range Interpretation Code Description Data Rajani rce(s) Supporting Document(s) WARFARIN? NO [facility] l 15.1 INR in Platelet poor plasma by Coagulation assay 1.2 1.0 - 4.5 [facility] Reference ranges Warf stuart (Coumadin) Therapy: 21.6 - 40.7 secs Normal (Non-warfarin Therapy): 10.7 - 15.2 secs New Protime Reference Range as of February 29, 2020 ID Date Data Source [id number] 02/04/2021 03:40:00 PM EDT [facility] Name Value Range Interpretation Code Description Data Rajani rce(s) Supporting Document(s) COMPREHENSIVE CHEM PROFILE [facility] COMPREHENSIVE METABOLIC PANEL Sodium [Moles/volume] in Serum or Plasma 139 mEq/L 136 - 145 [facility] Potassium [Moles/volume] in Serum or Plasma 3.8 mEq/L 3.5 - 5.1 [facility] Chloride [Moles/volume] in Serum or Plasma 101 mEq/L 98 - 107 [facility] Carbon dioxide, total [Moles/volume] in Serum or Plasma 25.3 mEq /L 21.0 - 32.0 [facility] Glucose [Mass/volume] in Serum or Plasma 91 mg/dL 70 - 100 [facility] Urea nitrogen [Mass/volume] in Serum or Plasma 67 mg/dL 7 - 18 Above upper panic limits [facility] CALLED TO: Sofi GALVAN @ [phone] [facility] REP/VERIFIED REPEATED TO CONFIRM [facility] READ BACK YES [facility] CREATININE SERUM 2.48 mg/dL 0.70 - 1.30 Above high normal [facility] AGE [address] [facility] l HEIGHT R [facility] l eGFR NON-AFR AMR 26 [facility] eGFR AFR AMR 32 [facility] ital BUN/CREAT 27 6 - 25 Above high normal [facility] Protein [Mass/volume] in Serum or Plasma 8.4 g/dL 6.0 - 8.3 Above high normal [facility] Albumin [Mass/volume] in Serum or Plasma 3.2 g/dL 3.8 - 5.4 Below low normal [facility] GLOBULIN 5.2 g/dL 2.0 - 4.0 Above high normal [facility] A/G RATIO 0.6 0.8 - 2.0 Below low normal [facility] Calcium [Mass/volume] in Serum or Plasma 9.7 mg/dL 8.8 - 10.2 [facility] Bilirubin.total [Mass/volume] in Serum or Plasma 0.3 mg/dL 0.2 - 1.0 [facility] Bilirubin.direct [Mass/volume] in Serum or Plasma 0.1 mg/dL 0.0 - 0. 2 [facility] INDIRECT BILI 0.2 mg/dL 0.0 - 1.1 [facility] pital ALK PHOSPHATASE 56 U/L 40 - 129 [facility] ospital Aspartate aminotransferase [Enzymatic ac tivity/volume] in Serum or Plasma by With P-5'-P 11 IU/L 7 - 37 [facility] Alanine aminotransferase [Enzymatic acti vity/volume] in Serum or Plasma by With P-5'-P 18 IU/L 12 - 78 [facility] ANION GAP 13 7 - 15 [facility] Estimated GFR referenc e range: >60ml/min/1.73m >18 years: Calculated using IDKS traceable Study Equation <18 years: Calculated using IDKS tracable Bedside Schartz Equation ID Date Data Source [id number] 01/29/2021 12:10:00 PM EDT [facility] Name Value Range Interpretation Code Description Data Rajani rce(s) Supporting Document(s) CROSSMATCH INITIAL [employer] PATIENT ABO TYPE: _A ____ 01/29/21.1350.TMG. PATIENT RH TYPE: _POSITIVE 01/29/21.1350.TMG. PATIENT DIRECT MILES: _NEGATIVE 01/29/21.135.TMG. PATIENT INDIRECT MILES: _NEGATIVE 01/29/21.TMG. UNIT NUMBER: _[id number] 01/29/21135.TMG. TRANSFUSED BY: _EMMA_SCHOFF 01/29/21.192 9.TMG. _HUNTER_COLONEY 01/29/21.1928.TMG. TRANSFUSION DATE: _01/29/21 01/29/21.TMG. START TIME: _1530 01/29/21.1928.TMG. STOP TIME: _1850 01/29/21.1928.TMG. VOLUME ADMINISTERED: _333 01/29/21.TMG. REACTION? _NONE 01/29/21.1928.TMG. UNIT ABO TYPE: _O 01/29/21.135.TMG. UNIT RH: _POSITIVE 01/10 05/01.135.TMG. UNIT EXPIRATION: 01/29/21.1349.TMG. COMPATIBILITY: _YES 01/29/21.1349.TMG. PT TRANSFUSED PRBC Tongedie teixeiraal ID Date Data Source [id number] 01/29/2021 10:45:00 AM EDT [facility] Name Value Range Interpretation Code Description Data Rajani rce(s) Supporting Document(s) CBC [facility] COMPLETE BLOOD COUNT Leukocytes [#/volume] in Blood by Automated count 7.6 K/uL 4.0 - 10 .0 [facility] Erythrocytes [#/volume] in Blood by Automated count 2.21 M/uL 4.30 - 6.10 Below low normal [facility] Hemoglobin [Mass/volume] in Blood 8.0 g/dL 13.5 - 17.5 Below low no rmal [facility] Hematocrit [Volume Fraction] of Blood by Automated count 26.2 % 39.0 - 50.0 Below low normal [facility] Erythrocyte mean corpuscular volume [Entitic volume] b y Automated count 118.6 fL 80.0 - 96.0 Above high normal [facility] Erythrocyte mean corpuscular hemoglobin [Entitic mass] by Automated count 36.2 pg 26.0 - 34.0 Above high normal [facility] Erythrocyte mean corpuscular hemoglobin concentration [Mass/volume] by Automated count 30.5 g/dL 32.0 - 36.0 Below low normal [facility] alexis Erythrocyte distribution width [Ratio] by Automated count 21.4 % 11.6 - 14.8 Above high normal [facility] Platelets [#/volume] in Blood by Automated count 29 K/uL 150 - 450 Below lower panic limits [facility] DECREASED PLATELETS NOTED CALLED TO: DR. CAGLE [facility] al REP/VERIFIED 27 [facility] ital READ BACK YES [facility] Platelet mean volume [Entitic volume] in Blood by Automated count 10.2 fL 7.1 - 10.4 [facility] Neutrophils [#/volume] in Blood by Automated count 3.11 K/uL 1.70 - 7.70 [facility] Lymphocytes [#/volume] in Blood by Automated count 1.35 K/uL 1.50 - 6.00 Below low normal [facility] Monocytes [#/volume] in Blood by Automated count 1.39 K/uL 0.00 - 1.00 Above high normal [facility] Eosinophils [#/volume] in Blood by Automated count 0.28 K/uL 0.03 - 0.48 [facility] Basophils [#/volume] in Blood by Automated count 0.00 K/uL 0.01 - 0.08 Below low normal [facility] 1.45 Urinalysis macro (dipstick) panel - Urine 0.030 10^3/uL 0.000 - 0.012 Above high normal [facility] Neutrophils/100 leukocytes in Blood by Automated count 41.1 % 42.0 - 75.0 Below low normal [facility] Lymphocytes/100 leukocytes in Blood by Automated count 17.8 % 15. 0 - 41.0 [facility] Monocytes/100 leukocytes in Blood by Automated count 18.3 % 0.0 - 12.0 Above high normal [facility] Eosinophils/100 leukocytes in Blood by Automated count 3.7 % 0.0 - 7.0 [facility] 0.019.10 NRBC 0.4 % [facility] MANUAL DIFF SEE BELOW [facility] alexis SEGS 46 % 42 - 75 [facility] META 9 % 0 - 1 Above upper panic limits [facility] LYMPH 28 % 15 - 41 [facility] l MONO 13 % 0 - 12 Above high normal [facility] EOS 4 % 0 - 7 [facility] RBC MORPH SEE BELOW [facility] POLYCHROMSIA NONE SEEN NORMAL: NONE SEEN [facility] HYPOCHROMIA 2+ NORMAL: NONE SEEN Abnormal (applies to non-num zia results) [facility] POIKLOCYTOSIS NONE SEEN NORMAL: NONE SEEN [facility] BASO STIPPLING NONE SEEN NORMAL: NONE SEEN [facility] ANISOCYTOSIS 2+ NORMAL: NONE SEEN Abnormal (applies to non-nu meric results) [facility] MICROCYTOSIS NONE SEEN NORMAL: NONE SEEN Abnormal (appl ies to non-numeric results) [facility] MACROCYTOSIS 2+ NORMAL: NONE SEEN Abnormal (applies to non-nu meric results) [facility] SPHEROCYTES NONE SEEN NORMAL: NONE SEEN [facility] SCHISTOCYTES NONE SEEN NORMAL: NONE SEEN [facility] TARGET CELLS NONE SEEN NORMAL: NONE SEEN [facility] TEARDROP NONE SEEN NORMAL: NONE SEEN [facility] OVALOCYTES NONE SEEN NORMAL: NONE SEEN [facility] STOMATOCYTES NONE SEEN NORMAL: NONE SEEN [facility] HELMET CELLS NONE SEEN NORMAL: NONE SEEN [facility] CORDERO JOLLY NONE SEEN NORMAL: NONE SEEN [facility] CABOT RINGS NONE SEEN NORMAL: NONE SEEN [facility] TOXIC GRAN NONE SEEN NORMAL: NONE SEEN [facility] DOHLE BODIES NONE SEEN NORMAL: NONE SEEN [facility] MANGO CELLS NONE SEEN NORMAL: NONE SEEN [facility] ACANTHOCYTES NONE SEEN NORMAL: NONE SEEN [facility] HYPER NEUT NONE SEEN NORMAL: NONE SEEN [facility] AZAM RODS NONE SEEN NORMAL: NONE SEEN [facility] ROULEAUX NONE SEEN NORMAL: NONE SEEN [facility] CRENATED CELL NONE SEEN NORMAL: NONE SEEN [facility] FEW SMUDGE CELLS NOTED ID Date Data Source [id number] 01/29/2021 10:45:00 AM EDT [facility] Name Value Range Interpretation Code Description Data Rajani rce(s) Supporting Document(s) COMPREHENSIVE CHEM PROFILE [facility] COMPREHENSIVE METABOLIC PANEL Sodium [Moles/volume] in Serum or Plasma 138 mEq/L 136 - 145 [facility] Potassium [Moles/volume] in Serum or Plasma 4.5 mEq/L 3.5 - 5.1 [facility] Chloride [Moles/volume] in Serum or Plasma 101 mEq/L 98 - 107 [facility] Carbon dioxide, total [Moles/volume] in Serum or Plasma 26.6 mEq /L 21.0 - 32.0 [facility] Glucose [Mass/volume] in Serum or Plasma 115 mg/dL 70 - 100 Above high normal [facility] Urea nitrogen [Mass/volume] in Serum or Plasma 32 mg/dL 7 - 18 Above high normal [facility] CREATININE SERUM 1.65 mg/dL 0.70 - 1.30 Above high normal [facility] AGE [address] [facility] l HEIGHT R [facility] l eGFR NON-AFR AMR 42 [facility] eGFR AFR AMR 51 [facility] ital BUN/CREAT 19 6 - 25 [facility] l Protein [Mass/volume] in Serum or Plasma 8.2 g/dL 6.0 - 8.3 [facility] Albumin [Mass/volume] in Serum or Plasma 3.4 g/dL 3.8 - 5.4 Below low normal [facility] GLOBULIN 4.8 g/dL 2.0 - 4.0 Above high normal [facility] A/G RATIO 0.7 0.8 - 2.0 Below low normal [facility] Calcium [Mass/volume] in Serum or Plasma 9.1 mg/dL 8.8 - 10.2 [facility] Bilirubin.total [Mass/volume] in Serum or Plasma 0.3 mg/dL 0.2 - 1.0 [facility] Bilirubin.direct [Mass/volume] in Serum or Plasma 0.1 mg/dL 0.0 - 0. 2 [facility] INDIRECT BILI 0.2 mg/dL 0.0 - 1.1 [facility] pital ALK PHOSPHATASE 59 U/L 40 - 129 [facility] ospital Aspartate aminotransferase [Enzymatic ac tivity/volume] in Serum or Plasma by With P-5'-P 16 IU/L 7 - 37 [facility] Alanine aminotransferase [Enzymatic acti vity/volume] in Serum or Plasma by With P-5'-P 24 IU/L 12 - 78 [facility] ANION GAP 10 7 - 15 [facility] Estimated GFR referenc e range: >60ml/min/1.73m >18 years: Calculated using IDKS traceable Study Equation <18 years: Calculated using [facility] tracable Bedside Schartz Equation ID Date Data Source [id number] 01/14/2021 09:20:[address] [facility] [address] [place] [address] TELEPHONE RADIOLOGY DEPARTMENT Name: [facility]E [facility] #: [id number] : 1955 Ordering Physician: GAVIN Sex: M Date: 01/07/21 Admission Type: O/P X-ray Number: [id number] Unsigned Transcriptions are preliminary reports and do not represent a Medical or Legal Document XRAY ABDOMEN COMPLETEW// [id number] COMPLETE:01/07/21 12:59 LEI 74213 (REASON FOR ABDOMEN: ABDOMINAL PAIN Examination of [...] BE Transcribed Date: 01/07/21 17:08 Transcribe Initials: LI Name Value Range Interpretation Code Description Data Rajani rce(s) Supporting Document(s) ID Date Data Source [id number] 01/03/2021 08:59:00 AM EDT [facility] Cardiology Depart ment Cardiology Report [address] [place], [place] [address] __ Name: NIKOLE AVALOS : 1955 Age/Sex: 65M Ordering Provider: Marissa Cagle MD Med Rec #: [id number] Reg Status:DEP REF Room #: Date of Service: 01/03/21 Report Number: [id number] cc: Marissa Cagle MD Send Report To: Ordering Phys: Marissa Cagle MD Accession Number: [id number] Exam Date: 01/03/2021 09:18 Indications: SOB. GH [...] Sanchez II, MD in OV> Exam Date/Time: 01/03/21 0859 Order #: [id number] Dictation Date/Time: 01/03/21917 Transcribed Date/Time: Drier Operator Head: Name Value Range Interpretation Code Description Data Rajani rce(s) Supporting Document(s) ID Date Data Source [id number] 12/19/2020 05:26:00 AM EDT [facility] Imaging Services Department Imaging Report [address] [place], [place] [address] %(RAD)RES..mtdd.print.filter("line") Name: NIKOLE AVALOS : 1955 Age/Sex: 65M Ordering Provider: Angle Frost DPM Med Rec #: [id number] Reg Status: DEP REF Room #: Date of Service: 12/18/20 Report Number: [id number] cc:Marissa Cagle MD; Angle Frost DPM Send Report To: [id number] US/US Dup Lower Ext Artery Bilat Reason [...] Mohr MD> 12/19/20 1509 Dictation Date/Time: 12/18/20 1148 Transcribed Date/Time: 12/19/20 4227 Drier Operator Head: STEPHANIE Name Value Range Interpretation Code Description Data Rajani rce(s) Supporting Document(s) ID Date Data Source [id number] 12/18/2020 08:43:[address] [facility] [address] [place] [address] TELEPHONE RADIOLOGY DEPARTMENT Name: [facility] #: [id number] : 1955 Ordering Physician: WILTON Sex: M Date: 12/12/20 Admission Type: E/R X-ray Number: [id number] Unsigned Transcriptions are preliminary reports and do not represent a Medical or Legal Document CT PE Study 87160 COMPLETE:12/12/20 12:05 LEI 46997 (REASON FOR CHEST: EMBOLISM Patient weight: 230 [...] osseous abnormality. IMPRESSION: COPD. [place] [address] TELEPHONE ___ RADIOLOGY DEPARTMENT Name: [facility] #: [id number] : 1955 Ordering Physician: WILTON Sex: Edis Date: 12/12/20 Admission Type: E/R X-ray Number: [id number] Unsigned Transcriptions are preliminary reports and do [...] rce(s) Supporting Document(s) ID Date Data Source [id number] 12/18/2020 08:38:51 AM [place]CI[place] [address] [address] TELEPHONE RADIOLOGY DEPARTMENT Name: [facility] #: [id number] : 1955 Ordering Physician: WILTON Sex: M Date: 12/12/20 Admission Type: E/R X-ray Number: [id number] Unsigned Transcriptions are preliminary reports and do not represent a Medical or Legal Document XRAY CHEST 2 [facility] - LATERA [id number] COMPLETE:12/12/20 05:21 RLL 01166 (REASON FOR CHEST: DYSPNEA Examination of the [...] rce(s) Supporting Document(s) ID Date Data Source [id number] 12/12/2020 08:15:00 AM EDT [facility] Name Value Range Interpretation Code Description Data Rajani rce(s) Supporting Document(s) SARS-CoV-2 RNA Nph Ql TUNG+non-probe NOT DETECTED [facility] This lab was ordered by [facility] and reported by [facility]. ID Date Data Source [id number] 12/12/2020 08:15:00 AM EDT [facility] Name Value Range Interpretation Code Description Data Rajani rce(s) Supporting Document(s) RESP PROFILE RP2.1 NASAL PCR C [facility] \\BLDo\\RESPIRATORY PROFILE NASAL PHARYNGEAL BY PCR\\BLDx\\ \\BLDo\\DETECTED _NONE \\BLDx\\ 12/12/20.[facility]. \\BLDo\\EQUIVOCAL _NONE \\BLDx\\ 12/12/20.[facility]. VIRUSES ADENOVIRUS NOT DETECTED NORMAL: NOT DETECTED [facility] CORONAVIRUS 229E NOT DETECTED NORMAL: NOT DETECTED [facility] CORONAVIRUS HKU1 NOT DETECTED NORMAL: NOT DETECTED [facility] CORONAVIRUS NL63 NOT DETECTED NORMAL: NOT DETECTED [facility] CORONAVIRUS OC43 NOT DETECTED NORMAL: NOT DETECTED [facility] 85037-3 NOT DETECTED NORMAL: NOT DETECTED [facility] REPORT TO DEPARTMENT OF HEAL TH HUMAN METAPNEUMO NOT DETECTED NORMAL: NOT DETECTED [facility] HUMAN RHINO/ENTERO NOT DETECTED NORMAL: NOT DETECTED [facility] NOT DETECTEDNOT DETECTEDNOT DETECTEDNOT DETECTED PARAINFLUENZA V3 NOT DETECTED NORMAL: NOT DETECTED [facility] NOT DETECTED RSV NOT DETECTED NORMAL: NOT DETECTED [facility] BACTERIANOT DET ECTEDNOT DETECTEDNOT DETECTEDNOT DETECTED TESTING PERFORMED USING THE AtigeoARRAY RP2.1 MULTIPLEXED NUCLEIC ACID TEST. THIS TEST [...] OR REVOKED SOONER. ID Date Data Source [id number] 12/12/2020 08:10:00 AM EDT [facility] Name Value Range Interpretation Code Description Data Rajani rce(s) Supporting Document(s) Troponin I.cardiac [Mass/volume] in Serum or Plasma <0.017 ng/mL 0.017 - 0.060 [facility] \\BLDo\\TROPONIN I I NTERPRETATION:\\BLDx\\ < 0.06 ng/mL NOT SUSPICIOUS FOR AN AMI 0.06 - 0.59 ng/mL PAK ZONE FOR AN AMI, SERIAL MONITORING RECOMMENDED 0.6 - 1.5 ng/mL SUSPICIOUS FOR AN AMI Reference range updated for new chemiluminescent immunoassay method based on [employer] technology. Effective 11/21/17. ID Date Data Source [id number] 12/12/2020 04:00:00 AM EDT [facility] Name Value Range Interpretation Code Description Data Rajani rce(s) Supporting Document(s) CBC [facility] l COMPLETE BLOOD COUNT Leukocytes [#/volume] in Blood by Automated count 11.1 K/uL 4.0 - 10.0 Above high normal [facility] Erythrocytes [#/volume] in Blood by Automated count 2.75 M/uL 4.30 - 6.10 Below low normal [facility] Hemoglobin [Mass/volume] in Blood 9.7 g/dL 13.5 - 17.5 Below low no rmal [facility] Hematocrit [Volume Fraction] of Blood by Automated count 30.8 % 39.0 - 50.0 Below low normal [facility] Erythrocyte mean corpuscular volume [Entitic volume] b y Automated count 112.0 fL 80.0 - 96.0 Above high normal [facility] Erythrocyte mean corpuscular hemoglobin [Entitic mass] by Automated count 35.3 pg 26.0 - 34.0 Above high normal [facility] Erythrocyte mean corpuscular hemoglobin concentration [Mass/volume] by Automated count 31.5 g/dL 32.0 - 36.0 Below low normal [facility] alexis Erythrocyte distribution width [Ratio] by Automated count 20.7 % 11.6 - 14.8 Above high normal [facility] Platelets [#/volume] in Blood by Automated count 45 K/uL 150 - 450 Below low normal [facility] CONFIRMED BY REPEAT & SMEAR REVIEW Platelet mean volume [Entitic volume] in Blood by Automated count 9.2 fL 7.1 - 10.4 [facility] MANUAL DIFF [facility] BELOW [facility]GS [facility] % 42 - 75 [facility] l BAND 3 % 0 - 5 [facility] l LYMPH 13 % 15 - 41 Below low normal [facility] MONO 29 % 0 - 12 Above high normal [facility] EOS 2 % 0 - 7 [facility] BASO 0 % 0 - 2 [facility] NRBC 0.0 % [facility] RBC MORPH SEE BELOW [facility] POLYCHROMSIA NONE SEEN NORMAL: NONE SEEN [facility] HYPOCHROMIA NONE SEEN NORMAL: NONE SEEN [facility] POIKLOCYTOSIS NONE SEEN NORMAL: NONE SEEN [facility] BASO STIPPLING NONE SEEN NORMAL: NONE SEEN [facility] ANISOCYTOSIS SLIGHT NORMAL: NONE SEEN Abnormal (applies to no n-numeric results) [facility] MICROCYTOSIS NONE SEEN NORMAL: NONE SEEN [facility] MACROCYTOSIS SLIGHT NORMAL: NONE SEEN Abnormal (applies to no n-numeric results) [facility] SPHEROCYTES NONE SEEN NORMAL: NONE SEEN [facility] SCHISTOCYTES NONE SEEN NORMAL: NONE SEEN [facility] TARGET CELLS NONE SEEN NORMAL: NONE SEEN [facility] TEARDROP NONE SEEN NORMAL: NONE SEEN [facility] OVALOCYTES NONE SEEN NORMAL: NONE SEEN [facility] STOMATOCYTES NONE SEEN NORMAL: NONE SEEN [facility] HELMET CELLS NONE SEEN NORMAL: NONE SEEN [facility] CORDERO JOLLY NONE SEEN NORMAL: NONE SEEN [facility] CABOT RINGS NONE SEEN NORMAL: NONE SEEN [facility] TOXIC GRAN NONE SEEN NORMAL: NONE SEEN [facility] DOHLE BODIES NONE SEEN NORMAL: NONE SEEN [facility] MANGO CELLS NONE SEEN NORMAL: NONE SEEN [facility] ACANTHOCYTES NONE SEEN NORMAL: NONE SEEN [facility] HYPER NEUT NONE SEEN NORMAL: NONE SEEN [facility] AZAM RODS NONE SEEN NORMAL: NONE SEEN [facility] ROULEAUX NONE SEEN NORMAL: NONE SEEN [facility] CRENATED CELL NONE SEEN NORMAL: NONE SEEN [facility] ID Date Data Source [id number] 12/12/2020 04:00:00 AM EDT [facility] Name Value Range Interpretation Code Description Data Rajani rce(s) Supporting Document(s) BASIC METABOLIC PANEL [facility] BASIC METABOLIC PANEL Sodium [Moles/volume] in Serum or Plasma 140 mEq/L 136 - 145 [facility] Potassium [Moles/volume] in Serum or Plasma 4.7 mEq/L 3.5 - 5.1 [facility] Chloride [Moles/volume] in Serum or Plasma 101 mEq/L 98 - 107 [facility] Carbon dioxide, total [Moles/volume] in Serum or Plasma 25.4 mEq /L 21.0 - 32.0 [facility] Glucose [Mass/volume] in Serum or Plasma 217 mg/dL 70 - 100 Above high normal [facility] Urea nitrogen [Mass/volume] in Serum or Plasma 45 mg/dL 7 - 18 Above high normal [facility] CREATININE SERUM 2.15 mg/dL 0.70 - 1.30 Above high normal [facility] AGE [address] [facility] l HEIGHT 68.00 INCHES [facility] ital eGFR NON-AFR AMR 31 [facility] eGFR AFR AMR 38 [facility] ital BUN/CREAT 21 6 - 25 [facility] Calcium [Mass/volume] in Serum or Plasma 9.0 mg/dL 8.8 - 10.2 [facility] ANION GAP 14 7 - 15 [facility] Estimated GFR reference r juan carlos: > 60 mL/min/1.73m >18 years: Calculated using IDMS traceable MDRD Study Equation <18 years: Calculated using [employer]MS traceable Bedside Nuñez Equation ID Date Data Source [id number] 12/12/2020 04:00:00 AM EDT [facility] Name Value Range Interpretation Code Description Data Rajani rce(s) Supporting Document(s) Troponin I.cardiac [Mass/volume] in Serum or Plasma <0.017 ng/mL 0.017 - 0.060 [facility] \\BLDo\\TROPONIN I I NTERPRETATION:\\BLDx\\ < 0.06 ng/mL NOT SUSPICIOUS FOR AN AMI 0.06 - 0.59 ng/mL PAK ZONE FOR AN AMI, SERIAL MONITORING RECOMMENDED 0.6 - 1.5 ng/mL SUSPICIOUS FOR AN AMI Reference range updated for new chemiluminescent immunoassay method based on [employer] technology. Effective 11/21/17. ID Date Data Source [id number] 11/24/2020 09:44:00 AM EDT [facility] Name Value Range Interpretation Code Description Data Rajani rce(s) Supporting Document(s) FREE T3 [id number] [facility] _TRIIODOTHYRONINE T3 FREE_Triiodoth yronine (T3), FreeReported: 11/27/2020 14:05 Status=F --------TEST RESULT FLAG RANGE UNITS SC --Triiodothyronine (T3), 2.9 2.0-4.4 pg/mL ROSA ELENA 11/27/20.1405.rfl.CORRCTD .LCTRFreeRN Test performed by: [employer] [id number] Susan Gonzalez MD 11/27/20.1417.XMT.SENT REF 11/27/20.1417.XMT.SENT REF ID Date Data Source [id number] 11/24/2020 09:44:00 AM EDT [facility] Name Value Range Interpretation Code Description [facility] T3 TOTAL [facility] l _T3 TOTAL_Triiodothyronine (T3)Repo rted: 11/27/2020 14:05 Status=F RESULT FLAG RANGE UNITS SC --Triiodothyronine (T3) 98 71-180 ng/dL ROSA ELENA 11/27/20.1405.rfl.NUVIATD .LCTRRN Test performed by: [place] [address] Susan Gonzalez MD 11/27/20.1417.XMT.SENT REF 11/27/20.1417.XMT.SENT REF ID Date Data Source [id number] 11/24/2020 09:44:00 AM EDT [facility] Value Range Interpretation Code Description Data [facility] Supporting Document(s) CALCITRIOL VIT D 1,25 DIHYDROXY [facility] _VITAMIN D 1,25 DIHYDROXY_Calcitrio l(1,25 di-OH Vit D)Reported: 11/27/2020 14:05 Status=F --------TEST RESULT FLAG RANGE UNITS SC --Calcitriol(1,25 di-OH 15.9 L 19.9-79.3 pg/mL BN 11/27/20.1405.Mathew SANTIAGOTRVierika Veloz)BN Test performed by: [email or web address] [address] [id number] Romero Osorio MD 11/27/20.1417.XMT.SENT REF 11/27/20.1417.XMT.SENT REF ID Date Data Source [id number] 11/24/2020 09:44:00 AM EDT [facility] Name Value Range Interpretation Code Description Data Rajani rce(s) Supporting Document(s) Hemoglobin A1c/Hemoglobin.total in Blood 6.7 % 4.0 - 5.6 Above high normal [facility] Glucose mean value [Mass/volume] in Blood Estimated fr om glycated hemoglobin 146 mg/dL [facility] \\BLDo\\HEMOGLO BIN A1C\\BLDx\\ 4.0 - 5.6%: Normal 5.7 - 6.4%: Suggests Impaired Glucose Metabolism > or = 6.5%: Abnormal Estimated average glucose calculated using ADAG Study formula as recommended by the [place] [employer]. ID Date Data Source [id number] 11/24/2020 09:44:00 AM EDT [facility] Name Value Range Interpretation Code Description Data Rajani rce(s) Supporting Document(s) LIVER PROFILE [facility] pital HEPATIC PANEL Protein [Mass/volume] in Serum or Plasma 7.3 g/dL 6.0 - 8.3 [facility] Albumin [Mass/volume] in Serum or Plasma 3.4 g/dL 3.8 - 5.4 Below low normal [facility] GLOBULIN 3.9 g/dL 2.0 - 4.0 [facility] l A/G RATIO 0.9 0.8 - 2.0 [facility] Bilirubin.total [Mass/volume] in Serum or Plasma 0.2 mg/dL 0.2 - 1.0 [facility] Bilirubin.direct [Mass/volume] in Serum or Plasma 0.1 mg/dL 0.0 - 0. 2 [facility] INDIRECT BILI 0.1 mg/dL 0.0 - 1.1 [facility] pital ALK PHOSPHATASE 55 U/L 40 - 129 [facility] ospital Aspartate aminotransferase [Enzymatic ac tivity/volume] in Serum or Plasma by With P-5'-P 17 IU/L 7 - 37 [facility] Alanine aminotransferase [Enzymatic acti vity/volume] in Serum or Plasma by With P-5'-P 29 IU/L 12 - 78 [facility] ID Date Data Source [id number] 11/24/2020 09:44:00 AM EDT [facility] Name Value Range Interpretation Code Description Data Rajani rce(s) Supporting Document(s) T4 FREE 0.85 ng/dL 0.76 - 1.46 [facility] ital ID Date Data Source [id number] 11/24/2020 09:44:00 AM EDT [facility] Name Value Range Interpretation Code Description Data Rajani rce(s) Supporting Document(s) TSH 0.61 uIU/mL 0.36 - 3.74 [facility] pital ID Date Data Source [id number] 11/24/2020 09:44:00 AM EDT [facility] Name Value Range Interpretation Code Description Data Rajani rce(s) Supporting Document(s) BASIC METABOLIC PANEL [facility] BASIC METABOLIC PANEL Sodium [Moles/volume] in Serum or Plasma 139 mEq/L 136 - 145 [facility] Potassium [Moles/volume] in Serum or Plasma 4.4 mEq/L 3.5 - 5.1 [facility] Chloride [Moles/volume] in Serum or Plasma 102 mEq/L 98 - 107 [facility] Carbon dioxide, total [Moles/volume] in Serum or Plasma 27.5 mEq /L 21.0 - 32.0 [facility] Glucose [Mass/volume] in Serum or Plasma 89 mg/dL 70 - 100 [facility] Urea nitrogen [Mass/volume] in Serum or Plasma 38 mg/dL 7 - 18 Above high normal [facility] CREATININE SERUM 1.75 mg/dL 0.70 - 1.30 Above high normal [facility] AGE [address] [facility] l eGFR NON-AFR AMR 40 [facility] eGFR AFR AMR 48 [facility] BUN/CREAT 22 6 - 25 [facility] l Calcium [Mass/volume] in Serum or Plasma 8.8 mg/dL 8.8 - 10.2 [facility] ANION GAP 10 7 - 15 [facility] l Estimated GFR reference r juan carlos: > 60 mL/min/1.73m >18 years: Calculated using IDMS traceable MDRD Study Equation <18 years: Calculated using IDMS traceable Bedside Nuñez Equation ID Date Data Source [id number] 11/24/2020 09:44:00 AM EDT [facility] Name Value Range Interpretation Code Description Data Rajani rce(s) Supporting Document(s) CBC [facility] COMPLETE BLOOD COUNT Leukocytes [#/volume] in Blood by Automated count 7.6 K/uL 4.0 - 10 .0 [facility] Erythrocytes [#/volume] in Blood by Automated count 2.82 M/uL 4.30 - 6.10 Below low normal [facility] Hemoglobin [Mass/volume] in Blood 10.0 g/dL 13.5 - 17.5 Below low no rmal [facility] Hematocrit [Volume Fraction] of Blood by Automated count 31.2 % 39.0 - 50.0 Below low normal [facility] Erythrocyte mean corpuscular volume [Entitic volume] b y Automated count 110.6 fL 80.0 - 96.0 Above high normal [facility] Erythrocyte mean corpuscular hemoglobin [Entitic mass] by Automated count 35.5 pg 26.0 - 34.0 Above high normal [facility] Erythrocyte mean corpuscular hemoglobin concentration [Mass/volume] by Automated count 32.1 g/dL 32.0 - 36.0 [facility] Erythrocyte distribution width [Ratio] by Automated count 21.0 % 11.6 - 14.8 Above high normal [facility] Platelets [#/volume] in Blood by Automated count 53 K/uL 150 - 450 Below low normal [facility] REP/VERIFIED 54 [facility] Platelet mean volume [Entitic volume] in Blood by Automated count 9.7 fL 7.1 - 10.4 [facility] Neutrophils [#/volume] in Blood by Automated count 2.41 K/uL 1.70 - 7.70 [facility] Lymphocytes [#/volume] in Blood by Automated count 1.71 K/uL 1.50 - 6.00 [facility] Monocytes [#/volume] in Blood by Automated count 1.64 K/uL 0.00 - 1.00 Above high normal [facility] Eosinophils [#/volume] in Blood by Automated count 0.33 K/uL 0.03 - 0.48 [facility] Basophils [#/volume] in Blood by Automated count 0.03 K/uL 0.01 - 0. 08 [facility] 1.51 Urinalysis macro (dipstick) panel - Urine 0.000 10^3/uL 0.000 - 0.012 [facility] Neutrophils/100 leukocytes in Blood by Automated count 31.6 % 42.0 - 75.0 Below low normal [facility] Lymphocytes/100 leukocytes in Blood by Automated count 22.4 % 15. 0 - 41.0 [facility] Monocytes/100 leukocytes in Blood by Automated count 21.5 % 0.0 - 12.0 Above high normal [facility] Eosinophils/100 leukocytes in Blood by Automated count 4.3 % 0.0 - 7.0 [facility] 0.419.80 NRBC 0.0 % [facility] l MANUAL DIFF SEE BELOW [facility] SEGS 38 % 42 - 75 Below low normal [facility] META 5 % 0 - 1 Above upper panic limits [facility] LYMPH 26 % 15 - 41 [facility] MONO 23 % 0 - 12 Above high normal [facility] EOS 8 % 0 - 7 Above high normal [facility] RBC MORPH NOT INDICATED [facility] pital ID Date Data Source [id number] 08/15/2020 11:36:17 AM EDT [address] [address] TELEPHONE RADIOLOGY DEPARTMENT Name: [facility] #: [id number] : 1955 Ordering Physician: WILTON Sex: M Date: 08/13/20 Admission Type: E/R X-ray Number: [id number] Unsigned Transcriptions are preliminary reports and do not represent a Medical or Legal Document CT CERVICAL SPINE W/O TRAY [id number] COMPLETE:08/13/20 09:55 LEI 99545 (SPINE PROCED REASON: PAIN Patient weight: 240 [...] further evaluated with sonography if clinically warranted. [facility] [address] [place] [address] TELEPHONE RADIOLOGY DEPARTMENT Name: [facility] #: [id number] : 1955 Ordering Physician: WILTON Sex: M Date: 08/13/20 Admission Type: E/R X-ray Number: [id number] Unsigned Transcriptions are preliminary reports and do [...] rce(s) Supporting Document(s) ID Date Data Source [id number] 07/20/2020 11:29:00 AM EDT [facility] Imaging Services Department Imaging Report [address] [place], [place] [address] %(RAD)RES..mtdd.print.filter("line") Name: NIKOLE AVALOS : 1955 Age/Sex: 65M Ordering Provider: Jose Maria Harden MD Med Rec #: [id number] Reg Status: DEP REF Room #: Date of Service: 07/18/20 Report Number: [id number] cc:Marissa Cagle MD; Jose Maria Harden MD Send Report To: [id number] US/US Dup Upper Ext Veins Rt Reason [...] Date/Time: 07/18/20 1437 Transcribed Date/Time: 07/20/20 1129 Drier Operator Head: CARLOS Name Value Range Interpretation Code Description Data Rajani rce(s) Supporting Document(s) ID Date Data Source [id number] 06/30/2020 06:23:[address] [facility] Name Value Range Interpretation Code Description Data Rajani rce(s) Supporting Document(s) SARS coronavirus 2 RNA [Presence] in Res piratory specimen by TUNG with probe detection NEGATIVE [facility] This lab was ordered by [facility] a nd reported by [facility]. ID Date Data Source [id number] 06/24/2020 12:47:19 [place] [address] TELEPHONE RADIOLOGY DEPARTMENT Name: [facility] #: [id number] : 1955 Ordering Physician: JASMIN Goncalves Sex: M Date: 06/19/20 Admission Type: O/P X-ray Number: [id number] Unsigned Transcriptions are preliminary reports and do not represent a Medical or Legal Document THYROID STUDY [id number] COMPLETE:06/19/20 11:[address] [facility] [address] (EXAM REASON: MULTINODULAR THYROID Prior examination on [...] and Signed By CHARLY MOHR MD, MD [place] [id number] TELEPHONE RADIOLOGY DEPARTMENT Name: [facility] #: [id number] : 1955 Ordering Physician: JASMIN Goncalves Sex: M Date: 06/19/20 Admission Type: O/P X-ray Number: [id number] _ Unsigned Transcriptions are preliminary reports and do not represent a Medical or Legal Document 06/24/20 12:46 Dictating Initials: AL Transcribed Date: 06/20/20 09:15 Transcribe Initials: LI Name Value Range Interpretation Code Description Data Rajani rce(s) Supporting Document(s) ID Date Data Source [id number] 04/25/2020 02:15:00 PM [facility] Name: ROBBIENIKOLE : 1955 Age/Sex: 64M Attending Physician: Rudy Baron MD Med Rec #: [id number] Admission Date: 04/25/20 Room #: Admitting Physician: Report Number: [id number] _ cc: Marissa Cagle MD; Rudy Baron MD Send Report To: Report Status - Signed Endoscopy Department Patient Name: Nikole Avalos Attending MD: Rudy Baron MD Instrument Name: [id number] Procedure Date No Time: 04/25/2020 Date of : 1955 Procedure: Colonoscopy Indications: Screening for colorectal malignant neoplasm Providers: Rudy Baron MD Referring MD: Requesting Provider: Medicines: See the [place] note for documentation of the administered medications [...] bowel preparation was evaluated using the BBPS ([place] Bowel Preparation Scale) with scores of: Right [...] 0 Note Initiated On: 04/25/2020 1:[address] [place] [address] REPORT SIGNATURE ON FILE Dictated By: Rudy Baron MD <Electronically signed by Rudy Baron MD in [place]> 04/25/20 1415 Dictation Date/Time: 04/25/20 1350 Transcribed Date/Time: 04/25/20 1415/IATRICS Name Value Range Interpretation Code Description Data Rajani rce(s) Supporting Document(s) ID Date Data Source [id number] 04/25/2020 12:38:00 PM EST [facility] Name Value Range Interpretation Code Description Data Rajani rce(s) Supporting Document(s) LAB Glucose,Fingerstick 179 mg/dL 70-110 Above high normal [facility] ID Date Data Source [id number] 04/21/2020 04:13:00 PM EST [facility] Name Value Range Interpretation Code Description Data Rajani rce(s) Supporting Document(s) Respiratory specimen severe acute respir atory syndrome coronavirus 2 (SARS-CoV-2) RNA Negative (qualifier value) [facility] This lab was ordered by [facility] and reported by . ID Date Data Source [id number] 04/21/2020 03:42:[address] [facility] Name Value Range Interpretation Code Description Data Rajani rce(s) Supporting Document(s) SARS-CoV-2 RNA INHOUSE Negative Normal (applies to non-n umeric results) [facility] THIS IS A [facility] REPORTABLE COMMUNICABLE DISEASE. Testing was performed using the FreeWav[employer] COVID-19 MDx Assay. This test has been [...] be found at the following links: Providers: https://www.fda.gov/media/949437/download Patients : https://www.fda.gov/media/490538/download THIS IS A [facility] REPORTABLE COMMUNICABLE DISEASE Negative results do not preclude SARS-CoV-2 infection and should not be used as the sole basis for patient management decisions. Negative results must be combined with clinical observations,patient history, and epidemiological information. ID Date Data Source [id number] 03/08/2020 09:05:00 AM [facility] Name Value Range Interpretation Code Description Data Rajani rce(s) Supporting Document(s) 25-OH VITAMIN D 19.7 ng/mL 30.0 - 100 Below low normal [facility] Deficient < 20 ng/mL Insufficient 20 - < 30 ng/mL Sufficient 30 - 100 ng/mL 25-OH vitamin D reference values based on the Clinical Guidelines Subcommittee of the Endocrine Society Task Force. Biotin can interfere with 25-OH Vitamin D results if taken 48 hours prior to specimen collection. ID Date Data Source [id number] 03/08/2020 09:05:00 AM [facility] Name Value Range Interpretation Code Description Data Rajani rce(s) Supporting Document(s) LIPID PROFILE [facility] LIPID PROFILE Cholesterol [Mass/volume] in Serum or Plasma 156 mg/dL [facility] Triglyceride [Mass/volume] in Serum or Plasma 139 mg/dL [facility] Cholesterol in HDL [Mass/volume] in Serum or Plasma 33 mg/dL [facility] Cholesterol in LDL [Mass/volume] in Serum or Plasma by calculation 95 mg/dL [facility] CHOL/HDL 4.73 [facility] l \\BLDo\\INTERPRE TATION\\BLDx\\ REFERENCE RANGES (NATIONAL CHOLESTEROL [...] mg/dL VERY HIGH ID Date Data Source [id number] 03/08/2020 09:05:00 AM EST [facility] Name Value Range Interpretation Code Description Data Rajani rce(s) Supporting Document(s) TSH 1.05 uIU/mL 0.36 - 3.74 [facility] ID Date Data Source [id number] 03/08/2020 09:05:00 AM EST [facility] Name Value Range Interpretation Code Description Data Rajani rce(s) Supporting Document(s) T4 FREE 0.86 ng/dL 0.76 - 1.46 [facility] ital ID Date Data Source [id number] 03/08/2020 09:05:00 AM EST [facility] Name Value Range Interpretation Code Description Data Rajani rce(s) Supporting Document(s) BASIC METABOLIC PANEL [facility] BASIC METABOLIC PANEL Sodium [Moles/volume] in Serum or Plasma 143 mEq/L 136 - 145 [facility] Potassium [Moles/volume] in Serum or Plasma 4.3 mEq/L 3.5 - 5.1 [facility] Chloride [Moles/volume] in Serum or Plasma 105 mEq/L 98 - 107 [facility] Carbon dioxide, total [Moles/volume] in Serum or Plasma 30.2 mEq /L 21.0 - 32.0 [facility] Glucose [Mass/volume] in Serum or Plasma 143 mg/dL 70 - 100 Above high normal [facility] Urea nitrogen [Mass/volume] in Serum or Plasma 36 mg/dL 7 - 18 Above high normal [facility] CREATININE SERUM 1.78 mg/dL 0.70 - 1.30 Above high normal [facility] AGE [address] [facility] l eGFR NON-AFR AMR 39 [facility] eGFR AFR AMR 47 [facility] ital BUN/CREAT 20 6 - 25 [facility] l Calcium [Mass/volume] in Serum or Plasma 9.7 mg/dL 8.8 - 10.2 [facility] ANION GAP 8 7 - 15 [facility] l Estimated GFR reference r juan carlos: > 60 mL/min/1.73m >18 years: Calculated using IDMS traceable MDRD Study Equation <18 years: Calculated using IDMS traceable Bedside Nuñez Equation ID Date Data Source [id number] 03/08/2020 09:05:00 AM EST [facility] Name Value Range Interpretation Code Description Data Rajani rce(s) Supporting Document(s) CBC [facility] COMPLETE BLOOD COUNT Leukocytes [#/volume] in Blood by Automated count 5.9 K/uL 4.0 - 10 .0 [facility] Erythrocytes [#/volume] in Blood by Automated count 4.73 M/uL 4.30 - 6.10 [facility] Hemoglobin [Mass/volume] in Blood 13.8 g/dL 13.5 - 17.5 [facility] Hematocrit [Volume Fraction] of Blood by Automated count 44.3 % 3 9.0 - 50.0 [facility] Erythrocyte mean corpuscular volume [Entitic volume] by Auto mated count 93.7 fL 80.0 - 96.0 [facility] Erythrocyte mean corpuscular hemoglobin [Entitic mass] by Automated count 29.2 pg 26.0 - 34.0 [facility] Erythrocyte mean corpuscular hemoglobin concentration [Mass/volume] by Automated count 31.2 g/dL 32.0 - 36.0 Below low normal [facility] alexis Erythrocyte distribution width [Ratio] by Automated count 15.3 % 11.6 - 14.8 Above high normal [facility] Platelets [#/volume] in Blood by Automated count 191 K/uL 150 - 450 [facility] Platelet mean volume [Entitic volume] in Blood by Automated count 9.4 fL 7.1 - 10.4 [facility] Neutrophils [#/volume] in Blood by Automated count 3.79 K/uL 1.70 - 7.70 [facility] Lymphocytes [#/volume] in Blood by Automated count 1.45 K/uL 1.50 - 6.00 Below low normal [facility] Monocytes [#/volume] in Blood by Automated count 0.40 K/uL 0.00 - 1. 00 [facility] Eosinophils [#/volume] in Blood by Automated count 0.13 K/uL 0.00 - 0.30 [facility] Basophils [#/volume] in Blood by Automated count 0.06 K/uL 0.00 - 0. 10 [facility] 0.06 Urinalysis macro (dipstick) panel - Urine 0.000 10^3/uL 0.000 - 0.012 [facility] Neutrophils/100 leukocytes in Blood by Automated count 64.4 % 42. 2 - 75.2 [facility] Lymphocytes/100 leukocytes in Blood by Automated count 24.6 % 15. 0 - 41.0 [facility] Monocytes/100 leukocytes in Blood by Automated count 6.8 % 0.0 - 12.0 [facility] Eosinophils/100 leukocytes in Blood by Automated count 2.2 % 0.0 - 7.0 [facility] 1.01.00 NRBC 0.0 % [facility] MANUAL DIFF NOT INDICATED [facility] RBC MORPH NOT INDICATED [facility] ID Date Data Source [id number] 02/26/2020 03:58:00 PM [facility] Name: NIKOLE AVALOS : 1955 Age/Sex: 64M Ordering Provider: Gabe Finley MD Med Rec #: [id number] Reg Status: [facility] PO Room #: Date of Service: 02/21/20 Report Number: [id number] cc:Gabe Finley MD Send Report To: [id number] XRP/XR Knee Rt 2 views Reason for [...] Date/Time: 02/25/20 1528 Transcribed Date/Time: 02/26/20 1558 Drier Operator Head: STEPHANIE Name Value Range Interpretation Code Description Data Rajani rce(s) Supporting Document(s) Procedure Social History No Information Vital Signs ID Date Data Source UNK Name Value Range Interpretation Code Description Data Source(s) Body mass index (BMI) [Ratio] 33.45 kg/m2 33.45 kg/m2 [facility] Systolic blood pressure 142 mm[Hg] 142 mm[Hg] [facility] Diastolic blood pressure 67 mm[Hg] 67 mm[Hg] [facility] Body surface area Derived from formula 2.19 m2 2.19 m2 [facility] Body height 172.7200 cm 172.7200 cm [facility] Oxygen saturation in Arterial blood by Pulse oximetry 98 % 98 % [facility] Heart rate 92.0 /min 92.0 /min [facility] ospital Respiratory rate 18 /min 18 /min [facility] Body temperature 36.7 Amalia 36.7 Amalia [facility] Body weight 99.79 kg 99.79 kg [facility] Body mass index (BMI) [Ratio] 32.54 kg/m2 32.54 kg/m2 [facility] Systolic blood pressure 138 mm[Hg] 138 mm[Hg] [facility] Diastolic blood pressure 70 mm[Hg] 70 mm[Hg] [facility] Body surface area Derived from formula 2.16 m2 2.16 m2 [facility] Body height 172.7200 cm 172.7200 cm [facility] Oxygen saturation in Arterial blood by Pulse oximetry 100 % 100 % [facility] Heart rate 84.0 /min 84.0 /min [facility] ospital Respiratory rate 20 /min 20 /min [facility] Body temperature 36.7 Amalia 36.7 Amalia [facility] Body weight 97.07 kg 97.07 kg [facility] Body surface area Derived from formula 2.21 m2 2.21 m2 [facility] Body height 172.7200 cm 172.7200 cm [facility] Oxygen saturation in Arterial blood by Pulse oximetry 95 % 95 % [facility] Heart rate 76.0 /min 76.0 /min [facility] ospital Respiratory rate 18 /min 18 /min [facility] Body temperature 36.7 Amalia 36.7 Amalia [facility] Body weight 101.60 kg 101.60 kg [facility] Body mass index (BMI) [Ratio] 34.06 kg/m2 34.06 kg/m2 [facility] Systolic blood pressure 156 mm[Hg] 156 mm[Hg] [facility] Diastolic blood pressure 80 mm[Hg] 80 mm[Hg] [facility] Systolic blood pressure 106 mm[Hg] 106 mm[Hg] [facility] Diastolic blood pressure 61 mm[Hg] 61 mm[Hg] [facility] Oxygen saturation in Arterial blood by Pulse oximetry 95 % 95 % [facility] Heart rate 79.0 /min 79.0 /min [facility] ospital Respiratory rate 20 /min 20 /min [facility] Body temperature 36.9 Amalia 36.9 Amalia [facility] Respiratory rate 18 /min 18 /min [facility] Body mass index (BMI) [Ratio] 34.97 kg/m2 34.97 kg/m2 [facility] Systolic blood pressure 127 mm[Hg] 127 mm[Hg] [facility] Diastolic blood pressure 74 mm[Hg] 74 mm[Hg] [facility] Body surface area Derived from formula 2.24 m2 2.24 m2 [facility] Body height 172.7200 cm 172.7200 cm [facility] Oxygen saturation in Arterial blood by Pulse oximetry 97 % 97 % [facility] Heart rate 90.0 /min 90.0 /min [facility] ospital Body temperature 37.5 Amalia 37.5 Amalia [facility] Body weight 104.33 kg 104.33 kg [facility] Body mass index (BMI) [Ratio] 33.75 kg/m2 33.75 kg/m2 [facility] Systolic blood pressure 148 mm[Hg] 148 mm[Hg] [facility] Body surface area Derived from formula 2.20 m2 2.20 m2 [facility] Diastolic blood pressure 73 mm[Hg] 73 mm[Hg] [facility] Body height 172.7200 cm 172.7200 cm [facility] Oxygen saturation in Arterial blood by Pulse oximetry 100 % 100 % [facility] Heart rate 72.0 /min 72.0 /min [facility] ospital Respiratory rate 20 /min 20 /min [facility] Body temperature 36.0 Amalia 36.0 Amalia [facility] Body weight 100.70 kg 100.70 kg [facility] Body mass index (BMI) [Ratio] 33.61 kg/m2 33.61 kg/m2 [facility] Systolic blood pressure 153 mm[Hg] 153 mm[Hg] [facility] Diastolic blood pressure 72 mm[Hg] 72 mm[Hg] [facility] Body surface area Derived from formula 2.19 m2 2.19 m2 [facility] Body height 172.7200 cm 172.7200 cm [facility] Oxygen saturation in Arterial blood by Pulse oximetry 100 % 100 % [facility] Heart rate 71.0 /min 71.0 /min [facility] ospital Respiratory rate 18 /min 18 /min [facility] Body temperature 36.8 Amalia 36.8 Amalia [facility] Body weight 100.26 kg 100.26 kg [facility] Systolic blood pressure 139 mm[Hg] 139 mm[Hg] [facility] Diastolic blood pressure 73 mm[Hg] 73 mm[Hg] [facility] Oxygen saturation in Arterial blood by Pulse oximetry 100 % 100 % [facility] Heart rate 55.0 /min 55.0 /min [facility] ospital Respiratory rate 16 /min 16 /min [facility] Body temperature 36.6 Amalia 36.6 Amalia [facility] Body weight 102.51 kg 102.51 kg [facility] Systolic blood pressure 155 mm[Hg] 155 mm[Hg] C [facility] Body mass index (BMI) [Ratio] 35.43 kg/m2 35.43 kg/m2 [facility] Diastolic blood pressure 68 mm[Hg] 68 mm[Hg] [facility] Body height 172.7200 cm 172.7200 cm [facility] Body surface area Derived from formula 2.25 m2 2.25 m2 [facility] Respiratory rate 18 /min 18 /min [facility] Body temperature 37.1 Amalia 37.1 Amalia [facility] Oxygen saturation in Arterial blood by Pulse oximetry 98 % 98 % [facility] Body weight 105.69 kg 105.69 kg [facility] Heart rate 79.0 /min 79.0 /min [facility] Body mass index (BMI) [Ratio] 34.82 kg/m2 34.82 kg/m2 [facility] Systolic blood pressure 176 mm[Hg] 176 mm[Hg] [facility] Diastolic blood pressure 71 mm[Hg] 71 mm[Hg] [facility] Body surface area Derived from formula 2.23 m2 2.23 m2 [facility] Body height 172.7200 cm 172.7200 cm [facility] Oxygen saturation in Arterial blood by Pulse oximetry 98 % 98 % [facility] Heart rate 87.0 /min 87.0 /min [facility] Respiratory rate 17 /min 17 /min [facility] Body temperature 37.4 Amalia 37.4 Amalia [facility] Body weight 103.87 kg 103.87 kg [facility] Body mass index (BMI) [Ratio] 34.82 kg/m2 34.82 kg/m2 [facility] Systolic blood pressure 176 mm[Hg] 176 mm[Hg] [facility] Diastolic blood pressure 71 mm[Hg] 71 mm[Hg] [facility] Body surface area Derived from formula 2.23 m2 2.23 m2 [facility] Body height 172.7200 cm 172.7200 cm [facility] Oxygen saturation in Arterial blood by Pulse oximetry 98 % 98 % [facility] Heart rate 87.0 /min 87.0 /min [facility] Respiratory rate 17 /min 17 /min [facility] Body temperature 37.4 Amalia 37.4 Amalia [facility] Body weight 103.87 kg 103.87 kg [facility] Body mass index (BMI) [Ratio] 36.34 kg/m2 36.34 kg/m2 [facility] Systolic blood pressure 149 mm[Hg] 149 mm[Hg] [facility] Diastolic blood pressure 73 mm[Hg] 73 mm[Hg] [facility] Body surface area Derived from formula 2.28 m2 2.28 m2 [facility] Body height 172.7200 cm 172.7200 cm [facility] Oxygen saturation in Arterial blood by Pulse oximetry 97 % 97 % [facility] Heart rate 67.0 /min 67.0 /min [facility] Respiratory rate 18 /min 18 /min [facility] Body temperature 36.3 Amalia 36.3 Amalia [facility] Body weight 108.41 kg 108.41 kg [facility] ID Date Data Source [id number] 05/19/2020 09:55:00 AM EST [facility] Name Value Range Interpretation Code Description Data Source(s) Weight 3840 3840 [facility] Temperature 98.7 98.7 [facility] Respiratory Rate 20 20 [facility] Pulse Rate 77 77 [facility] Height 68 68 [facility] Blood Pressure 155/94 155/94 [facility] Weight 3840 3840 [facility] Temperature 98.7 98.7 [facility] Respiratory Rate 20 20 [facility] Pulse Rate 77 77 [facility] Height 68 68 [facility] Blood Pressure 155/94 155/94 [facility] Patient Treatment Plan of Care Planned Activity Planned Date Details Description Data Source (s) Cyclobenzaprine hydrochloride 5 MG [facility] 5 MG [facility] Tablet [facility] Oral Tablet 01/27/[facility]21 [facility] Oral Tablet 01/27/[facility]21 [facility] 40 MG Delayed Release Oral Tablet 01/07/2021 [facility] 40 MG Delayed Release Oral Tablet 01/07/2021 12:00:00 AM EDT [facility] Albuterol Sulfate HFA 0.09MG/1Actuation Inhalation Mag[facility] pension 01/05/2021 12:00:[address] [facility] l Albuterol Sulfate HFA 0.09MG/1Actuation Inhalation Magaly pension 01/05/2021 12:00:[address] [facility] l Albuterol Sulfate HFA 0.09MG/1Actuation Inhalation [facility] pension [facility]05[facility] Tablet [Eliquis] 12/17/2020 12:00:00 AM EDT [facility] apixaban 5 MG Oral Tablet [Eliquis] 12/17/2020 12:00:00 AM EDT [facility] apixaban 5 MG Oral Tablet [Eliquis] 12/17/2020 12:00:00 AM EDT [facility] Ergocalciferol 10504 UNT Oral Capsule 11/30/2020 12:00:00 AM EDT [facility] Ergocalciferol 95671 UNT Oral Capsule 11/30/2020 12:00:00 AM EDT [facility] Ergocalciferol 19860 UNT Oral Capsule 11/30/2020 12:00:00 AM EDT [facility] Ergocalciferol 16419 UNT Oral Capsule 11/30/2020 12:00:00 AM EDT [facility] Ergocalciferol 41608 UNT Oral Capsule 11/30/2020 12:00:00 AM EDT [facility] Simvastatin 10 MG Oral Tablet 11/11/2020 12:00:00 AM EDT [facility] Simvastatin 10 MG Oral Tablet 11/11/2020 12:00:00 AM EDT [facility] Simvastatin 10 MG Oral Tablet 11/11/2020 12:00:00 AM EDT [facility] Simvastatin 10 MG Oral Tablet 11/11/2020 [facility] 10 MG Oral Tablet 11/11/2020 12:00:00 AM EDT [facility] insulin human, isophane 70 UNT/ML / Regu lar Insulin, Human 30 UNT/ML Injectable Suspension [Novolin] 10/15/2020 12:00:00 AM EDT [facility] insulin human, isophane 70 UNT/ML / Regu lar Insulin, Human 30 UNT/ML Injectable Suspension [Novolin] 10/15/2020 12:00:00 AM EDT [facility] insulin human, isophane 70 UNT/ML / Regu lar Insulin, Human 30 UNT/ML Injectable Suspension [Novolin] 10/15/2020 12:00:00 AM EDT [facility] insulin human, isophane 70 UNT/ML / Regu lar Insulin, Human 30 UNT/ML Injectable Suspension [Novolin] 10/15/2020 12:00:00 AM EDT [facility] insulin human, isophane 70 UNT/ML / Regu lar Insulin, Human 30 UNT/ML Injectable Suspension [Novolin] 10/15/2020 12:00:00 AM EDT [facility] insulin human, isophane 70 UNT/ML / Regu lar Insulin, Human 30 UNT/ML Injectable Suspension [Novolin] 10/15/2020 12:00:00 AM EDT [facility] insulin human, isophane 70 UNT/ML / Regu lar Insulin, Human 30 UNT/ML Injectable Suspension [Novolin] 10/15/2020 12:00:00 AM EDT [facility] insulin human, isophane 70 UNT/ML / Regu lar Insulin, Human 30 UNT/ML Injectable Suspension [Novolin] 10/15/2020 12:00:00 AM EDT [facility] Vitamin B12 1000MCG Oral Tablet, Extended Release 09/18/2020 [facility] Vitamin B12 1000MCG Oral Tablet, Extended Release 09/18/2020 12: 00:00 AM EDT [facility] Vitamin B12 1000MCG Oral Tablet, Extended Release 09/18/2020 [facility]: [facility] Vitamin B12 1000MCG Oral Tablet, Extended Release 09/18/2020 [facility]: [facility] Vitamin B12 1000MCG Oral Tablet, Extended Release 09/18/2020 12: 00:00 AM EDT [facility] Vitamin B12 1000MCG Oral Tablet, Extended Release 09/18/2020 [facility]: [facility] Vitamin B12 1000MCG Oral Tablet, Extended Release 09/18/2020 [facility]: [facility] Vitamin B12 1000MCG Oral Tablet, Extended Release 09/18/2020 12: 00:00 AM [facility] Lidocaine Hydrochloride 20 MG/ML Mucous Membrane Topic al Solution 09/06/2020 12:00:[address] [facility] Lidocaine Hydrochloride 20 MG/ML Mucous Membrane Topic al Solution 09/06/2020 12:00:00 AM EDT [facility] Lidocaine Hydrochloride 20 MG/ML Mucous Membrane Topic al Solution 09/06/2020 12:00:00 AM EDT [facility] Lidocaine Hydrochloride 20 MG/ML Mucous Membrane Topic al Solution 09/06/2020 12:00:00 AM EDT [facility] Lidocaine Hydrochloride 20 MG/ML Mucous Membrane Topic al Solution 09/06/2020 12:00:00 AM EDT [facility] Penicillin V Potassium 500 MG Oral Tablet 09/06/2020 12:00:00 AM ED T [facility] Lidocaine Hydrochloride 20 MG/ML Mucous Membrane Topic al Solution 09/06/2020 12:00:00 AM EDT [facility] Penicillin V Potassium 500 MG Oral Tablet 09/06/2020 12:00:00 AM ED [facility] Lidocaine Hydrochloride 20 MG/ML Mucous Membrane Topic al Solution 09/06/2020 12:00:00 AM EDT [facility] Metformin hydrochloride 1000 MG Oral Tablet 08/29/2020 12:00:00 AM EDT [facility] Metformin hydrochloride 1000 MG Oral Tablet 08/29/2020 12:00:00 AM EDT [facility] Metformin hydrochloride 1000 MG Oral Tablet 08/29/2020 12:00:00 AM [facility] Metformin hydrochloride 1000 MG Oral Tablet 08/29/2020 12:00:00 AM [facility] Metformin hydrochloride 1000 MG Oral Tablet 08/29/2020 12:00:00 AM EDT [facility] Metformin hydrochloride 1000 MG Oral Tablet 08/29/2020 12:00:00 AM EDT [facility] Metformin hydrochloride 1000 MG Oral Tablet 08/29/2020 [facility] Met[facility]ide 1000 MG Oral Tablet 08/29/2020 [facility] Gl[facility] 5 MG Oral Tablet 08/22/2020 [facility] Gl[facility]ide 5 MG Oral Tablet 08/22/2020 12:00:00 AM EDT [facility] Glipizide 5 MG Oral Tablet 08/22/2020 12:00:00 AM EDT [facility] Glipizide 5 MG Oral Tablet 08/22/2020 12:00:00 AM EDT [facility] Glipizide 5 MG Oral Tablet 08/22/2020 12:00:00 AM EDT [facility] Glipizide 5 MG Oral Tablet 08/22/2020 12:00:00 AM EDT [facility] Glipizide 5 MG Oral Tablet 08/22/2020 12:00:00 AM EDT [facility] Glipizide 5 MG Oral Tablet 08/22/2020 12:00:00 AM EDT [facility] Acetaminophen 325 MG / Hydrocodone Bitartrate 5 MG Ora l Tablet [[place]] 08/13/2020 12:00:00 AM EDT [facility] Acetaminophen 325 MG / Hydrocodone Bitartrate 5 MG Ora l Tablet [[place]] 08/13/2020 12:00:00 AM EDT [facility] Allopurinol 100 MG Oral Tablet 08/12/2020 12:00:00 AM EDT [facility] Allopurinol 100 MG Oral Tablet 08/12/2020 12:00:00 AM EDT [facility] Allopurinol 100 MG Oral Tablet 08/12/2020 12:00:00 AM EDT [facility] Allopurinol 100 MG Oral Tablet 08/12/2020 12:00:00 AM EDT [facility] Allopurinol 100 MG Oral Tablet 08/12/2020 12:00:00 AM EDT [facility] Simvastatin 10 MG Oral Tablet 08/12/2020 12:00:00 AM EDT [facility] Allopurinol 100 MG Oral Tablet 08/12/2020 12:00:00 AM EDT [facility] Simvastatin 10 MG Oral Tablet 08/12/2020 12:00:00 AM EDT [facility] Allopurinol 100 MG Oral Tablet 08/12/2020 12:00:00 AM EDT [facility] Simvastatin 10 MG Oral Tablet 08/12/2020 12:00:00 AM EDT [facility] Allopurinol 100 MG Oral Tablet 08/12/2020 12:00:00 AM EDT [facility] Amlodipine 5 MG Oral Tablet 08/06/2020 12:00:00 AM EDT [facility] Amlodipine 5 MG Oral Tablet 08/06/2020 12:00:00 AM EDT [facility] Amlodipine 5 MG Oral Tablet 08/06/2020 12:00:00 AM EDT [facility] Amlodipine 5 MG Oral Tablet 08/06/2020 12:00:00 AM EDT [facility] Amlodipine 5 MG Oral Tablet 08/06/2020 12:00:00 AM EDT [facility] Amlodipine 5 MG Oral Tablet 08/06/2020 [facility] MG Oral Tablet 05/16/2020 12:00:00 AM [facility] gabapentin 600 MG Oral Tablet 05/16/2020 12:00:00 AM [facility] gabapentin 600 MG Oral Tablet 05/16/2020 12:00:00 AM [facility] gabapentin 600 MG Oral Tablet 05/16/2020 12:00:00 AM [facility] gabapentin 600 MG Oral Tablet 05/16/2020 12:00:00 AM [facility] gabapentin 600 MG Oral Tablet 05/16/2020 12:00:00 AM [facility] gabapentin 600 MG Oral Tablet 05/16/2020 12:00:00 AM [facility] gabapentin 600 MG Oral Tablet 05/16/2020 12:00:00 AM [facility] gabapentin 600 MG Oral Tablet 05/16/2020 12:00:00 AM [facility] gabapentin 600 MG Oral Tablet 05/16/2020 12:00:00 AM [facility] Vitamin B12 1000MCG Oral Tablet, Extended Release 05/14/2020 12: 00:00 AM [facility] Vitamin B12 1000MCG Oral Tablet, Extended Release 05/14/2020 12: 00:00 AM [facility] Hydrochlorothiazide 12.5 MG Oral Tablet 03/14/2020 12:00:00 AM [facility] Hydrochlorothiazide 12.5 MG Oral Tablet 03/14/2020 12:00:00 AM [facility] Hydrochlorothiazide 12.5 MG Oral Tablet 03/14/2020 12:00:00 AM [facility] Hydrochlorothiazide 12.5 MG Oral Tablet 03/14/2020 12:00:00 AM [facility] Hydrochlorothiazide 12.5 MG Oral Tablet 03/14/2020 12:00:00 AM [facility] Hydrochlorothiazide 12.5 MG Oral Tablet 03/14/2020 12:00:00 AM [facility] Hydrochlorothiazide 12.5 MG Oral Tablet 03/14/2020 12:00:00 AM [facility] Hydrochlorothiazide 12.5 MG Oral Tablet 03/14/2020 12:00:00 AM [facility] Hydrochlorothiazide 12.5 MG Oral Tablet 03/14/2020 12:00:00 AM [facility] insulin human, isophane 70 UNT/ML / Regu lar Insulin, Human 30 UNT/ML Injectable Suspension [Novolin] 03/14/2020 12:00:00 AM [facility] Hydrochlorothiazide 12.5 MG Oral Tablet 03/14/2020 12:00:00 AM [facility] insulin human, isophane 70 UNT/ML / Regu lar Insulin, Human 30 UNT/ML Injectable Suspension [Novolin] 03/14/2020 12:00:00 AM [facility] Tylenol 8 Hour 650MG Oral Tablet, Extended Release 02/25/2020 12 :00:00 AM [facility] Tylenol 8 Hour 650MG Oral Tablet, Extended Release 02/25/2020 12 :00:00 AM [facility] Tylenol 8 Hour 650MG Oral Tablet, Extended Release 02/25/2020 12 :00:00 AM [facility] Tylenol 8 Hour 650MG Oral Tablet, Extended Release 02/25/2020 12 :00:00 AM [facility] Tylenol 8 Hour 650MG Oral Tablet, Extended Release 02/25/2020 12 :00:00 AM [facility] Tylenol 8 Hour 650MG Oral Tablet, Extended Release 02/25/2020 12 :00:00 AM [facility] Tylenol 8 Hour 650MG Oral Tablet, Extended Release 02/25/2020 12 :00:00 AM [facility] Tylenol 8 Hour 650MG Oral Tablet, Extended Release 02/25/2020 12 :00:00 AM [facility] Tylenol 8 Hour 650MG Oral Tablet, Extended Release 02/25/2020 12 :00:00 AM [facility] Tylenol 8 Hour 650MG Oral Tablet, Extended Release 02/25/2020 12 :00:00 AM [facility] Tylenol 8 Hour 650MG Oral Tablet, Extended Release 02/25/2020 12 :00:00 AM [facility] Allopurinol 100 MG Oral Tablet 02/12/2020 12:00:00 AM [facility] Simvastatin 10 MG Oral Tablet 02/12/2020 12:00:00 AM [facility] Allopurinol 100 MG Oral Tablet 02/12/2020 12:00:00 AM [facility] Simvastatin 10 MG Oral Tablet 02/12/2020 12:00:00 AM [facility] Simvastatin 10 MG Oral Tablet 02/12/2020 12:00:00 AM [facility] Allopurinol 100 MG Oral Tablet 02/12/2020 12:00:00 AM [facility] Amlodipine 5 MG Oral Tablet 01/19/2020 [facility] A[facility] 5 MG Oral Tablet 01/19/2020 12:00:00 AM EDT [facility] Amlodipine 5 MG Oral Tablet 01/19/2020 12:00:00 AM [facility] Glipizide 5 MG Oral Tablet 12/27/2019 12:00:00 AM [facility] Glipizide 5 MG Oral Tablet 12/27/2019 12:00:00 AM EDT [facility] Glipizide 5 MG Oral Tablet 12/27/2019 [facility] Met[facility]ide 1000 MG Oral Tablet 12/21/2019 [facility] Metformin [facility]ide 1000 MG Oral Tablet 12/21/2019 [facility] Metformin hydrochloride 1000 MG Oral Tablet 12/21/2019 [facility] Lisinopril 20 MG Oral Tablet 12/18/2019 12:00:00 AM EDT [facility] Lisinopril 20 MG Oral Tablet 12/18/2019 12:00:00 AM EDT [facility] Lisinopril 20 MG Oral Tablet 12/18/2019 12:00:00 AM EDT [facility] Lisinopril 20 MG Oral Tablet 12/18/2019 12:00:00 AM EDT [facility] Lisinopril 20 MG Oral Tablet 12/18/2019 12:00:00 AM EDT [facility] Lisinopril 20 MG Oral Tablet 12/18/2019 12:00:00 AM EDT [facility] Lisinopril 20 MG Oral Tablet 12/18/2019 12:00:00 AM EDT [facility] Lisinopril 20 MG Oral Tablet 12/18/2019 12:00:00 AM EDT [facility] Lisinopril 20 MG Oral Tablet 12/18/2019 12:00:00 AM EDT [facility] Lisinopril 20 MG Oral Tablet 12/18/2019 12:00:00 AM EDT [facility] Lisinopril 20 MG Oral Tablet 12/18/2019 12:00:00 AM EDT [facility]
[2021-02-04] MEDS: GABAPENTIN 300 MG CAP PO SCH (21:00)
[2021-02-04] MEDS ORDERED: NS 1,000 ML IV SCH (21:10)
[2021-02-04] MEDS ORDERED: MAALOX 30 ML SUSP *UDC PO PRN (21:10)
[2021-02-04] MEDS ORDERED: DEXTROSE 50% 50 ML SYRINGE IV PRN (21:15)
[2021-02-04] MEDS ORDERED: GLUCAGON INJ 1MG VIAL SC PRN (21:15)
[2021-02-04] MEDS ORDERED: GLUCOSE 4GM CHEW TABLET PO PRN (21:15)
--- NOTE | 2021-02-04 21:16 | HPEPDOC ---
[facility] Medical History & Physical Date of Admission Feb 04, 2021 Date of Service: Feb 04, 2021 Attending Physician: JARRETT UGALDE MD History and Physical CHIEF COMPLAINT: [65 y/o male c/o epistaxis x2 days] HISTORY OF PRESENT ILLNESS: [This is a 65 y/o male with a pmh of hld, htn, pe on eliquis, iddm2, gout and plasma blastic lymphoma who was transferred to us from [facility] for evaluation of epistaxis on eliquis and abnormal lab work. Patient had his nose packed and cauterized at [facility] but was subsequently transferred to us when this proved to be ineffective for his bleeding. In our ED, rhinorocket was inserted and txa was given to good effect. Labwork sent over from [facility] mostly notable for significant thrombocytopenia with plt count of 28 and ALVIN with current cr of 2.48, with most recent cr at our lab being 1.65 just three days ago. Patient tells me that his nose began spontaneously bleeding about two days ago. Patient states that he has never experienced a nosebleed to this effect before and denies any injury to the nose or pain from the bleeding. Patient tells me that the nosebleed has left him very fatigued and is now beginning to experience significant lightheadedness with position change, such as standing from sitting. Patient tells me that he has also had next to no appetite secondary to this and admits to poor oral intake. Patient, at the time of my exam, denies recent illness, fevers, chills, uri type sx, abd pain, n/v/d/c, pedal edema, syncope, paresthesias.] PAST MEDICAL HISTORY: 1. [See HPI PAST SURGICAL HISTORY: 1. [B/l cataract removal]. 2. [Unpsec. L spine surgery]. SOCIAL HISTORY: Tobacco use:[Denies] ETOH: [Denies] Illicit drug use: [Denies] FAMILY HISTORY: Father - dm Mother - htn ALLERGIES: Please see below. REVIEW OF SYSTEMS: CONSTITUTIONAL: [Denies fevers, chills]. HEENT: [See HPI]. CARDIOVASCULAR: [Denies chest pain, palpitations]. RESPIRATORY: [Denies sob, wheezing]. GASTROINTESTINAL: [Denies abd pain, n/v/d/c]. GENITOURINARY: [Denies dysuria]. SKIN: [Denies rash]. MUSCULOSKELETAL: [Denies acute joint/back pain]. NEUROLOGICAL: [Denies syncope, paresthesias]. ENDOCRINE: [Hx of DM]. HEMATOLOGIC/LYMPHATIC: [Hx of PE, lymphoma]. HOME MEDICATIONS: Please see below. PHYSICAL EXAMINATION: VITAL SIGNS: Please see below. GENERAL APPEARANCE: [This is a 65 y/o male who is alert and oriented to all questioning. He does not appear to be in any acute distress]. HEENT: [No mass or lesion. EOMI. No scleral icterus. Rhinorocket is in place in left nare with surrounding crusted dark red blood. There is a very small stream of dark red blood coming from the right nostril that appears to be drying out. Oral mucosa moist]. CARDIOVASCULAR: [Regular rate, rhythm. No murmurs, rubs, gallops]. LUNGS: [Good air flow b/l. No wheezing, rales, rhonchi]. ABDOMEN: [Soft, nontender]. MUSCULOSKELETAL: [No joint deformity noted]. EXTREMITIES: [No pedal edema appreciated. Pulses intact. No overlying skin changes]. NEUROLOGICAL: [Speech clear. A+Ox3. No focal deficits noted]. PSYCHIATRIC: [Mood and affect appropriate]. LABORATORY DATA: See below. IMAGING: [None performed] MICROBIOLOGY: Please see below. ASSESSMENT: [This is a 65 y/o male with a pmh of hld, htn, pe on eliquis, iddm2, gout and plasma blastic lymphoma who was transferred to us from [facility] for evaluation of epistaxis on eliquis and abnormal lab work notable for significant thrombocytopenia with plt count of 28 and ALVIN with current cr of 2.48, with most recent cr at our lab being 1.65 just three days ago.]. . PLAN: 1. [Epistaxis - 2/2 eliquis and thrombocytopenia - As of writing this note, active bleeding appears to have slowed to almost none - Will leave rhinorocket in place overnight - ED provider consulted ENT, Dr. Collins, who agreed to evaluate patient in the am. Assistance and recommendations greatly appreciated - Will hold eliquis - Admit to med surg for tx 2. Thrombocytopenia - Unfortunately, possibly 2/2 lymphoma recurrence. - Pt follows with [facility], was scheduled to have bone marrow biopsy on 02/11 - Current plt 28, will transfuse 2 units, repeat plt count at midnight - pt may require heme consult if platelet count does not adequately respond over night 3. ALVIN - most likely pre-renal etiology d/t recent poor oral intake - will begin ivf overnight. pt received fluid bolus in the ed - renal us ordered - ua, urine electrolytes ordered - repeat kidney function in the am 4. DM - continue at home basal insulin - sliding scale coverage - hypoglycemic protocol - continue gabapentin 5. HTN - continue lisinopril, hctz, amlodipine 6. HLD - continue simvastatin 7. Gout - continue allopurinol DVT prophylaxis - mechanical]. Vital Signs Vital Signs Date Time Temp Pulse Resp B/P (MAP) Pulse Ox O2 Delivery O2 Flow Rate FiO2 02/04/21 19:37 99.2 96 18 132/71 (91) 96 Room Air Home Medications Scheduled Allopurinol (Allopurinol) 100 Mg Tablet, 100 MG PO DAILY Amlodipine Besylate (Amlodipine Besylate) 5 Mg Tab, 5 MG PO DAILY Apixaban (Eliquis) 5 Mg Tablet, 5 MG PO BID Cyanocobalamin (Vitamin B-12) (B-12) 1,000 Mcg Tablet, 1,000 MCG PO DAILY Cyclobenzaprine HCl (Cyclobenzaprine HCl) 5 Mg Tablet, 5 MG PO DAILY Gabapentin (Gabapentin) 600 Mg Tablet, 600 MG PO TID Glipizide (Glipizide) 5 Mg Tab, 5 MG PO BID Hydrochlorothiazide (Hydrochlorothiazide) 25 Mg Tablet, 25 MG PO DAILY Insulin NPH Hum/Reg Insulin Hm (Novolin 70-30 100 Unit/ml Vial) 1 Inj Inj, 50 UNIT SC BID Lisinopril (Lisinopril) 20 Mg Tab, 20 MG PO DAILY Metformin HCl (Metformin HCl) 1,000 Mg Tab, 1,000 MG PO BID Simvastatin (Simvastatin) 10 Mg Tab, 10 MG PO DAILY Scheduled PRN Albuterol Sulfate (Proair Hfa) 8.5 Gm Hfa.aer.ad, 2 PUFF INH Q4H PRN for SHORTNESS OF BREATH Allergies Coded Allergies: No Known Allergies (Unverified , 05/29/18) A-FIB/CHADSVASC A-FIB History Current/History of A-Fib/PAF?: No Current PO Anticoag Therapy: No MCKILLOP,JONO D PA Feb 04, 2021 21:16
--- OUTSIDE RECORDS SUMMARY | 2021-02-04 21:44 | CCD ---
Author Author [facility] Organization [facility] Address Unknown Phone Unavailable Care Team Providers Care Executive Vice President Of Sales Name Role Phone Dino Baron MD Unavailable Unavailable Dino Baron MD Unavailable Unavailable Dino Baron MD Unavailable Unavailable Dino Baron MD Unavailable Unavailable Dino Braon MD Unavailable Unavailable Dino Baron MD Unavailable [...] Sacha GUAJARDO MD Unavailable Unavailable JAGANGELO, Sacha GUAJADRO MD Unavailable Unavailable GAVIN, Sacha GUAJARDO MD Unavailable Unavailable JAGANGELO, Sacha GUAJARDO MD Unavailable Unavailable JAGANGELO, Sacha GUAJARDO MD Unavailable Unavailable GAVIN, Sacha GUAJARDO MD Unavailable Unavailable Tushar ARAGON, MD Bernal Unavailable Unavailable Tushar ARAGON, MD Bernal Unavailable Unavailable DR MD PJ CAGLE Unavailable Unavailable [id number], [id number] Unavailable [phone] MEDENT_8646, [id number] Unavailable [phone] MEDENT_8646, [id number] Unavailable [phone] MEDENT_8646, [id number] Unavailable +[phone] MEDENT_8646, [id number] Unavailable +[phone] MEDENT_8646, [id number] Unavailable [phone] MEDENT_8646, [id number] Unavailable [phone] MEDENT_8646, [id number] Unavailable +[phone] MEDENT_8646, [id number] Unavailable +[phone] MEDENT_8646, [id number] Unavailable [phone] MEDENT_8646, [id number] Unavailable +[phone] MEDENT_8646, [id number] Unavailable +[phone] MEDENT_8646, [id number] Unavailable [phone] MEDENT_8646, [id number] Unavailable +[phone] MEDENT_8646, [id number] Unavailable +[phone] MEDENT_8646, [id number] Unavailable +[phone] MEDENT_8646, [id number] Unavailable [phone] GALIMIDI ANGLE DPM, J [...] Angle DPM Unavailable GALIMIDI ANGLE DPM, J Anlge DPM Unavailable GALIMIDI ANGLE DPM, J Angle [...] Unavailable [phone] Perry Finley MD Unavailable Perry Finley MD Unavailable [phone] Hadian, Kiko Unavailable Unavailable Hadian, Kiko [...] Unavailable Unavailable Castellanos J Shania PA Unavailable [phone] Castellanos, J Shania PA Unavailable [phone] Castellanos, J Shania PA Unavailable [phone] Castellanos, J Shania PA Unavailable [phone] Castellanos, J Shania PA Unavailable [phone] Castellanos, J Shania PA Unavailable [phone] Castellanos, J Shania PA Unavailable [phone] Castellanos, J Shnaia PA Unavailable [phone] Castellanos, J Shania PA Unavailable [phone] Castellanos, J Shania PA Unavailable [phone] Castellanos, J Shania PA Unavailable [phone] Castellanos, J Shania PA Unavailable [phone] Castellanos, J Shania PA Unavailable [phone] DR MIKHAIL NÚÑEZ Unavailable Unavailable Re-disclosure Warning [...] is protected by Article 27-F of the [place] Public Health law. If you continue you may have access to information: Regarding HIV / AIDS; Provided by facilities licensed or operated by the [facility] Office of Mental Health; or Provided by the [facility] Office for People With Developmental Disabilities. If such information is present, then the following [facility] mandated warning applies: This information has [...] law may result in a fine or [place] health [place] sentence or both. A general authorization for the release of medical or other information is NOT sufficient authorization for further disc losure. Allergies and Adverse Reactions Type Description Substance Reaction Status Data Source(s ) Miscellaneous allergy No Known Drug Allergies No Known Drug Allergies [facility] Miscellaneous allergy No Known Environmental Allergies No Kn own Environmental Allergies [facility] Miscellaneous allergy No Known Food Allergies No Known Food Allergies [facility] Drug allergy Drug allergy No Known Allergies [facility] Encounters Encounter Providers Location Date Indications Data Source(s ) Emergency Attender: VINCE SON dmitter: VINCE BEARDEN PAConsultant: DR MARISSA CAGLE [id number] 02/04/2021 04:29:00 PM EDT - 02/04/2021 07:24:00 PM EDT Nosebleed [facility] Nosebleed Patient discharged. Outpatient Attender: CASANDRA Randhawa DAdmitter: CASANDRA ALONSO MDConsultant: DR MARISSA CAGLE 008 02/04/2021 03:36:00 PM EDT - 02/04/2021 03:37:00 PM EDT Lab test [facility] Lab test Outpatient Attender: CASANDRA Randhawa DAdmitter: CASANDRA ALONSO MDReferrer: CASANDRA ALONSO MDConsultant: DR MARISSA CAGLE [id number] 02/04/2021 02:38 :00 PM EDT BLOODY NOSE [facility] BLOODY NOSE Patient admitted. Emergency Attender: VINCE SON dmitter: VINCE BEARDEN PAConsultant: DR MARISSA CAGLE 02/03/2021 09:44:00 PM EDT - 02/03/2021 11:10:00 PM EDT FELL AT HOME NOSE BEGAN TO BLEED [facility] FELL AT HOME NOSE BEGAN TO BLEED Patient discharged. Emergency Attender: VINCE SON dmitter: VINCE BEARDEN PAConsultant: DR MARISSA CAGLE 02/03/2021 05:48:00 PM EDT - 02/03/2021 08:00:00 PM EDT NOSE BLEED [facility] NOSE BLEED Patient discharged. Outpatient Attender: DR MENDOZA TRANAdmitter: DR MENDOZA TRANConsultant: DR MARISSA CAGLE 01/29/2021 02:46:00 PM EDT - 01/29/2021 02:46:00 PM EDT WEAK NESS [facility] WEAKNESS Outpatient Attender: DR MARISSA CAGLEAdmitter: DR MENDOZA TRANConsultant: DR MARISSA CAGLE 008 01/29/2021 10:42:00 AM EDT - 01/29/2021 10:42:00 AM EDT Lab test [facility] Lab test Outpatient Attender: DR MARISSA Carlson er: DR MENDOZA TRANReferrer: DR MARISSA CAGLEConsultant: DR MARISSA CAGLE 01/29/2021 10:30:00 AM ED T - 01/29/2021 11:40:00 AM EDT Health check up [facility] Health check up Patient discharged. Outpatient Attender: CASANDRA Randhawa DAdmitter: CASANDRA ALONSO MDConsultant: DR MARISSA Bustamante 01/07/2021 12:33:00 PM EDT - 01/07/2021 12:34:00 PM EDT Radiological examination [facility] Radiological examination Outpatient Attender: CASANDRA Randhawa DAdmitter: CASANDRA ALONSO MDReferrer: CASANDRA ALONSO MDConsultant: DR MARISSA CAGLE 01/07/2021 11:12:00 AM EDT - 01/07/2021 12:10:00 PM EDT PAIN WHEN COUGHING [facility] PAIN WHEN COUGHING Patient discharged. Outpatient Attender: [id number] [id number] ED-CAR 01/03/2021 08:54:00 AM EDT - 01/03/2021 08:55:00 AM EDT R06.02 [facility] R06.02 Patient discharged. Outpatient Attender: [id number] [id number] ED-RESP 12/24/2020 08:20:00 AM EDT - 12/24/2020 08:21:00 AM EDT R06.02 [facility] R06.02 Patient discharged. Outpatient Attender: Angle HULL DPM DPM ED-IMAG 12/18/2020 09:21:00 AM EDT - 12/18/2020 09:22:00 AM EDT ABSENT PEDAL PULSES [facility] ABSENT PEDAL PULSES Patient discharged. Outpatient Attender: DR MARISSA Carlson er: DR MENDOZA TRANReferrer: DR MENDOZA TRANConsultant: DR MARISSA CAGLE 12/17/2020 02:25:00 PM ED T - 12/17/2020 03:20:00 PM EDT C-F FOLLOW UP FROM ER [facility] C-F FOLLOW UP FROM ER Patient discharged. Emergency Attender: DR SIMRAN MUÑOZ NAdmitter: DR SIMRAN NÚÑEZConsultant: DR MARISSA CAGLE [id number] 12/12/2020 02:32:00 AM EDT - 12/12/2020 12:05:00 PM EDT SOB, CHEST PAIN, COUGH [facility] SOB, CHEST PAIN, COUGH Patient discharged. Outpatient Attender: DR MARISSA CAGLEAdmitter: DR MENDOZA TRANConsultant: DR MARISSA CAGLE 12/11/2020 10:16:00 AM EDT - 01/08/2021 01:14:00 PM EDT Phys ical therapy [facility] Physical therapy Admission cancelled. Disregard status an d admitted date. Outpatient Attender: DR MENDOZA TRANAdmitter: DR MENDOZA TRANConsultant: DR MARISSA CAGLE 008 11/24/2020 10:01:11 AM EDT - 11/24/2020 01:31:00 PM EDT [facility] Patient discharged. Outpatient Attender: DR MARISSA Carlson er: DR MENDOZA TRANReferrer: DR MENDOZA TRANConsultant: DR MARISSA CAGLE 11/24/2020 08:30:00 AM ED T - 11/24/2020 09:30:[address] [facility] Patient discharged. Outpatient Attender: DR MENDOZA TRANAdmitter: DR MENDOZA TRANConsultant: DR MARISSA CAGLE 11/13/2020 01:06:00 PM EDT - 12/09/2020 10:30:00 AM EDT Phys ical therapy [facility] Physical therapy Patient discharged. Outpatient Attender: DR MARISSA Carlson er: DR MENDOZA TRANReferrer: DR MARISSA CAGLEConsultant: DR MARISSA CAGLE 11/05/2020 11:27:00 AM ED T - 11/05/2020 12:10:00 PM EDT ER FOLLOW UP [facility] ER FOLLOW UP Patient discharged. Emergency Attender: DR SIMRAN MUÑOZ NAdmitter: DR SIMRAN NÚÑEZConsultant: DR MARISSA CAGLE [phone] 11/02/2020 08:25:00 AM EDT - 11/02/2020 11:20:00 AM EDT NECK AND HEAD PAIN [facility] NECK AND HEAD PAIN Patient discharged. Outpatient Attender: DR MARISSA Carlson er: DR MENDOZA TRANReferrer: DR MARISSA CAGLEConsultant: DR MARISSA CAGLE 10/27/2020 08:27:00 AM ED T - 10/27/2020 09:30:00 AM EDT [facility] Patient discharged. Outpatient Attender: DR MARISSA Carlson er: DR MENDOZA TRANReferrer: DR MARISSA CAGLEConsultant: DR MARISSA CAGLE 10/24/2020 02:58:00 PM ED T - 10/24/2020 04:00:00 PM EDT HEALTH CHECK UP [facility] HEALTH CHECK UP Patient discharged. Outpatient Attender: Angle HULL DPM DPM CPSCAORT- CPSGNPOD 09/23/2020 09:04:00 AM EDT - 09/23/2020 09:05:00 AM EDT [facility] Patient discharged. Emergency Attender: VINCE SON dmitter: VINCE BEARDEN PAConsultant: DR MARISSA CAGLE 09/06/2020 09:42:00 AM EDT - 09/06/2020 10:26:00 AM EDT TOOTHACHE [facility] TOOTHACHE Patient discharged. Outpatient Attender: Rudy Baron MD CPSCAORT-[id number] 2020 08:19:00 AM EDT - 09/04/2020 08:20:00 AM EDT [facility] Patient discharged. Emergency Attender: DR SIMRAN MUÑOZ NAdmitter: DR SIMRAN NÚÑEZConsultant: DR MARISSA CAGLE [phone] 08/13/2020 08:23:00 AM EDT - 08/13/2020 11:35:00 AM EDT PAIN IN NECK [facility] PAIN IN NECK Patient discharged. Outpatient Attender: Shania LUQUE CPSCAORT-CPSCAEND 08/04/2020 09:13:00 AM EDT - 08/04/2020 09:14:00 AM EDT [facility] Patient discharged. Outpatient Attender: CASANDRA Randhawa DAdmitter: CASANDRA ALONSO MDReferrer: CASANDRA ALONSO MDConsultant: DR MARISSA CAGLE 07/22/2020 01:43:00 PM EDT - 07/22/2020 03:00:00 PM EDT [facility] Patient discharged. Outpatient Attender: Angle HULL DPM DPM CPSCAORT- CPSGNPOD 07/22/2020 09:23:00 AM EDT - 07/22/2020 09:24:00 AM EDT [facility] Patient discharged. Outpatient Attender: DR MARISSA Carlson er: DR MENDOZA TRANReferrer: DR MARISSA CAGLEConsultant: DR MARISSA CAGLE 07/21/2020 02:00:00 PM ED T - 07/21/2020 03:00:00 PM EDT F/U FROM CF ER [facility] F/U FROM ER Patient discharged. Outpatient ED-IMAG 07/18/2020 08:07:00 AM EDT - 07/18/2020 08:08:00 AM EDT CHECKING FOR PE [facility] CHECKING FOR PE Patient discharged. Outpatient Attender: DR SHANIA FINE NAdmitter: DR SHANIA CASTELLANOSConsultant: DR MARISSA CAGLE 008 06/19/2020 10:20:00 AM EST - 06/19/2020 10:20:00 AM EST Radiological examination [facility] Radiological examination Outpatient Attender: CASANDRA Randhawa DAdmitter: CASANDRA ALONSO MDReferrer: CASANDRA ALONSO MDConsultant: DR MARISSA CAGLE 05/16/2020 10:07:00 AM EST - 05/16/2020 11:00:00 AM EST Health check up [facility] Health check up Patient discharged. Outpatient Attender: Rudy Baron MD CPSCAORT-SDCLOC 04/25/19 11:48:00 AM EST - 04/25/2020 02:34:00 PM EST CRC SCREEN [facility] CRC SCREEN Patient discharged. Outpatient Attender: Kiko Junior ED-LABPNP 10:49:00 AM EST - 04/21/2020 10:50:00 AM EST Z01.812 [facility] Z01.812 Patient discharged. Outpatient Attender: CASANDRA Weathersmitter: CASANDRA ALONSO MDReferrer: CASANDRA ALONSO MDConsultant: DR MARISSA CAGLE 03/10/2020 11:10:00 AM EST - 03/10/2020 12:10:00 PM EST Diabetes [facility] Diabetes Patient discharged. Outpatient Attender: DR MARISSA CAGLEAdmitter: DR MENDOZA TRANConsultant: DR MARISSA CAGLE 008 03/08/2020 09:01:00 AM EST - 03/08/2020 09:01:00 AM EST Lab test [facility] Lab test Emergency Attender: SANDRA Kwong mitter: SANDRA BARRON PAReferrer: SANDRA BARRON PAConsultant: DR MARISSA CAGLE 03/01/2020 06:49:17 AM EST - 03/01/2020 08:43:00 AM EST DENTAL PAIN [facility] DENTAL PAIN Patient discharged. Outpatient Attender: CASANDRA Weathersmitter: CASANDRA ALONSO MDReferrer: CASANDRA ALONSO MDConsultant: DR MAIRSSA CAGLE 02/25/2020 11:17:00 AM EST - 02/25/2020 12:00:00 PM EST Pain in ear [facility] Pain in ear Patient discharged. Outpatient Attender: Simran LUQUE CPSCAORT-[id number] 02/09 12:42:00 PM EST - 02/22/2020 12:43:00 PM EST [facility] Patient discharged. Outpatient Attender: Gabe Finley MD CPSCASAI-CPSCAORT 01:18:00 PM EST - 02/21/2020 01:19:00 PM EST [facility] Patient discharged. Outpatient Attender: Gabe Finley MDA dmitter: Gabe Finley MDConsultant: DR MARISSA CAGLE 12/11/2019 01:10:00 PM EDT - 12/27/2019 04:35:00 PM EDT Physical therapy [facility] Physical therapy Patient discharged. Outpatient Attender: Gabe Finley MD CPSLO-CPSCAORT 10:09:00 AM EDT - 12/10/2019 10:10:00 AM EDT [facility] Patient discharged. Outpatient Attender: DR MARISSA Carlson er: DR MARISSA CAGLEReferrer: DR MARISSA CAGLEConsultant: DR MARISSA CAGLE 12/05/2019 10:08:00 AM ED T - 12/05/2019 11:00:00 AM EDT Health check up [facility] Health check up Patient discharged. Outpatient Attender: Gabe Finley MDA ttender: DR MARISSA CAGLEAdmitter: Gabe Finley MDConsultant: DR MARISSA CAGLE 11/12/2019 08:56:00 AM EDT - 12/10/2019 01:08:00 PM EDT Physical therapy [facility] Physical therapy Patient discharged. Outpatient Attender: Gabe Finley MD CPSCAORT-CPSCAORT 09:57:00 AM EDT - 10/01/2019 09:58:00 AM EDT [facility] Patient discharged. Immunizations Vaccine Date Status Description Data Source(s) COVID-19 VACCINE Moderna 07/04/2020 12:00:00 AM EDT completed [facility]SIIS Vaccine Series Complete: YESThis Data wa s Submitted to [facility] Via [employer]. New in 2011. IIV4 05/16/2020 12:00:00 AM EST completed <t d>influenza, injectable, quadrivalent, preservative free</td><td>influenza, injectable, quadrivalent, preservative free</td><td>05/16/2020</td><td>Completed</td><td></td><td>150</td><td>CVX</td> [facility] in 2011. IIV4 05/16/2020 12:00:00 AM EST completed <t d>influenza, injectable, quadrivalent, preservative free</td><td>influenza, injectable, quadrivalent, preservative free</td><td>05/16/2020</td><td>Completed</td><td></td><td>150</td><td>CVX</td> [facility] in 2011. IIV4 05/16/2020 12:00:00 AM EST completed <t d>influenza, injectable, quadrivalent, preservative free</td><td>influenza, injectable, quadrivalent, preservative free</td><td>05/16/2020</td><td>Completed</td><td></td><td>150</td><td>CVX</td> [facility] in 2011. IIV4 05/16/2020 12:00:00 AM EST completed <t d>influenza, injectable, quadrivalent, preservative free</td><td>influenza, injectable, quadrivalent, preservative free</td><td>05/16/2020</td><td>Completed</td><td></td><td>150</td><td>CVX</td> [facility] in 2011. IIV4 05/16/2020 12:00:00 AM EST completed <t d>influenza, injectable, quadrivalent, preservative free</td><td>influenza, injectable, quadrivalent, preservative free</td><td>05/16/2020</td><td>Completed</td><td></td><td>150</td><td>CVX</td> [facility] in 2011. IIV4 05/16/2020 12:00:00 AM EST completed <t d>influenza, injectable, quadrivalent, preservative free</td><td>influenza, injectable, quadrivalent, preservative free</td><td>05/16/2020</td><td>Completed</td><td></td><td>150</td><td>CVX</td> [facility] in 2011. IIV4 05/16/2020 12:00:00 AM EST completed <t d>influenza, injectable, quadrivalent, preservative free</td><td>influenza, injectable, quadrivalent, preservative free</td><td>05/16/2020</td><td>Completed</td><td></td><td>150</td><td>CVX</td> [facility] in 2011. IIV4 05/16/2020 12:00:00 AM EST completed <t d>influenza, injectable, quadrivalent, preservative free</td><td>influenza, injectable, quadrivalent, preservative free</td><td>05/16/2020</td><td>Completed</td><td></td><td>150</td><td>CVX</td> [facility] in 2011. IIV4 05/16/2020 12:00:00 AM EST completed <t d>influenza, injectable, quadrivalent, preservative free</td><td>influenza, injectable, quadrivalent, preservative free</td><td>05/16/2020</td><td>Completed</td><td></td><td>150</td><td>CVX</td> [facility] in 2011. IIV4 05/16/2020 12:00:00 AM EST completed <t d>influenza, injectable, quadrivalent, preservative free</td><td>influenza, injectable, quadrivalent, preservative free</td><td>05/16/2020</td><td>Completed</td><td></td><td>150</td><td>CVX</td> [facility] New in 2011. IIV4 05/16/2020 12:00:00 AM EST completed <t d>influenza, injectable, quadrivalent, preservative free</td><td>influenza, injectable, quadrivalent, preservative free</td><td>05/16/2020</td><td>Completed</td><td></td><td>150</td><td>CVX</td> [facility] Medications Medication Brand Name Start Date Product Form Dose Route Admi nistrative Instructions Pharmacy Instructions Status Indications Reaction Description Data Source(s) Cyclobenzaprine hydrochloride 5 MG Oral Tablet Cyclobenzaprine HCl 5MG Oral Tablet Cyclobenzaprine HCl 5MG Oral Tablet 01/29/2021 12:00:00 AM EDT 1 TABLET BY MOUTH active <td>Cyclob enzaprine HCl 5MG Oral Tablet</td><td>01/29/2021</td><td>Unknown</td><td>BY MOUTH</td><td>DAILY</td><td>1 TABLET</td><td>589072</td><td>RxNorm</td><td>TAKE 1 TABLET BY MOUTH DAILY FOR Pain</td> [facility] Cyclobenzaprine hydrochloride 5 MG Oral Tablet Cyclobenzaprine HCl 5MG Oral Tablet Cyclobenzaprine HCl 5MG Oral Tablet 01/29/2021 12:00:00 AM EDT 1 TABLET BY MOUTH active <td>Cyclob enzaprine HCl 5MG Oral Tablet</td><td>01/29/2021</td><td>Unknown</td><td>BY MOUTH</td><td>DAILY</td><td>1 TABLET</td><td>278206</td><td>RxNorm</td><td>TAKE 1 TABLET BY MOUTH DAILY FOR Pain</td> [facility] Amlodipine 5 MG Oral Tablet amLODIPine Besylate 5MG Or al Tablet amLODIPine Besylate 5MG Oral Tablet 01/27/2021 12:00:00 AM EDT 5 MILLIGRAMS ORAL active <td>amLODIPine Besyl ate 5MG Oral Tablet</td><td>01/27/2021</td><td>Unknown</td><td>ORAL</td><td>DAILY</td><td>5 MILLIGRAMS</td><td>944711</td><td>RxNorm</td><td>TAKE 1 TABLET BY MOUTH ONCE A DAY</td> [facility] Amlodipine 5 MG Oral Tablet amLODIPine Besylate 5MG Or al Tablet amLODIPine Besylate 5MG Oral Tablet 01/27/2021 12:00:00 AM EDT 5 MILLIGRAMS ORAL active <td>amLODIPine Besyl ate 5MG Oral Tablet</td><td>01/27/2021</td><td>Unknown</td><td>ORAL</td><td>DAILY</td><td>5 MILLIGRAMS</td><td>010845</td><td>RxNorm</td><td>TAKE 1 TABLET BY MOUTH ONCE A DAY</td> [facility] pantoprazole 40 MG Delayed Release Oral Tablet Pantoprazole Sodium 40 MG Oral Tablet, Delayed Release Pantoprazole Sodium 40 MG Oral Tablet, Delayed Release 01/07/2021 12:00:00 AM EDT 1 TABLET BY MOUTH active <td>Pantoprazole Sodium 40 MG Oral Tablet, Delayed Release</td><td>01/07/2021</td><td>Unknown</td><td>BY MOUTH</td><td>DAILY</td><td>1 TABLET</td><td>109184</td><td>RxNorm</td><td>TAKE 1 TABLET BY MOUTH DAILY</td> [facility] pantoprazole 40 MG Delayed Release Oral Tablet Pantoprazole Sodium 40 MG Oral Tablet, Delayed Release Pantoprazole Sodium 40 MG Oral Tablet, Delayed Release 01/07/2021 12:00:00 AM EDT 1 TABLET BY MOUTH active <td>Pantoprazole Sodium 40 MG Oral Tablet, Delayed Release</td><td>01/07/2021</td><td>Unknown</td><td>BY MOUTH</td><td>DAILY</td><td>1 TABLET</td><td>688104</td><td>RxNorm</td><td>TAKE 1 TABLET BY MOUTH DAILY</td> [facility] Albuterol Sulfate HFA 0.09MG/1Actuation Inhalation Suspensio n 01/05/2021 12:00:00 AM EDT 2 mL INHALATION active <td>Albuterol Sulfate HFA 0.09MG/1Actuation Inhalation Suspension</td><td>01/05/2021</td><td>Unknown</td><td>INHALATION</td><td> NEEDED EVERY 4 HR</td><td>2 PUFF</td><td>4446436</td><td>RxNorm</td><td>PUFF 2 PUFF INHALATION NEEDED EVERY 4 HR FOR Shortness of breath</td> [facility] Albuterol Sulfate HFA 0.09MG/1Actuation Inhalation Suspensio n 01/05/2021 12:00:00 AM EDT 2 mL INHALATION active <td>Albuterol Sulfate HFA 0.09MG/1Actuation Inhalation Suspension</td><td>01/05/2021</td><td>Unknown</td><td>INHALATION</td><td> NEEDED EVERY 4 HR</td><td>2 PUFF</td><td>9160134</td><td>RxNorm</td><td>PUFF 2 PUFF INHALATION NEEDED EVERY 4 HR FOR Shortness of breath</td> [facility] Albuterol Sulfate HFA 0.09MG/1Actuation Inhalation Suspensio n 01/05/2021 12:00:00 AM EDT 2 mL INHALATION active <td>Albuterol Sulfate HFA 0.09MG/1Actuation Inhalation Suspension</td><td>01/05/2021</td><td>Unknown</td><td>INHALATION</td><td> NEEDED EVERY 4 HR</td><td>2 PUFF</td><td>5536976</td><td>RxNorm</td><td>PUFF 2 PUFF INHALATION NEEDED EVERY 4 HR FOR Shortness of breath</td> [facility] apixaban 5 MG Oral Tablet [Eliquis] Eliquis 5MG Oral T ablet Eliquis 5MG Oral Tablet 12/17/2020 12:00:00 AM EDT 1 TABLET BY MOUTH active <td>Eliquis 5MG Oral Tablet</td><td>12/17/2020</td><td>Unknown</td><td>BY MOUTH</td><td>TWICE A DAY</td><td>1 TABLET</td><td>4282956</td><td>RxNorm</td><td>TAKE 1 TABLET BY MOUTH TWICE A DAY </td> [facility] apixaban 5 MG Oral Tablet [Eliquis] Eliquis 5MG Oral T ablet Eliquis 5MG Oral Tablet 12/17/2020 12:00:00 AM EDT 1 TABLET BY MOUTH active <td>Eliquis 5MG Oral Tablet</td><td>12/17/2020</td><td>Unknown</td><td>BY MOUTH</td><td>TWICE A DAY</td><td>1 TABLET</td><td>5762896</td><td>RxNorm</td><td>TAKE 1 TABLET BY MOUTH TWICE A DAY </td> [facility] apixaban 5 MG Oral Tablet [Eliquis] Eliquis 5MG Oral T ablet Eliquis 5MG Oral Tablet 12/17/2020 12:00:00 AM EDT 1 TABLET BY MOUTH active <td>Eliquis 5MG Oral Tablet</td><td>12/17/2020</td><td>Unknown</td><td>BY MOUTH</td><td>TWICE A DAY</td><td>1 TABLET</td><td>5731802</td><td>RxNorm</td><td>TAKE 1 TABLET BY MOUTH TWICE A DAY </td> [facility] Calcium Chloride 0.0014 MEQ/ML / Potassi um Chloride 0.004 MEQ/ML / Sodium Chloride 0.103 MEQ/ML / Sodium Lactate 0.028 MEQ/ML Injectable Solution LACTATED RINGERS 1000 ML BAGF LACTATED RINGERS 1000 ML BAGF 12/12/2020 10:00:00 AM EDT 0 ml/hr INTRAVENOUS active <td> LACTATED RINGERS 1000 ML BAGF</td><td>12/12/2020</td><td>12/12/2020</td><td>INTRAVENOUS</td><td>X1</t INTRAVENOUS X1</td> [facility] HEPARIN 500UNITS/5 ML SYRF 12/12/2020 08:00:00 AM EDT 500 U FLUSH active <td>HEPARIN 500UNITS /5 ML SYRF</td><td>12/12/2020</td><td>12/12/2020</td><td>FLUSH</td><td>X1</td><td> UNITS</td><td>6944431</td><td>RxNorm</td><td>500 UNITS FLUSH ONE TIME DOSE</td> [facility] Ergocalciferol 20871 UNT Oral Capsule Vitamin D 20823G U Oral Capsule Vitamin D 32690XW Oral Capsule 11/30/2020 12:00:00 AM EDT 1 CAPSULE BY MOUTH active <td>Vitamin D 89324QD Oral Capsule</td><td>11/30/2020</td><td>Unknown</td><td>BY MOUTH</td><td>Once a Week</td><td>1 CAPSULE</td><td>4609120</td><td>RxNorm</td><td>TAKE 1 CAPSULE BY MOUTH Once a Week</td> [facility] Ergocalciferol 90347 UNT Oral Capsule Vitamin D 38012M U Oral Capsule Vitamin D 75907NY Oral Capsule 11/30/2020 12:00:00 AM EDT 1 CAPSULE BY MOUTH active <td>Vitamin D 63281PJ Oral Capsule</td><td>11/30/2020</td><td>Unknown</td><td>BY MOUTH</td><td>Once a Week</td><td>1 CAPSULE</td><td>[id number]</td><td>RxNorm</td><td>TAKE 1 CAPSULE BY MOUTH Once a Week</td> [facility] Ergocalciferol 20305 UNT Oral Capsule Vitamin D 57558Q U Oral Capsule Vitamin D 66548JO Oral Capsule 11/30/2020 12:00:00 AM EDT 1 CAPSULE BY MOUTH active <td>Vitamin D 85114WX Oral Capsule</td><td>11/30/2020</td><td>Unknown</td><td>BY MOUTH</td><td>Once a Week</td><td>1 CAPSULE</td><td>[id number]</td><td>RxNorm</td><td>TAKE 1 CAPSULE BY MOUTH Once a Week</td> [facility] Ergocalciferol 98729 UNT Oral Capsule Vitamin D 10868J U Oral Capsule Vitamin D 55087SZ Oral Capsule 11/30/2020 12:00:00 AM EDT 1 CAPSULE BY MOUTH active <td>Vitamin D 92483PI Oral Capsule</td><td>11/30/2020</td><td>Unknown</td><td>BY MOUTH</td><td>Once a Week</td><td>1 CAPSULE</td><td>[id number]</td><td>RxNorm</td><td>TAKE 1 CAPSULE BY MOUTH Once a Week</td> [facility] Ergocalciferol 61737 UNT Oral Capsule Vitamin D 88083U U Oral Capsule Vitamin D 87114LT Oral Capsule 11/30/2020 12:00:00 AM EDT 1 CAPSULE BY MOUTH active <td>Vitamin D 00765DH Oral Capsule</td><td>11/30/2020</td><td>Unknown</td><td>BY MOUTH</td><td>Once a Week</td><td>1 CAPSULE</td><td>[id number]</td><td>RxNorm</td><td>TAKE 1 CAPSULE BY MOUTH Once a Week</td> [facility] Simvastatin 10 MG Oral Tablet Simvastatin 10MG Oral Ta blet Simvastatin 10MG Oral Tablet 11/11/2020 12:00:00 AM EDT 1 TABLET ORAL active <td>Simvastatin 10MG Oral Tablet</td><td>11/11/2020</td><td>Unknown</td><td>ORAL</td><td>DAILY</td><td>1 TABLET</td><td>093547</td><td>RxNorm</td><td>TAKE 1 TABLET BY MOUTH ONCE A DAY</td> [facility] Simvastatin 10 MG Oral Tablet Simvastatin 10MG Oral Ta blet Simvastatin 10MG Oral Tablet 11/11/2020 12:00:00 AM EDT 1 TABLET ORAL active <td>Simvastatin 10MG Oral Tablet</td><td>11/11/2020</td><td>Unknown</td><td>ORAL</td><td>DAILY</td><td>1 TABLET</td><td>865910</td><td>RxNorm</td><td>TAKE 1 TABLET BY MOUTH ONCE A DAY</td> [facility] Simvastatin 10 MG Oral Tablet Simvastatin 10MG Oral Ta blet Simvastatin 10MG Oral Tablet 11/11/2020 12:00:00 AM EDT 1 TABLET ORAL active <td>Simvastatin 10MG Oral Tablet</td><td>11/11/2020</td><td>Unknown</td><td>ORAL</td><td>DAILY</td><td>1 TABLET</td><td>206049</td><td>RxNorm</td><td>TAKE 1 TABLET BY MOUTH ONCE A DAY</td> [facility] Simvastatin 10 MG Oral Tablet Simvastatin 10MG Oral Ta blet Simvastatin 10MG Oral Tablet 11/11/2020 12:00:00 AM EDT 1 TABLET ORAL active <td>Simvastatin 10MG Oral Tablet</td><td>11/11/2020</td><td>Unknown</td><td>ORAL</td><td>DAILY</td><td>1 TABLET</td><td>483011</td><td>RxNorm</td><td>TAKE 1 TABLET BY MOUTH ONCE A DAY</td> [facility] Simvastatin 10 MG Oral Tablet Simvastatin 10MG Oral Ta blet Simvastatin 10MG Oral Tablet 11/11/2020 12:00:00 AM EDT 1 TABLET ORAL active <td>Simvastatin 10MG Oral Tablet</td><td>11/11/2020</td><td>Unknown</td><td>ORAL</td><td>DAILY</td><td>1 TABLET</td><td>486096</td><td>RxNorm</td><td>TAKE 1 TABLET BY MOUTH ONCE A DAY</td> [facility] insulin human, isophane 70 UNT/ML / Regu lar Insulin, Human 30 UNT/ML Injectable Suspension [Novolin] NovoLIN 70/30 70U-30U/1ML Subcutaneous Suspension NovoLIN 70/30 70U-30U/1ML Subcutaneous Suspension 10/15/2020 12:00:00 AM EDT 50 U SUBCUTANEOUS active <td>NovoLIN 70/30 70U-30U/1ML Subcutaneous Suspension</td><td>10/15/2020</td><td>Unknown</td><td>SUBCUTANEOUS</td><td>TWICE A DAY</td><td>50 UNIT</td><td>370556</td><td>RxNorm</td><td>INJECT 50 UNITS SUBCUTANEOUSLY TWICE DAILY</td> [facility] insulin human, isophane 70 UNT/ML / Regu lar Insulin, Human 30 UNT/ML Injectable Suspension [Novolin] NovoLIN 70/30 70U-30U/1ML Subcutaneous Suspension NovoLIN 70/30 70U-30U/1ML Subcutaneous Suspension 10/15/2020 12:00:00 AM EDT 50 U SUBCUTANEOUS active <td>NovoLIN 70/30 70U-30U/1ML Subcutaneous Suspension</td><td>10/15/2020</td><td>Unknown</td><td>SUBCUTANEOUS</td><td>TWICE A DAY</td><td>50 UNIT</td><td>[id number]</td><td>RxNorm</td><td>INJECT 50 UNITS SUBCUTANEOUSLY TWICE DAILY</td> [facility] insulin human, isophane 70 UNT/ML / Regu lar Insulin, Human 30 UNT/ML Injectable Suspension [Novolin] NovoLIN 70/30 70U-30U/1ML Subcutaneous Suspension NovoLIN 70/30 70U-30U/1ML Subcutaneous Suspension 10/15/2020 12:00:00 AM EDT 50 U SUBCUTANEOUS active <td>NovoLIN 70/30 70U-30U/1ML Subcutaneous Suspension</td><td>10/15/2020</td><td>Unknown</td><td>SUBCUTANEOUS</td><td>TWICE A DAY</td><td>50 UNIT</td><td>[id number]</td><td>RxNorm</td><td>INJECT 50 UNITS SUBCUTANEOUSLY TWICE DAILY</td> [facility] insulin human, isophane 70 UNT/ML / Regu lar Insulin, Human 30 UNT/ML Injectable Suspension [Novolin] NovoLIN 70/30 70U-30U/1ML Subcutaneous Suspension NovoLIN 70/30 70U-30U/1ML Subcutaneous Suspension 10/15/2020 12:00:00 AM EDT 50 U SUBCUTANEOUS active <td>NovoLIN 70/30 70U-30U/1ML Subcutaneous Suspension</td><td>10/15/2020</td><td>Unknown</td><td>SUBCUTANEOUS</td><td>TWICE A DAY</td><td>50 UNIT</td><td>[id number]</td><td>RxNorm</td><td>INJECT 50 UNITS SUBCUTANEOUSLY TWICE DAILY</td> [facility] insulin human, isophane 70 UNT/ML / Regu lar Insulin, Human 30 UNT/ML Injectable Suspension [Novolin] NovoLIN 70/30 70U-30U/1ML Subcutaneous Suspension NovoLIN 70/30 70U-30U/1ML Subcutaneous Suspension 10/15/2020 12:00:00 AM EDT 50 U SUBCUTANEOUS active <td>NovoLIN 70/30 70U-30U/1ML Subcutaneous Suspension</td><td>10/15/2020</td><td>Unknown</td><td>SUBCUTANEOUS</td><td>TWICE A DAY</td><td>50 UNIT</td><td>766729</td><td>RxNorm</td><td>INJECT 50 UNITS SUBCUTANEOUSLY TWICE DAILY</td> [facility] insulin human, isophane 70 UNT/ML / Regu lar Insulin, Human 30 UNT/ML Injectable Suspension [Novolin] NovoLIN 70/30 70U-30U/1ML Subcutaneous Suspension NovoLIN 70/30 70U-30U/1ML Subcutaneous Suspension 10/15/2020 12:00:00 AM EDT 50 U SUBCUTANEOUS active <td>NovoLIN 70/30 70U-30U/1ML Subcutaneous Suspension</td><td>10/15/2020</td><td>Unknown</td><td>SUBCUTANEOUS</td><td>TWICE A DAY</td><td>50 UNIT</td><td>868995</td><td>RxNorm</td><td>INJECT 50 UNITS SUBCUTANEOUSLY TWICE DAILY</td> [facility] insulin human, isophane 70 UNT/ML / Regu lar Insulin, Human 30 UNT/ML Injectable Suspension [Novolin] NovoLIN 70/30 70U-30U/1ML Subcutaneous Suspension NovoLIN 70/30 70U-30U/1ML Subcutaneous Suspension 10/15/2020 12:00:00 AM EDT 50 U SUBCUTANEOUS active <td>NovoLIN 70/30 70U-30U/1ML Subcutaneous Suspension</td><td>10/15/2020</td><td>Unknown</td><td>SUBCUTANEOUS</td><td>TWICE A DAY</td><td>50 UNIT</td><td>343445</td><td>RxNorm</td><td>INJECT 50 UNITS SUBCUTANEOUSLY TWICE DAILY</td> [facility] insulin human, isophane 70 UNT/ML / Regu lar Insulin, Human 30 UNT/ML Injectable Suspension [Novolin] NovoLIN 70/30 70U-30U/1ML Subcutaneous Suspension NovoLIN 70/30 70U-30U/1ML Subcutaneous Suspension 10/15/2020 12:00:00 AM EDT 50 U SUBCUTANEOUS active <td>NovoLIN 70/30 70U-30U/1ML Subcutaneous Suspension</td><td>10/15/2020</td><td>Unknown</td><td>SUBCUTANEOUS</td><td>TWICE A DAY</td><td>50 UNIT</td><td>[id number]</td><td>RxNorm</td><td>INJECT 50 UNITS SUBCUTANEOUSLY TWICE DAILY</td> [facility] Vitamin B12 1000MCG Oral Tablet, Extended Release 09/18/2020 12:00:00 AM EDT 1 TABLET BY MOUTH active <td>Vitamin B1 2 1000MCG Oral Tablet, Extended Release</td><td>09/18/2020</td><td>Unknown</td><td>BY MOUTH</td><td></td><td>1 TABLET</td><td></td><td>RxNorm</td><td>TAKE 1 TABLET BY MOUTH ONCE DAILY</td> [facility] Vitamin B12 1000MCG Oral Tablet, Extended Release 09/18/2020 12:00:00 AM EDT 1 TABLET BY MOUTH active <td>Vitamin B1 2 1000MCG Oral Tablet, Extended Release</td><td>09/18/2020</td><td>Unknown</td><td>BY MOUTH</td><td></td><td>1 TABLET</td><td></td><td>RxNorm</td><td>TAKE 1 TABLET BY MOUTH ONCE DAILY</td> [facility] Vitamin B12 1000MCG Oral Tablet, Extended Release 09/18/2020 12:00:00 AM EDT 1 TABLET BY MOUTH active <td>Vitamin B1 2 1000MCG Oral Tablet, Extended Release</td><td>09/18/2020</td><td>Unknown</td><td>BY MOUTH</td><td></td><td>1 TABLET</td><td></td><td>RxNorm</td><td>TAKE 1 TABLET BY MOUTH ONCE DAILY</td> [facility] Vitamin B12 1000MCG Oral Tablet, Extended Release 09/18/2020 12:00:00 AM EDT 1 TABLET BY MOUTH active <td>Vitamin B1 2 1000MCG Oral Tablet, Extended Release</td><td>09/18/2020</td><td>Unknown</td><td>BY MOUTH</td><td></td><td>1 TABLET</td><td></td><td>RxNorm</td><td>TAKE 1 TABLET BY MOUTH ONCE DAILY</td> [facility] Vitamin B12 1000MCG Oral Tablet, Extended Release 09/18/2020 12:00:00 AM EDT 1 TABLET BY MOUTH active <td>Vitamin B1 2 1000MCG Oral Tablet, Extended Release</td><td>09/18/2020</td><td>Unknown</td><td>BY MOUTH</td><td></td><td>1 TABLET</td><td></td><td>RxNorm</td><td>TAKE 1 TABLET BY MOUTH ONCE DAILY</td> [facility] Vitamin B12 1000MCG Oral Tablet, Extended Release 09/18/2020 12:00:00 AM EDT 1 TABLET BY MOUTH active <td>Vitamin B1 2 1000MCG Oral Tablet, Extended Release</td><td>09/18/2020</td><td>Unknown</td><td>BY MOUTH</td><td></td><td>1 TABLET</td><td></td><td>RxNorm</td><td>TAKE 1 TABLET BY MOUTH ONCE DAILY</td> [facility] Vitamin B12 1000MCG Oral Tablet, Extended Release 09/18/2020 12:00:00 AM EDT 1 TABLET BY MOUTH active <td>Vitamin B1 2 1000MCG Oral Tablet, Extended Release</td><td>09/18/2020</td><td>Unknown</td><td>BY MOUTH</td><td></td><td>1 TABLET</td><td></td><td>RxNorm</td><td>TAKE 1 TABLET BY MOUTH ONCE DAILY</td> [facility] Vitamin B12 1000MCG Oral Tablet, Extended Release 09/18/2020 12:00:00 AM EDT 1 TABLET BY MOUTH active <td>Vitamin B1 2 1000MCG Oral Tablet, Extended Release</td><td>09/18/2020</td><td>Unknown</td><td>BY MOUTH</td><td></td><td>1 TABLET</td><td></td><td>RxNorm</td><td>TAKE 1 TABLET BY MOUTH ONCE DAILY</td> [facility] Lidocaine Hydrochloride 20 MG/ML Mucous Membrane Topical Solution Lidocaine HCl Viscous 2% Oromucosal Solution Lidocaine HCl Viscous 2% Oromucosal Solution 09/06/2020 12:00:00 AM EDT 7.5 MILLILITER BY MOUTH activ e <td>Lidocaine HCl Viscous 2% Oromucosal Solution</td><td>09/06/2020</td><td>Unknown</td><td>BY MOUTH</td><td>PRNQ3H</td><td>7.5 MILLILITER</td><td>[id number]</td><td>RxNorm</td><td>TAKE 7.5 MILLILITER BY MOUTH PRNQ3H swish and spit</td> [facility] Lidocaine Hydrochloride 20 MG/ML Mucous Membrane Topical Solution Lidocaine HCl Viscous 2% Oromucosal Solution Lidocaine HCl Viscous 2% Oromucosal Solution 09/06/2020 12:00:00 AM EDT 7.5 MILLILITER BY MOUTH activ e <td>Lidocaine HCl Viscous 2% Oromucosal Solution</td><td>09/06/2020</td><td>Unknown</td><td>BY MOUTH</td><td>PRNQ3H</td><td>7.5 MILLILITER</td><td>[id number]</td><td>RxNorm</td><td>TAKE 7.5 MILLILITER BY MOUTH PRNQ3H swish and spit</td> [facility] Penicillin V Potassium 500 MG Oral Table t Penicillin V Potassium 500MG Oral Tablet Penicillin V Potassium 500MG Oral Tablet 09/06/2020 12:00:00 AM EDT 500 MILLIGRAM BY MOUTH active <td>Penic illin V Potassium 500MG Oral Tablet</td><td>09/06/2020</td><td>Unknown</td><td>BY MOUTH</td><td>4 TIMES A DAY</td><td>500 MILLIGRAM</td><td>[id number]</td><td>RxNorm</td><td>TAKE 500 MILLIGRAM BY MOUTH 4 TIMES A DAY</td> [facility] Lidocaine Hydrochloride 20 MG/ML Mucous Membrane Topical Solution Lidocaine HCl Viscous 2% Oromucosal Solution Lidocaine HCl Viscous 2% Oromucosal Solution 09/06/2020 12:00:00 AM EDT 7.5 MILLILITER BY MOUTH activ e <td>Lidocaine HCl Viscous 2% Oromucosal Solution</td><td>09/06/2020</td><td>Unknown</td><td>BY MOUTH</td><td>PRNQ3H</td><td>7.5 MILLILITER</td><td>[id number]</td><td>RxNorm</td><td>TAKE 7.5 MILLILITER BY MOUTH PRNQ3H swish and spit</td> [facility] Lidocaine Hydrochloride 20 MG/ML Mucous Membrane Topical Solution Lidocaine HCl Viscous 2% Oromucosal Solution Lidocaine HCl Viscous 2% Oromucosal Solution 09/06/2020 12:00:00 AM EDT 7.5 MILLILITER BY MOUTH activ e <td>Lidocaine HCl Viscous 2% Oromucosal Solution</td><td>09/06/2020</td><td>Unknown</td><td>BY MOUTH</td><td>PRNQ3H</td><td>7.5 MILLILITER</td><td>[id number]</td><td>RxNorm</td><td>TAKE 7.5 MILLILITER BY MOUTH PRNQ3H swish and spit</td> [facility] Lidocaine Hydrochloride 20 MG/ML Mucous Membrane Topical Solution Lidocaine HCl Viscous 2% Oromucosal Solution Lidocaine HCl Viscous 2% Oromucosal Solution 09/06/2020 12:00:00 AM EDT 7.5 MILLILITER BY MOUTH activ e <td>Lidocaine HCl Viscous 2% Oromucosal Solution</td><td>09/06/2020</td><td>Unknown</td><td>BY MOUTH</td><td>PRNQ3H</td><td>7.5 MILLILITER</td><td>[id number]</td><td>RxNorm</td><td>TAKE 7.5 MILLILITER BY MOUTH PRNQ3H swish and spit</td> [facility] Lidocaine Hydrochloride 20 MG/ML Mucous Membrane Topical Solution Lidocaine HCl Viscous 2% Oromucosal Solution Lidocaine HCl Viscous 2% Oromucosal Solution 09/06/2020 12:00:00 AM EDT 7.5 MILLILITER BY MOUTH activ e <td>Lidocaine HCl Viscous 2% Oromucosal Solution</td><td>09/06/2020</td><td>Unknown</td><td>BY MOUTH</td><td>PRNQ3H</td><td>7.5 MILLILITER</td><td>[id number]</td><td>RxNorm</td><td>TAKE 7.5 MILLILITER BY MOUTH PRNQ3H swish and spit</td> [facility] Lidocaine Hydrochloride 20 MG/ML Mucous Membrane Topical Solution Lidocaine HCl Viscous 2% Oromucosal Solution Lidocaine HCl Viscous 2% Oromucosal Solution 09/06/2020 12:00:00 AM EDT 7.5 MILLILITER BY MOUTH activ e <td>Lidocaine HCl Viscous 2% Oromucosal Solution</td><td>09/06/2020</td><td>Unknown</td><td>BY MOUTH</td><td>PRNQ3H</td><td>7.5 MILLILITER</td><td>[id number]</td><td>RxNorm</td><td>TAKE 7.5 MILLILITER BY MOUTH PRNQ3H swish and spit</td> [facility] Penicillin V Potassium 500 MG Oral Table t Penicillin V Potassium 500MG Oral Tablet Penicillin V Potassium 500MG Oral Tablet 09/06/2020 12:00:00 AM EDT 500 MILLIGRAM BY MOUTH active <td>Penic illin V Potassium 500MG Oral Tablet</td><td>09/06/2020</td><td>Unknown</td><td>BY MOUTH</td><td>4 TIMES A DAY</td><td>500 MILLIGRAM</td><td>[id number]</td><td>RxNorm</td><td>TAKE 500 MILLIGRAM BY MOUTH 4 TIMES A DAY</td> [facility] Metformin hydrochloride 1000 MG Oral Tablet metFORMIN HCl 1000MG Oral Tablet metFORMIN HCl 1000MG Oral Tablet 08/29/2020 12:00:00 AM EDT 1000 MILLIGRAMS ORAL active <td>metFORMIN HCl 1000MG Oral Tablet</td><td>08/29/2020</td><td>Unknown</td><td>ORAL</td><td>TWICE A DAY</td><td>1000 MILLIGRAMS</td><td>277631</td><td>RxNorm</td><td>TAKE 1 TABLET BY MOUTH TWICE A DAY</td> [facility] Metformin hydrochloride 1000 MG Oral Tablet metFORMIN HCl 1000MG Oral Tablet metFORMIN HCl 1000MG Oral Tablet 08/29/2020 12:00:00 AM EDT 1000 MILLIGRAMS ORAL active <td>metFORMIN HCl 1000MG Oral Tablet</td><td>08/29/2020</td><td>Unknown</td><td>ORAL</td><td>TWICE A DAY</td><td>1000 MILLIGRAMS</td><td>781083</td><td>RxNorm</td><td>TAKE 1 TABLET BY MOUTH TWICE A DAY</td> [facility] Metformin hydrochloride 1000 MG Oral Tablet metFORMIN HCl 1000MG Oral Tablet metFORMIN HCl 1000MG Oral Tablet 08/29/2020 12:00:00 AM EDT 1000 MILLIGRAMS ORAL active <td>metFORMIN HCl 1000MG Oral Tablet</td><td>08/29/2020</td><td>Unknown</td><td>ORAL</td><td>TWICE A DAY</td><td>1000 MILLIGRAMS</td><td>484444</td><td>RxNorm</td><td>TAKE 1 TABLET BY MOUTH TWICE A DAY</td> [facility] Metformin hydrochloride 1000 MG Oral Tablet metFORMIN HCl 1000MG Oral Tablet metFORMIN HCl 1000MG Oral Tablet 08/29/2020 12:00:00 AM EDT 1000 MILLIGRAMS ORAL active <td>metFORMIN HCl 1000MG Oral Tablet</td><td>08/29/2020</td><td>Unknown</td><td>ORAL</td><td>TWICE A DAY</td><td>1000 MILLIGRAMS</td><td>652433</td><td>RxNorm</td><td>TAKE 1 TABLET BY MOUTH TWICE A DAY</td> [facility] Metformin hydrochloride 1000 MG Oral Tablet metFORMIN HCl 1000MG Oral Tablet metFORMIN HCl 1000MG Oral Tablet 08/29/2020 12:00:00 AM EDT 1000 MILLIGRAMS ORAL active <td>metFORMIN HCl 1000MG Oral Tablet</td><td>08/29/2020</td><td>Unknown</td><td>ORAL</td><td>TWICE A DAY</td><td>1000 MILLIGRAMS</td><td>[id number]</td><td>RxNorm</td><td>TAKE 1 TABLET BY MOUTH TWICE A DAY</td> [facility] Metformin hydrochloride 1000 MG Oral Tablet metFORMIN HCl 1000MG Oral Tablet metFORMIN HCl 1000MG Oral Tablet 08/29/2020 12:00:00 AM EDT 1000 MILLIGRAMS ORAL active <td>metFORMIN HCl 1000MG Oral Tablet</td><td>08/29/2020</td><td>Unknown</td><td>ORAL</td><td>TWICE A DAY</td><td>1000 MILLIGRAMS</td><td>258852</td><td>RxNorm</td><td>TAKE 1 TABLET BY MOUTH TWICE A DAY</td> [facility] Metformin hydrochloride 1000 MG Oral Tablet metFORMIN HCl 1000MG Oral Tablet metFORMIN HCl 1000MG Oral Tablet 08/29/2020 12:00:00 AM EDT 1000 MILLIGRAMS ORAL active <td>metFORMIN HCl 1000MG Oral Tablet</td><td>08/29/2020</td><td>Unknown</td><td>ORAL</td><td>TWICE A DAY</td><td>1000 MILLIGRAMS</td><td>[id number]</td><td>RxNorm</td><td>TAKE 1 TABLET BY MOUTH TWICE A DAY</td> [facility] Metformin hydrochloride 1000 MG Oral Tablet metFORMIN HCl 1000MG Oral Tablet metFORMIN HCl 1000MG Oral Tablet 08/29/2020 12:00:00 AM EDT 1000 MILLIGRAMS ORAL active <td>metFORMIN HCl 1000MG Oral Tablet</td><td>08/29/2020</td><td>Unknown</td><td>ORAL</td><td>TWICE A DAY</td><td>1000 MILLIGRAMS</td><td>986519</td><td>RxNorm</td><td>TAKE 1 TABLET BY MOUTH TWICE A DAY</td> [facility] Glipizide 5 MG Oral Tablet glipiZIDE 5MG Oral Tablet glipiZI DE 5MG Oral Tablet 08/22/2020 12:00:00 AM EDT 5 MILLIGRAMS ORAL active <td>glipiZIDE 5MG Oral Tablet</td><td>08/22/2020</td><td>Unknown</td><td>ORAL</td><td>TWICE A DAY</td><td>5 MILLIGRAMS</td><td>226805</td><td>RxNorm</td><td>TAKE 1 TABLET BY MOUTH TWICE A DAY</td> [facility] Glipizide 5 MG Oral Tablet glipiZIDE 5MG Oral Tablet glipiZI DE 5MG Oral Tablet 08/22/2020 12:00:00 AM EDT 5 MILLIGRAMS ORAL active <td>glipiZIDE 5MG Oral Tablet</td><td>08/22/2020</td><td>Unknown</td><td>ORAL</td><td>TWICE A DAY</td><td>5 MILLIGRAMS</td><td>[id number]</td><td>RxNorm</td><td>TAKE 1 TABLET BY MOUTH TWICE A DAY</td> [facility] Glipizide 5 MG Oral Tablet glipiZIDE 5MG Oral Tablet glipiZI DE 5MG Oral Tablet 08/22/2020 12:00:00 AM EDT 5 MILLIGRAMS ORAL active <td>glipiZIDE 5MG Oral Tablet</td><td>08/22/2020</td><td>Unknown</td><td>ORAL</td><td>TWICE A DAY</td><td>5 MILLIGRAMS</td><td>157478</td><td>RxNorm</td><td>TAKE 1 TABLET BY MOUTH TWICE A DAY</td> [facility] Glipizide 5 MG Oral Tablet glipiZIDE 5MG Oral Tablet glipiZI DE 5MG Oral Tablet 08/22/2020 12:00:00 AM EDT 5 MILLIGRAMS ORAL active <td>glipiZIDE 5MG Oral Tablet</td><td>08/22/2020</td><td>Unknown</td><td>ORAL</td><td>TWICE A DAY</td><td>5 MILLIGRAMS</td><td>120713</td><td>RxNorm</td><td>TAKE 1 TABLET BY MOUTH TWICE A DAY</td> [facility] Glipizide 5 MG Oral Tablet glipiZIDE 5MG Oral Tablet glipiZI DE 5MG Oral Tablet 08/22/2020 12:00:00 AM EDT 5 MILLIGRAMS ORAL active <td>glipiZIDE 5MG Oral Tablet</td><td>08/22/2020</td><td>Unknown</td><td>ORAL</td><td>TWICE A DAY</td><td>5 MILLIGRAMS</td><td>948113</td><td>RxNorm</td><td>TAKE 1 TABLET BY MOUTH TWICE A DAY</td> [facility] Glipizide 5 MG Oral Tablet glipiZIDE 5MG Oral Tablet glipiZI DE 5MG Oral Tablet 08/22/2020 12:00:00 AM EDT 5 MILLIGRAMS ORAL active <td>glipiZIDE 5MG Oral Tablet</td><td>08/22/2020</td><td>Unknown</td><td>ORAL</td><td>TWICE A DAY</td><td>5 MILLIGRAMS</td><td>201498</td><td>RxNorm</td><td>TAKE 1 TABLET BY MOUTH TWICE A DAY</td> [facility] Glipizide 5 MG Oral Tablet glipiZIDE 5MG Oral Tablet glipiZI DE 5MG Oral Tablet 08/22/2020 12:00:00 AM EDT 5 MILLIGRAMS ORAL active <td>glipiZIDE 5MG Oral Tablet</td><td>08/22/2020</td><td>Unknown</td><td>ORAL</td><td>TWICE A DAY</td><td>5 MILLIGRAMS</td><td>028758</td><td>RxNorm</td><td>TAKE 1 TABLET BY MOUTH TWICE A DAY</td> [facility] Glipizide 5 MG Oral Tablet glipiZIDE 5MG Oral Tablet glipiZI DE 5MG Oral Tablet 08/22/2020 12:00:00 AM EDT 5 MILLIGRAMS ORAL active <td>glipiZIDE 5MG Oral Tablet</td><td>08/22/2020</td><td>Unknown</td><td>ORAL</td><td>TWICE A DAY</td><td>5 MILLIGRAMS</td><td>591175</td><td>RxNorm</td><td>TAKE 1 TABLET BY MOUTH TWICE A DAY</td> [facility] Acetaminophen 325 MG / Hydrocodone Chuy trate 5 MG Oral Tablet [Lyons] Lyons 5MG-325MG Oral Tablet Lyons 5MG-325MG Oral Tablet 08/13/2020 12:00:00 AM EDT 1 TABLET BY MOUTH active <td>Lyons 5MG-325MG Oral Tablet</td><td>08/13/2020</td><td>Unknown</td><td>BY MOUTH</td><td></td><td>1 TABLET</td><td>[id number]</td><td>RxNorm</td><td>TAKE 1-2 TABLET BY MOUTH every 4-6 hours as needed for pain. Max dose 8 tabs per 24 hours</td> [facility] Acetaminophen 325 MG / Hydrocodone Chuy trate 5 MG Oral Tablet [Lyons] Lyons 5MG-325MG Oral Tablet Lyons 5MG-325MG Oral Tablet 08/13/2020 12:00:00 AM EDT 1 TABLET BY MOUTH active <td>Lyons 5MG-325MG Oral Tablet</td><td>08/13/2020</td><td>Unknown</td><td>BY MOUTH</td><td></td><td>1 TABLET</td><td>[id number]</td><td>RxNorm</td><td>TAKE 1-2 TABLET BY MOUTH every 4-6 hours as needed for pain. Max dose 8 tabs per 24 hours</td> [facility] Allopurinol 100 MG Oral Tablet Allopurinol 100MG Oral Tablet Allopurinol 100MG Oral Tablet 08/12/2020 12:00:00 AM EDT 1 TABLET BY MOUTH ac tive <td>Allopurinol 100MG Oral Tablet</td><td>08/12/2020</td><td>Unknown</td><td>BY MOUTH</td><td>DAILY</td><td>1 TABLET</td><td>[id number]</td><td>RxNorm</td><td>TAKE 1 TABLET BY MOUTH DAILY</td> [facility] Allopurinol 100 MG Oral Tablet Allopurinol 100MG Oral Tablet Allopurinol 100MG Oral Tablet 08/12/2020 12:00:00 AM EDT 1 TABLET BY MOUTH ac tive <td>Allopurinol 100MG Oral Tablet</td><td>08/12/2020</td><td>Unknown</td><td>BY MOUTH</td><td>DAILY</td><td>1 TABLET</td><td>[id number]</td><td>RxNorm</td><td>TAKE 1 TABLET BY MOUTH DAILY</td> [facility] Allopurinol 100 MG Oral Tablet Allopurinol 100MG Oral Tablet Allopurinol 100MG Oral Tablet 08/12/2020 12:00:00 AM EDT 1 TABLET BY MOUTH ac tive <td>Allopurinol 100MG Oral Tablet</td><td>08/12/2020</td><td>Unknown</td><td>BY MOUTH</td><td>DAILY</td><td>1 TABLET</td><td>[id number]</td><td>RxNorm</td><td>TAKE 1 TABLET BY MOUTH DAILY</td> [facility] Allopurinol 100 MG Oral Tablet Allopurinol 100MG Oral Tablet Allopurinol 100MG Oral Tablet 08/12/2020 12:00:00 AM EDT 1 TABLET BY MOUTH ac tive <td>Allopurinol 100MG Oral Tablet</td><td>08/12/2020</td><td>Unknown</td><td>BY MOUTH</td><td>DAILY</td><td>1 TABLET</td><td>[id number]</td><td>RxNorm</td><td>TAKE 1 TABLET BY MOUTH DAILY</td> [facility] Simvastatin 10 MG Oral Tablet Simvastatin 10MG Oral Ta blet Simvastatin 10MG Oral Tablet 08/12/2020 12:00:00 AM EDT 1 TABLET ORAL active <td>Simvastatin 10MG Oral Tablet</td><td>08/12/2020</td><td>Unknown</td><td>ORAL</td><td>DAILY</td><td>1 TABLET</td><td>[id number]</td><td>RxNorm</td><td>TAKE 1 TABLET BY MOUTH ONCE A DAY</td> [facility] Allopurinol 100 MG Oral Tablet Allopurinol 100MG Oral Tablet Allopurinol 100MG Oral Tablet 08/12/2020 12:00:00 AM EDT 1 TABLET BY MOUTH ac tive <td>Allopurinol 100MG Oral Tablet</td><td>08/12/2020</td><td>Unknown</td><td>BY MOUTH</td><td>DAILY</td><td>1 TABLET</td><td>[id number]</td><td>RxNorm</td><td>TAKE 1 TABLET BY MOUTH DAILY</td> [facility] Allopurinol 100 MG Oral Tablet Allopurinol 100MG Oral Tablet Allopurinol 100MG Oral Tablet 08/12/2020 12:00:00 AM EDT 1 TABLET BY MOUTH ac tive <td>Allopurinol 100MG Oral Tablet</td><td>08/12/2020</td><td>Unknown</td><td>BY MOUTH</td><td>DAILY</td><td>1 TABLET</td><td>[id number]</td><td>RxNorm</td><td>TAKE 1 TABLET BY MOUTH DAILY</td> [facility] Simvastatin 10 MG Oral Tablet Simvastatin 10MG Oral Ta blet Simvastatin 10MG Oral Tablet 08/12/2020 12:00:00 AM EDT 1 TABLET ORAL active <td>Simvastatin 10MG Oral Tablet</td><td>08/12/2020</td><td>Unknown</td><td>ORAL</td><td>DAILY</td><td>1 TABLET</td><td>[id number]</td><td>RxNorm</td><td>TAKE 1 TABLET BY MOUTH ONCE A DAY</td> [facility] Simvastatin 10 MG Oral Tablet Simvastatin 10MG Oral Ta blet Simvastatin 10MG Oral Tablet 08/12/2020 12:00:00 AM EDT 1 TABLET ORAL active <td>Simvastatin 10MG Oral Tablet</td><td>08/12/2020</td><td>Unknown</td><td>ORAL</td><td>DAILY</td><td>1 TABLET</td><td>[id number]</td><td>RxNorm</td><td>TAKE 1 TABLET BY MOUTH ONCE A DAY</td> [facility] Allopurinol 100 MG Oral Tablet Allopurinol 100MG Oral Tablet Allopurinol 100MG Oral Tablet 08/12/2020 12:00:00 AM EDT 1 TABLET BY MOUTH ac tive <td>Allopurinol 100MG Oral Tablet</td><td>08/12/2020</td><td>Unknown</td><td>BY MOUTH</td><td>DAILY</td><td>1 TABLET</td><td>[id number]</td><td>RxNorm</td><td>TAKE 1 TABLET BY MOUTH DAILY</td> [facility] Allopurinol 100 MG Oral Tablet Allopurinol 100MG Oral Tablet Allopurinol 100MG Oral Tablet 08/12/2020 12:00:00 AM EDT 1 TABLET BY MOUTH ac tive <td>Allopurinol 100MG Oral Tablet</td><td>08/12/2020</td><td>Unknown</td><td>BY MOUTH</td><td>DAILY</td><td>1 TABLET</td><td>[id number]</td><td>RxNorm</td><td>TAKE 1 TABLET BY MOUTH DAILY</td> [facility] Amlodipine 5 MG Oral Tablet amLODIPine Besylate 5MG Or al Tablet amLODIPine Besylate 5MG Oral Tablet 08/06/2020 12:00:00 AM EDT 5 MILLIGRAMS ORAL active <td>amLODIPine Besyl ate 5MG Oral Tablet</td><td>08/06/2020</td><td>Unknown</td><td>ORAL</td><td>DAILY</td><td>5 MILLIGRAMS</td><td>[id number]</td><td>RxNorm</td><td>TAKE 1 TABLET BY MOUTH ONCE A DAY</td> [facility] Amlodipine 5 MG Oral Tablet amLODIPine Besylate 5MG Or al Tablet amLODIPine Besylate 5MG Oral Tablet 08/06/2020 12:00:00 AM EDT 5 MILLIGRAMS ORAL active <td>amLODIPine Besyl ate 5MG Oral Tablet</td><td>08/06/2020</td><td>Unknown</td><td>ORAL</td><td>DAILY</td><td>5 MILLIGRAMS</td><td>[id number]</td><td>RxNorm</td><td>TAKE 1 TABLET BY MOUTH ONCE A DAY</td> [facility] Amlodipine 5 MG Oral Tablet amLODIPine Besylate 5MG Or al Tablet amLODIPine Besylate 5MG Oral Tablet 08/06/2020 12:00:00 AM EDT 5 MILLIGRAMS ORAL active <td>amLODIPine Besyl ate 5MG Oral Tablet</td><td>08/06/2020</td><td>Unknown</td><td>ORAL</td><td>DAILY</td><td>5 MILLIGRAMS</td><td>[id number]</td><td>RxNorm</td><td>TAKE 1 TABLET BY MOUTH ONCE A DAY</td> [facility] Amlodipine 5 MG Oral Tablet amLODIPine Besylate 5MG Or al Tablet amLODIPine Besylate 5MG Oral Tablet 08/06/2020 12:00:00 AM EDT 5 MILLIGRAMS ORAL active <td>amLODIPine Besyl ate 5MG Oral Tablet</td><td>08/06/2020</td><td>Unknown</td><td>ORAL</td><td>DAILY</td><td>5 MILLIGRAMS</td><td>[id number]</td><td>RxNorm</td><td>TAKE 1 TABLET BY MOUTH ONCE A DAY</td> [facility] Amlodipine 5 MG Oral Tablet amLODIPine Besylate 5MG Or al Tablet amLODIPine Besylate 5MG Oral Tablet 08/06/2020 12:00:00 AM EDT 5 MILLIGRAMS ORAL active <td>amLODIPine Besyl ate 5MG Oral Tablet</td><td>08/06/2020</td><td>Unknown</td><td>ORAL</td><td>DAILY</td><td>5 MILLIGRAMS</td><td>[id number]</td><td>RxNorm</td><td>TAKE 1 TABLET BY MOUTH ONCE A DAY</td> [facility] Amlodipine 5 MG Oral Tablet amLODIPine Besylate 5MG Or al Tablet amLODIPine Besylate 5MG Oral Tablet 08/06/2020 12:00:00 AM EDT 5 MILLIGRAMS ORAL active <td>amLODIPine Besyl ate 5MG Oral Tablet</td><td>08/06/2020</td><td>Unknown</td><td>ORAL</td><td>DAILY</td><td>5 MILLIGRAMS</td><td>[id number]</td><td>RxNorm</td><td>TAKE 1 TABLET BY MOUTH ONCE A DAY</td> [facility] FLU VACCINE(FLUZONE)6mo&UP 0.5ML-CLINIC 05/16/2020 11:17:0 0 AM EST 0.5 mL IM OPTIONS active <td><content I D="[id number]">FLU VACCINE(FLUZONE)6mo&UP 0.5ML- CLINIC</content></td><td>05/16/2020</td><td>05/16/2020</td><td>IM OPTIONS</td><td>X1</td><td>0.5 ML</td><td> [id number]</td><td>RxNorm</td><td><content ID="[id number]">0.5 ML IM OPTIONS ONE TIME DOSE</content></td> [facility] gabapentin 600 MG Oral Tablet Gabapentin 600MG Oral Ta blet Gabapentin 600MG Oral Tablet 05/16/2020 12:00:00 AM EST 1 TABLET BY MOUTH active <td>Gabapentin 600MG Oral Tablet</td><td>05/16/2020</td><td>Unknown</td><td>BY MOUTH</td><td>THREE TIMES A DAY</td><td>1 TABLET</td><td>[id number]</td><td>RxNorm</td><td>TAKE 1 TABLET BY MOUTH THREE TIMES A DAY</td> [facility] gabapentin 600 MG Oral Tablet Gabapentin 600MG Oral Ta blet Gabapentin 600MG Oral Tablet 05/16/2020 12:00:00 AM EST 1 TABLET BY MOUTH active <td>Gabapentin 600MG Oral Tablet</td><td>05/16/2020</td><td>Unknown</td><td>BY MOUTH</td><td>THREE TIMES A DAY</td><td>1 TABLET</td><td>744184</td><td>RxNorm</td><td>TAKE 1 TABLET BY MOUTH THREE TIMES A DAY</td> [facility] gabapentin 600 MG Oral Tablet Gabapentin 600MG Oral Ta blet Gabapentin 600MG Oral Tablet 05/16/2020 12:00:00 AM EST 1 TABLET BY MOUTH active <td>Gabapentin 600MG Oral Tablet</td><td>05/16/2020</td><td>Unknown</td><td>BY MOUTH</td><td>THREE TIMES A DAY</td><td>1 TABLET</td><td>[id number]</td><td>RxNorm</td><td>TAKE 1 TABLET BY MOUTH THREE TIMES A DAY</td> [facility] gabapentin 600 MG Oral Tablet Gabapentin 600MG Oral Ta blet Gabapentin 600MG Oral Tablet 05/16/2020 12:00:00 AM EST 1 TABLET BY MOUTH active <td>Gabapentin 600MG Oral Tablet</td><td>05/16/2020</td><td>Unknown</td><td>BY MOUTH</td><td>THREE TIMES A DAY</td><td>1 TABLET</td><td>702761</td><td>RxNorm</td><td>TAKE 1 TABLET BY MOUTH THREE TIMES A DAY</td> [facility] gabapentin 600 MG Oral Tablet Gabapentin 600MG Oral Ta blet Gabapentin 600MG Oral Tablet 05/16/2020 12:00:00 AM EST 1 TABLET BY MOUTH active <td>Gabapentin 600MG Oral Tablet</td><td>05/16/2020</td><td>Unknown</td><td>BY MOUTH</td><td>THREE TIMES A DAY</td><td>1 TABLET</td><td>158710</td><td>RxNorm</td><td>TAKE 1 TABLET BY MOUTH THREE TIMES A DAY</td> [facility] gabapentin 600 MG Oral Tablet Gabapentin 600MG Oral Ta blet Gabapentin 600MG Oral Tablet 05/16/2020 12:00:00 AM EST 1 TABLET BY MOUTH active <td>Gabapentin 600MG Oral Tablet</td><td>05/16/2020</td><td>Unknown</td><td>BY MOUTH</td><td>THREE TIMES A DAY</td><td>1 TABLET</td><td>020226</td><td>RxNorm</td><td>TAKE 1 TABLET BY MOUTH THREE TIMES A DAY</td> [facility] gabapentin 600 MG Oral Tablet Gabapentin 600MG Oral Ta blet Gabapentin 600MG Oral Tablet 05/16/2020 12:00:00 AM EST 1 TABLET BY MOUTH active <td>Gabapentin 600MG Oral Tablet</td><td>05/16/2020</td><td>Unknown</td><td>BY MOUTH</td><td>THREE TIMES A DAY</td><td>1 TABLET</td><td>725430</td><td>RxNorm</td><td>TAKE 1 TABLET BY MOUTH THREE TIMES A DAY</td> [facility] gabapentin 600 MG Oral Tablet Gabapentin 600MG Oral Ta blet Gabapentin 600MG Oral Tablet 05/16/2020 12:00:00 AM EST 1 TABLET BY MOUTH active <td>Gabapentin 600MG Oral Tablet</td><td>05/16/2020</td><td>Unknown</td><td>BY MOUTH</td><td>THREE TIMES A DAY</td><td>1 TABLET</td><td>237243</td><td>RxNorm</td><td>TAKE 1 TABLET BY MOUTH THREE TIMES A DAY</td> [facility] gabapentin 600 MG Oral Tablet Gabapentin 600MG Oral Ta blet Gabapentin 600MG Oral Tablet 05/16/2020 12:00:00 AM EST 1 TABLET BY MOUTH active <td>Gabapentin 600MG Oral Tablet</td><td>05/16/2020</td><td>Unknown</td><td>BY MOUTH</td><td>THREE TIMES A DAY</td><td>1 TABLET</td><td>110976</td><td>RxNorm</td><td>TAKE 1 TABLET BY MOUTH THREE TIMES A DAY</td> [facility] gabapentin 600 MG Oral Tablet Gabapentin 600MG Oral Ta blet Gabapentin 600MG Oral Tablet 05/16/2020 12:00:00 AM EST 1 TABLET BY MOUTH active <td>Gabapentin 600MG Oral Tablet</td><td>05/16/2020</td><td>Unknown</td><td>BY MOUTH</td><td>THREE TIMES A DAY</td><td>1 TABLET</td><td>367215</td><td>RxNorm</td><td>TAKE 1 TABLET BY MOUTH THREE TIMES A DAY</td> [facility] Vitamin B12 1000MCG Oral Tablet, Extended Release 05/14/2020 12:00:00 AM EST 1 TABLET BY MOUTH active <td>Vitamin B1 2 1000MCG Oral Tablet, Extended Release</td><td>05/14/2020</td><td>Unknown</td><td>BY MOUTH</td><td></td><td>1 TABLET</td><td></td><td>RxNorm</td><td>TAKE 1 TABLET BY MOUTH ONCE DAILY</td> [facility] Vitamin B12 1000MCG Oral Tablet, Extended Release 05/14/2020 12:00:00 AM EST 1 TABLET BY MOUTH active <td>Vitamin B1 2 1000MCG Oral Tablet, Extended Release</td><td>05/14/2020</td><td>Unknown</td><td>BY MOUTH</td><td></td><td>1 TABLET</td><td></td><td>RxNorm</td><td>TAKE 1 TABLET BY MOUTH ONCE DAILY</td> [facility] Hydrochlorothiazide 12.5 MG Oral Tablet hydroCHLOROthi azide 12.5MG Oral Tablet hydroCHLOROthiazide 12.5MG Oral Tablet 03/14/2020 12:00:00 AM EST 1 TABLET BY MOUTH active <td>hydroCHLOR Othiazide 12.5MG Oral Tablet</td><td>03/14/2020</td><td>Unknown</td><td>BY MOUTH</td><td>DAILY</td><td>1 TABLET</td><td>[id number]</td><td>RxNorm</td><td>TAKE 1 CAPSULE BY MOUTH ONCE A DAY</td> [facility] insulin human, isophane 70 UNT/ML / Regu lar Insulin, Human 30 UNT/ML Injectable Suspension [Novolin] NovoLIN 70/30 70U-30U/1ML Subcutaneous Suspension NovoLIN 70/30 70U-30U/1ML Subcutaneous Suspension 03/14/2020 12:00:00 AM EST 50 U SUBCUTANEOUS active <td>NovoLIN 70/30 70U-30U/1ML Subcutaneous Suspension</td><td>03/14/2020</td><td>Unknown</td><td>SUBCUTANEOUS</td><td>TWICE A DAY</td><td>50 UNIT</td><td>[id number]</td><td>RxNorm</td><td>INJECT 50 UNITS SUBCUTANEOUSLY TWICE DAILY</td> [facility] Hydrochlorothiazide 12.5 MG Oral Tablet hydroCHLOROthi azide 12.5MG Oral Tablet hydroCHLOROthiazide 12.5MG Oral Tablet 03/14/2020 12:00:00 AM EST 1 TABLET BY MOUTH active <td>hydroCHLOR Othiazide 12.5MG Oral Tablet</td><td>03/14/2020</td><td>Unknown</td><td>BY MOUTH</td><td>DAILY</td><td>1 TABLET</td><td>054165</td><td>RxNorm</td><td>TAKE 1 CAPSULE BY MOUTH ONCE A DAY</td> [facility] insulin human, isophane 70 UNT/ML / Regu lar Insulin, Human 30 UNT/ML Injectable Suspension [Novolin] NovoLIN 70/30 70U-30U/1ML Subcutaneous Suspension NovoLIN 70/30 70U-30U/1ML Subcutaneous Suspension 03/14/2020 12:00:00 AM EST 50 U SUBCUTANEOUS active <td>NovoLIN 70/30 70U-30U/1ML Subcutaneous Suspension</td><td>03/14/2020</td><td>Unknown</td><td>SUBCUTANEOUS</td><td>TWICE A DAY</td><td>50 UNIT</td><td>455737</td><td>RxNorm</td><td>INJECT 50 UNITS SUBCUTANEOUSLY TWICE DAILY</td> [facility] Hydrochlorothiazide 12.5 MG Oral Tablet hydroCHLOROthi azide 12.5MG Oral Tablet hydroCHLOROthiazide 12.5MG Oral Tablet 03/14/2020 12:00:00 AM EST 1 TABLET BY MOUTH active <td>hydroCHLOR Othiazide 12.5MG Oral Tablet</td><td>03/14/2020</td><td>Unknown</td><td>BY MOUTH</td><td>DAILY</td><td>1 TABLET</td><td>102141</td><td>RxNorm</td><td>TAKE 1 CAPSULE BY MOUTH ONCE A DAY</td> [facility] Hydrochlorothiazide 12.5 MG Oral Tablet hydroCHLOROthi azide 12.5MG Oral Tablet hydroCHLOROthiazide 12.5MG Oral Tablet 03/14/2020 12:00:00 AM EST 1 TABLET BY MOUTH active <td>hydroCHLOR Othiazide 12.5MG Oral Tablet</td><td>03/14/2020</td><td>Unknown</td><td>BY MOUTH</td><td>DAILY</td><td>1 TABLET</td><td>641387</td><td>RxNorm</td><td>TAKE 1 CAPSULE BY MOUTH ONCE A DAY</td> [facility] Hydrochlorothiazide 12.5 MG Oral Tablet hydroCHLOROthi azide 12.5MG Oral Tablet hydroCHLOROthiazide 12.5MG Oral Tablet 03/14/2020 12:00:00 AM EST 1 TABLET BY MOUTH active <td>hydroCHLOR Othiazide 12.5MG Oral Tablet</td><td>03/14/2020</td><td>Unknown</td><td>BY MOUTH</td><td>DAILY</td><td>1 TABLET</td><td>229499</td><td>RxNorm</td><td>TAKE 1 CAPSULE BY MOUTH ONCE A DAY</td> [facility] Hydrochlorothiazide 12.5 MG Oral Tablet hydroCHLOROthi azide 12.5MG Oral Tablet hydroCHLOROthiazide 12.5MG Oral Tablet 03/14/2020 12:00:00 AM EST 1 TABLET BY MOUTH active <td>hydroCHLOR Othiazide 12.5MG Oral Tablet</td><td>03/14/2020</td><td>Unknown</td><td>BY MOUTH</td><td>DAILY</td><td>1 TABLET</td><td>521337</td><td>RxNorm</td><td>TAKE 1 CAPSULE BY MOUTH ONCE A DAY</td> [facility] Hydrochlorothiazide 12.5 MG Oral Tablet hydroCHLOROthi azide 12.5MG Oral Tablet hydroCHLOROthiazide 12.5MG Oral Tablet 03/14/2020 12:00:00 AM EST 1 TABLET BY MOUTH active <td>hydroCHLOR Othiazide 12.5MG Oral Tablet</td><td>03/14/2020</td><td>Unknown</td><td>BY MOUTH</td><td>DAILY</td><td>1 TABLET</td><td>[id number]</td><td>RxNorm</td><td>TAKE 1 CAPSULE BY MOUTH ONCE A DAY</td> [facility] Hydrochlorothiazide 12.5 MG Oral Tablet hydroCHLOROthi azide 12.5MG Oral Tablet hydroCHLOROthiazide 12.5MG Oral Tablet 03/14/2020 12:00:00 AM EST 1 TABLET BY MOUTH active <td>hydroCHLOR Othiazide 12.5MG Oral Tablet</td><td>03/14/2020</td><td>Unknown</td><td>BY MOUTH</td><td>DAILY</td><td>1 TABLET</td><td>878075</td><td>RxNorm</td><td>TAKE 1 CAPSULE BY MOUTH ONCE A DAY</td> [facility] Hydrochlorothiazide 12.5 MG Oral Tablet hydroCHLOROthi azide 12.5MG Oral Tablet hydroCHLOROthiazide 12.5MG Oral Tablet 03/14/2020 12:00:00 AM EST 1 TABLET BY MOUTH active <td>hydroCHLOR Othiazide 12.5MG Oral Tablet</td><td>03/14/2020</td><td>Unknown</td><td>BY MOUTH</td><td>DAILY</td><td>1 TABLET</td><td>039252</td><td>RxNorm</td><td>TAKE 1 CAPSULE BY MOUTH ONCE A DAY</td> [facility] Hydrochlorothiazide 12.5 MG Oral Tablet hydroCHLOROthi azide 12.5MG Oral Tablet hydroCHLOROthiazide 12.5MG Oral Tablet 03/14/2020 12:00:00 AM EST 1 TABLET BY MOUTH active <td>hydroCHLOR Othiazide 12.5MG Oral Tablet</td><td>03/14/2020</td><td>Unknown</td><td>BY MOUTH</td><td>DAILY</td><td>1 TABLET</td><td>937951</td><td>RxNorm</td><td>TAKE 1 CAPSULE BY MOUTH ONCE A DAY</td> [facility] Tylenol 8 Hour 650MG Oral Tablet, Extended Release 02/25/2020 12:00:00 AM EST 1 TABLET BY MOUTH active <td>Tylenol 8 Hour 650MG Oral Tablet, Extended Release</td><td>02/25/2020</td><td>Unknown</td><td>BY MOUTH</td><td> NEEDED EVERY 8HR</td><td>1 TABLET</td><td></td><td>RxNorm</td><td>TAKE 1 TABLET BY MOUTH NEEDED EVERY 8HR</td> [facility] Tylenol 8 Hour 650MG Oral Tablet, Extended Release 02/25/2020 12:00:00 AM EST 1 TABLET BY MOUTH active <td>Tylenol 8 Hour 650MG Oral Tablet, Extended Release</td><td>02/25/2020</td><td>Unknown</td><td>BY MOUTH</td><td> NEEDED EVERY 8HR</td><td>1 TABLET</td><td></td><td>RxNorm</td><td>TAKE 1 TABLET BY MOUTH NEEDED EVERY 8HR</td> [facility] Tylenol 8 Hour 650MG Oral Tablet, Extended Release 02/25/2020 12:00:00 AM EST 1 TABLET BY MOUTH active <td>Tylenol 8 Hour 650MG Oral Tablet, Extended Release</td><td>02/25/2020</td><td>Unknown</td><td>BY MOUTH</td><td> NEEDED EVERY 8HR</td><td>1 TABLET</td><td></td><td>RxNorm</td><td>TAKE 1 TABLET BY MOUTH NEEDED EVERY 8HR</td> [facility] Tylenol 8 Hour 650MG Oral Tablet, Extended Release 02/25/2020 12:00:00 AM EST 1 TABLET BY MOUTH active <td>Tylenol 8 Hour 650MG Oral Tablet, Extended Release</td><td>02/25/2020</td><td>Unknown</td><td>BY MOUTH</td><td> NEEDED EVERY 8HR</td><td>1 TABLET</td><td></td><td>RxNorm</td><td>TAKE 1 TABLET BY MOUTH NEEDED EVERY 8HR</td> [facility] Tylenol 8 Hour 650MG Oral Tablet, Extended Release 02/25/2020 12:00:00 AM EST 1 TABLET BY MOUTH active <td>Tylenol 8 Hour 650MG Oral Tablet, Extended Release</td><td>02/25/2020</td><td>Unknown</td><td>BY MOUTH</td><td> NEEDED EVERY 8HR</td><td>1 TABLET</td><td></td><td>RxNorm</td><td>TAKE 1 TABLET BY MOUTH NEEDED EVERY 8HR</td> [facility] Tylenol 8 Hour 650MG Oral Tablet, Extended Release 02/25/2020 12:00:00 AM EST 1 TABLET BY MOUTH active <td>Tylenol 8 Hour 650MG Oral Tablet, Extended Release</td><td>02/25/2020</td><td>Unknown</td><td>BY MOUTH</td><td> NEEDED EVERY 8HR</td><td>1 TABLET</td><td></td><td>RxNorm</td><td>TAKE 1 TABLET BY MOUTH NEEDED EVERY 8HR</td> [facility] Tylenol 8 Hour 650MG Oral Tablet, Extended Release 02/25/2020 12:00:00 AM EST 1 TABLET BY MOUTH active <td>Tylenol 8 Hour 650MG Oral Tablet, Extended Release</td><td>02/25/2020</td><td>Unknown</td><td>BY MOUTH</td><td> NEEDED EVERY 8HR</td><td>1 TABLET</td><td></td><td>RxNorm</td><td>TAKE 1 TABLET BY MOUTH NEEDED EVERY 8HR</td> [facility] Tylenol 8 Hour 650MG Oral Tablet, Extended Release 02/25/2020 12:00:00 AM EST 1 TABLET BY MOUTH active <td>Tylenol 8 Hour 650MG Oral Tablet, Extended Release</td><td>02/25/2020</td><td>Unknown</td><td>BY MOUTH</td><td> NEEDED EVERY 8HR</td><td>1 TABLET</td><td></td><td>RxNorm</td><td>TAKE 1 TABLET BY MOUTH NEEDED EVERY 8HR</td> [facility] Tylenol 8 Hour 650MG Oral Tablet, Extended Release 02/25/2020 12:00:00 AM EST 1 TABLET BY MOUTH active <td>Tylenol 8 Hour 650MG Oral Tablet, Extended Release</td><td>02/25/2020</td><td>Unknown</td><td>BY MOUTH</td><td> NEEDED EVERY 8HR</td><td>1 TABLET</td><td></td><td>RxNorm</td><td>TAKE 1 TABLET BY MOUTH NEEDED EVERY 8HR</td> [facility] Tylenol 8 Hour 650MG Oral Tablet, Extended Release 02/25/2020 12:00:00 AM EST 1 TABLET BY MOUTH active <td>Tylenol 8 Hour 650MG Oral Tablet, Extended Release</td><td>02/25/2020</td><td>Unknown</td><td>BY MOUTH</td><td> NEEDED EVERY 8HR</td><td>1 TABLET</td><td></td><td>RxNorm</td><td>TAKE 1 TABLET BY MOUTH NEEDED EVERY 8HR</td> [facility] Tylenol 8 Hour 650MG Oral Tablet, Extended Release 02/25/2020 12:00:00 AM EST 1 TABLET BY MOUTH active <td>Tylenol 8 Hour 650MG Oral Tablet, Extended Release</td><td>02/25/2020</td><td>Unknown</td><td>BY MOUTH</td><td> NEEDED EVERY 8HR</td><td>1 TABLET</td><td></td><td>RxNorm</td><td>TAKE 1 TABLET BY MOUTH NEEDED EVERY 8HR</td> [facility] Simvastatin 10 MG Oral Tablet Simvastatin 10MG Oral Ta blet Simvastatin 10MG Oral Tablet 02/12/2020 12:00:00 AM EST 1 TABLET ORAL active <td>Simvastatin 10MG Oral Tablet</td><td>02/12/2020</td><td>Unknown</td><td>ORAL</td><td>DAILY</td><td>1 TABLET</td><td>[id number]</td><td>RxNorm</td><td>TAKE 1 TABLET BY MOUTH ONCE A DAY</td> [facility] Allopurinol 100 MG Oral Tablet Allopurinol 100MG Oral Tablet Allopurinol 100MG Oral Tablet 02/12/2020 12:00:00 AM EST 1 TABLET BY MOUTH ac tive <td>Allopurinol 100MG Oral Tablet</td><td>02/12/2020</td><td>Unknown</td><td>BY MOUTH</td><td>DAILY</td><td>1 TABLET</td><td>462399</td><td>RxNorm</td><td>TAKE 1 TABLET BY MOUTH DAILY</td> [facility] Simvastatin 10 MG Oral Tablet Simvastatin 10MG Oral Ta blet Simvastatin 10MG Oral Tablet 02/12/2020 12:00:00 AM EST 1 TABLET ORAL active <td>Simvastatin 10MG Oral Tablet</td><td>02/12/2020</td><td>Unknown</td><td>ORAL</td><td>DAILY</td><td>1 TABLET</td><td>683553</td><td>RxNorm</td><td>TAKE 1 TABLET BY MOUTH ONCE A DAY</td> [facility] Simvastatin 10 MG Oral Tablet Simvastatin 10MG Oral Ta blet Simvastatin 10MG Oral Tablet 02/12/2020 12:00:00 AM EST 1 TABLET ORAL active <td>Simvastatin 10MG Oral Tablet</td><td>02/12/2020</td><td>Unknown</td><td>ORAL</td><td>DAILY</td><td>1 TABLET</td><td>187859</td><td>RxNorm</td><td>TAKE 1 TABLET BY MOUTH ONCE A DAY</td> [facility] Allopurinol 100 MG Oral Tablet Allopurinol 100MG Oral Tablet Allopurinol 100MG Oral Tablet 02/12/2020 12:00:00 AM EST 1 TABLET BY MOUTH ac tive <td>Allopurinol 100MG Oral Tablet</td><td>02/12/2020</td><td>Unknown</td><td>BY MOUTH</td><td>DAILY</td><td>1 TABLET</td><td>[id number]</td><td>RxNorm</td><td>TAKE 1 TABLET BY MOUTH DAILY</td> [facility] Allopurinol 100 MG Oral Tablet Allopurinol 100MG Oral Tablet Allopurinol 100MG Oral Tablet 02/12/2020 12:00:00 AM EST 1 TABLET BY MOUTH ac tive <td>Allopurinol 100MG Oral Tablet</td><td>02/12/2020</td><td>Unknown</td><td>BY MOUTH</td><td>DAILY</td><td>1 TABLET</td><td>[id number]</td><td>RxNorm</td><td>TAKE 1 TABLET BY MOUTH DAILY</td> [facility] Amlodipine 5 MG Oral Tablet amLODIPine Besylate 5MG Or al Tablet amLODIPine Besylate 5MG Oral Tablet 01/19/2020 12:00:00 AM EDT 5 MILLIGRAMS ORAL active <td>amLODIPine Besyl ate 5MG Oral Tablet</td><td>01/19/2020</td><td>Unknown</td><td>ORAL</td><td>DAILY</td><td>5 MILLIGRAMS</td><td>[id number]</td><td>RxNorm</td><td>TAKE 1 TABLET BY MOUTH ONCE A DAY</td> [facility] Amlodipine 5 MG Oral Tablet amLODIPine Besylate 5MG Or al Tablet amLODIPine Besylate 5MG Oral Tablet 01/19/2020 12:00:00 AM EDT 5 MILLIGRAMS ORAL active <td>amLODIPine Besyl ate 5MG Oral Tablet</td><td>01/19/2020</td><td>Unknown</td><td>ORAL</td><td>DAILY</td><td>5 MILLIGRAMS</td><td>[id number]</td><td>RxNorm</td><td>TAKE 1 TABLET BY MOUTH ONCE A DAY</td> [facility] Amlodipine 5 MG Oral Tablet amLODIPine Besylate 5MG Or al Tablet amLODIPine Besylate 5MG Oral Tablet 01/19/2020 12:00:00 AM EDT 5 MILLIGRAMS ORAL active <td>amLODIPine Besyl ate 5MG Oral Tablet</td><td>01/19/2020</td><td>Unknown</td><td>ORAL</td><td>DAILY</td><td>5 MILLIGRAMS</td><td>[id number]</td><td>RxNorm</td><td>TAKE 1 TABLET BY MOUTH ONCE A DAY</td> [facility] Glipizide 5 MG Oral Tablet glipiZIDE 5MG Oral Tablet glipiZI DE 5MG Oral Tablet 12/27/2019 12:00:00 AM EDT 5 MILLIGRAMS ORAL active <td>glipiZIDE 5MG Oral Tablet</td><td>12/27/2019</td><td>Unknown</td><td>ORAL</td><td>TWICE A DAY</td><td>5 MILLIGRAMS</td><td>[id number]</td><td>RxNorm</td><td>TAKE 1 TABLET BY MOUTH TWICE A DAY</td> [facility] Glipizide 5 MG Oral Tablet glipiZIDE 5MG Oral Tablet glipiZI DE 5MG Oral Tablet 12/27/2019 12:00:00 AM EDT 5 MILLIGRAMS ORAL active <td>glipiZIDE 5MG Oral Tablet</td><td>12/27/2019</td><td>Unknown</td><td>ORAL</td><td>TWICE A DAY</td><td>5 MILLIGRAMS</td><td>[id number]</td><td>RxNorm</td><td>TAKE 1 TABLET BY MOUTH TWICE A DAY</td> [facility] Glipizide 5 MG Oral Tablet glipiZIDE 5MG Oral Tablet glipiZI DE 5MG Oral Tablet 12/27/2019 12:00:00 AM EDT 5 MILLIGRAMS ORAL active <td>glipiZIDE 5MG Oral Tablet</td><td>12/27/2019</td><td>Unknown</td><td>ORAL</td><td>TWICE A DAY</td><td>5 MILLIGRAMS</td><td>[id number]</td><td>RxNorm</td><td>TAKE 1 TABLET BY MOUTH TWICE A DAY</td> [facility] Metformin hydrochloride 1000 MG Oral Tablet metFORMIN HCl 1000MG Oral Tablet metFORMIN HCl 1000MG Oral Tablet 12/21/2019 12:00:00 AM EDT 1000 MILLIGRAMS ORAL active <td>metFORMIN HCl 1000MG Oral Tablet</td><td>12/21/2019</td><td>Unknown</td><td>ORAL</td><td>TWICE A DAY</td><td>1000 MILLIGRAMS</td><td>[id number]</td><td>RxNorm</td><td>TAKE 1 TABLET BY MOUTH TWICE A DAY</td> [facility] Metformin hydrochloride 1000 MG Oral Tablet metFORMIN HCl 1000MG Oral Tablet metFORMIN HCl 1000MG Oral Tablet 12/21/2019 12:00:00 AM EDT 1000 MILLIGRAMS ORAL active <td>metFORMIN HCl 1000MG Oral Tablet</td><td>12/21/2019</td><td>Unknown</td><td>ORAL</td><td>TWICE A DAY</td><td>1000 MILLIGRAMS</td><td>[id number]</td><td>RxNorm</td><td>TAKE 1 TABLET BY MOUTH TWICE A DAY</td> [facility] Metformin hydrochloride 1000 MG Oral Tablet metFORMIN HCl 1000MG Oral Tablet metFORMIN HCl 1000MG Oral Tablet 12/21/2019 12:00:00 AM EDT 1000 MILLIGRAMS ORAL active <td>metFORMIN HCl 1000MG Oral Tablet</td><td>12/21/2019</td><td>Unknown</td><td>ORAL</td><td>TWICE A DAY</td><td>1000 MILLIGRAMS</td><td>[id number]</td><td>RxNorm</td><td>TAKE 1 TABLET BY MOUTH TWICE A DAY</td> [facility] Lisinopril 20 MG Oral Tablet Lisinopril 20MG Oral Tabl et Lisinopril 20MG Oral Tablet 12/18/2019 12:00:00 AM EDT 1 TABLET BY MOUTH active <td>Lisinopril 20MG Oral Tablet</td><td>12/18/2019</td><td>Unknown</td><td>BY MOUTH</td><td>DAILY</td><td>1 TABLET</td><td>[id number]</td><td>RxNorm</td><td>TAKE 1 TABLET BY MOUTH DAILY</td> [facility] Lisinopril 20 MG Oral Tablet Lisinopril 20MG Oral Tabl et Lisinopril 20MG Oral Tablet 12/18/2019 12:00:00 AM EDT 1 TABLET BY MOUTH active <td>Lisinopril 20MG Oral Tablet</td><td>12/18/2019</td><td>Unknown</td><td>BY MOUTH</td><td>DAILY</td><td>1 TABLET</td><td>[id number]</td><td>RxNorm</td><td>TAKE 1 TABLET BY MOUTH DAILY</td> [facility] Lisinopril 20 MG Oral Tablet Lisinopril 20MG Oral Tabl et Lisinopril 20MG Oral Tablet 12/18/2019 12:00:00 AM EDT 1 TABLET BY MOUTH active <td>Lisinopril 20MG Oral Tablet</td><td>12/18/2019</td><td>Unknown</td><td>BY MOUTH</td><td>DAILY</td><td>1 TABLET</td><td>[id number]</td><td>RxNorm</td><td>TAKE 1 TABLET BY MOUTH DAILY</td> [facility] Lisinopril 20 MG Oral Tablet Lisinopril 20MG Oral Tabl et Lisinopril 20MG Oral Tablet 12/18/2019 12:00:00 AM EDT 1 TABLET BY MOUTH active <td>Lisinopril 20MG Oral Tablet</td><td>12/18/2019</td><td>Unknown</td><td>BY MOUTH</td><td>DAILY</td><td>1 TABLET</td><td>[id number]</td><td>RxNorm</td><td>TAKE 1 TABLET BY MOUTH DAILY</td> [facility] Lisinopril 20 MG Oral Tablet Lisinopril 20MG Oral Tabl et Lisinopril 20MG Oral Tablet 12/18/2019 12:00:00 AM EDT 1 TABLET BY MOUTH active <td>Lisinopril 20MG Oral Tablet</td><td>12/18/2019</td><td>Unknown</td><td>BY MOUTH</td><td>DAILY</td><td>1 TABLET</td><td>[id number]</td><td>RxNorm</td><td>TAKE 1 TABLET BY MOUTH DAILY</td> [facility] Lisinopril 20 MG Oral Tablet Lisinopril 20MG Oral Tabl et Lisinopril 20MG Oral Tablet 12/18/2019 12:00:00 AM EDT 1 TABLET BY MOUTH active <td>Lisinopril 20MG Oral Tablet</td><td>12/18/2019</td><td>Unknown</td><td>BY MOUTH</td><td>DAILY</td><td>1 TABLET</td><td>[id number]</td><td>RxNorm</td><td>TAKE 1 TABLET BY MOUTH DAILY</td> [facility] Lisinopril 20 MG Oral Tablet Lisinopril 20MG Oral Tabl et Lisinopril 20MG Oral Tablet 12/18/2019 12:00:00 AM EDT 1 TABLET BY MOUTH active <td>Lisinopril 20MG Oral Tablet</td><td>12/18/2019</td><td>Unknown</td><td>BY MOUTH</td><td>DAILY</td><td>1 TABLET</td><td>396155</td><td>RxNorm</td><td>TAKE 1 TABLET BY MOUTH DAILY</td> [facility] Lisinopril 20 MG Oral Tablet Lisinopril 20MG Oral Tabl et Lisinopril 20MG Oral Tablet 12/18/2019 12:00:00 AM EDT 1 TABLET BY MOUTH active <td>Lisinopril 20MG Oral Tablet</td><td>12/18/2019</td><td>Unknown</td><td>BY MOUTH</td><td>DAILY</td><td>1 TABLET</td><td>266377</td><td>RxNorm</td><td>TAKE 1 TABLET BY MOUTH DAILY</td> [facility] Lisinopril 20 MG Oral Tablet Lisinopril 20MG Oral Tabl et Lisinopril 20MG Oral Tablet 12/18/2019 12:00:00 AM EDT 1 TABLET BY MOUTH active <td>Lisinopril 20MG Oral Tablet</td><td>12/18/2019</td><td>Unknown</td><td>BY MOUTH</td><td>DAILY</td><td>1 TABLET</td><td>661377</td><td>RxNorm</td><td>TAKE 1 TABLET BY MOUTH DAILY</td> [facility] Lisinopril 20 MG Oral Tablet Lisinopril 20MG Oral Tabl et Lisinopril 20MG Oral Tablet 12/18/2019 12:00:00 AM EDT 1 TABLET BY MOUTH active <td>Lisinopril 20MG Oral Tablet</td><td>12/18/2019</td><td>Unknown</td><td>BY MOUTH</td><td>DAILY</td><td>1 TABLET</td><td>665645</td><td>RxNorm</td><td>TAKE 1 TABLET BY MOUTH DAILY</td> [facility] Lisinopril 20 MG Oral Tablet Lisinopril 20MG Oral Tabl et Lisinopril 20MG Oral Tablet 12/18/2019 12:00:00 AM EDT 1 TABLET BY MOUTH active <td>Lisinopril 20MG Oral Tablet</td><td>12/18/2019</td><td>Unknown</td><td>BY MOUTH</td><td>DAILY</td><td>1 TABLET</td><td>948783</td><td>RxNorm</td><td>TAKE 1 TABLET BY MOUTH DAILY</td> [facility] Insurance Providers Payer name Policy type / Coverage type Policy ID Covered green party ID Covered green party's relationship to [place] Policy [place] Plan Information HUMANA HMO [id number] SP [id number] HAJA [id number] SP [id number] HAJA [id number] SP [id number] MEDICARE [id number] SP [id number] A MEDICARE [id number] SP [id number] MEDICARE [id number] SP [id number] A [facility] [id number] S [id number] [facility] [id number] SP [id number] [facility] [id number] SP [id number] WELLCARE [id number] SP [id number] WELLCARE [id number] SP [id number] MEDICARE [id number] S [id number] WELLCARE [id number] S [id number] MEDICARE-CLINIC [id number] undefined [id number] [facility] OPTIONS-CLINIC [id number] undefi michelle [id number] [facility] NONE S NONE [facility] OPTIONS [id number] S [id number] MEDICARE [id number] S [id number] [facility] HE[facility] C[facility] OPTIONS-OP [id number] undefined [id number] MEDICARE -RECURRING [id number] undefined [id number] [facility] OPTIONS-RECURRING [id number] und efined [id number] MEDICARE C [id number] S [id number] AARP O [id number] S [id number] COMMERCIAL -RECURRING X u ndefined X [facility] OPTIONS [id number] 18 [id number] MEDICARE PART A [facility] [id number] 18 [id number] [place] MEDICAID MANAGED CARE - OP [id number] und efined [id number] [facility] [id number] undefined [id number] MEDICARE-CLINIC [id number] undefined [id number] MEDICARE-OP [id number] undefined [id number] [place] MEDICAID MANAGED CARE - CLINIC [id number] undefined [id number] [facility] MEDICAID MANAGED CARE - OP [id number] un defined [id number] [facility] MANAGED CARE [id number] undefined [id number] ANSI-Medicare Part B [id number] ANSI-Commercial [id number] [facility] OPT[facility] [id number] SP [id number] MEDICARE [id number] SP [id number] [facility] OPTIONS [id number] SP [id number] MEDICARE [id number] SP [id number] A ANSI-Medicare Part B [id number] ANSI-Commercial [id number] ANSI-Medicare Part B [id number] ANSI-Commercial [id number] [facility] [id number] undefined [id number] [facility] MEDICAID MANAGED CARE - OP [id number] un defined [id number] [facility]MANA [facility]-OP [id number] undefined [id number] MEDICAID [facility] [id number] undef ined [id number] [facility]ICAID [facility] [id number] undefined [id number] MEDICARE C [id number] S [id number] A HAJA MEDICAID MANAGED CARE - OP UNAVAILABLE UNAVAILABLE [place] [id number] S [id number] HAJA RECURRING [id number] 18 [id number] HAJA CARE [id number] S [id number] HAJA UNAVAILABLE UNAVAILA BLE HUMANA PPO [id number] SP [id number] HAJA MEDICARE [id number] SP [id number] [place] [id number] S [id number] HUMANA PPO O [id number] S [id number] WELLCARE [id number] SP [id number] HUMANA PPO UNAVAILABLE SP UNAVAIL ABLE [facility] HEALTH PLANS - CLINIC [id number] undefined [id number] WELLCARE HEALTH PLANS - OP [id number] undefined [id number] WELLCARE HEALTH PLANS - PHYSICIAN [id number] undefi michelle [id number] WELLCARE [id number] S [id number] WELLCARE HEALTH PLANS - RECURRING [id number] undefi michelle [id number] WELLCARE [id number] S [id number] AETNA MEDICARE [id number] SP [id number] [facility] [id number] SP [id number] MEDICARE-OP [id number] undefined [id number] [employer] [facility] OPTIONS [id number] S [id number] Problems, Conditions, and Diagnoses Code Display Name Description Problem Type Effective Dates Data Source(s) K55170 Other place in single-family (private) house as the place of occurrence of the external cause Other place in single-family (private) h ouse as the place of occurrence of the external cause Diagnosis 02/03/2021 09:44:00 PM E DT [facility] Y9301 Activity, walking, marching and hiking A ctivity, walking, marching and hiking Diagnosis 02/03/2021 09:44:00 PM EDT [facility] Y998 Other external cause status Other external cause statu s Diagnosis 02/03/2021 09:44:00 PM EDT [facility] C3551HQ Slipping, tripping and stumb ling without falling due to stepping from one level to another, initial encounter Slipping, tripping and stumbling without falling due to stepping from one level to another, initial encounter Diagnosis 02/03/2021 09:44:00 PM EDT [facility] R040 Epistaxis Epistaxis Diagnosis 02/03/2021 09:44:00 PM ED T [facility] Z8572 Personal history of non-Hodgkin lymphoma s Personal history of non-Hodgkin lymphomas Diagnosis 01/29/2021 02:46:00 PM EDT [facility] D696 Thrombocytopenia, unspecified Thrombocytopenia, unspec ified Diagnosis 01/29/2021 02:46:00 PM EDT [facility] D649 Anemia, unspecified Anemia, unspecified Diagnosis 1 02:46:00 PM EDT [facility] M542 Cervicalgia Cervicalgia Diagnosis 01/29/2021 10:30:00 AM EDT [facility] L64909 Pain in right shoulder Pain in right shoulder Diagnosi s 01/29/2021 10:30:00 AM EDT [facility] R2681 Unsteadiness on feet Unsteadiness on feet Diagnosis 01/29/2021 10:30:00 AM EDT [facility] R5383 Other fatigue Other fatigue Diagnosis 01/29/2021 10:30:00 AM EDT [facility] R42 Dizziness and giddiness Dizziness and giddiness Diagno sis 01/29/2021 10:30:00 AM EDT [facility] [id number] Chronic gout, unspecified, without tophu s (tophi) Chronic gout, unspecified, without tophus (tophi) Diagnosis 01/07/2021 11:12:00 AM E [facility] E119 Type 2 diabetes mellitus without complic ations Type 2 diabetes mellitus without complications Diagnosis [facility]/07[facility] E785 Hyperlipidemia, unspecified Hyperlipidemia, unspecifie d Diagnosis 01/07/2021 11:12:00 AM EDT [facility] I10 Essential (primary) hypertension Essential (primary) h ypertension Diagnosis 01/07/2021 11:12:00 AM [facility] N189 Chronic kidney disease, unspecified Chronic kidn ey disease, unspecified Diagnosis 01/07/2021 11:12:00 AM T [facility] I2699 Other pulmonary embolism without acute c or pulmonale Other pulmonary embolism without acute cor pulmonale Diagnosis 01/07/2021 11:12:00 AM T [facility] K219 Gastro-esophageal reflux disease without esophagitis Gastro-esophageal reflux disease without esophagitis Diagnosis 01/07/2021 11:12:00 AM ED [facility] H9202 Otalgia, left ear Otalgia, left ear Diagnosis 01/07/2021 11:12:00 AM [facility] C8590 Non-Hodgkin lymphoma, unspecified, unspe cified site Non-Hodgkin lymphoma, unspecified, unspecified site Diagnosis 01/07/2021 11:12:00 AM EDT [facility] R109 Unspecified abdominal pain Unspecified abdominal pain Diagnosis 01/07/2021 11:12:00 AM [facility] R06.02 Shortness of breath SHORTNESS OF BREATH Diagnosis 0 01/03/2021 08:54:00 AM [facility] R06.09 Other forms of dyspnea OTHER FORMS OF DYSPNEA Diagnosi s 12/24/2020 08:20:00 AM [facility] R09.89 Other specified symptoms and signs involving the circulatory and respiratory systems OTH SYMPTOMS AND SIGNS INVOLVING THE CIRC AND RESP SYS TEMS Diagnosis 12/18/2020 09:21:00 AM [facility] M63465 Personal history of pulmonary embolism P ersonal history of pulmonary embolism Diagnosis 12/12/2020 02:32:00 AM [facility] R05 Cough Cough Diagnosis 12/12/2020 02:32:00 AM ED [facility] R0602 Shortness of breath Shortness of breath Diagnosis 0 12/12/2020 02:32:00 AM EDT [facility] R079 Chest pain, unspecified Chest pain, unspecified Diagno sis 12/12/2020 02:32:00 AM EDT [facility] E559 Vitamin D deficiency, unspecified Vitamin D defi ciency, unspecified Diagnosis 11/24/2020 01:30:00 PM EDT [facility] E042 Nontoxic multinodular goiter Nontoxic multinodular goi ter Diagnosis 11/24/2020 01:30:00 PM EDT [facility] N289 Disorder of kidney and ureter, unspecifi ed Disorder of kidney and ureter, unspecified Diagnosis 11/24/2020 01:30:00 PM EDT [facility] Z8571 Personal history of Hodgkin lymphoma Personal hi story of Hodgkin lymphoma Diagnosis 11/24/2020 08:30:00 AM EDT [facility] Z5189 Encounter for other specified aftercare Encounter for other specified aftercare Diagnosis 11/13/2020 01:06:00 PM EDT [facility] M436 Torticollis Torticollis Diagnosis 11/05/2020 11:27:00 AM EDT [facility] T29562 Unspecified place in single- family (private) house as the place of occurrence of the external cause Unspecified place in single-family (priv ate) house as the place of occurrence of the external cause Diagnosis 11/02/2020 08:25:00 AM EDT [facility] Y939 Activity, unspecified Activity, unspecified Diagnosis 11/02/2020 08:25:00 AM EDT [facility] T104BXS Overexertion from prolonged static or awkward postures, initial encounter Overexertion from prolonged static or aw kward postures, initial encounter Diagnosis 11/02/2020 08:25:00 AM EDT [facility] L962LRE Strain of muscle, fascia and tendon at n mamta level, initial encounter Strain of muscle, fascia and tendon at neck level, initial encounter Diagnosis 11/02/2020 08:25:00 AM EDT [facility] R09.89 Other specified symptoms and signs involving the circulatory and respiratory systems OTH SYMPTOMS AND SIGNS INVOLVING THE CIRC AND RESP SYS TEMS Diagnosis 09/23/2020 09:04:00 AM EDT [facility] B35.1 Tinea unguium TINEA UNGUIUM Diagnosis 09/23/2020 09:04:00 AM [facility] L84 Corns and callosities CORNS AND CALLOSITIES Diagnosis 09/23/2020 09:04:00 AM [facility] E11.51 Type 2 diabetes mellitus wit h diabetic peripheral angiopathy without gangrene TYPE 2 DIABETES W DIABETIC PERIPHERAL ANGIOPATH W/O GANGRENE Diagnosis 09/23/2020 09:04:00 AM T [facility] K047 Periapical abscess without sinus Periapical absc ess without sinus Diagnosis 09/06/2020 09:45:00 AM EDT [facility] R6884 Jaw pain Jaw pain Diagnosis 09/06/2020 09:45:00 AM ED [facility] I26.99 Other pulmonary embolism without acute c or pulmonale OTHER PULMONARY EMBOLISM WITHOUT ACUTE COR PULMONALE Diagnosis 09/04/2020 08:19:00 AM [facility] Z12.11 Encounter for screening for malignant ne oplasm of colon ENCOUNTER FOR SCREENING FOR MALIGNANT NEOPLASM OF COLON Diagnosis 09/04/2020 08:19:0 0 AM [facility] E04.2 Nontoxic multinodular goiter NONTOXIC MULTINODULAR GOI TER Diagnosis 08/04/2020 09:13:00 AM [facility] 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 PRISON (CU 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 INSULIN Diagnosis 07/22/2020 09:23:00 AM [facility] Z7901 termite control servicer (current) use of anticoagulant s termite control servicer (current) use of anticoagulants Diagnosis 07/21/2020 02:00:00 PM T [facility] Z79.01 termite control servicer (current) 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 of anticoagulant s 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 Diagnosis 07/18/2020 08:07:00 AM EDT [facility] Z86.711 Personal history of pulmonary embolism P ERSONAL HISTORY OF PULMONARY EMBOLISM Diagnosis 07/18/2020 08:07:00 AM EDT [facility] C83.30 Diffuse large B-cell lymphoma, unspecifi ed site DIFFUSE LARGE B-CELL LYMPHOMA, UNSPECIFIED SITE Diagnosis 07/18/2020 08:07:00 AM [facility] I82.621 Acute embolism and thrombosis of deep ve ins of right upper extremity ACUTE EMBOLISM AND THROMBOSIS OF DEEP VEINS OF R UP EXTREM Diagnosis 07/18/2020 08:07:00 AM [facility] N1832 N1832 Diagnosis 05/16/2020 10:07:00 AM [facility] Z23 Encounter for immunization Encounter for immunization Diagnosis 05/16/2020 10:07:00 AM [facility] E041 Nontoxic single thyroid nodule Nontoxic single thyroid nodule Diagnosis 05/16/2020 10:07:00 AM [facility] N1832 Chronic kidney disease, stage 3b Chronic kidney disease, stage 3b Diagnosis 05/16/2020 10:07:00 AM [facility] I10 Essential (primary) hypertension ESSENTIAL (PRIMARY) H YPERTENSION Diagnosis 04/25/2020 11:48:[address] [facility] E55.9 Vitamin D deficiency, unspecified VITAMIN D DEFI CIENCY, UNSPECIFIED Diagnosis 04/25/2020 11:48:[address] [facility] E11.9 Type 2 diabetes mellitus without complic ations TYPE 2 DIABETES MELLITUS WITHOUT COMPLICATIONS Diagnosis 04/25/2020 11:48:00 AM [facility] K57.30 Diverticulosis of large inte alma without perforation or abscess without bleeding DVRTCLOS OF LG INT W/O PERFORATION OR ABSCESS W/O BLEEDING D iagnosis 04/25/2020 11:48:[address] [facility] H9201 Otalgia, right ear Otalgia, right ear Diagnosis 06:49:00 AM [facility] Z1389 Encounter for screening for other disord er Encounter for screening for other disorder Diagnosis 02/25/2020 11:17:00 AM [facility] N1831 Chronic kidney disease, stage 3a Chronic kidney disease, stage 3a Diagnosis 02/25/2020 11:17:00 AM [facility] E1142 Type 2 diabetes mellitus with diabetic p olyneuropathy Type 2 diabetes mellitus with diabetic polyneuropathy Diagnosis 02/25/2020 11:17:00 AM [facility] Z01.818 Encounter for other preprocedural examin ation ENCOUNTER FOR OTHER PREPROCEDURAL EXAMINATION Diagnosis 02/22/2020 12:42:[address] [facility] M17.11 Unilateral primary osteoarthritis, right knee UNILATERAL PRIMARY OSTEOARTHRITIS, RIGHT KNEE Diagnosis 02/21/2020 01:18:[address] [facility] S83.411D Sprain of medial collateral ligament of right knee, subsequent encounter SPRAIN OF MEDIAL COLLATERAL LIGAMENT OF RIGHT KNEE, SUBS Enedina gnosis 02/21/2020 01:18:[address] [facility] M6281 Muscle weakness (generalized) Muscle weakness (general ized) Diagnosis 12/11/2019 01:10:00 PM [facility] Z66494 Pain in right knee Pain in right knee Diagnosis 04/2019 01:10:00 PM [facility] Z87026 Stiffness of right knee, not elsewhere c lassified Stiffness of right knee, not elsewhere classified Diagnosis 12/11/2019 01:10:00 PM [facility] Surgeries/Procedures Procedure Description Date Indications Data Source(s) ECHO TTHRC R-T 2D W/WOM-MODE COMPL SPEC&COLR DOP TTE W/DOPPL ER COMPLETE 01/03/2021 12:00:00 AM [facility] DIFFUSING CAPACITY CO/MEMBANE DIFFUSE CAPACITY 12/24/2020 12:00:00 AM [facility] GAS DILUT/WASHOUT LUNG VOL W/WO DISTRIB VENT&VOL PULM FUNCTI ON TEST BY GAS 12/24/2020 12:00:00 AM [facility] BRNCDIDET RSPSE SPMTRY PRE&POST-NCDILAT ADMN EVALUATION OF WHEEZING 12/24/2020 12:00:00 AM [facility] DUP-SCAN LXTR ART/ARTL BPGS COMPL BI STUDY LOWER EXTREMITY S TUDY 12/18/2020 12:00:00 AM [facility] DEBRIDEMENT NAIL ANY METHOD 6/> DEBRIDE NAIL 6 OR MORE 09/23 12:00:00 AM [facility] PARING/CUTTING BENIGN HYPERKERATOTIC LESION 2-4 TRIM SKIN LE SIONS 2 TO 4 09/23/2020 12:00:00 AM [facility] Hospital outpatient clinic visit for assessment and karma deluca of a patient Hospital Outpatient Clinic Visit 09/04/2020 12:00:00 AM [facility] DUP-SCAN XTR VEINS UNILATERAL/LIMITED STUDY EXTREMITY STUDY 07/18/2020 12:00:00 AM [facility] GLUCOSE BLOOD REAGENT STRIP REAGENT STRIP/BLOOD GLUCOSE 04/11 12:00:[address] [facility] Injection, propofol, 10 mg 04/25/2020 12:00:[address] [facility] COLONOSCOPY FLX DX W/WO COLLJ SPECIMENS DIAGNOSTIC COLONOSCO PY 04/25/2020 12:00:[address] [facility] Inspection of Lower Intestinal Tract, Vi a Natural or Artificial Opening Endoscopic INSPECTION OF LOWER INTESTINAL TRACT, ENDO 04/25/2020 12:00:[address] [facility] [address] 04/21/2020 12:00:00 AM [facility] ARTHROCENTESIS ASPIR&/INJECTION MAJOR JT/BURSA DRAIN/INJ ARASELI NT/BURSA W/O US 02/21/2020 12:00:[address] [facility] RADIOLOGIC EXAMINATION KNEE 1/2 VIEWS X-RAY EXAM OF KNEE 1 O R 2 02/21/2020 12:00:[address] [facility] Injection, methylprednisolone acetate, 40 mg 0 12:00:[address] [facility] Results ID Date Data Source [id number] 02/04/2021 05:08:00 PM [facility] Name Value Range Interpretation Code Description Data Rajani rce(s) Supporting Document(s) RESP PROFILE RP2.1 NASAL PCR C [facility] \\BLDo\\RESPIRATORY PROFILE NASAL PHARYNGEAL BY PCR\\BLDx\\ \\BLDo\\DETECTED _NONE \\BLDx\\ 02/04/21.LMB. \\BLDo\\EQUIVOCAL _NONE \\BLDx\\ 02/04/21.LMB. VIRUSES ADENOVIRUS NOT DETECTED NORMAL: NOT DETECTED [facility] CORONAVIRUS 229E NOT DETECTED NORMAL: NOT DETECTED [facility] CORONAVIRUS HKU1 NOT DETECTED NORMAL: NOT DETECTED [facility] CORONAVIRUS NL63 NOT DETECTED NORMAL: NOT DETECTED [facility] CORONAVIRUS OC43 NOT DETECTED NORMAL: NOT DETECTED [facility] 30813-0 NOT DETECTED NORMAL: NOT DETECTED [facility] REPORT TO DEPARTMENT OF [facility] TH HUMAN METAPNEUMO NOT DETECTED NORMAL: NOT DETECTED [facility] HUMAN RHINO/ENTERO NOT DETECTED NORMAL: NOT DETECTED [facility] NOT DETECTEDNOT DETECTEDNOT DETECTEDNOT DETECTED PARAINFLUENZA V3 NOT DETECTED NORMAL: NOT DETECTED [facility] NOT DETECTED RSV NOT DETECTED NORMAL: NOT DETECTED [facility] BACTERIANOT DET ECTEDNOT DETECTEDNOT DETECTEDNOT DETECTED TESTING PERFORMED USING THE [employer] RP2.1 MULTIPLEXED NUCLEIC ACID TEST. THIS TEST [...] OR REVOKED SOONER. ID Date Data Source [id number] 02/04/2021 03:52:00 PM EDT [facility] Name Value Range Interpretation Code Description Data Rajani rce(s) Supporting Document(s) Glucose [Moles/volume] in Capillary blood by Glucometer 88 mg/dL 70 - 100 [facility] RESULTS < 40 mg/dL OR > 500 mg /dL WILL REQUIRE CONFIRMATION BY LAB ID Date Data Source [id number] 02/04/2021 03:40:00 PM EDT [facility] Name Value Range Interpretation Code Description Data Rajani rce(s) Supporting Document(s) CBC [facility] COMPLETE BLOOD COUNT Leukocytes [#/volume] in Blood by Automated count 8.1 K/uL 4.0 - 10 .0 [facility] Erythrocytes [#/volume] in Blood by Automated count 2.41 M/uL 4.30 - 6.10 Below low normal [facility] Hemoglobin [Mass/volume] in Blood 8.4 g/dL 13.5 - 17.5 Below low no rmal [facility] Hematocrit [Volume Fraction] of Blood by Automated count 27.6 % 39.0 - 50.0 Below low normal [facility] Erythrocyte mean corpuscular volume [Entitic volume] b y Automated count 114.5 fL 80.0 - 96.0 Above high normal [facility] Erythrocyte mean corpuscular hemoglobin [Entitic mass] by Automated count 34.9 pg 26.0 - 34.0 Above high normal [facility] Erythrocyte mean corpuscular hemoglobin concentration [Mass/volume] by Automated count 30.4 g/dL 32.0 - 36.0 Below low normal [facility] Erythrocyte distribution width [Ratio] by Automated count 21.2 % 11.6 - 14.8 Above high normal [facility] Platelets [#/volume] in Blood by Automated count 28 K/uL 150 - 450 Below lower panic limits [facility] CALLED TO: Sofi GALVAN @ [id number] [facility] REP/VERIFIED REPEATED TO CONFIRM, CONSISTENT W/HISTORY [facility] READ BACK YES [facility] Platelet mean volume [Entitic volume] in Blood by Automated count 10.9 fL 7.1 - 10.4 Above high normal [facility] 0.0 MANUAL DIFF [facility] BELOW [facility] SEGS 59 % 42 - 75 [facility] JEFFREY 0 % [facility] MYEL 1 % [facility] META 0 % 0 - 1 [facility] BAND 0 % 0 - 5 [facility] LYMPH 12 % 15 - 41 Below low normal [facility] ALYM 0 % 0 - 5 [facility] MONO 23 % 0 - 12 Above high normal [facility] EOS 5 % 0 - 7 [facility] BASO 0 % 0 - 2 [facility] 0.0 RBC MORPH SEE BELOW [facility] POLYCHROMSIA NONE SEEN NORMAL: NONE SEEN [facility] HYPOCHROMIA NONE SEEN NORMAL: NONE SEEN [facility] POIKLOCYTOSIS NONE SEEN NORMAL: NONE SEEN [facility] BASO STIPPLING NONE SEEN NORMAL: NONE SEEN [facility] ANISOCYTOSIS 2+ NORMAL: NONE SEEN Abnormal (applies to non-nu meric results) [facility] MICROCYTOSIS NONE SEEN NORMAL: NONE SEEN [facility] MACROCYTOSIS 1+ NORMAL: NONE SEEN Abnormal (applies to non-nu meric results) [facility] SPHEROCYTES NONE SEEN NORMAL: NONE SEEN [facility] SCHISTOCYTES NONE SEEN NORMAL: NONE SEEN [facility] TARGET CELLS NONE SEEN NORMAL: NONE SEEN [facility] TEARDROP NONE SEEN NORMAL: NONE SEEN [facility] OVALOCYTES NONE SEEN NORMAL: NONE SEEN [facility] STOMATOCYTES NONE SEEN NORMAL: NONE SEEN [facility] HELMET CELLS NONE SEEN NORMAL: NONE SEEN [facility] [facility] CORDER[facility] JOLLY NONE SEEN NORMAL: NONE SEEN [facility] CABOT RINGS NONE SEEN NORMAL: NONE SEEN [facility] TOXIC GRAN NONE SEEN NORMAL: NONE SEEN [facility] DOHLE BODIES NONE SEEN NORMAL: NONE SEEN [facility] MANGO CELLS NONE SEEN NORMAL: NONE SEEN [facility] ACANTHOCYTES NONE SEEN NORMAL: NONE SEEN [facility] HYPER NEUT NONE SEEN NORMAL: NONE SEEN [facility] AZAM RODS NONE SEEN NORMAL: NONE SEEN [facility] ROULEAUX NONE SEEN NORMAL: NONE SEEN [facility] CRENATED CELL NONE SEEN NORMAL: NONE SEEN [facility] ID Date Data Source [id number] 02/04/2021 03:40:00 PM EDT [facility] Name Value Range Interpretation Code Description Data Rajani rce(s) Supporting Document(s) ACTIVATED PARTIAL THROMBOPLASTIN [facility] ACTIVATED PARTIAL THROMBOPLASTIN HEPARIN? NO [facility] l PTT-A 32.8 24.3 - 100 [facility] al New PTT Heparin Therapeutic ra nge effective October 10, 2015 Heparin dose Therapeutic Range 0.1 - 0.3 uL 70.7 - 80.3 seconds 0.3 - 0.7 uL 80.3 - 99.6 seconds New normal reference range effective February 29, 2020 Normal 24.3 - 40.8 seconds ID Date Data Source [id number] 02/04/2021 03:40:00 PM EDT [facility] PROTHROMBIN TIME Name Value Range Interpretation Code Description Data Rajani rce(s) Supporting Document(s) WARFARIN? NO [facility] l 15.1 INR in Platelet poor plasma by Coagulation assay 1.2 1.0 - 4.5 [facility] Reference ranges Warf stuart (Coumadin) Therapy: 21.6 - 40.7 secs Normal (Non-warfarin Therapy): 10.7 - 15.2 secs New Protime Reference Range as of February 29, 2020 ID Date Data Source [id number] 02/04/2021 03:40:00 PM EDT [facility] Name Value Range Interpretation Code Description Data Rajani rce(s) Supporting Document(s) COMPREHENSIVE CHEM PROFILE [facility] COMPREHENSIVE METABOLIC PANEL Sodium [Moles/volume] in Serum or Plasma 139 mEq/L 136 - 145 [facility] Potassium [Moles/volume] in Serum or Plasma 3.8 mEq/L 3.5 - 5.1 [facility] Chloride [Moles/volume] in Serum or Plasma 101 mEq/L 98 - 107 [facility] Carbon dioxide, total [Moles/volume] in Serum or Plasma 25.3 mEq /L 21.0 - 32.0 [facility] Glucose [Mass/volume] in Serum or Plasma 91 mg/dL 70 - 100 [facility] Urea nitrogen [Mass/volume] in Serum or Plasma 67 mg/dL 7 - 18 Above upper panic limits [facility] CALLED TO: Sofi GALVAN @ 1114 [facility] REP/VERIFIED REPEATED TO CONFIRM [facility] READ BACK YES [facility] CREATININE SERUM 2.48 mg/dL 0.70 - 1.30 Above high normal [facility] AGE 65 yrs [facility] l HEIGHT R [facility] l eGFR NON-AFR AMR 26 [facility] eGFR AFR AMR 32 [facility] ital BUN/CREAT 27 6 - 25 Above high normal [facility] Protein [Mass/volume] in Serum or Plasma 8.4 g/dL 6.0 - 8.3 Above high normal [facility] Albumin [Mass/volume] in Serum or Plasma 3.2 g/dL 3.8 - 5.4 Below low normal [facility] GLOBULIN 5.2 g/dL 2.0 - 4.0 Above high normal [facility] A/G RATIO 0.6 0.8 - 2.0 Below low normal [facility] Calcium [Mass/volume] in Serum or Plasma 9.7 mg/dL 8.8 - 10.2 [facility] Bilirubin.total [Mass/volume] in Serum or Plasma 0.3 mg/dL 0.2 - 1.0 [facility] Bilirubin.direct [Mass/volume] in Serum or Plasma 0.1 mg/dL 0.0 - 0. 2 [facility] INDIRECT BILI 0.2 mg/dL 0.0 - 1.1 [facility] pital ALK PHOSPHATASE 56 U/L 40 - 129 [facility] ospital Aspartate aminotransferase [Enzymatic ac tivity/volume] in Serum or Plasma by With P-5'-P 11 IU/L 7 - 37 [facility] Alanine aminotransferase [Enzymatic acti vity/volume] in Serum or Plasma by With P-5'-P 18 IU/L 12 - 78 [facility] ANION GAP 13 7 - 15 [facility] Estimated GFR referenc e range: >60ml/min/1.73m >18 years: Calculated using IDGA traceable Study Equation <18 years: Calculated using IDGA tracable Bedside Schartz Equation ID Date Data Source [id number] 01/29/2021 12:10:00 PM EDT [facility] Name Value Range Interpretation Code Description Data Rajani rce(s) Supporting Document(s) CROSSMATCH INITIAL [facility] PATIENT ABO TYPE: _A ____ 01/29/21.1350.TMG. [...] PRBC Tongedie teixeiraal ID Date Data Source [id number] 01/29/2021 10:45:00 AM EDT [facility] Name Value Range Interpretation Code Description Data Rajani rce(s) Supporting Document(s) CBC [facility] COMPLETE BLOOD COUNT Leukocytes [#/volume] in Blood by Automated count 7.6 K/uL 4.0 - 10 .0 [facility] Erythrocytes [#/volume] in Blood by Automated count 2.21 M/uL 4.30 - 6.10 Below low normal [facility] Hemoglobin [Mass/volume] in Blood 8.0 g/dL 13.5 - 17.5 Below low no rmal [facility] Hematocrit [Volume Fraction] of Blood by Automated count 26.2 % 39.0 - 50.0 Below low normal [facility] Erythrocyte mean corpuscular volume [Entitic volume] b y Automated count 118.6 fL 80.0 - 96.0 Above high normal [facility] Erythrocyte mean corpuscular hemoglobin [Entitic mass] by Automated count 36.2 pg 26.0 - 34.0 Above high normal [facility] Erythrocyte mean corpuscular hemoglobin concentration [Mass/volume] by Automated count 30.5 g/dL 32.0 - 36.0 Below low normal [facility] alexis Erythrocyte distribution width [Ratio] by Automated count 21.4 % 11.6 - 14.8 Above high normal [facility] Platelets [#/volume] in Blood by Automated count 29 K/uL 150 - 450 Below lower panic limits [facility] DECREASED PLATELETS NOTED CALLED TO: DR. CAGLE [facility] al REP/VERIFIED 27 [facility] ital READ BACK YES [facility] Platelet mean volume [Entitic volume] in Blood by Automated count 10.2 fL 7.1 - 10.4 [facility] Neutrophils [#/volume] in Blood by Automated count 3.11 K/uL 1.70 - 7.70 [facility] Lymphocytes [#/volume] in Blood by Automated count 1.35 K/uL 1.50 - 6.00 Below low normal [facility] Monocytes [#/volume] in Blood by Automated count 1.39 K/uL 0.00 - 1.00 Above high normal [facility] Eosinophils [#/volume] in Blood by Automated count 0.28 K/uL 0.03 - 0.48 [facility] Basophils [#/volume] in Blood by Automated count 0.00 K/uL 0.01 - 0.08 Below low normal [facility] 1.45 Urinalysis macro (dipstick) panel - Urine 0.030 10^3/uL 0.000 - 0.012 Above high normal [facility] Neutrophils/100 leukocytes in Blood by Automated count 41.1 % 42.0 - 75.0 Below low normal [facility] Lymphocytes/100 leukocytes in Blood by Automated count 17.8 % 15. 0 - 41.0 [facility] Monocytes/100 leukocytes in Blood by Automated count 18.3 % 0.0 - 12.0 Above high normal [facility] Eosinophils/100 leukocytes in Blood by Automated count 3.7 % 0.0 - 7.0 [facility] 0.019.10 NRBC 0.4 % [facility] MANUAL DIFF SEE BELOW [facility] alexis SEGS 46 % 42 - 75 [facility] META 9 % 0 - 1 Above upper panic limits [facility] LYMPH 28 % 15 - 41 [facility] l MONO 13 % 0 - 12 Above high normal [facility] EOS 4 % 0 - 7 [facility] RBC MORPH SEE BELOW [facility] POLYCHROMSIA NONE SEEN NORMAL: NONE SEEN [facility] HYPOCHROMIA 2+ NORMAL: NONE SEEN Abnormal (applies to non-num zia results) [facility] POIKLOCYTOSIS NONE SEEN NORMAL: NONE SEEN [facility] BASO STIPPLING NONE SEEN NORMAL: NONE SEEN [facility] ANISOCYTOSIS 2+ NORMAL: NONE SEEN Abnormal (applies to non-nu meric results) [facility] MICROCYTOSIS NONE SEEN NORMAL: NONE SEEN Abnormal (appl ies to non-numeric results) [facility] MACROCYTOSIS 2+ NORMAL: NONE SEEN Abnormal (applies to non-nu meric results) [facility] SPHEROCYTES NONE SEEN NORMAL: NONE SEEN [facility] SCHISTOCYTES NONE SEEN NORMAL: NONE SEEN [facility] TARGET CELLS NONE SEEN NORMAL: NONE SEEN [facility] TEARDROP NONE SEEN NORMAL: NONE SEEN [facility] OVALOCYTES NONE SEEN NORMAL: NONE SEEN [facility] STOMATOCYTES NONE SEEN NORMAL: NONE SEEN [facility] HELMET CELLS NONE SEEN NORMAL: NONE SEEN [facility] CORDERO JOLLY NONE SEEN NORMAL: NONE SEEN [facility] CABOT RINGS NONE SEEN NORMAL: NONE SEEN [facility] TOXIC GRAN NONE SEEN NORMAL: NONE SEEN [facility] DOHLE BODIES NONE SEEN NORMAL: NONE SEEN [facility] MANGO CELLS NONE SEEN NORMAL: NONE SEEN [facility] ACANTHOCYTES NONE SEEN NORMAL: NONE SEEN [facility] HYPER NEUT NONE SEEN NORMAL: NONE SEEN [facility] AZAM RODS NONE SEEN NORMAL: NONE SEEN [facility] ROULEAUX NONE SEEN NORMAL: NONE SEEN [facility] CRENATED CELL NONE SEEN NORMAL: NONE SEEN [facility] FEW SMUDGE CELLS NOTED ID Date Data Source [id number] 01/29/2021 10:45:00 AM EDT [facility] Name Value Range Interpretation Code Description Data Rajani rce(s) Supporting Document(s) COMPREHENSIVE CHEM PROFILE [facility] COMPREHENSIVE METABOLIC PANEL Sodium [Moles/volume] in Serum or Plasma 138 mEq/L 136 - 145 [facility] Potassium [Moles/volume] in Serum or Plasma 4.5 mEq/L 3.5 - 5.1 [facility] Chloride [Moles/volume] in Serum or Plasma 101 mEq/L 98 - 107 [facility] Carbon dioxide, total [Moles/volume] in Serum or Plasma 26.6 mEq /L 21.0 - 32.0 [facility] Glucose [Mass/volume] in Serum or Plasma 115 mg/dL 70 - 100 Above high normal [facility] Urea nitrogen [Mass/volume] in Serum or Plasma 32 mg/dL 7 - 18 Above high normal [facility] CREATININE SERUM 1.65 mg/dL 0.70 - 1.30 Above high normal [facility] AGE 65 yrs [facility] l HEIGHT R [facility] l eGFR NON-AFR AMR 42 [facility] eGFR AFR AMR 51 [facility] ital BUN/CREAT 19 6 - 25 [facility] l Protein [Mass/volume] in Serum or Plasma 8.2 g/dL 6.0 - 8.3 [facility] Albumin [Mass/volume] in Serum or Plasma 3.4 g/dL 3.8 - 5.4 Below low normal [facility] GLOBULIN 4.8 g/dL 2.0 - 4.0 Above high normal [facility] A/G RATIO 0.7 0.8 - 2.0 Below low normal [facility] Calcium [Mass/volume] in Serum or Plasma 9.1 mg/dL 8.8 - 10.2 [facility] Bilirubin.total [Mass/volume] in Serum or Plasma 0.3 mg/dL 0.2 - 1.0 [facility] Bilirubin.direct [Mass/volume] in Serum or Plasma 0.1 mg/dL 0.0 - 0. 2 [facility] INDIRECT BILI 0.2 mg/dL 0.0 - 1.1 [facility] pital ALK PHOSPHATASE 59 U/L 40 - 129 [facility] ospital Aspartate aminotransferase [Enzymatic ac tivity/volume] in Serum or Plasma by With P-5'-P 16 IU/L 7 - 37 [facility] Alanine aminotransferase [Enzymatic acti vity/volume] in Serum or Plasma by With P-5'-P 24 IU/L 12 - 78 [facility] ANION GAP 10 7 - 15 [facility] Estimated GFR referenc e range: >60ml/min/1.73m >18 years: Calculated using IDGA traceable Study Equation <18 years: Calculated using [facility] tracable Bedside Schartz Equation ID Date Data Source [id number] 01/14/2021 09:20:26 AM EDT [facility] [address] [place] [address] TELEPHONE RADIOLOGY DEPARTMENT Name: ROBBIE [facility] #: [id number] : 1955 Ordering Physician: GAVIN Sex: M Date: 01/07/21 Admission Type: O/P X-ray Number: [id number] Unsigned Transcriptions are preliminary reports and do not represent a Medical or Legal Document XRAY ABDOMEN COMPLETEW// [id number] COMPLETE:01/07/21 12:59 LEI 69125 (REASON FOR ABDOMEN: ABDOMINAL PAIN Examination of [...] rce(s) Supporting Document(s) ID Date Data Source [id number] 01/03/2021 08:59:00 AM EDT [facility] Cardiology Depart ment Cardiology Report [address], [place] [address] __ Name: NIKOLE AVALOS : 1955 Age/Sex: 65M Ordering Provider: Marissa Cagle MD Med Rec #: [id number] Reg Status:DEP REF Room #: Date of Service: 01/03/21 Report Number: [id number] cc: Marissa Cagle MD Send Report To: Ordering Phys: Marissa Cagle MD Accession Number: [id number] Exam Date: 01/03/2021 09:18 Indications: SOB. 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: Name Value Range Interpretation Code Description Data Rajani rce(s) Supporting Document(s) ID Date Data Source [id number] 12/19/2020 05:26:00 AM EDT [facility] Imaging Services Department Imaging Report [address], [place] [address] %(RAD)RES..mtdd.print.filter("line") Name: NIKOLE AVALOS : 1955 Age/Sex: 65M Ordering Provider: Angle Frost DPM Med Rec #: [id number] Reg Status: DEP REF Room #: Date of Service: 12/18/20 Report Number: [id number] cc:Marissa Cagle MD; Angle Frost DPM Send Report To: [id number] US/US Dup Lower Ext Artery Bilat Reason [...] Dictation Date/Time: 12/18/20 1148 Transcribed Date/Time: 12/19/20 6633 [employer]: STEPHANIE Name Value Range Interpretation Code Description Data Rajani rce(s) Supporting Document(s) ID Date Data Source [id number] 12/18/2020 08:43:00 AM EDT [facility] [address] [place] [address] TELEPHONE RADIOLOGY DEPARTMENT Name: [facility] #: [id number] : 1955 Ordering Physician: WILTON Sex: M Date: 12/12/20 Admission Type: E/R X-ray Number: [id number] Unsigned Transcriptions are preliminary reports and do not represent a Medical or Legal Document CT PE Study 55313 COMPLETE:12/12/20 12:05 LEI 66042 (REASON FOR CHEST: EMBOLISM Patient weight: 230 [...] osseous abnormality. IMPRESSION: COPD[place] [address] TELEPHONE ___ RADIOLOGY DEPARTMENT Name: [facility] #: [id number] : 1955 Ordering Physician: WILTON Sex: Edsi Date: 12/12/20 Admission Type: E/R X-ray Number: [id number] Unsigned Transcriptions are preliminary reports and do [...] Name Value Range Interpretation Code Description Data Arjani rce(s) Supporting Document(s) ID Date Data Source [id number] 12/18/2020 08:38:51 AM LUCIEN [address] [address] TELEPHONE RADIOLOGY DEPARTMENT Name: [facility] #: [id number] : 1955 Ordering Physician: WILTON Sex: M Date: 12/12/20 Admission Type: E/R X-ray Number: [id number] Unsigned Transcriptions are preliminary reports and do not represent a Medical or Legal Document XRAY CHEST 2 [facility] - [place] [address] COMPLETE:12/12/20 05:21 RLL 58609 (REASON FOR CHEST: DYSPNEA Examination of the [...] rce(s) Supporting Document(s) ID Date Data Source [id number] 12/12/2020 08:15:00 AM EDT [facility] Name Value Range Interpretation Code Description Data Rajani rce(s) Supporting Document(s) SARS-CoV-2 RNA Nph Ql TUNG+non-probe NOT DETECTED [facility] This lab was ordered by [facility] VIVIANA MIMS and reported by [facility]. ID Date Data Source [id number] 12/12/2020 08:15:00 AM EDT [facility] Name Value Range Interpretation Code Description Data Rajani rce(s) Supporting Document(s) RESP PROFILE RP2.1 NASAL PCR C [facility] \\BLDo\\RESPIRATORY PROFILE NASAL PHARYNGEAL BY PCR\\BLDx\\ \\BLDo\\DETECTED _NONE \\BLDx\\ 12/12/20.[facility]. \\BLDo\\EQUIVOCAL _NONE \\BLDx\\ 12/12/20.[facility]. VIRUSES ADENOVIRUS NOT DETECTED NORMAL: NOT DETECTED [facility] CORONAVIRUS 229E NOT DETECTED NORMAL: NOT DETECTED [facility] CORONAVIRUS HKU1 NOT DETECTED NORMAL: NOT DETECTED [facility] CORONAVIRUS NL63 NOT DETECTED NORMAL: NOT DETECTED [facility] CORONAVIRUS OC43 NOT DETECTED NORMAL: NOT DETECTED [facility] 01224-7 NOT DETECTED NORMAL: NOT DETECTED [facility] REPORT TO DEPARTMENT OF HEAL TH HUMAN METAPNEUMO NOT DETECTED NORMAL: NOT DETECTED [facility] HUMAN RHINO/ENTERO NOT DETECTED NORMAL: NOT DETECTED [facility] NOT DETECTEDNOT DETECTEDNOT DETECTEDNOT DETECTED PARAINFLUENZA V3 NOT DETECTED NORMAL: NOT DETECTED [facility] NOT DETECTED RSV NOT DETECTED NORMAL: NOT DETECTED [facility] BACTERIANOT DET ECTEDNOT DETECTEDNOT DETECTEDNOT DETECTED TESTING PERFORMED USING THE AiCurisARRAY RP2.1 MULTIPLEXED NUCLEIC ACID TEST. THIS TEST [...] OR REVOKED SOONER. ID Date Data Source [id number] 12/12/2020 08:10:00 AM EDT [facility] Name Value Range Interpretation Code Description Data Rajani rce(s) Supporting Document(s) Troponin I.cardiac [Mass/volume] in Serum or Plasma <0.017 ng/mL 0.017 - 0.060 [facility] \\BLDo\\TROPONIN I I NTERPRETATION:\\BLDx\\ < 0.06 ng/mL NOT SUSPICIOUS FOR AN AMI 0.06 - 0.59 ng/mL PAK ZONE FOR AN AMI, SERIAL MONITORING RECOMMENDED 0.6 - 1.5 ng/mL SUSPICIOUS FOR AN AMI Reference range updated for new chemiluminescent immunoassay method based on Profex technology. Effective 11/21/17. ID Date Data Source [id number] 12/12/2020 04:00:00 AM EDT [facility] Name Value Range Interpretation Code Description Data Rajani rce(s) Supporting Document(s) CBC [facility] l COMPLETE BLOOD COUNT Leukocytes [#/volume] in Blood by Automated count 11.1 K/uL 4.0 - 10.0 Above high normal [facility] Erythrocytes [#/volume] in Blood by Automated count 2.75 M/uL 4.30 - 6.10 Below low normal [facility] Hemoglobin [Mass/volume] in Blood 9.7 g/dL 13.5 - 17.5 Below low no rmal [facility] Hematocrit [Volume Fraction] of Blood by Automated count 30.8 % 39.0 - 50.0 Below low normal [facility] Erythrocyte mean corpuscular volume [Entitic volume] b y Automated count 112.0 fL 80.0 - 96.0 Above high normal [facility] Erythrocyte mean corpuscular hemoglobin [Entitic mass] by Automated count 35.3 pg 26.0 - 34.0 Above high normal [facility] Erythrocyte mean corpuscular hemoglobin concentration [Mass/volume] by Automated count 31.5 g/dL 32.0 - 36.0 Below low normal [facility] alexis Erythrocyte distribution width [Ratio] by Automated count 20.7 % 11.6 - 14.8 Above high normal [facility] Platelets [#/volume] in Blood by Automated count 45 K/uL 150 - 450 Below low normal [facility] CONFIRMED BY REPEAT & SMEAR REVIEW Platelet mean volume [Entitic volume] in Blood by Automated count 9.2 fL 7.1 - 10.4 [facility] MANUAL DIFF SEE BELOW [facility] alexis SEGS 53 % 42 - 75 [facility] l BAND 3 % 0 - 5 [facility] l LYMPH 13 % 15 - 41 Below low normal [facility] MONO 29 % 0 - 12 Above high normal [facility] EOS 2 % 0 - 7 [facility] BASO 0 % 0 - 2 [facility] NRBC 0.0 % [facility] RBC MORPH SEE BELOW [facility] POLYCHROMSIA NONE SEEN NORMAL: NONE SEEN [facility] HYPOCHROMIA NONE SEEN NORMAL: NONE SEEN [facility] POIKLOCYTOSIS NONE SEEN NORMAL: NONE SEEN [facility] BASO STIPPLING NONE SEEN NORMAL: NONE SEEN [facility] ANISOCYTOSIS SLIGHT NORMAL: NONE SEEN Abnormal (applies to no n-numeric results) [facility] MICROCYTOSIS NONE SEEN NORMAL: NONE SEEN [facility] MACROCYTOSIS SLIGHT NORMAL: NONE SEEN Abnormal (applies to no n-numeric results) [facility] SPHEROCYTES NONE SEEN NORMAL: NONE SEEN [facility] SCHISTOCYTES NONE SEEN NORMAL: NONE SEEN [facility] TARGET CELLS NONE SEEN NORMAL: NONE SEEN [facility] TEARDROP NONE SEEN NORMAL: NONE SEEN [facility] OVALOCYTES NONE SEEN NORMAL: NONE SEEN [facility] STOMATOCYTES NONE SEEN NORMAL: NONE SEEN [facility] HELMET CELLS NONE SEEN NORMAL: NONE SEEN [facility] CORDERO JOLLY NONE SEEN NORMAL: NONE SEEN [facility] CABOT RINGS NONE SEEN NORMAL: NONE SEEN [facility] TOXIC GRAN NONE SEEN NORMAL: NONE SEEN [facility] DOHLE BODIES NONE SEEN NORMAL: NONE SEEN [facility] MANGO CELLS NONE SEEN NORMAL: NONE SEEN [facility] ACANTHOCYTES NONE SEEN NORMAL: NONE SEEN [facility] HYPER NEUT NONE SEEN NORMAL: NONE SEEN [facility] AZAM RODS NONE SEEN NORMAL: NONE SEEN [facility] ROULEAUX NONE SEEN NORMAL: NONE SEEN [facility] CRENATED CELL NONE SEEN NORMAL: NONE SEEN [facility] ID Date Data Source [id number] 12/12/2020 04:00:00 AM EDT [facility] Name Value Range Interpretation Code Description Data Rajani rce(s) Supporting Document(s) BASIC METABOLIC PANEL [facility] BASIC METABOLIC PANEL Sodium [Moles/volume] in Serum or Plasma 140 mEq/L 136 - 145 [facility] Potassium [Moles/volume] in Serum or Plasma 4.7 mEq/L 3.5 - 5.1 [facility] Chloride [Moles/volume] in Serum or Plasma 101 mEq/L 98 - 107 [facility] Carbon dioxide, total [Moles/volume] in Serum or Plasma 25.4 mEq /L 21.0 - 32.0 [facility] Glucose [Mass/volume] in Serum or Plasma 217 mg/dL 70 - 100 Above high normal [facility] Urea nitrogen [Mass/volume] in Serum or Plasma 45 mg/dL 7 - 18 Above high normal [facility] CREATININE SERUM 2.15 mg/dL 0.70 - 1.30 Above high normal [facility] AGE 65 yrs [facility] l HEIGHT 68.00 INCHES [facility] ital eGFR NON-AFR AMR 31 [facility] eGFR AFR AMR 38 [facility] ital BUN/CREAT 21 6 - 25 [facility] Calcium [Mass/volume] in Serum or Plasma 9.0 mg/dL 8.8 - 10.2 [facility] ANION GAP 14 7 - 15 [facility] Estimated GFR reference r juan carlos: > 60 mL/min/1.73m >18 years: Calculated using IDMS traceable MDRD Study Equation <18 years: Calculated using IDMS traceable Bedside Nuñez Equation ID Date Data Source [id number] 12/12/2020 04:00:00 AM EDT [facility] Name Value Range Interpretation Code Description Data Rajani rce(s) Supporting Document(s) Troponin I.cardiac [Mass/volume] in Serum or Plasma <0.017 ng/mL 0.017 - 0.060 [facility] \\BLDo\\TROPONIN I I NTERPRETATION:\\BLDx\\ < 0.06 ng/mL NOT SUSPICIOUS FOR AN AMI 0.06 - 0.59 ng/mL PAK ZONE FOR AN AMI, SERIAL MONITORING RECOMMENDED 0.6 - 1.5 ng/mL SUSPICIOUS FOR AN AMI Reference range updated for new chemiluminescent immunoassay method based on Profex technology. Effective 11/21/17. ID Date Data Source [id number] 11/24/2020 09:44:00 AM EDT [facility] Name Value Range Interpretation Code Description Data Rajani rce(s) Supporting Document(s) FREE T3 [id number] [facility] _TRIIODOTHYRONINE T3 FREE_Triiodoth yronine (T3), FreeReported: 11/27/2020 14:05 Status=F --------TEST RESULT FLAG RANGE UNITS SC --Triiodothyronine (T3), 2.9 2.0-4.4 pg/mL ROSA ELENA 11/27/20.1405.rfl.CORRCTD .LCTRFreeRN Test performed by: [employer] [id number] Susan Gonzalez MD 11/27/20.1417.XMT.SENT REF 11/27/20.1417.XMT.SENT REF ID Date Data Source [id number] 11/24/2020 09:44:00 AM EDT [facility] Name Value Range Interpretation Code Description [facility](s) T3 TOTAL [facility] l _T3 TOTAL_Triiodothyronine (T3)Repo rted: 11/27/2020 14:05 Status=F RESULT FLAG RANGE UNITS SC --Triiodothyronine (T3) 98 71-180 ng/dL ROSA ELENA 11/27/20.1405.rfl.NUVIATD .LCTRRN Test performed by: [place] [address] Susan Gonzalez MD 11/27/20.1417.XMT.SENT REF 11/27/20.1417.XMT.SENT REF ID Date Data Source [id number] 11/24/2020 09:44:00 AM EDT [facility] Value Range Interpretation Code Description Data [facility] Supporting Document(s) CALCITRIOL VIT D 1,25 DIHYDROXY [facility] _VITAMIN D 1,25 DIHYDROXY_Calcitrio l(1,25 di-OH Vit D)Reported: 11/27/2020 14:05 Status=F --------TEST RESULT FLAG RANGE UNITS SC --Calcitriol(1,25 di-OH 15.9 L 19.9-79.3 pg/mL BN 11/27/20.1405.Mahtew SANTIAGOTRVierika Veloz)BN Test performed by: [employer] [address] [id number] Romero Osorio MD 11/27/20.1417.XMT.SENT REF 11/27/20.1417.XMT.SENT REF ID Date Data Source [id number] 11/24/2020 09:44:00 AM EDT [facility] Name Value Range Interpretation Code Description Data Rajani rce(s) Supporting Document(s) Hemoglobin A1c/Hemoglobin.total in Blood 6.7 % 4.0 - 5.6 Above high normal [facility] Glucose mean value [Mass/volume] in Blood Estimated fr om glycated hemoglobin 146 mg/dL [facility] \\BLDo\\HEMOGLO BIN A1C\\BLDx\\ 4.0 - 5.6%: Normal 5.7 - 6.4%: Suggests Impaired Glucose Metabolism > or = 6.5%: Abnormal Estimated average glucose calculated using ADAG Study formula as recommended by the [place] [employer]. ID Date Data Source [id number] 11/24/2020 09:44:00 AM EDT [facility] Name Value Range Interpretation Code Description Data Rajani rce(s) Supporting Document(s) LIVER PROFILE [facility] pital HEPATIC PANEL Protein [Mass/volume] in Serum or Plasma 7.3 g/dL 6.0 - 8.3 [facility] Albumin [Mass/volume] in Serum or Plasma 3.4 g/dL 3.8 - 5.4 Below low normal [facility] GLOBULIN 3.9 g/dL 2.0 - 4.0 [facility] A/G RATIO 0.9 0.8 - 2.0 [facility] Bilirubin.total [Mass/volume] in Serum or Plasma 0.2 mg/dL 0.2 - 1.0 [facility] Bilirubin.direct [Mass/volume] in Serum or Plasma 0.1 mg/dL 0.0 - 0. 2 [facility] INDIRECT BILI 0.1 mg/dL 0.0 - 1.1 [facility] pital ALK PHOSPHATASE 55 U/L 40 - 129 [facility] ospital Aspartate aminotransferase [Enzymatic ac tivity/volume] in Serum or Plasma by With P-5'-P 17 IU/L 7 - 37 [facility] Alanine aminotransferase [Enzymatic acti vity/volume] in Serum or Plasma by With P-5'-P 29 IU/L 12 - 78 [facility] ID Date Data Source [id number] 11/24/2020 09:44:00 AM EDT [facility] Name Value Range Interpretation Code Description Data Rajani rce(s) Supporting Document(s) T4 FREE 0.85 ng/dL 0.76 - 1.46 [facility] ital ID Date Data Source [id number] 11/24/2020 09:44:00 AM EDT [facility] Name Value Range Interpretation Code Description Data Rajani rce(s) Supporting Document(s) TSH 0.61 uIU/mL 0.36 - 3.74 [facility] pital ID Date Data Source [id number] 11/24/2020 09:44:00 AM EDT [facility] Name Value Range Interpretation Code Description Data Rajani rce(s) Supporting Document(s) BASIC METABOLIC PANEL [facility] BASIC METABOLIC PANEL Sodium [Moles/volume] in Serum or Plasma 139 mEq/L 136 - 145 [facility] Potassium [Moles/volume] in Serum or Plasma 4.4 mEq/L 3.5 - 5.1 [facility] Chloride [Moles/volume] in Serum or Plasma 102 mEq/L 98 - 107 [facility] Carbon dioxide, total [Moles/volume] in Serum or Plasma 27.5 mEq /L 21.0 - 32.0 [facility] Glucose [Mass/volume] in Serum or Plasma 89 mg/dL 70 - 100 [facility] Urea nitrogen [Mass/volume] in Serum or Plasma 38 mg/dL 7 - 18 Above high normal [facility] CREATININE SERUM 1.75 mg/dL 0.70 - 1.30 Above high normal [facility] AGE 65 yrs [facility] l eGFR NON-AFR AMR 40 [facility] eGFR AFR AMR 48 [facility] BUN/CREAT 22 6 - 25 [facility] l Calcium [Mass/volume] in Serum or Plasma 8.8 mg/dL 8.8 - 10.2 [facility] ANION GAP 10 7 - 15 [facility] l Estimated GFR reference r juan carlos: > 60 mL/min/1.73m >18 years: Calculated using IDMS traceable MDRD Study Equation <18 years: Calculated using IDMS traceable Bedside Nuñez Equation ID Date Data Source [id number] 11/24/2020 09:44:00 AM EDT [facility] Name Value Range Interpretation Code Description Data Rajani rce(s) Supporting Document(s) CBC [facility] COMPLETE BLOOD COUNT Leukocytes [#/volume] in Blood by Automated count 7.6 K/uL 4.0 - 10 .0 [facility] Erythrocytes [#/volume] in Blood by Automated count 2.82 M/uL 4.30 - 6.10 Below low normal [facility] Hemoglobin [Mass/volume] in Blood 10.0 g/dL 13.5 - 17.5 Below low no rmal [facility] Hematocrit [Volume Fraction] of Blood by Automated count 31.2 % 39.0 - 50.0 Below low normal [facility] Erythrocyte mean corpuscular volume [Entitic volume] b y Automated count 110.6 fL 80.0 - 96.0 Above high normal [facility] Erythrocyte mean corpuscular hemoglobin [Entitic mass] by Automated count 35.5 pg 26.0 - 34.0 Above high normal [facility] Erythrocyte mean corpuscular hemoglobin concentration [Mass/volume] by Automated count 32.1 g/dL 32.0 - 36.0 [facility] Erythrocyte distribution width [Ratio] by Automated count 21.0 % 11.6 - 14.8 Above high normal [facility] Platelets [#/volume] in Blood by Automated count 53 K/uL 150 - 450 Below low normal [facility] REP/VERIFIED 54 [facility] Platelet mean volume [Entitic volume] in Blood by Automated count 9.7 fL 7.1 - 10.4 [facility] Neutrophils [#/volume] in Blood by Automated count 2.41 K/uL 1.70 - 7.70 [facility] Lymphocytes [#/volume] in Blood by Automated count 1.71 K/uL 1.50 - 6.00 [facility] Monocytes [#/volume] in Blood by Automated count 1.64 K/uL 0.00 - 1.00 Above high normal [facility] Eosinophils [#/volume] in Blood by Automated count 0.33 K/uL 0.03 - 0.48 [facility] Basophils [#/volume] in Blood by Automated count 0.03 K/uL 0.01 - 0. 08 [facility] 1.51 Urinalysis macro (dipstick) panel - Urine 0.000 10^3/uL 0.000 - 0.012 [facility] Neutrophils/100 leukocytes in Blood by Automated count 31.6 % 42.0 - 75.0 Below low normal [facility] Lymphocytes/100 leukocytes in Blood by Automated count 22.4 % 15. 0 - 41.0 [facility] Monocytes/100 leukocytes in Blood by Automated count 21.5 % 0.0 - 12.0 Above high normal [facility] Eosinophils/100 leukocytes in Blood by Automated count 4.3 % 0.0 - 7.0 [facility] 0.419.80 NRBC 0.0 % [facility] l MANUAL DIFF SEE BELOW [facility] SEGS 38 % 42 - 75 Below low normal [facility] META 5 % 0 - 1 Above upper panic limits [facility] LYMPH 26 % 15 - 41 [facility] MONO 23 % 0 - 12 Above high normal [facility] EOS 8 % 0 - 7 Above high normal [facility] RBC MORPH NOT INDICATED [facility] pital ID Date Data Source [id number] 08/15/2020 11:36:17 AM EDT [address] [address] TELEPHONE RADIOLOGY DEPARTMENT Name: [facility] #: [id number] : 1955 Ordering Physician: WILTON Sex: M Date: 08/13/20 Admission Type: E/R X-ray Number: [id number] Unsigned Transcriptions are preliminary reports and do not represent a Medical or Legal Document CT CERVICAL SPINE W/O TRAY 19649 COMPLETE:08/13/20 09:55 LEI 17957 (SPINE PROCED REASON: PAIN Patient weight: 240 [...] further evaluated with sonography if clinically warranted. [facility] [address] [place] [address] TELEPHONE RADIOLOGY DEPARTMENT Name: [facility] #: [id number] : 1955 Ordering Physician: WILTON Sex: M Date: 08/13/20 Admission Type: E/R X-ray Number: [id number] Unsigned Transcriptions are preliminary reports and do [...] rce(s) Supporting Document(s) ID Date Data Source [id number] 07/20/2020 11:29:00 AM EDT [facility] Imaging Services Department Imaging Report [address] [place], [place] [address] %(RAD)RES..mtdd.print.filter("line") Name: NIKOLE AVALOS : 1955 Age/Sex: 65M Ordering Provider: Jose Maria Harden MD Med Rec #: [id number] Reg Status: DEP REF Room #: Date of Service: 07/18/20 Report Number: [id number] cc:Marissa Cagle MD; Jose Maria Harden MD Send Report To: [id number] US/US Dup Upper Ext Veins Rt Reason [...] Date/Time: 07/18/20 1437 Transcribed Date/Time: 07/20/20 1129 [employer]: CARLOS Name Value Range Interpretation Code Description Data Rajani rce(s) Supporting Document(s) ID Date Data Source [id number] 06/30/2020 06:23:[address] [facility] Name Value Range Interpretation Code Description Data Rajani rce(s) Supporting Document(s) SARS coronavirus 2 RNA [Presence] in Res piratory specimen by TUNG with probe detection NEGATIVE [facility] This lab was ordered by [facility] a nd reported by [facility]. ID Date Data Source [id number] 06/24/2020 12:47:19 [place] [address] TELEPHONE RADIOLOGY DEPARTMENT Name: [facility] #: [id number] : 1955 Ordering Physician: JASMIN Goncalves Sex: M Date: 06/19/20 Admission Type: O/P X-ray Number: [id number] Unsigned Transcriptions are preliminary reports and do not represent a Medical or Legal Document THYROID STUDY [id number] COMPLETE:06/19/20 11:22 [facility] [address]83 (EXAM REASON: MULTINODULAR THYROID Prior examination on [...] and Signed By CHARLY MOHR MD, MD [place] [id number] TELEPHONE RADIOLOGY DEPARTMENT Name: [facility] #: [id number] : 1955 Ordering Physician: JASMIN Goncalves Sex: M Date: 06/19/20 Admission Type: O/P X-ray Number: [id number] _ Unsigned Transcriptions are preliminary reports and do not represent a Medical or Legal Document 06/24/20 12:46 Dictating Initials: AL Transcribed Date: 06/20/20 09:15 Transcribe Initials: LI Name Value Range Interpretation Code Description Data Rajani rce(s) Supporting Document(s) ID Date Data Source [id number] 04/25/2020 02:15:00 PM [facility] Name: ROBBIENIKOLE : 1955 Age/Sex: 64M Attending Physician: Rudy Baron MD Med Rec #: [id number] Admission Date: 04/25/20 Room #: Admitting Physician: Report Number: [id number] _ cc: Marissa Cagle MD; Rudy Baron MD Send Report To: Report Status - Signed Endoscopy Department Patient Name: Nikole Avalos Attending MD: Rudy Baron MD Instrument Name: [id number] Procedure Date No Time: 04/25/2020 Date of : 1955 Procedure: Colonoscopy Indications: Screening for colorectal malignant neoplasm Providers: Rudy Baron MD Referring MD: Requesting Provider: Medicines: See the [facility] note for documentation of the administered medications [...] bowel preparation was evaluated using the BBPS ([place] Bowel Preparation Scale) with scores of: Right [...] 0 Note Initiated On: 04/25/2020 1:[address] [place] [address] REPORT SIGNATURE ON FILE Dictated By: Rudy Baron MD <Electronically signed by Rudy Baron MD in OV> 04/25/20 1415 Dictation Date/Time: 04/25/20 1350 Transcribed Date/Time: 04/25/20 1415/IATRICS Name Value Range Interpretation Code Description Data Rajani rce(s) Supporting Document(s) ID Date Data Source [id number] 04/25/2020 12:38:00 PM EST [facility] Name Value Range Interpretation Code Description Data Rajani rce(s) Supporting Document(s) LAB Glucose,Fingerstick 179 mg/dL 70-110 Above high normal [facility] ID Date Data Source [id number] 04/21/2020 04:13:00 PM EST [facility] Name Value Range Interpretation Code Description Data Rajani rce(s) Supporting Document(s) Respiratory specimen severe acute respir atory syndrome coronavirus 2 (SARS-CoV-2) RNA Negative (qualifier value) [facility] This lab was ordered by [facility] and reported by . ID Date Data Source [id number] 04/21/2020 03:42:00 PM EST [facility] Name Value Range Interpretation Code Description Data Rajani rce(s) Supporting Document(s) SARS-CoV-2 RNA INHOUSE Negative Normal (applies to non-n umeric results) [facility] THIS IS A ON LICENSE OF [facility] REPORTABLE COMMUNICABLE DISEASE. Testing was performed using the [employer] COVID-19 MDx Assay. This test has been [...] be found at the following links: Providers: https://www.fda.gov/media/192702/download Patients : https://www.fda.gov/media/482461/download THIS IS A [facility] REPORTABLE COMMUNICABLE DISEASE Negative results do not preclude SARS-CoV-2 infection and should not be used as the sole basis for patient management decisions. Negative results must be combined with clinical observations,patient history, and epidemiological information. ID Date Data Source [id number] 03/08/2020 09:05:00 AM [facility] Name Value Range Interpretation Code Description Data Rajani rce(s) Supporting Document(s) 25-OH VITAMIN D 19.7 ng/mL 30.0 - 100 Below low normal [facility] Deficient < 20 ng/mL Insufficient 20 - < 30 ng/mL Sufficient 30 - 100 ng/mL 25-OH vitamin D reference values based on the Clinical Guidelines Subcommittee of the Endocrine Society Task Force. Biotin can interfere with 25-OH Vitamin D results if taken 48 hours prior to specimen collection. ID Date Data Source [id number] 03/08/2020 09:05:00 AM [facility] Name Value Range Interpretation Code Description Data Rajani rce(s) Supporting Document(s) LIPID PROFILE [facility] LIPID PROFILE Cholesterol [Mass/volume] in Serum or Plasma 156 mg/dL [facility] Triglyceride [Mass/volume] in Serum or Plasma 139 mg/dL [facility] Cholesterol in HDL [Mass/volume] in Serum or Plasma 33 mg/dL [facility] Cholesterol in LDL [Mass/volume] in Serum or Plasma by calculation 95 mg/dL [facility] CHOL/HDL 4.73 [facility] l \\BLDo\\INTERPRE TATION\\BLDx\\ REFERENCE RANGES (NATIONAL [...] mg/dL VERY HIGH ID Date Data Source [id number] 03/08/2020 09:05:00 AM EST [facility] Name Value Range Interpretation Code Description Data Rajani rce(s) Supporting Document(s) TSH 1.05 uIU/mL 0.36 - 3.74 [facility] ID Date Data Source [id number] 03/08/2020 09:05:00 AM EST [facility] Name Value Range Interpretation Code Description Data Rajani rce(s) Supporting Document(s) T4 FREE 0.86 ng/dL 0.76 - 1.46 [facility] ital ID Date Data Source [id number] 03/08/2020 09:05:00 AM EST [facility] Name Value Range Interpretation Code Description Data Rajani rce(s) Supporting Document(s) BASIC METABOLIC PANEL [facility] BASIC METABOLIC PANEL Sodium [Moles/volume] in Serum or Plasma 143 mEq/L 136 - 145 [facility] Potassium [Moles/volume] in Serum or Plasma 4.3 mEq/L 3.5 - 5.1 [facility] Chloride [Moles/volume] in Serum or Plasma 105 mEq/L 98 - 107 [facility] Carbon dioxide, total [Moles/volume] in Serum or Plasma 30.2 mEq /L 21.0 - 32.0 [facility] Glucose [Mass/volume] in Serum or Plasma 143 mg/dL 70 - 100 Above high normal [facility] Urea nitrogen [Mass/volume] in Serum or Plasma 36 mg/dL 7 - 18 Above high normal [facility] CREATININE SERUM 1.78 mg/dL 0.70 - 1.30 Above high normal [facility] AGE 64 yrs [facility] l eGFR NON-AFR AMR 39 [facility] eGFR AFR AMR 47 [facility] ital BUN/CREAT 20 6 - 25 [facility] l Calcium [Mass/volume] in Serum or Plasma 9.7 mg/dL 8.8 - 10.2 [facility] ANION GAP 8 7 - 15 [facility] l Estimated GFR reference r juan carlos: > 60 mL/min/1.73m >18 years: Calculated using IDMS traceable MDRD Study Equation <18 years: Calculated using IDMS traceable Bedside Nuñez Equation ID Date Data Source [id number] 03/08/2020 09:05:00 AM EST [facility] Name Value Range Interpretation Code Description Data Rajani rce(s) Supporting Document(s) CBC [facility] COMPLETE BLOOD COUNT Leukocytes [#/volume] in Blood by Automated count 5.9 K/uL 4.0 - 10 .0 [facility] Erythrocytes [#/volume] in Blood by Automated count 4.73 M/uL 4.30 - 6.10 [facility] Hemoglobin [Mass/volume] in Blood 13.8 g/dL 13.5 - 17.5 [facility] Hematocrit [Volume Fraction] of Blood by Automated count 44.3 % 3 9.0 - 50.0 [facility] Erythrocyte mean corpuscular volume [Entitic volume] by Auto mated count 93.7 fL 80.0 - 96.0 [facility] Erythrocyte mean corpuscular hemoglobin [Entitic mass] by Automated count 29.2 pg 26.0 - 34.0 [facility] Erythrocyte mean corpuscular hemoglobin concentration [Mass/volume] by Automated count 31.2 g/dL 32.0 - 36.0 Below low normal [facility] alexis Erythrocyte distribution width [Ratio] by Automated count 15.3 % 11.6 - 14.8 Above high normal [facility] Platelets [#/volume] in Blood by Automated count 191 K/uL 150 - 450 [facility] Platelet mean volume [Entitic volume] in Blood by Automated count 9.4 fL 7.1 - 10.4 [facility] Neutrophils [#/volume] in Blood by Automated count 3.79 K/uL 1.70 - 7.70 [facility] Lymphocytes [#/volume] in Blood by Automated count 1.45 K/uL 1.50 - 6.00 Below low normal [facility] Monocytes [#/volume] in Blood by Automated count 0.40 K/uL 0.00 - 1. 00 [facility] Eosinophils [#/volume] in Blood by Automated count 0.13 K/uL 0.00 - 0.30 [facility] Basophils [#/volume] in Blood by Automated count 0.06 K/uL 0.00 - 0. 10 [facility] 0.06 Urinalysis macro (dipstick) panel - Urine 0.000 10^3/uL 0.000 - 0.012 [facility] Neutrophils/100 leukocytes in Blood by Automated count 64.4 % 42. 2 - 75.2 [facility] Lymphocytes/100 leukocytes in Blood by Automated count 24.6 % 15. 0 - 41.0 [facility] Monocytes/100 leukocytes in Blood by Automated count 6.8 % 0.0 - 12.0 [facility] Eosinophils/100 leukocytes in Blood by Automated count 2.2 % 0.0 - 7.0 [facility] 1.01.00 NRBC 0.0 % [facility] MANUAL DIFF NOT INDICATED [facility] RBC MORPH NOT INDICATED [facility] ID Date Data Source [id number] 02/26/2020 03:58:00 PM [facility] Name: NIKOLE AVALOS : 1955 Age/Sex: 64M Ordering Provider: Gabe Finley MD Med Rec #: [id number] Reg Status: [facility] PO Room #: Date of Service: 02/21/20 Report Number: [id number] cc:Gabe Finley MD Send Report To: [id number] XRP/XR Knee Rt 2 views Reason for [...] Date/Time: 02/25/20 1528 Transcribed Date/Time: 02/26/20 1558 [employer]: STEPHANIE Name Value Range Interpretation Code Description Data Rajani rce(s) Supporting Document(s) Procedure Social History No Information Vital Signs ID Date Data Source UNK Name Value Range Interpretation Code Description Data Source(s) Body mass index (BMI) [Ratio] 33.45 kg/m2 33.45 kg/m2 [facility] Systolic blood pressure 142 mm[Hg] 142 mm[Hg] [facility] Diastolic blood pressure 67 mm[Hg] 67 mm[Hg] [facility] Body surface area Derived from formula 2.19 m2 2.19 m2 [facility] Body height 172.7200 cm 172.7200 cm [facility] Oxygen saturation in Arterial blood by Pulse oximetry 98 % 98 % [facility] Heart rate 92.0 /min 92.0 /min [facility] ospital Respiratory rate 18 /min 18 /min [facility] Body temperature 36.7 Amalia 36.7 Amalia [facility] Body weight 99.79 kg 99.79 kg [facility] Body mass index (BMI) [Ratio] 32.54 kg/m2 32.54 kg/m2 [facility] Systolic blood pressure 138 mm[Hg] 138 mm[Hg] [facility] Diastolic blood pressure 70 mm[Hg] 70 mm[Hg] [facility] Body surface area Derived from formula 2.16 m2 2.16 m2 [facility] Body height 172.7200 cm 172.7200 cm [facility] Oxygen saturation in Arterial blood by Pulse oximetry 100 % 100 % [facility] Heart rate 84.0 /min 84.0 /min [facility]ital Respiratory rate 20 /min 20 /min [facility] Body temperature 36.7 Amalia 36.7 Amalia [facility] Body weight 97.07 kg 97.07 kg [facility] Body mass index (BMI) [Ratio] 34.06 kg/m2 34.06 kg/m2 [facility] Systolic blood pressure 156 mm[Hg] 156 mm[Hg] [facility] Diastolic blood pressure 80 mm[Hg] 80 mm[Hg] [facility] Body surface area Derived from formula 2.21 m2 2.21 m2 [facility] Body height 172.7200 cm 172.7200 cm [facility] Oxygen saturation in Arterial blood by Pulse oximetry 95 % 95 % [facility] Heart rate 76.0 /min 76.0 /min [facility]ital Respiratory rate 18 /min 18 /min [facility] Body temperature 36.7 Amalia 36.7 Amalia [facility] Body weight 101.60 kg 101.60 kg [facility] Systolic blood pressure 106 mm[Hg] 106 mm[Hg] [facility] Diastolic blood pressure 61 mm[Hg] 61 mm[Hg] [facility] Oxygen saturation in Arterial blood by Pulse oximetry 95 % 95 % [facility] Heart rate 79.0 /min 79.0 /min [facility]ital Respiratory rate 20 /min 20 /min [facility] Body temperature 36.9 Amalia 36.9 Amalia [facility] Respiratory rate 18 /min 18 /min [facility] Body mass index (BMI) [Ratio] 34.97 kg/m2 34.97 kg/m2 [facility] Systolic blood pressure 127 mm[Hg] 127 mm[Hg] [facility] Diastolic blood pressure 74 mm[Hg] 74 mm[Hg] [facility] Body surface area Derived from formula 2.24 m2 2.24 m2 [facility] Body height 172.7200 cm 172.7200 cm [facility] Oxygen saturation in Arterial blood by Pulse oximetry 97 % 97 % [facility] Heart rate 90.0 /min 90.0 /min [facility]ital Body temperature 37.5 Amalia 37.5 Amalia [facility] Body weight 104.33 kg 104.33 kg [facility] Body mass index (BMI) [Ratio] 33.75 kg/m2 33.75 kg/m2 [facility] Systolic blood pressure 148 mm[Hg] 148 mm[Hg] [facility] Diastolic blood pressure 73 mm[Hg] 73 mm[Hg] [facility] Body surface area Derived from formula 2.20 m2 2.20 m2 [facility] Body height 172.7200 cm 172.7200 cm [facility] Oxygen saturation in Arterial blood by Pulse oximetry 100 % 100 % [facility] Heart rate 72.0 /min 72.0 /min [facility]ital Respiratory rate 20 /min 20 /min [facility] Body temperature 36.0 Amalia 36.0 Amalia [facility] Body weight 100.70 kg 100.70 kg [facility] Body mass index (BMI) [Ratio] 33.61 kg/m2 33.61 kg/m2 [facility] Systolic blood pressure 153 mm[Hg] 153 mm[Hg] [facility] Diastolic blood pressure 72 mm[Hg] 72 mm[Hg] [facility] Body surface area Derived from formula 2.19 m2 2.19 m2 [facility] Body height 172.7200 cm 172.7200 cm [facility] Oxygen saturation in Arterial blood by Pulse oximetry 100 % 100 % [facility] Heart rate 71.0 /min 71.0 /min [facility] Respiratory rate 18 /min 18 /min [facility] Body temperature 36.8 Amalia 36.8 Amalia [facility] Body weight 100.26 kg 100.26 kg [facility] Systolic blood pressure 139 mm[Hg] 139 mm[Hg] [facility] Diastolic blood pressure 73 mm[Hg] 73 mm[Hg] [facility] Oxygen saturation in Arterial blood by Pulse oximetry 100 % 100 % [facility] Heart rate 55.0 /min 55.0 /min [facility] Respiratory rate 16 /min 16 /min [facility] Body temperature 36.6 Amalia 36.6 Amalia [facility] Body weight 102.51 kg 102.51 kg [facility] Systolic blood pressure 155 mm[Hg] 155 mm[Hg] [facility] Diastolic blood pressure 68 mm[Hg] 68 mm[Hg] [facility] Body surface area Derived from formula 2.25 m2 2.25 m2 [facility] Respiratory rate 18 /min 18 /min [facility] Body mass index (BMI) [Ratio] 35.43 kg/m2 35.43 kg/m2 [facility] Body height 172.7200 cm 172.7200 cm [facility] Oxygen saturation in Arterial blood by Pulse oximetry 98 % 98 % [facility] Heart rate 79.0 /min 79.0 /min [facility] Body weight 105.69 kg 105.69 kg [facility] Body temperature 37.1 Amalia 37.1 Amalia [facility] Body mass index (BMI) [Ratio] 34.82 kg/m2 34.82 kg/m2 [facility] Systolic blood pressure 176 mm[Hg] 176 mm[Hg] [facility] Diastolic blood pressure 71 mm[Hg] 71 mm[Hg] [facility] Body surface area Derived from formula 2.23 m2 2.23 m2 [facility] Body height 172.7200 cm 172.7200 cm [facility] Oxygen saturation in Arterial blood by Pulse oximetry 98 % 98 % [facility] Heart rate 87.0 /min 87.0 /min [facility] Respiratory rate 17 /min 17 /min [facility] Body temperature 37.4 Amalia 37.4 Amalia [facility] Body weight 103.87 kg 103.87 kg [facility] Body mass index (BMI) [Ratio] 34.82 kg/m2 34.82 kg/m2 [facility] Systolic blood pressure 176 mm[Hg] 176 mm[Hg] [facility] Diastolic blood pressure 71 mm[Hg] 71 mm[Hg] [facility] Body surface area Derived from formula 2.23 m2 2.23 m2 [facility] Body height 172.7200 cm 172.7200 cm [facility] Oxygen saturation in Arterial blood by Pulse oximetry 98 % 98 % [facility] Heart rate 87.0 /min 87.0 /min [facility] Respiratory rate 17 /min 17 /min [facility] Body temperature 37.4 Amalia 37.4 Amalia [facility] Body weight 103.87 kg 103.87 kg [facility] Body mass index (BMI) [Ratio] 36.34 kg/m2 36.34 kg/m2 [facility] Systolic blood pressure 149 mm[Hg] 149 mm[Hg] [facility] Diastolic blood pressure 73 mm[Hg] 73 mm[Hg] [facility] Body surface area Derived from formula 2.28 m2 2.28 m2 [facility] Body height 172.7200 cm 172.7200 cm [facility] Oxygen saturation in Arterial blood by Pulse oximetry 97 % 97 % [facility] Heart rate 67.0 /min 67.0 /min [facility] Respiratory rate 18 /min 18 /min [facility] Body temperature 36.3 Amalia 36.3 Amalia [facility] Body weight 108.41 kg 108.41 kg [facility] ID Date Data Source [id number] 05/19/2020 09:55:00 AM EST [facility] Name Value Range Interpretation Code Description Data Source(s) Weight 3840 3840 [facility] Temperature 98.7 98.7 [facility] Respiratory Rate 20 20 [facility] Pulse Rate 77 77 [facility] Height 68 68 [facility] Blood Pressure 155/94 155/94 [facility] Weight 3840 3840 [facility] Temperature 98.7 98.7 [facility] Respiratory Rate 20 20 [facility] Pulse Rate 77 77 [facility] Height 68 68 [facility] Blood Pressure 155/94 155/94 [facility] Patient Treatment Plan of Care Planned Activity Planned Date Details Description Data Source (s) Cyclobenzaprine hydrochloride 5 MG Oral Tablet [facility]29[facility] 5 MG Oral Tablet 01/29/2021 [facility] A[facility] 5 MG Oral Tablet 01/27/2021 [facility] MG Oral Tablet 01/27/2021 [facility] pantop[facility]ole 40 MG Delayed Release Oral Tablet 01/07/2021 [facility] 40 MG Delayed Release Oral Tablet 01/07/2021 12:00:00 AM EDT [facility] Albuterol Sulfate HFA 0.09MG/1Actuation Inhalation [facility] pension 01/05/2021 12:00:00 AM EDT [facility] Albuterol Sulfate HFA 0.09MG/1Actuation Inhalation Mag[facility] pension 01/05/2021 12:00:00 AM EDT [facility] Albuterol Sulfate HFA 0.09MG/1Actuation Inhalation [facility] pension 01/05[facility] Oral Tablet [Eliquis] 12/17/2020 12:00:00 AM EDT [facility] apixaban 5 MG Oral Tablet [Eliquis] 12/17/2020 12:00:00 AM EDT [facility] apixaban 5 MG Oral Tablet [Eliquis] 12/17/2020 12:00:00 AM EDT [facility] Ergocalciferol 58514 UNT Oral Capsule 11/30/2020 12:00:00 AM EDT [facility] Ergocalciferol 90762 UNT Oral Capsule 11/30/2020 12:00:00 AM EDT [facility] Ergocalciferol 51739 UNT Oral Capsule 11/30/2020 12:00:00 AM EDT [facility] Ergocalciferol 58025 UNT Oral Capsule 11/30/2020 12:00:00 AM EDT [facility] Ergocalciferol 09370 UNT Oral Capsule 11/30/2020 12:00:00 AM EDT [facility] Simvastatin 10 MG Oral Tablet 11/11/2020 12:00:00 AM EDT [facility] Simvastatin 10 MG Oral Tablet 11/11/2020 12:00:00 AM EDT [facility] Simvastatin 10 MG Oral Tablet 11/11/2020 12:00:00 AM EDT [facility] Simvastatin 10 MG Oral Tablet 11/11/2020 [facility] MG Oral Tablet 11/11/2020 12:00:00 AM EDT [facility] insulin human, isophane 70 UNT/ML / Regu lar Insulin, Human 30 UNT/ML Injectable Suspension [Novolin] 10/15/2020 12:00:00 AM EDT [facility] insulin human, isophane 70 UNT/ML / Regu lar Insulin, Human 30 UNT/ML Injectable Suspension [Novolin] 10/15/2020 12:00:00 AM EDT [facility] insulin human, isophane 70 UNT/ML / Regu lar Insulin, Human 30 UNT/ML Injectable Suspension [Novolin] 10/15/2020 12:00:00 AM EDT [facility] insulin human, isophane 70 UNT/ML / Regu lar Insulin, Human 30 UNT/ML Injectable Suspension [Novolin] 10/15/2020 12:00:00 AM EDT [facility] insulin human, isophane 70 UNT/ML / Regu lar Insulin, Human 30 UNT/ML Injectable Suspension [Novolin] 10/15/2020 12:00:00 AM EDT [facility] insulin human, isophane 70 UNT/ML / Regu lar Insulin, Human 30 UNT/ML Injectable Suspension [Novolin] 10/15/2020 12:00:00 AM EDT [facility] insulin human, isophane 70 UNT/ML / Regu lar Insulin, Human 30 UNT/ML Injectable Suspension [Novolin] 10/15/2020 12:00:00 AM EDT [facility] insulin human, isophane 70 UNT/ML / Regu lar Insulin, Human 30 UNT/ML Injectable Suspension [Novolin] 10/15/2020 12:00:00 AM EDT [facility] Vitamin B12 1000MCG Oral Tablet, Extended Release 09/18/2020 [facility]: [facility] Vitamin B12 1000MCG Oral Tablet, Extended Release 09/18/2020 12: 00:00 AM EDT [facility] Vitamin B12 1000MCG Oral Tablet, Extended Release 09/18/2020 [facility]: [facility] Vitamin B12 1000MCG Oral Tablet, Extended Release 09/18/2020 12: [facility] Vitamin B12 1000MCG Oral Tablet, Extended Release 09/18/2020 12: 00:00 AM EDT [facility] Vitamin B12 1000MCG Oral Tablet, Extended Release 09/18/2020 [facility]: [facility] Vitamin B12 1000MCG Oral Tablet, Extended Release 09/18/2020 [facility]: [facility] Vitamin B12 1000MCG Oral Tablet, Extended Release 09/18/2020 12: 00:00 AM [facility] Lidocaine Hydrochloride 20 MG/ML Mucous Membrane Topic al Solution 09/06/2020 12:00:00 AM EDT [facility] Lidocaine Hydrochloride 20 MG/ML Mucous Membrane Topic al Solution 09/06/2020 12:00:00 AM EDT [facility] Lidocaine Hydrochloride 20 MG/ML Mucous Membrane Topic al Solution 09/06/2020 12:00:00 AM EDT [facility] Lidocaine Hydrochloride 20 MG/ML Mucous Membrane Topic al Solution 09/06/2020 12:00:00 AM EDT [facility] Lidocaine Hydrochloride 20 MG/ML Mucous Membrane Topic al Solution 09/06/2020 12:00:00 AM EDT [facility] Penicillin V Potassium 500 MG Oral Tablet 09/06/2020 12:00:00 AM ED T [facility] Lidocaine Hydrochloride 20 MG/ML Mucous Membrane Topic al Solution 09/06/2020 12:00:00 AM EDT [facility] Penicillin V Potassium 500 MG Oral Tablet 09/06/2020 12:00:00 AM ED [facility] Lidocaine Hydrochloride 20 MG/ML Mucous Membrane Topic al Solution 09/06/2020 12:00:00 AM EDT [facility] Metformin hydrochloride 1000 MG Oral Tablet 08/29/2020 12:00:00 AM EDT [facility] Metformin hydrochloride 1000 MG Oral Tablet 08/29/2020 12:00:00 AM EDT [facility] Metformin hydrochloride 1000 MG Oral Tablet 08/29/2020 12:00:00 AM [facility] Metformin hydrochloride 1000 MG Oral Tablet 08/29/2020 12:00:00 AM [facility] Metformin hydrochloride 1000 MG Oral Tablet 08/29/2020 12:00:00 AM EDT [facility] Metformin hydrochloride 1000 MG Oral Tablet 08/29/2020 12:00:00 AM EDT [facility] Metformin hydrochloride 1000 MG Oral Tablet 08/29/2020 [facility]ide 1000 MG Oral Tablet 08/29/2020 [facility] Gl[facility] 5 MG Oral Tablet 08/22/2020 [facility] 5 MG Oral Tablet 08/22/2020 12:00:00 AM EDT [facility] Glipizide 5 MG Oral Tablet 08/22/2020 12:00:00 AM EDT [facility] Glipizide 5 MG Oral Tablet 08/22/2020 12:00:00 AM EDT [facility] Glipizide 5 MG Oral Tablet 08/22/2020 12:00:00 AM EDT [facility] Glipizide 5 MG Oral Tablet 08/22/2020 12:00:00 AM EDT [facility] Glipizide 5 MG Oral Tablet 08/22/2020 12:00:00 AM EDT [facility] Glipizide 5 MG Oral Tablet 08/22/2020 12:00:00 AM EDT [facility] Acetaminophen 325 MG / Hydrocodone Bitartrate 5 MG Ora l Tablet [Lyons] 08/13/2020 12:00:00 AM EDT [facility] Acetaminophen 325 MG / Hydrocodone Bitartrate 5 MG Ora l Tablet [Lyons] 08/13/2020 12:00:00 AM EDT [facility] Allopurinol 100 MG Oral Tablet 08/12/2020 12:00:00 AM EDT [facility] Allopurinol 100 MG Oral Tablet 08/12/2020 12:00:00 AM EDT [facility] Allopurinol 100 MG Oral Tablet 08/12/2020 12:00:00 AM EDT [facility] Allopurinol 100 MG Oral Tablet 08/12/2020 12:00:00 AM EDT [facility] Allopurinol 100 MG Oral Tablet 08/12/2020 12:00:00 AM EDT [facility] Simvastatin 10 MG Oral Tablet 08/12/2020 12:00:00 AM EDT [facility] Allopurinol 100 MG Oral Tablet 08/12/2020 12:00:00 AM EDT [facility] Simvastatin 10 MG Oral Tablet 08/12/2020 12:00:00 AM EDT [facility] Allopurinol 100 MG Oral Tablet 08/12/2020 12:00:00 AM EDT [facility] Simvastatin 10 MG Oral Tablet 08/12/2020 12:00:00 AM EDT [facility] Allopurinol 100 MG Oral Tablet 08/12/2020 12:00:00 AM EDT [facility] Amlodipine 5 MG Oral Tablet 08/06/2020 12:00:00 AM EDT [facility] Amlodipine 5 MG Oral Tablet 08/06/2020 12:00:00 AM EDT [facility] Amlodipine 5 MG Oral Tablet 08/06/2020 12:00:00 AM EDT [facility] Amlodipine 5 MG Oral Tablet 08/06/2020 12:00:00 AM EDT [facility] Amlodipine 5 MG Oral Tablet 08/06/2020 12:00:00 AM EDT [facility] Amlodipine 5 MG Oral Tablet 08/06/2020 [facility] 600 MG Oral Tablet 05/16/2020 12:00:00 AM [facility] gabapentin 600 MG Oral Tablet 05/16/2020 12:00:00 AM [facility] gabapentin 600 MG Oral Tablet 05/16/2020 12:00:00 AM [facility] gabapentin 600 MG Oral Tablet 05/16/2020 12:00:00 AM [facility] gabapentin 600 MG Oral Tablet 05/16/2020 12:00:00 AM [facility] gabapentin 600 MG Oral Tablet 05/16/2020 12:00:00 AM [facility] gabapentin 600 MG Oral Tablet 05/16/2020 12:00:00 AM [facility] gabapentin 600 MG Oral Tablet 05/16/2020 12:00:00 AM [facility] gabapentin 600 MG Oral Tablet 05/16/2020 12:00:00 AM [facility] gabapentin 600 MG Oral Tablet 05/16/2020 12:00:00 AM [facility] Vitamin B12 1000MCG Oral Tablet, Extended Release 05/14/2020 12: 00:00 AM [facility] Vitamin B12 1000MCG Oral Tablet, Extended Release 05/14/2020 12: 00:00 AM [facility] Hydrochlorothiazide 12.5 MG Oral Tablet 03/14/2020 12:00:00 AM [facility] Hydrochlorothiazide 12.5 MG Oral Tablet 03/14/2020 12:00:00 AM [facility] Hydrochlorothiazide 12.5 MG Oral Tablet 03/14/2020 12:00:00 AM [facility] Hydrochlorothiazide 12.5 MG Oral Tablet 03/14/2020 12:00:00 AM [facility] Hydrochlorothiazide 12.5 MG Oral Tablet 03/14/2020 12:00:00 AM [facility] Hydrochlorothiazide 12.5 MG Oral Tablet 03/14/2020 12:00:00 AM [facility] Hydrochlorothiazide 12.5 MG Oral Tablet 03/14/2020 12:00:00 AM [facility] Hydrochlorothiazide 12.5 MG Oral Tablet 03/14/2020 12:00:00 AM [facility] Hydrochlorothiazide 12.5 MG Oral Tablet 03/14/2020 12:00:00 AM [facility] insulin human, isophane 70 UNT/ML / Regu lar Insulin, Human 30 UNT/ML Injectable Suspension [Novolin] 03/14/2020 12:00:00 AM [facility] Hydrochlorothiazide 12.5 MG Oral Tablet 03/14/2020 12:00:00 AM [facility] insulin human, isophane 70 UNT/ML / Regu lar Insulin, Human 30 UNT/ML Injectable Suspension [Novolin] 03/14/2020 12:00:00 AM [facility] Tylenol 8 Hour 650MG Oral Tablet, Extended Release 02/25/2020 12 :00:00 AM [facility] Tylenol 8 Hour 650MG Oral Tablet, Extended Release 02/25/2020 12 :00:00 AM [facility] Tylenol 8 Hour 650MG Oral Tablet, Extended Release 02/25/2020 12 :00:00 AM [facility] Tylenol 8 Hour 650MG Oral Tablet, Extended Release 02/25/2020 12 :00:00 AM [facility] Tylenol 8 Hour 650MG Oral Tablet, Extended Release 02/25/2020 12 :00:00 AM [facility] Tylenol 8 Hour 650MG Oral Tablet, Extended Release 02/25/2020 12 :00:00 AM [facility] Tylenol 8 Hour 650MG Oral Tablet, Extended Release 02/25/2020 12 :00:00 AM [facility] Tylenol 8 Hour 650MG Oral Tablet, Extended Release 02/25/2020 12 :00:00 AM [facility] Tylenol 8 Hour 650MG Oral Tablet, Extended Release 02/25/2020 12 :00:00 AM [facility] Tylenol 8 Hour 650MG Oral Tablet, Extended Release 02/25/2020 12 :00:00 AM [facility] Tylenol 8 Hour 650MG Oral Tablet, Extended Release 02/25/2020 12 :00:00 AM [facility] Allopurinol 100 MG Oral Tablet 02/12/2020 12:00:00 AM [facility] Simvastatin 10 MG Oral Tablet 02/12/2020 12:00:00 AM [facility] Allopurinol 100 MG Oral Tablet 02/12/2020 12:00:00 AM [facility] Simvastatin 10 MG Oral Tablet 02/12/2020 12:00:00 AM [facility] Simvastatin 10 MG Oral Tablet 02/12/2020 12:00:00 AM [facility] Allopurinol 100 MG Oral Tablet 02/12/2020 12:00:00 AM [facility] Amlodipine 5 MG Oral Tablet 01/19/2020 [facility] MG Oral Tablet 01/19/2020 12:00:00 AM EDT [facility] Amlodipine 5 MG Oral Tablet 01/19/2020 12:00:00 AM [facility] Glipizide 5 MG Oral Tablet 12/27/2019 12:00:00 AM [facility] Glipizide 5 MG Oral Tablet 12/27/2019 12:00:00 AM EDT [facility] Glipizide 5 MG Oral Tablet 12/27/2019 [facility] 1000 MG Oral Tablet 12/21/2019 [facility]ide 1000 MG Oral Tablet 12/21/2019 [facility] Met[facility]ide 1000 MG Oral Tablet 12/21/2019 [facility] Lisin[facility]ril 20 MG Oral Tablet 12/18/2019 12:00:00 AM EDT [facility] Lisinopril 20 MG Oral Tablet 12/18/2019 12:00:00 AM EDT [facility] Lisinopril 20 MG Oral Tablet 12/18/2019 12:00:00 AM EDT [facility] Lisinopril 20 MG Oral Tablet 12/18/2019 12:00:00 AM EDT [facility] Lisinopril 20 MG Oral Tablet 12/18/2019 12:00:00 AM EDT [facility] Lisinopril 20 MG Oral Tablet 12/18/2019 12:00:00 AM EDT [facility] Lisinopril 20 MG Oral Tablet 12/18/2019 12:00:00 AM EDT [facility] Lisinopril 20 MG Oral Tablet 12/18/2019 12:00:00 AM EDT [facility] Lisinopril 20 MG Oral Tablet 12/18/2019 12:00:00 AM EDT [facility] Lisinopril 20 MG Oral Tablet 12/18/2019 12:00:00 AM EDT [facility] Lisinopril 20 MG Oral Tablet 12/18/2019 12:00:00 AM EDT [facility]
--- NOTE | 2021-02-04 22:16 | REPVR ---
PROCEDURE INFORMATION: Exam: US Retroperitoneal Limited, Kidneys Exam date and time: 02/04/2021 9:29 PM Age: 65 years old Clinical indication: Other: Ross TECHNIQUE: Imaging protocol: Real-time ultrasound of the retroperitoneum with image documentation. Examination was focused on the kidneys. COMPARISON: CT ABD PELVIS WITH CONTRAST 06/30/2020 3:52 PM FINDINGS: Right kidney: Right kidney measures 9.8 x 5.5 x 5.8 cm. No hydronephrosis or mass. Left kidney: Left kidney measures 10.3 x 4.9 x 5.9 cm. No hydronephrosis or mass. Bladder: Bladder normal. Bilateral ureteral jets not visualized. IMPRESSION: Normal study. Ureteral jets not demonstrated as described above. Electronically signed by: Malachi Gray On 02/04/2021 22:15:46 PM
[2021-02-04 23:18] VITALS: BP 131/63
[2021-02-04] MEDS ORDERED: HYDR-3490 PO (23:30)
[2021-02-04] MEDS ORDERED: PROAAER10 INH (23:30)
[2021-02-04] MEDS ORDERED: ELIQ5TAB PO (23:30)
[2021-02-04] MEDS ORDERED: CYCL5TAB PO (23:30)
[2021-02-04 23:34] VITALS: BP 130/61
[2021-02-04] MEDS ORDERED: HOME MED LIST COMPLETE! XX SCH (23:35)
[2021-02-05] VITALS (10 sets, daily range): BP systolic 118–161; BP diastolic 59–75
[2021-02-05] MEDS ORDERED: ALBUTEROL 90 MCG/ACT 8GM HFA INHALER INH PRN (00:35)
[2021-02-05 01:48] LABS: BASO % 0.2 % (0.0-1.0); EOS % 0.3 % (0.0-3.0); HEMATOCRIT 23.2 % (42.0-52.0); HEMOGLOBIN 7.2 g/dl (13.5-17.5); LYMPH # 1.2 10^3/uL (1.5-5.0); LYMPH % 13.4 % (24.0-44.0); MEAN CORPUSCULAR HEMOGLOBIN 35.3 pg (27.0-33.0); MEAN CORPUSCULAR VOLUME 113.7 fl (80.0-96.0); MONO # 1.9 10^3/uL (0.0-0.8); MONO % 21.1 % (2.0-8.0); NEUTROPHILS % 55.8 % (36.0-66.0); RED BLOOD COUNT 2.04 10^6/uL (4.30-6.10); WHITE BLOOD COUNT 8.9 10^3/uL (4.0-10.0)
[2021-02-05 01:52] LABS: PLATELET COUNT, AUTOMATED 66 10^3/uL (150-450)
[2021-02-05 01:57] LABS: INR 1.43; PROTHROMBIN TIME 17.9 SECONDS (12.7-14.5)
[2021-02-05] MEDS: HumaLOG INSULIN (NovoLOG) PER UNIT SC SCH ×5 (01:59→20:39)
[2021-02-05 02:07] LABS: CALCIUM LEVEL 8.7 MG/DL (8.8-10.2); CREATININE FOR GFR 2.25 MG/DL (0.70-1.30); GLOMERULAR FILTRATION RATE 31.5 (>49); POTASSIUM SERUM 4.1 MEQ/L (3.5-5.1)
[2021-02-05] MEDS: ACETAMINOPHEN TAB 650MG DOSE (2X325MG) PO PRN ×2 (02:08→16:27)
[2021-02-05 06:40] LABS: HEMATOCRIT 22.4 % (42.0-52.0); MEAN CORPUSCULAR HEMOGLOBIN 35.2 pg (27.0-33.0); MEAN CORPUSCULAR HGB CONC 30.8 g/dl (32.0-36.5); RED BLOOD COUNT 1.96 10^6/uL (4.30-6.10); WHITE BLOOD COUNT 7.4 10^3/uL (4.0-10.0)
[2021-02-05 06:50] LABS: HEMOGLOBIN 6.9 g/dl (13.5-17.5); MEAN CORPUSCULAR VOLUME 114.3 fl (80.0-96.0); PLATELET COUNT, AUTOMATED 62 10^3/uL (150-450)
[2021-02-05 06:52] LABS: HEMOGLOBIN A1c 5.7 %
[2021-02-05 07:06] LABS: CALCIUM LEVEL 8.2 MG/DL (8.8-10.2); CREATININE FOR GFR 2.18 MG/DL (0.70-1.30); GLOMERULAR FILTRATION RATE 32.7 (>49); MAGNESIUM LEVEL 1.9 MG/DL (1.8-2.4); PERCENT SATURATION 11.8 % (19.7-50.0); POTASSIUM SERUM 4.3 MEQ/L (3.5-5.1)
[2021-02-05] MEDS: GABAPENTIN 300 MG CAP PO SCH ×3 (08:17→20:39)
[2021-02-05] MEDS: allopurinoL 100 MG TAB PO SCH (08:17)
[2021-02-05] MEDS: amLODIPine 5 MG TAB PO SCH (08:26)
[2021-02-05] MEDS: CYCLOBENZAPRINE 5MG TABLET PO SCH (08:27)
[2021-02-05] MEDS: SIMVASTATIN 10 MG TAB PO SCH (08:27)
[2021-02-05] MEDS ORDERED: FLUBLOK(EGG FREE)(QUAD)INFLUENZA VACC 0.5ML SYRINGE 18YRS & OLDER IM ONE (09:00)
[2021-02-05 09:44] LABS: FOLATE 8.9 NG/ML (>5.4)
[2021-02-05] MEDS: HumuLIN (NovoLIN)70/30 INSULIN INJ PER UNIT SC SCH ×2 (10:00→20:38)
[2021-02-05 12:34] LABS: PHOSPHORUS LEVEL 2.9 MG/DL (2.5-4.9); URIC ACID 7.4 MG/DL (3.5-7.2)
[2021-02-05] MEDS: AUGMENTIN 875 MG TAB PO SCH ×2 (12:34→20:39)
[2021-02-05 13:35] LABS: APPEARANCE, URINE CLEAR (CLEAR); BACTERIA, URINE AUTO NEGATIVE (NEGATIVE); BILIRUBIN, URINE AUTO NEGATIVE (NEGATIVE); BLOOD, URINE BLOOD 1+ (NEGATIVE); COLOR, URINE STRAW (YELLOW); GLUCOSE, URINE (UA) AUTO 1+ mg/dL (NEGATIVE); KETONE, URINE AUTO NEGATIVE (NEGATIVE); LEUKOCYTE ESTERASE, URINE AUTO NEGATIVE (NEGATIVE); MUCUS, URINE SMALL (NEGATIVE); NITRITE, URINE AUTO NEGATIVE (NEGATIVE); PROTEIN, URINE AUTO 1+ mg/dL (NEGATIVE); RBC, URINE AUTO 2 /HPF (0-3); SPECIFIC GRAVITY URINE AUTO 1.009 (1.002-1.035); SQUAMOUS EPITHELIAL CELL UR AU 0 /HPF (0-6); UROBILINOGEN, URINE AUTO 0.2 mg/dL (0.0-2.0); WBC, URINE AUTO 3 /HPF (0-3)
--- NOTE | 2021-02-05 14:25 | IPNPDOC ---
Text Note Date of Service The patient was seen on 02/05/21. NOTE SUBJECTIVE: -Feels like he is still bleeding despite the rhinorocket being in place -I spoke with the onc ETHNOLOGY PROFESSOR, Kenyetta Schreiber in Dr. Kim's office who told me that he is actually due to for a bone marrow biopsy on 02/12 for suspected recurrence of lymphoma with plummeting counts since 06/2020. OBJECTIVE: VITAL SIGNS: Please see below. GENERAL APPEARANCE: NAD HEENT: Rhinorocket is in place in left nare with surrounding crusted dark red blood. There is a very small stream of dark red blood coming from the right nostril. Oral mucosa moist CARDIOVASCULAR: Regular rate, rhythm. No murmurs, rubs, gallops. LUNGS: Good air flow b/l. No wheezing, rales, rhonchi ABDOMEN: Normoactive bowel sounds, Soft, nontender EXTREMITIES: No pedal edema appreciated. Pulses intact. No overlying skin changes. NEUROLOGICAL:Speech clear. A+Ox3. No focal deficits noted PSYCHIATRIC: Mood and affect appropriate LABORATORY DATA: WBC 7.4 Hgb 6.9 platelets 62 Cr 2.18 MICROBIOLOGY: Please see below. 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 PLAN: Epistaxis - 2/2 eliquis and thrombocytopenia i/s/o suspected hematologic malignancy recurrence pending bone marrow biopsy on 02/11 - Spoke with ENT, to leave rhinorocket in place for 4-5days - ENT was consulted, Dr. Collins following - Holding eliquis - s/p 2pools of platelets and pending 2u pRBCs - start empiric augmentin, day 1 2. Thrombocytopenia - Unfortunately, likely 2/2 lymphoma recurrence. - [facility], is scheduled to have bone marrow biopsy on 02/11 - Goal platelets >50 while bleeding, s/p 2 pools. 3. ALVIN - most likely pre-renal etiology d/t recent poor oral intake and significant blood loss - s/p ivf , about to receive 2u pRBCs - renal us f/u - repeat kidney function in the am 4. DM - continue at home basal insulin - sliding scale coverage - hypoglycemic protocol - continue gabapentin 5. HTN - holding lisinopril, hctz with ongoing ALVIN - continue amlodipine 6. HLD - continue simvastatin 7. Gout - Hold allopurinol DVT prophylaxis - mechanical VS,Fishbone, I+O VS, Fishbone, I+O Laboratory Tests 02/05/21 01:36 02/05/21 01:37 02/05/21 06:12 Vital Signs Date Time Temp Pulse Resp B/P (MAP) Pulse Ox O2 Delivery O2 Flow Rate FiO2 02/05/21 12:45 98.7 100 20 130/61 Room Air 02/05/21 06:00 95 I&O- Last 24 Hours up to 6 AM 02/05/21 05:59 Intake Total 587 ml Balance 587 ml AICHA KIRAN MD Feb 05, 2021 14:25
[2021-02-06 05:10] VITALS: BP 129/63
[2021-02-06] MEDS: ACETAMINOPHEN TAB 650MG DOSE (2X325MG) PO PRN ×2 (05:21→15:24)
[2021-02-06 06:57] LABS: HEMATOCRIT 26.2 % (42.0-52.0); HEMOGLOBIN 8.3 g/dl (13.5-17.5); MEAN CORPUSCULAR HEMOGLOBIN 34.3 pg (27.0-33.0); MEAN CORPUSCULAR HGB CONC 31.7 g/dl (32.0-36.5); MEAN CORPUSCULAR VOLUME 108.3 fl (80.0-96.0); RED BLOOD COUNT 2.42 10^6/uL (4.30-6.10); WHITE BLOOD COUNT 10.6 10^3/uL (4.0-10.0)
[2021-02-06 06:58] LABS: PLATELET COUNT, AUTOMATED 79 10^3/uL (150-450)
[2021-02-06 07:15] LABS: CALCIUM LEVEL 8.3 MG/DL (8.8-10.2); CREATININE FOR GFR 1.93 MG/DL (0.70-1.30); GLOMERULAR FILTRATION RATE 37.6 (>49); MAGNESIUM LEVEL 1.6 MG/DL (1.8-2.4); POTASSIUM SERUM 3.8 MEQ/L (3.5-5.1)
[2021-02-06] MEDS: HumaLOG INSULIN (NovoLOG) PER UNIT SC SCH ×4 (07:30→21:00)
[2021-02-06] MEDS: HumuLIN (NovoLIN)70/30 INSULIN INJ PER UNIT SC SCH ×2 (09:00→21:10)
[2021-02-06] MEDS ORDERED: MAG SULF 1GM/100ML (MAG RUN) 1 GM in IV 1 EA IV ONE (10:00)
[2021-02-06] MEDS: GABAPENTIN 300 MG CAP PO SCH ×3 (10:21→21:09)
[2021-02-06] MEDS: AUGMENTIN 875 MG TAB PO SCH ×2 (10:21→21:10)
[2021-02-06] MEDS: SIMVASTATIN 10 MG TAB PO SCH (10:21)
[2021-02-06] MEDS: allopurinoL 100 MG TAB PO SCH (10:22)
[2021-02-06] MEDS: CYCLOBENZAPRINE 5MG TABLET PO SCH (10:22)
[2021-02-06] MEDS: amLODIPine 5 MG TAB PO SCH (10:29)
[2021-02-06 14:00] VITALS: BP 131/74
--- NOTE | 2021-02-06 16:19 | CR ---
CONSULTATION DATE: 02/05/2021 CHIEF COMPLAINT: Epistaxis. HISTORY OF PRESENT ILLNESS: This 65-year-old man with history of lymphoblastic lymphoma presented to the local hospital at the [facility] about 3 days ago complaining of persistent epistaxis on the right side of the nose. A Rhino Rocket was placed at the local emergency department. The Rhino Rocket was removed a day later; however, patient started to have another episode of epistaxis, mostly coming out from the left side. Another Rhinorocket was placed, and the patient was transferred to [facility] for further management. The Rhinorocket has been placed approximately 24 hours ago at this time. Patient feels some drippage from the back of the throat. He has received 2 units of platelet transfusion due to low platelet count of 28 with a hemoglobin of 6.9. He will be receiving packed red blood cell transfusion sometime today as well. 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 A bone marrow biopsy is scheduled for next week. The patient has been on Eliquis to pulmonary embolism. The Eliquis is currently on hold. MEDICAL HISTORY: As above. 1. Diabetes. 2. Gout. 3. Hypercholesterolemia. 4. Hypertension. 5. Pulmonary embolism in early 2020, requiring Eliquis. SURGICAL HISTORY: Cataracts and lower spine surgery. SOCIAL HISTORY: Non-alcohol user, nonsmoker, non-drug abuser. ALLERGIES: No known drug allergies. REVIEW OF SYSTEMS: Review is noncontributory. PHYSICAL EXAMINATION: On examination, appeared in no acute distress. EARS: Normal pinna. NOSE: Rhino Rocket in the left naris with dried blood clots around the insertion point of the Rhino Rocket. Right naris free of fresh blood. ORAL CAVITY: Moist mucosa. Floor of mouth not elevated. Posterior pharyngeal wall is free of clots or fresh blood. NECK: No gross cervical lymphadenopathy. Trachea midline. IMPRESSION: A 65-year-old man with a history of lymphoma is admitted for recurrent epistaxis in the background of thrombocytopenia, anticoagulation, on Eliquis for pulmonary embolism (PE), and anemia. Patient will receive his transfusion of platelets and packed red blood cells today. I have communicated with the hospitalist in regard to this case. She will be getting the medical oncology service involved in the care of the patient. Patient is to be placed on prophylactic antibiotics, such as Augmentin. Patient may also use the saline sprays to each side of the nasal cavity. Application of antibiotic antibiotic, such as mupirocin, to the nares would be reasonable as well. Given history of thrombocytopenia and anemia, the underlying condition needs to be stabilized before consideration of pulling the packing out to be made. Tentatively, the packing needs to remain in situ between 4-5 days. MTDD
--- NOTE | 2021-02-06 18:47 | IPNPDOC ---
Text Note Date of Service The patient was seen on 02/06/21. NOTE SUBJECTIVE: -Febrile overnight to 101.2 -Otherwise no other complaints except the discomfort of the rhinorocket OBJECTIVE: VITAL SIGNS: Please see below. GENERAL APPEARANCE: NAD HEENT: Rhinorocket is in place in left nare with surrounding crusted dark red blood. Oral mucosa moist CARDIOVASCULAR: Regular rate, rhythm. No murmurs, rubs, gallops. LUNGS: Good air flow b/l. No wheezing, rales, rhonchi ABDOMEN: Normoactive bowel sounds, Soft, nontender EXTREMITIES: No pedal edema appreciated. Pulses intact. No overlying skin changes. NEUROLOGICAL:Speech clear. A+Ox3. No focal deficits noted PSYCHIATRIC: Mood and affect appropriate LABORATORY DATA: WBC 10.6 Hgb 8.3 platelets 79 Cr 1.93 MICROBIOLOGY: Please see below. 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 PLAN: Epistaxis - 2/2 eliquis and thrombocytopenia i/s/o suspected hematologic malignancy recurrence pending bone marrow biopsy on 02/11 - Spoke with ENT, to leave rhinorocket in place for 4-5days - ENT was consulted, Dr. Collins following - Holding eliquis - s/p 2pools of platelets and 1u pRBCs - continue empiric augmentin, day 2 Fever: -for now will continue the empiric augmentin but will check 2 sets of BCx -CXR was unremarkable, UA bland and exam non-focal, will monitor for now Thrombocytopenia - Unfortunately, likely 2/2 lymphoma recurrence. - Pt follows with [facility], is scheduled to have bone marrow biopsy on 02/11 - Goal platelets >50 while bleeding, s/p 2 pools. Anemia: multifactorial including acute blood loss and AOCI - s/p 1u pRBC - will be following up with heme - goal HGb >8 ALVIN, improving - likely pre-renal etiology d/t recent poor oral intake and significant blood loss, improving - s/p ivf and 1u pRBCs - renal us - daily BMP DM - continue at home basal insulin - sliding scale coverage - hypoglycemic protocol - continue gabapentin HTN - holding lisinopril, hctz with ongoing ALVIN - continue amlodipine HLD - continue simvastatin Gout - Hold allopurinol DVT prophylaxis - mechanical VS,Fishbone, I+O VS, Fishbone, I+O Laboratory Tests 02/06/21 06:42 Vital Signs Date Time Temp Pulse Resp B/P (MAP) Pulse Ox O2 Delivery O2 Flow Rate FiO2 02/06/21 06:22 99.7 02/06/21 05:10 113 24 129/63 (85) 95 Room Air I&O- Last 24 Hours up to 6 AM 02/06/21 05:59 Intake Total 3065 ml Output Total 0 ml Balance 3065 ml AICHA KIRAN MD Feb 06, 2021 09:51
[2021-02-06 22:00] VITALS: BP 114/59
[2021-02-07] MEDS: ACETAMINOPHEN TAB 650MG DOSE (2X325MG) PO PRN ×2 (05:57→19:34)
[2021-02-07 06:00] VITALS: BP 126/72
[2021-02-07 07:14] LABS: HEMATOCRIT 25.8 % (42.0-52.0); MEAN CORPUSCULAR HEMOGLOBIN 34.3 pg (27.0-33.0); MEAN CORPUSCULAR VOLUME 110.7 fl (80.0-96.0); RED BLOOD COUNT 2.33 10^6/uL (4.30-6.10); WHITE BLOOD COUNT 10.7 10^3/uL (4.0-10.0)
[2021-02-07 07:19] LABS: PLATELET COUNT, AUTOMATED 60 10^3/uL (150-450)
[2021-02-07 07:30] LABS: CALCIUM LEVEL 8.3 MG/DL (8.8-10.2); CREATININE FOR GFR 1.95 MG/DL (0.70-1.30); GLOMERULAR FILTRATION RATE 37.2 (>49); MAGNESIUM LEVEL 1.7 MG/DL (1.8-2.4); POTASSIUM SERUM 3.9 MEQ/L (3.5-5.1)
[2021-02-07] MEDS: HumuLIN (NovoLIN)70/30 INSULIN INJ PER UNIT SC SCH ×2 (08:32→19:49)
[2021-02-07] MEDS: CYCLOBENZAPRINE 5MG TABLET PO SCH (08:33)
[2021-02-07] MEDS: AUGMENTIN 875 MG TAB PO SCH (08:33)
[2021-02-07] MEDS: allopurinoL 100 MG TAB PO SCH (08:33)
[2021-02-07] MEDS: SIMVASTATIN 10 MG TAB PO SCH (08:33)
[2021-02-07] MEDS: HumaLOG INSULIN (NovoLOG) PER UNIT SC SCH ×4 (08:33→19:37)
[2021-02-07] MEDS: GABAPENTIN 300 MG CAP PO SCH ×3 (08:33→19:49)
[2021-02-07] MEDS: amLODIPine 5 MG TAB PO SCH (08:41)
--- NOTE | 2021-02-07 09:13 | REP ---
INDICATION: fevers. COMPARISON: Portable chest, 06/30/2020. TECHNIQUE: AP portable chest image was obtained. FINDINGS: There is minimal airspace disease in the left lung base consistent with atelectasis or pneumonia. The heart borders mediastinum and pulmonary vascular pattern normal. The upper abdominal bowel gas pattern is normal. There is a right internal jugular Port-A-Cath present. There are no bony abnormalities. IMPRESSION: Minimal airspace disease in left lung base consistent with atelectasis or pneumonia. <Electronically signed by Shabbir Oliva > 02/07/21 0950
--- NOTE | 2021-02-07 09:43 | REPVR ---
PROCEDURE INFORMATION: Exam: CT Maxillofacial Without Contrast Exam date and time: 02/07/2021 9:24 AM Age: 65 years old Clinical indication: Other: Nosebleed, lymphoma, now persistent fevers TECHNIQUE: Imaging protocol: Computed tomography images of the face without contrast. Radiation optimization: All CT scans at this facility use at least one of these dose optimization techniques: automated exposure control; mA and/or kV adjustment per patient size (includes targeted exams where dose is matched to clinical indication); or iterative reconstruction. COMPARISON: CT HEAD W/O CONTRAST - OUTSIDE PRIOR 06/24/2014 10:14 AM FINDINGS: Orbital cavity: Examination reveals bilateral globes to be normal in size and morphology. The optic nerves are normal in thickness and symmetric bilaterally. The extraocular muscles are normal in thickness . The retroconal fat has a normal appearance. The lacrimal glands appear normal bilaterally. Bones/joints: The bony orbital ramirez are intact. There are chronic fractures involving bilateral nasal bones. No acute fractures are identified. Paranasal sinuses: Moderate mucosal thickening is seen in bilateral maxillary, ethmoid and sphenoid sinuses. The frontal sinuses are clear. Mastoid air cells: The visualized mastoid air cells are clear. Soft tissues: Unremarkable. Brain: There is mild ill-defined patchy hypodensity within the bilateral cerebral periventricular white matter, consistent with chronic microvascular ischemic changes. There is mild diffuse cerebral atrophy present, consistent with this patient's age. Ventricles: The ventricular system demonstrates mild diffuse compensatory enlargement. Dental: Metallic beam hardening artifact from dental hardware limits evaluation in this region. IMPRESSION: 1. Moderate mucosal thickening is seen in bilateral maxillary, ethmoid and sphenoid sinuses. The frontal sinuses are clear. 2. The bony orbital ramirez are intact. There are chronic fractures involving bilateral nasal bones. No acute fractures are identified. Electronically signed by: Billy Phillips On 02/07/2021 09:43:40 AM
[2021-02-07] MEDS ORDERED: MAG SULF 1GM/100ML (MAG RUN) 1 GM in IV 1 EA IV ONE (10:00)
[2021-02-07] MEDS: PIPERACILLIN/TAZOBACTAM SOD 4.5 GM in D5W MINI-BAG PLUS 50 ML IV SCH ×3 (12:07→23:47)
--- NOTE | 2021-02-07 13:08 | IPNPDOC ---
Text Note Date of Service The patient was seen on 02/07/21. NOTE SUBJECTIVE: -Febrile this morning to 101.8 -Has discomfort from the rhinorocket and sinus fullness OBJECTIVE: VITAL SIGNS: Please see below. GENERAL APPEARANCE: NAD HEENT: Rhinorocket is in place in left nare with surrounding crusted dark red blood. Oral mucosa moist. Looks unwell. CARDIOVASCULAR: Regular rate, rhythm. No murmurs, rubs, gallops. LUNGS: Good air flow b/l. No wheezing, rales, rhonchi ABDOMEN: Normoactive bowel sounds, Soft, nontender EXTREMITIES: No pedal edema appreciated. Pulses intact. No overlying skin changes. NEUROLOGICAL:Speech clear. A+Ox3. No focal deficits noted PSYCHIATRIC: Mood and affect appropriate LABORATORY DATA: WBC 10.7 Hgb 8.0 platelets 60 Cr 1.95 mag 1.7 MICROBIOLOGY: Please see below. 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 PLAN: Epistaxis - 2/2 eliquis and thrombocytopenia i/s/o suspected hematologic malignancy recurrence pending bone marrow biopsy on 02/11 - Spoke with ENT, to leave rhinorocket in place for 4-5days - ENT was consulted, Dr. Collins, recommended calling Dr. Harrison who is oncall with acute issues through 02/11 - Holding eliquis - s/p 2pools of platelets and 1u pRBCs - Discontinue empiric augmentin, at this time, will escalate to vanc/piptazo, and order MRSA swab for de-escalation Persistent Fever: c/f smouldering sepsis -Discontinue empiric augmentin, at this time, will escalate to vanc/piptazo, and order MRSA swab for de-escalation -UA was bland -Ordered CXR and maxillofacial CT for sinus eval -resend BCx, NGTD Thrombocytopenia - Unfortunately, likely 2/2 lymphoma recurrence. - Pt follows with [facility], is scheduled to have bone marrow biopsy on 02/11 - Goal platelets >50 while bleeding, s/p 2 pools. Anemia: multifactorial including acute blood loss and AOCI - s/p 1u pRBC - will be following up with heme - goal HGb >8 ALVIN - likely pre-renal etiology d/t recent poor oral intake and significant blood loss, improving - s/p ivf and 1u pRBCs - renal us wnl - daily BMP DM - continue at home basal insulin - sliding scale coverage - hypoglycemic protocol - cont gabapentin HTN - holding lisinopril, hctz with ongoing ALVIN - continue amlodipine HLD - continue simvastatin Gout - allopurinol DVT prophylaxis - mechanical VS,Fishbone, I+O VS, Fishbone, I+O Laboratory Tests 02/07/21 06:20 Vital Signs Date Time Temp Pulse Resp B/P (MAP) Pulse Ox O2 Delivery O2 Flow Rate FiO2 02/07/21 08:41 98 138/80 02/07/21 06:00 101.8 20 95 Room Air I&O- Last 24 Hours up to 6 AM 02/07/21 05:59 Intake Total 3380 ml Output Total 1150 ml Balance 2230 ml AICHA KIRAN MD Feb 07, 2021 08:56
[2021-02-07 14:00] VITALS: BP 114/65
[2021-02-07] MEDS ORDERED: VANCOMYCIN HCL 1,000 MG, VIAL MATE ADAPTER 1 EACH in NS 250 ML IV ONE (16:00)
[2021-02-07] MEDS: VANCOMYCIN HCL 1,000 MG, VIAL MATE ADAPTER 1 EACH in NS 250 ML IV SCH (16:40)
[2021-02-07] MEDS ORDERED: CEPACOL LOZENGE PO PRN (19:40)
[2021-02-07] MEDS: MOM 30ML SUSPENSION UDC PO PRN (19:49)
[2021-02-07 22:00] VITALS: BP 123/74
[2021-02-08] MEDS: PIPERACILLIN/TAZOBACTAM SOD 4.5 GM in D5W MINI-BAG PLUS 50 ML IV SCH ×4 (04:53→22:58)
[2021-02-08] MEDS: ACETAMINOPHEN TAB 650MG DOSE (2X325MG) PO PRN ×3 (05:53→15:23)
[2021-02-08 06:00] VITALS: BP 128/63
[2021-02-08 06:59] LABS: HEMATOCRIT 27.7 % (42.0-52.0); HEMOGLOBIN 8.3 g/dl (13.5-17.5); MEAN CORPUSCULAR HEMOGLOBIN 34.2 pg (27.0-33.0); RED BLOOD COUNT 2.43 10^6/uL (4.30-6.10)
[2021-02-08 07:09] LABS: PLATELET COUNT, AUTOMATED 44 10^3/uL (150-450)
[2021-02-08 07:24] LABS: CALCIUM LEVEL 8.2 MG/DL (8.8-10.2); CREATININE FOR GFR 1.97 MG/DL (0.70-1.30); GLOMERULAR FILTRATION RATE 36.7 (>49); MAGNESIUM LEVEL 2.1 MG/DL (1.8-2.4); POTASSIUM SERUM 3.9 MEQ/L (3.5-5.1)
[2021-02-08] MEDS: HumaLOG INSULIN (NovoLOG) PER UNIT SC SCH ×4 (07:30→22:58)
[2021-02-08] MEDS: HumuLIN (NovoLIN)70/30 INSULIN INJ PER UNIT SC SCH ×2 (09:00→22:58)
[2021-02-08] MEDS: amLODIPine 5 MG TAB PO SCH (09:00)
--- NOTE | 2021-02-08 09:25 | IPNPDOC ---
Text Note Date of Service The patient was seen on 02/08/21. NOTE SUBJECTIVE: -Overnight had a low grade temp to 100.3 -Rhinorocket still in place OBJECTIVE: VITAL SIGNS: Please see below. GENERAL APPEARANCE: NAD HEENT: Rhinorocket is in place in left nare with surrounding crusted dark red blood. Oral mucosa moist. CARDIOVASCULAR: Regular rate, rhythm. No murmurs, rubs, gallops. LUNGS: Good air flow b/l. No wheezing, rales, rhonchi ABDOMEN: Normoactive bowel sounds, Soft, nontender EXTREMITIES: No pedal edema appreciated. Pulses intact. No overlying skin changes. NEUROLOGICAL:Speech clear. A+Ox3. No focal deficits noted PSYCHIATRIC: Mood and affect appropriate LABORATORY DATA: WBC 8 Hgb 8.3 platelets 44 Cr 1.97 mag 2 MICROBIOLOGY: Please see below. IMAGING: Maxillofacial CT: Orbital cavity: Examination reveals bilateral globes to be normal in size and morphology. The optic nerves are normal in thickness and symmetric bilaterally. The extraocular muscles are normal in thickness . The retroconal fat has a normal appearance. The lacrimal glands appear normal bilaterally. Bones/joints: The bony orbital ramirez are intact. There are chronic fractures involving bilateral nasal bones. No acute fractures are identified. Paranasal sinuses: Moderate mucosal thickening is seen in bilateral maxillary, ethmoid and sphenoid sinuses. The frontal sinuses are clear. Mastoid air cells: The visualized mastoid air cells are clear. Soft tissues: Unremarkable. Brain: There is mild ill-defined patchy hypodensity within the bilateral cerebral periventricular white matter, consistent with chronic microvascular ischemic changes. There is mild diffuse cerebral atrophy present, consistent with this patient's age. Ventricles: The ventricular system demonstrates mild diffuse compensatory enlargement. Dental: Metallic beam hardening artifact from dental hardware limits evaluation in this region. IMPRESSION: 1. Moderate mucosal thickening is seen in bilateral maxillary, ethmoid and sphenoid sinuses. The frontal sinuses are clear. 2. The bony orbital ramirez are intact. There are chronic fractures involving bilateral nasal bones. No acute fractures are identified. CXR: There is minimal airspace disease in the left lung base consistent with atelectasis or pneumonia. The heart borders mediastinum and pulmonary vascular pattern normal. The upper abdominal bowel gas pattern is normal. There is a right internal jugular Port-A-Cath present. There are no bony abnormalities. IMPRESSION: Minimal airspace disease in left lung base consistent with atelectasis or pneumonia. Renal US: Right kidney: Right kidney measures 9.8 x 5.5 x 5.8 cm. No hydronephrosis or mass. Left kidney: Left kidney measures 10.3 x 4.9 x 5.9 cm. No hydronephrosis or mass. Bladder: Bladder normal. Bilateral ureteral jets not visualized. IMPRESSION: Normal study. Ureteral jets not demonstrated as described above. 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, and also found with an ALVIN and acute blood loss anemia with course now c/b persistent fevers. PLAN: Epistaxis - 2/2 eliquis and thrombocytopenia i/s/o suspected hematologic malignancy recurrence pending bone marrow biopsy on 02/11 - Spoke with ENT, to leave rhinorocket in place for 4-5days - ENT was consulted, Dr. Collins, recommended calling Dr. Harrison who is oncall with acute issues through 02/11 - Holding eliquis - s/p 2pools of platelets and 1u pRBCs - Continue no vanc/piptazo, and f/u MRSA swab for de-escalation Persistent Fever: c/f smouldering sepsis -Continue no vanc/piptazo, and f/u MRSA swab for de-escalation -UA was bland -Ordered CXR and maxillofacial CT for sinus eval that showed potential L basilar atelectasis vs. PNA, and some mucosal thickening without any other acute findings respectively -f/u BCx, NGTD Thrombocytopenia - Unfortunately, likely 2/2 lymphoma recurrence. - Pt follows with [facility], is scheduled to have bone marrow biopsy on 02/11 - Goal platelets >50 while bleeding, s/p 2 pools. Anemia: multifactorial including acute blood loss and AOCI - s/p 1u pRBC - will be following up with heme - goal HGb >8 ALVIN on CKD, maybe progressive CKD? Stable - s/p ivf and 1u pRBCs - renal us wnl - daily BMP DM - continue at home basal insulin - sliding scale coverage - hypoglycemic protocol - cont gabapentin HTN - holding lisinopril, hctz with ongoing ALVIN? - continue amlodipine HLD - continue simvastatin Gout - allopurinol DVT prophylaxis - mechanical VS,Fishbone, I+O VS, Fishbone, I+O Laboratory Tests 02/08/21 06:11 Vital Signs Date Time Temp Pulse Resp B/P (MAP) Pulse Ox O2 Delivery O2 Flow Rate FiO2 02/08/21 06:00 98.5 78 16 128/63 (84) 92 Room Air I&O- Last 24 Hours up to 6 AM 02/08/21 06:00 Intake Total 1920 ml Output Total 0 ml Balance 1920 ml AICHA KIRAN MD Feb 08, 2021 09:25
[2021-02-08] MEDS: GABAPENTIN 300 MG CAP PO SCH ×3 (10:51→22:57)
[2021-02-08] MEDS: CYCLOBENZAPRINE 5MG TABLET PO SCH (10:51)
[2021-02-08] MEDS: allopurinoL 100 MG TAB PO SCH (10:51)
[2021-02-08] MEDS: SIMVASTATIN 10 MG TAB PO SCH (10:51)
[2021-02-08] MEDS: MOM 30ML SUSPENSION UDC PO PRN (10:51)
[2021-02-08 14:00] VITALS: BP 136/69
[2021-02-08] MEDS: VANCOMYCIN HCL 1,000 MG, VIAL MATE ADAPTER 1 EACH in NS 250 ML IV SCH (15:23)
[2021-02-08 22:00] VITALS: BP 122/58
[2021-02-09] VITALS (13 sets, daily range): BP systolic 118–140; BP diastolic 54–76
[2021-02-09] MEDS: PIPERACILLIN/TAZOBACTAM SOD 4.5 GM in D5W MINI-BAG PLUS 50 ML IV SCH ×4 (05:40→23:29)
[2021-02-09 06:26] LABS: HEMATOCRIT 23.6 % (42.0-52.0); HEMOGLOBIN 7.2 g/dl (13.5-17.5); MEAN CORPUSCULAR HGB CONC 30.5 g/dl (32.0-36.5); MEAN CORPUSCULAR VOLUME 111.3 fl (80.0-96.0); RED BLOOD COUNT 2.12 10^6/uL (4.30-6.10); WHITE BLOOD COUNT 8.2 10^3/uL (4.0-10.0)
[2021-02-09 06:27] LABS: PLATELET COUNT, AUTOMATED 39 10^3/uL (150-450)
[2021-02-09 06:48] LABS: CALCIUM LEVEL 8.6 MG/DL (8.8-10.2); CREATININE FOR GFR 1.91 MG/DL (0.70-1.30); GLOMERULAR FILTRATION RATE 38.1 (>49); POTASSIUM SERUM 4.2 MEQ/L (3.5-5.1)
[2021-02-09] MEDS: HumaLOG INSULIN (NovoLOG) PER UNIT SC SCH ×4 (07:30→21:09)
[2021-02-09] MEDS: HumuLIN (NovoLIN)70/30 INSULIN INJ PER UNIT SC SCH ×2 (09:00→21:09)
[2021-02-09] MEDS: allopurinoL 100 MG TAB PO SCH (10:39)
[2021-02-09] MEDS: CYCLOBENZAPRINE 5MG TABLET PO SCH (10:39)
[2021-02-09] MEDS: SIMVASTATIN 10 MG TAB PO SCH (10:39)
[2021-02-09] MEDS: GABAPENTIN 300 MG CAP PO SCH ×3 (10:39→21:09)
[2021-02-09] MEDS: amLODIPine 5 MG TAB PO SCH (10:45)
--- NOTE | 2021-02-09 13:48 | IPNPDOC ---
Text Note Date of Service The patient was seen on 02/09/21. NOTE SUBJECTIVE: -Had fever to 100.9 -Rhinorocket still in place OBJECTIVE: VITAL SIGNS: Please see below. GENERAL APPEARANCE: NAD HEENT: Rhinorocket is in place in left nare with surrounding crusted dark red blood. Oral mucosa moist. CARDIOVASCULAR: Regular rate, rhythm. No murmurs, rubs, gallops. LUNGS: Good air flow b/l. No wheezing, rales, rhonchi ABDOMEN: Normoactive bowel sounds, Soft, nontender EXTREMITIES: No pedal edema appreciated. Pulses intact. No overlying skin ch anges. NEUROLOGICAL:Speech clear. A+Ox3. No focal deficits noted PSYCHIATRIC: Mood and affect appropriate LABORATORY DATA: WBC 8.2 Hgb 7.2 platelets 39 Cr 1.91 mag 2 MICROBIOLOGY: Please see below. IMAGING: Maxillofacial CT: Orbital cavity: Examination reveals bilateral globes to be normal in size and morphology. The optic nerves are normal in thickness and symmetric bilaterally. The extraocular muscles are normal in thickness . The retroconal fat has a normal appearance. The lacrimal glands appear normal bilaterally. Bones/joints: The bony orbital ramirez are intact. There are chronic fractures involving bilateral nasal bones. No acute fractures are identified. Paranasal sinuses: Moderate mucosal thickening is seen in bilateral maxillary, ethmoid and sphenoid sinuses. The frontal sinuses are clear. Mastoid air cells: The visualized mastoid air cells are clear. Soft tissues: Unremarkable. Brain: There is mild ill-defined patchy hypodensity within the bilateral cerebral periventricular white matter, consistent with chronic microvascular ischemic changes. There is mild diffuse cerebral atrophy present, consistent with this patient's age. Ventricles: The ventricular system demonstrates mild diffuse compensatory enlargement. Dental: Metallic beam hardening artifact from dental hardware limits evaluation in this region. IMPRESSION: 1. Moderate mucosal thickening is seen in bilateral maxillary, ethmoid and sphenoid sinuses. The frontal sinuses are clear. 2. The bony orbital ramirez are intact. There are chronic fractures involving bilateral nasal bones. No acute fractures are identified. CXR: There is minimal airspace disease in the left lung base consistent with atelectasis or pneumonia. The heart borders mediastinum and pulmonary vascular pattern normal. The upper abdominal bowel gas pattern is normal. There is a right internal jugular Port-A-Cath present. There are no bony abnormalities. IMPRESSION: Minimal airspace disease in left lung base consistent with atelectasis or pneumonia. Renal US: Right kidney: Right kidney measures 9.8 x 5.5 x 5.8 cm. No hydronephrosis or mass. Left kidney: Left kidney measures 10.3 x 4.9 x 5.9 cm. No hydronephrosis or mass. Bladder: Bladder normal. Bilateral ureteral jets not visualized. IMPRESSION: Normal study. Ureteral jets not demonstrated as described above. 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 PLAN: Epistaxis: resolved with rhinorocket in place - 05/13 eliquis and thrombocytopenia i/s/o likely hematologic malignancy recurrence pending bone marrow biopsy on 02/11 - Spoke with ENT, to leave rhinorocket in place for 4-5days - ENT was consulted, Dr. Collins, recommended calling Dr. Harrison who is oncall with acute issues through 02/11 - Holding eliquis - s/p 2pools of platelets and 1u pRBCs Persistent Fever: potential CAP vs. tumor fevers? -Continue no vanc/piptazo, and f/u MRSA swab for de-escalation -UA was bland -Ordered CXR and maxillofacial CT for sinus eval that showed potential L basilar atelectasis vs. PNA, and some mucosal thickening without any other acute findings respectively -f/u BCx, NGTD -continue zosyn for now -MRSA negative -f/u procal Thrombocytopenia: worsenig, likely 2/2 heme malignancy - Unfortunately, likely 2/2 lymphoma recurrence. - Pt follows with [facility], is scheduled to have bone marrow biopsy on 02/11 - Goal platelets >50 while bleeding, >20 while febrile, otherwise >10, s/p 2 pools thus far. Will order 2 pools today. Goal by tuesday is >50 for bone marrow biopsy by IR. So I will order 2 pools to be given at midnight of 02/10 for 02/11 9AM bone marrow biopsy. Anemia: multifactorial including acute blood loss and AOCI - s/p 1u pRBC, giving 2u pRBCs today - will be following up with heme - goal HGb >8 ALVIN on CKD, maybe progressive CKD? Stable - s/p ivf and 1u pRBCs, give 2 more units today - renal us wnl - daily BMP DM - continue at home basal insulin, with hold parameter - sliding scale coverage - hypoglycemic protocol - cont gabapentin HTN - holding lisinopril, hctz with ongoing ALVIN? - continue amlodipine HLD - continue simvastatin Gout - allopurinol DVT prophylaxis - mechanical VS,Fishbone, I+O VS, Fishbone, I+O Laboratory Tests 02/09/21 06:01 Vital Signs Date Time Temp Pulse Resp B/P (MAP) Pulse Ox O2 Delivery O2 Flow Rate FiO2 02/09/21 06:00 99.0 84 14 118/58 (78) 91 Room Air I&O- Last 24 Hours up to 6 AM 02/09/21 06:00 Intake Total 2120 ml Output Total 2100 ml Balance 20 ml AICHA KIRAN MD Feb 09, 2021 10:30
[2021-02-10] MEDS: PIPERACILLIN/TAZOBACTAM SOD 4.5 GM in D5W MINI-BAG PLUS 50 ML IV SCH ×4 (05:24→22:39)
[2021-02-10 06:00] VITALS: BP 142/62
[2021-02-10 07:16] LABS: HEMATOCRIT 30.7 % (42.0-52.0); MEAN CORPUSCULAR HEMOGLOBIN 33.4 pg (27.0-33.0); MEAN CORPUSCULAR HGB CONC 32.6 g/dl (32.0-36.5); MEAN CORPUSCULAR VOLUME 102.7 fl (80.0-96.0); RED BLOOD COUNT 2.99 10^6/uL (4.30-6.10); WHITE BLOOD COUNT 9.6 10^3/uL (4.0-10.0)
[2021-02-10 07:19] LABS: PLATELET COUNT, AUTOMATED 32 10^3/uL (150-450)
[2021-02-10 07:32] LABS: CALCIUM LEVEL 8.5 MG/DL (8.8-10.2); CREATININE FOR GFR 1.86 MG/DL (0.70-1.30); GLOMERULAR FILTRATION RATE 39.3 (>49); MAGNESIUM LEVEL 1.7 MG/DL (1.8-2.4)
[2021-02-10] MEDS: HumuLIN (NovoLIN)70/30 INSULIN INJ PER UNIT SC SCH ×2 (08:45→21:21)
[2021-02-10] MEDS: SIMVASTATIN 10 MG TAB PO SCH (08:46)
[2021-02-10] MEDS: allopurinoL 100 MG TAB PO SCH (08:46)
[2021-02-10] MEDS: GABAPENTIN 300 MG CAP PO SCH ×3 (08:46→21:20)
[2021-02-10] MEDS: CYCLOBENZAPRINE 5MG TABLET PO SCH (08:46)
[2021-02-10] MEDS: HumaLOG INSULIN (NovoLOG) PER UNIT SC SCH ×4 (08:46→21:00)
[2021-02-10] MEDS: amLODIPine 5 MG TAB PO SCH (08:47)
--- NOTE | 2021-02-10 13:46 | IPNPDOC ---
Text Note Date of Service The patient was seen on 02/10/21. NOTE SUBJECTIVE: -Afebrile over the last 24h -Rhinorocket still in place OBJECTIVE: VITAL SIGNS: Please see below. GENERAL APPEARANCE: NAD HEENT: Rhinorocket is in place in left nare with surrounding crusted dark red blood. Oral mucosa moist. CARDIOVASCULAR: Regular rate, rhythm. No murmurs, rubs, gallops. LUNGS: Good air flow b/l. No wheezing, rales, rhonchi ABDOMEN: Normoactive bowel sounds, Soft, nontender EXTREMITIES: No pedal edema appreciated. Pulses intact. No overlying skin changes. NEUROLOGICAL:Speech clear. A+Ox3. No focal deficits noted PSYCHIATRIC: Mood and affect appropriate LABORATORY DATA: WBC 9.6 Hgb 10 platelets 32 Cr 1.86 mag 1.7 K 4 MICROBIOLOGY: Please see below. IMAGING: Maxillofacial CT: Orbital cavity: Examination reveals bilateral globes to be normal in size and morphology. The optic nerves are normal in thickness and symmetric bilaterally. The extraocular muscles are normal in thickness . The retroconal fat has a normal appearance. The lacrimal glands appear normal bilaterally. Bones/joints: The bony orbital ramirez are intact. There are chronic fractures involving bilateral nasal bones. No acute fractures are identified. Paranasal sinuses: Moderate mucosal thickening is seen in bilateral maxillary, ethmoid and sphenoid sinuses. The frontal sinuses are clear. Mastoid air cells: The visualized mastoid air cells are clear. Soft tissues: Unremarkable. Brain: There is mild ill-defined patchy hypodensity within the bilateral cerebral periventricular white matter, consistent with chronic microvascular ischemic changes. There is mild diffuse cerebral atrophy present, consistent with this patient's age. Ventricles: The ventricular system demonstrates mild diffuse compensatory enlargement. Dental: Metallic beam hardening artifact from dental hardware limits evaluation in this region. IMPRESSION: 1. Moderate mucosal thickening is seen in bilateral maxillary, ethmoid and sphenoid sinuses. The frontal sinuses are clear. 2. The bony orbital ramirez are intact. There are chronic fractures involving bilateral nasal bones. No acute fractures are identified. CXR: There is minimal airspace disease in the left lung base consistent with atelectasis or pneumonia. The heart borders mediastinum and pulmonary vascular pattern normal. The upper abdominal bowel gas pattern is normal. There is a right internal jugular Port-A-Cath present. There are no bony abnormalities. IMPRESSION: Minimal airspace disease in left lung base consistent with atelectasis or pneumonia. Renal US: Right kidney: Right kidney measures 9.8 x 5.5 x 5.8 cm. No hydronephrosis or mass. Left kidney: Left kidney measures 10.3 x 4.9 x 5.9 cm. No hydronephrosis or mass. Bladder: Bladder normal. Bilateral ureteral jets not visualized. IMPRESSION: Normal study. Ureteral jets not demonstrated as described above. 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, and also found with an ALVIN and acute blood loss anemia with course c/b persistent fevers. PLAN: Epistaxis: resolved with rhinorocket in place - / eliquis and thrombocytopenia i/s/o likely hematologic malignancy recurrence pending bone marrow biopsy on 02/11 - Spoke with ENT, to leave rhinorocket in place for 4-5days - ENT was consulted, Dr. Collins, recommended calling Dr. Harrison who is oncall with acute issues through 02/11 - Holding eliquis - s/p 2pools of platelets and 1u pRBCs - Plan is to give 2 pools overnight for removal of rocket tomorrow 02/11 Persistent Fever: presumed CAP, afebrile over the last 24h -Continue no piptazo -UA was bland -CXR potential L basilar atelectasis vs. PNA -maxillofacial CT showed some mucosal thickening without any other acute findings respectively -f/u BCx, NGTD -continue zosyn for now -procal 0.32 Thrombocytopenia: worsening, likely 2/2 heme malignancy - Unfortunately, likely 2/2 lymphoma recurrence. - Pt follows with [facility], is scheduled to have bone marrow biopsy on 02/11 - Goal platelets >50 while bleeding, >20 while febrile, otherwise >10, s/p 2 pools thus far. Will order 2 pools today. Goal by tuesday is >50 for bone marrow biopsy by IR. So I have ordered 2 pools to be given at midnight of 02/10 for 02/11 9AM bone marrow biopsy and rhinorocket removal. Anemia: multifactorial including acute blood loss and AOCI, and recurring lymphoma - s/p 3u pRBCs thus far - will be following up with heme - goal HGb >8 Likely recurring lymphoma: -with declining counts in recent months now with anemia and progressive thrombocytopenia, pending bone marrow biopsy tomorrow -Onc aware -Will follow up with onc in the outpatient setting ALVIN on CKD, maybe progressive CKD? Stable - s/p ivf and 3u pRBCs - renal us wnl - daily BMP DM - continue at home basal insulin, with hold parameter - sliding scale coverage - hypoglycemic protocol - cont gabapentin HTN - holding lisinopril, hctz with ongoing ALVIN? - continue amlodipine HLD - continue simvastatin Gout - allopurinol DVT prophylaxis - mechanical VS,Fishbone, I+O VS, Fishbone, I+O Laboratory Tests 02/10/21 06:35 Vital Signs Date Time Temp Pulse Resp B/P (MAP) Pulse Ox O2 Delivery O2 Flow Rate FiO2 02/10/21 08:47 72 132/76 02/10/21 06:00 96.9 19 97 Room Air 02/09/21 15:15 0.5 I&O- Last 24 Hours up to 6 AM 02/10/21 06:00 Intake Total 4430 ml Output Total 0 ml Balance 4430 ml AICHA KIRAN MD Feb 10, 2021 09:23
[2021-02-10 22:00] VITALS: BP 130/60
[2021-02-11] VITALS (7 sets, daily range): BP systolic 110–147; BP diastolic 58–87
[2021-02-11] MEDS: ACETAMINOPHEN TAB 650MG DOSE (2X325MG) PO PRN ×2 (04:27→21:14)
[2021-02-11] MEDS: PIPERACILLIN/TAZOBACTAM SOD 4.5 GM in D5W MINI-BAG PLUS 50 ML IV SCH (05:48)
[2021-02-11 06:33] LABS: HEMATOCRIT 33.3 % (42.0-52.0); HEMOGLOBIN 10.6 g/dl (13.5-17.5); MEAN CORPUSCULAR HEMOGLOBIN 33.1 pg (27.0-33.0); MEAN CORPUSCULAR HGB CONC 31.8 g/dl (32.0-36.5); MEAN CORPUSCULAR VOLUME 104.1 fl (80.0-96.0); WHITE BLOOD COUNT 14.4 10^3/uL (4.0-10.0)
[2021-02-11 06:35] LABS: PLATELET COUNT, AUTOMATED 65 10^3/uL (150-450)
[2021-02-11 06:48] LABS: CALCIUM LEVEL 8.7 MG/DL (8.8-10.2); CREATININE FOR GFR 1.9 MG/DL (0.70-1.30); GLOMERULAR FILTRATION RATE 38.3 (>49); MAGNESIUM LEVEL 1.8 MG/DL (1.8-2.4); POTASSIUM SERUM 4.1 MEQ/L (3.5-5.1)
[2021-02-11] MEDS: HumaLOG INSULIN (NovoLOG) PER UNIT SC SCH ×4 (07:30→21:14)
[2021-02-11] MEDS ORDERED: MAG SULF 1GM/100ML (MAG RUN) 1 GM in IV 1 EA IV ONE (08:05)
[2021-02-11] MEDS ORDERED: LIDOCAINE 1% MDV 20ML VIAL As Ordered ONE (08:06)
[2021-02-11] MEDS: GABAPENTIN 300 MG CAP PO SCH ×3 (08:12→21:13)
[2021-02-11] MEDS: SIMVASTATIN 10 MG TAB PO SCH (08:15)
[2021-02-11] MEDS: CYCLOBENZAPRINE 5MG TABLET PO SCH (08:15)
[2021-02-11] MEDS: allopurinoL 100 MG TAB PO SCH (08:15)
[2021-02-11] MEDS: amLODIPine 5 MG TAB PO SCH (08:16)
--- NOTE | 2021-02-11 14:03 | IPNPDOC ---
Text Note Date of Service The patient was seen on 02/11/21. NOTE SUBJECTIVE: -Afebrile over the last 48h -Rhinorocket still in place -Got 2 pools of platelets as scheduled overnight for goal >50 with plan for bone marrow biopsy at 9am by IR and then off to ENT clinic to Dr. Robertson for removal of rhinorocket OBJECTIVE: VITAL SIGNS: Please see below. GENERAL APPEARANCE: NAD HEENT: Rhinorocket is in place in left nare with surrounding crusted dark red blood. Oral mucosa moist. CARDIOVASCULAR: Regular rate, rhythm. No murmurs, rubs, gallops. LUNGS: Good air flow b/l. No wheezing, rales, rhonchi ABDOMEN: Normoactive bowel sounds, Soft, nontender EXTREMITIES: No pedal edema appreciated. Pulses intact. No overlying skin changes. NEUROLOGICAL:Speech clear. A+Ox3. No focal deficits noted PSYCHIATRIC: Mood and affect appropriate LABORATORY DATA: WBC 14.4 Hgb 110.6 platelets 64 Cr 1.9 mag 1.8 K 4.1 MICROBIOLOGY: Please see below. IMAGING: Maxillofacial CT: Orbital cavity: Examination reveals bilateral globes to be normal in size and morphology. The optic nerves are normal in thickness and symmetric bilaterally. The extraocular muscles are normal in thickness . The retroconal fat has a normal appearance. The lacrimal glands appear normal bilaterally. Bones/joints: The bony orbital ramirez are intact. There are chronic fractures involving bilateral nasal bones. No acute fractures are identified. Paranasal sinuses: Moderate mucosal thickening is seen in bilateral maxillary, ethmoid and sphenoid sinuses. The frontal sinuses are clear. Mastoid air cells: The visualized mastoid air cells are clear. Soft tissues: Unremarkable. Brain: There is mild ill-defined patchy hypodensity within the bilateral cerebral periventricular white matter, consistent with chronic microvascular ischemic changes. There is mild diffuse cerebral atrophy present, consistent with this patient's age. Ventricles: The ventricular system demonstrates mild diffuse compensatory enlargement. Dental: Metallic beam hardening artifact from dental hardware limits evaluation in this region. IMPRESSION: 1. Moderate mucosal thickening is seen in bilateral maxillary, ethmoid and sphenoid sinuses. The frontal sinuses are clear. 2. The bony orbital ramirez are intact. There are chronic fractures involving bilateral nasal bones. No acute fractures are identified. CXR: There is minimal airspace disease in the left lung base consistent with atelectasis or pneumonia. The heart borders mediastinum and pulmonary vascular pattern normal. The upper abdominal bowel gas pattern is normal. There is a right internal jugular Port-A-Cath present. There are no bony abnormalities. IMPRESSION: Minimal airspace disease in left lung base consistent with atelectasis or pneumonia. Renal US: Right kidney: Right kidney measures 9.8 x 5.5 x 5.8 cm. No hydronephrosis or mass. Left kidney: Left kidney measures 10.3 x 4.9 x 5.9 cm. No hydronephrosis or mass. Bladder: Bladder normal. Bilateral ureteral jets not visualized. IMPRESSION: Normal study. Ureteral jets not demonstrated as described above. ASSESSMENT: 65 y/o M with a history of plasmablastic lymphoma that had been in remission since 2014 post treatment but developed declining cell counts since 06/2020 and is due for a bone marrow biopsy today, 02/11, a history of thrombocytopenia with a remote history of a PE on eliquis, who developed profound epistaxis and had a rhinorocket placed and transferred from [facility], and also found with an ALVIN and acute blood loss anemia with course c/b persistent fevers that have now resolved on treatment for PNA. PLAN: Epistaxis: resolved with rhinorocket in place - 2/2 eliquis and thrombocytopenia i/s/o likely hematologic malignancy recurrence pending bone marrow biopsy today, 02/11 - Got 2 pools of platelets as scheduled overnight for goal >50 with plan for bone marrow biopsy at 9am by IR and then off to ENT clinic to Dr. Robertson for removal of rhinorocket - ENT was consulted, Dr. Collins onboard - Discontinued eliquis - s/p now a total of 4pools of platelets and 3u pRBCs Persistent Fever: presumed CAP, afebrile over the last 24h -Will now switch IV zosyn to PO levaquin to complete course for CAP, day 4 of CA P coverage including atypicals, will require 3 more days of antibiotics ending 02/14. -UA was bland -CXR potential L basilar atelectasis vs. infiltrate -procal 0.32 -maxillofacial CT showed some mucosal thickening without any other acute findings respectively -f/u BCx, NGTD Thrombocytopenia: worsening, likely 2/2 heme malignancy - Unfortunately, likely 2/2 lymphoma recurrence. - Pt follows with [facility], is scheduled to have bone marrow biopsy today, 02/11 - Goal platelets >50 while bleeding, >20 while febrile, otherwise >10, s/p 2 pools thus far. - Got 2 pools of platelets as scheduled overnight for goal >50 with plan for bone marrow biopsy at 9am by IR and then off to ENT clinic to Dr. Robertson for removal of rhinorocket Anemia: multifactorial including acute blood loss and AOCI, and recurring lymphoma - s/p 3u pRBCs thus far - will be following up with heme - Got 2 pools of platelets as scheduled overnight, currently 66, with plan for bone marrow biopsy at 9am today by IR and then off to ENT clinic to Dr. Robertson for removal of rhinorocket Likely recurring lymphoma: -with declining counts in recent months now with anemia and progressive thrombocytopenia, pending bone marrow biopsy tomorrow -Onc aware -Will follow up with onc in the outpatient setting ALVIN on CKD, maybe progressive CKD? Stable - s/p ivf and 3u pRBCs - renal us wnl - daily BMP DM - continue at home basal insulin, with hold parameter - sliding scale coverage - hypoglycemic protocol - cont gabapentin HTN - holding lisinopril, hctz with ongoing ALVIN? - continue amlodipine HLD - continue simvastatin Gout - allopurinol DVT prophylaxis - mechanical VS,Fishbone, I+O VS, Fishbone, I+O Laboratory Tests 02/11/21 05:52 Vital Signs Date Time Temp Pulse Resp B/P (MAP) Pulse Ox O2 Delivery O2 Flow Rate FiO2 02/11/21 06:00 99.3 85 17 142/64 (90) 90 Room Air 02/09/21 15:15 0.5 I&O- Last 24 Hours up to 6 AM 02/11/21 06:00 Intake Total 3262 ml Output Total 500 ml Balance 2762 ml AICHA KIRAN MD Feb 11, 2021 08:20
--- NOTE | 2021-02-11 17:27 | REP ---
INDICATION: Bone marrow biopsy. COMPARISON: None. TECHNIQUE: The procedure was performed under the direct supervision of Dr. Kaur. The risks and benefits of the procedure were explained to the patient and informed consent was obtained. The right iliac bone was localized using CT guidance. The skin was prepped and draped in a sterile fashion. 6 mL of 1% lidocaine was used as local anesthetic. Using CT guidance an 11 gauge bone marrow biopsy system was inserted. 10 mL of marrow fluid was withdrawn. One core biopsy sample was then obtained. Estimated blood loss: Less than 1 mL The patient tolerated the procedure well and there were no immediate complications. After the appropriate amount to monitor convalescence the patient was discharged from the department. FINDINGS: None IMPRESSION: CT-guided right iliac bone marrow biopsy. <Electronically signed by Ernesto Bang > 02/11/21 0193 <Electronically signed by Ankur Kaur > 02/11/21 [id number]
[2021-02-12 06:00] VITALS: BP 154/75
[2021-02-12] MEDS ORDERED: MOXI1TAB PO (08:28)
[2021-02-12] MEDS ORDERED: MOXIFLOXACIN 400 MG TAB PO ONE (08:30)
[2021-02-12] MEDS ORDERED: AUGM875T28 PO (08:30)
[2021-02-12] MEDS ORDERED: BACITAB PO (08:30)
[2021-02-12] MEDS: GABAPENTIN 300 MG CAP PO SCH (08:33)
[2021-02-12] MEDS: HumaLOG INSULIN (NovoLOG) PER UNIT SC SCH (08:33)
[2021-02-12 08:34] VITALS: BP 132/88
[2021-02-12] MEDS: amLODIPine 5 MG TAB PO SCH (08:34)
[2021-02-12] MEDS: SIMVASTATIN 10 MG TAB PO SCH (08:34)
[2021-02-12] MEDS: allopurinoL 100 MG TAB PO SCH (08:34)
[2021-02-12] MEDS: CYCLOBENZAPRINE 5MG TABLET PO SCH (08:34)
[2021-02-12] MEDS ORDERED: AYRGEL NARES (08:49)
[2021-02-12] MEDS ORDERED: SODIGEL TOP (08:49)
--- NOTE | 2021-02-12 16:20 | DSES ---
DISCHARGE SUMMARY DATE OF ADMISSION: 02/04/2021 DATE OF DISCHARGE: 02/12/2021 TOWER CONTROL OPERATOR: Dr. Modseto Fam. PROCEDURE: 1. 02/11/2021: Bone marrow biopsy. 2. Rhinorocket placement to the left nares by ENT surgeon, Dr. Fam. DISCHARGE INSTRUCTIONS: 1. Patient is to follow up withENT Dr. Collins. Continue with nasal spray and gel as outpatient. Augmentin, for 10 days. 2. Primary care physician followup within five days to decide when to resume eliquis for PE. 3. Medical oncology followup within five days to repeat platelet count. Transfuse as needed and follow up on bone marrow biopsy done on 02/11/2021. DISCHARGE DIAGNOSES: Epistaxis in the setting of eliquis and plts 28 Altered mental status due to gabapentin Community acquired pneumonia. acute on chronic kidney disease History of Lymphoma acute blood loss anemia in the setting of eliquis and epistaxis Symptomatic anemia requiring 3 units RBC transfusion Thrombocytopenia hld htn pe held oral anticoagulation due to blood loss requiring 3 units RBC transfusion iddm2 gout HOSPITAL COURSE: This is a 64-year-old male admitted on 02/04/2021 with complaints of epistaxis. The nose was packed and cauterized at [facility], transferred to [facility]. ER gave tranexamic acid. Patient was found to be thrombocytopenic with platelet count of 28, acute kidney injury with creatinine 2.48 from baseline of 1.65 a few days ago. ENT, Dr. Fam, was consulted. Eliquis was held. Patient required platelet transfusion and red blood cell transfusion, a total of three leukocyte-reduced red blood cell transfusions, four plateletphereses and three red blood cell transfusions due to hemoglobin of 7.2 and platelet count 28,000 initially. Platelet count now is 65,000. No signs of active bleeding. Blood cultures were negative. Hemoccult stool was negative. Patient was found to be febrile, was given intravenous Zosyn. Chest x-ray showed left basilar infiltrate versus atelectasis. Maxillofacial CT had no acute findings. No growth on blood cultures. Patient had a history of lymphoma with possible recurrence, found to be thrombocytopenic and received four plateletphereses transfusions and three units of red blood cells. Patient underwent bone marrow biopsy with outpatient followup with medical oncology on Tuesday. He was kept on insulin sliding scale with coverage, hyperglycemic protocol and gabapentin for chronic neuropathy. Due to acute kidney injury, his lisinopril and hydrochlorothiazide were held and he was kept on Norvasc for blood pressure control. PHYSICAL EXAMINATION ON DISCHARGE: VITAL SIGNS: Temperature 98.8, pulse 79, respiratory rate 16, blood pressure 132/88, 92% on room air. HEENT: Left nares with Rhinorocket. No bleeding. LUNGS: Clear to auscultation. No wheezing or rales. HEART: S1, S2. Sinus rhythm. ABDOMEN: Soft, nontender, nondistended. EXTREMITIES: No cyanosis, clubbing or pitting edema. LABORATORY DATA/IMAGING STUDIES/MICROBIOLOGY: Please see the chart. TIME SPENT ON DISCHARGE: 30 minutes. MTDD
[2021-02-13] MEDS ORDERED: MOXIFLOXACIN 400 MG TAB PO SCH (06:00)
== END 2021-02-12 12:22 | disposition home or self-care (01) | DRG 150 ==
LOC: M ED 19:24 → M ED INP 19:25 → ENRESERV 23:07 → M MSPAV 02-05 00:14 → OBSVTOIN 02-09 10:51 → UNDODISOB 02-12 12:22
PROVIDERS: ADMIT Internal Medicine; ATTEND General Practice
PROC: 30233R1 Transfusion of Nonautologous Platelets into Peripheral Vein, Percutaneous Approach (ICD-10-PCS; 2021-02-04)
PROC: 30233N1 Transfusion of Nonautologous Red Blood Cells into Peripheral Vein, Percutaneous Approach (ICD-10-PCS; principal; 2021-02-05)
PROC: 07DR3ZX Extraction of Iliac Bone Marrow, Percutaneous Approach, Diagnostic (ICD-10-PCS; 2021-02-11)
DX: R04.0 Epistaxis (principal); J18.9 Pneumonia, unspecified organism; N17.9 Acute kidney failure, unspecified; D62 Acute posthemorrhagic anemia; C85.90 Non-Hodgkin lymphoma, unspecified, unspecified site; D69.6 Thrombocytopenia, unspecified; I10 Essential (primary) hypertension; G62.9 Polyneuropathy, unspecified; Z79.01 Long term (current) use of anticoagulants; Z86.711 Personal history of pulmonary embolism; M10.9 Gout, unspecified; E11.9 Type 2 diabetes mellitus without complications; Z98.41 Cataract extraction status, right eye; Z98.42 Cataract extraction status, left eye; Z79.4 Long term (current) use of insulin; Z79.899 Other long term (current) drug therapy; E78.00 Pure hypercholesterolemia, unspecified